=== PATIENT | male | born 1945 ===

== ENCOUNTER 2022-05-05 20:49 | Emergency (ER) | payer MEDICARE, SELFPAY ==
[2022-05-05 20:59] VITALS: BP 149/86; PULSE 80; RESP 18; TEMP 36.7; O2SAT 100; BMI 28.5
--- NOTE | 2022-05-05 21:03 | ECG_ITS ---
Test Reason : CHEST PAIN Blood Pressure : / mmHG Vent. 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
[2022-05-05 21:19] LABS: MANUAL DIFF FLAG NO
[2022-05-05 21:20] LABS: Basophils Percent Auto 0.6 % (0-2); Eosinophils Absolute Auto 0.2 X10*3/uL (0.0-0.4); Eosinophils Percent Auto 2.7 % (0-4); Hematocrit 37.4 % (42.0-52.0); Hemoglobin 12.8 g/dl (14.0-18.0); Imm Gran Abs Auto 0.02 X10*3/uL (0.00-0.03); Imm Gran Pct Auto 0.3 % (0.0-0.4); Lymphocytes Absolute Auto 1.4 X10*3/uL (1.2-4.9); Lymphocytes Percent Auto 21.9 % (20-40); Mean Corpuscular HGB Conc 34.2 g/dl (31.0-36.0); Mean Corpuscular Hemoglobin 29.7 pg (27.0-33.0); Mean Corpuscular Volume 86.8 fL (80.0-98.0); Mean Platelet Volume 8.2 fL (9.4-12.4); Monocytes Absolute Auto 0.5 X10*3/uL (0.1-1.2); Neutrophils Absolute Auto 4.2 x10*3/uL (2.0-8.3); Neutrophils Percent Auto 66.5 % (45-73); Platelet Count 194 X10*3/uL (160-400); Red Blood Count 4.31 X10*6/uL (4.60-5.80); Red Cell Distribution Width 12.3 % (11.0-16.0); White Blood Count 6.3 X10*3/uL (4.8-10.8)
[2022-05-05 21:40] LABS: Alanine Aminotransferase 19 U/L (0-40); Albumin Level 4.2 g/dL (3.5-5.0); Alkaline Phosphatase 78 U/L (39-117); Anion Gap 14 (12-20); Aspartate Amino Transferase 19 U/L (5-37); Bilirubin Total 0.6 mg/dL (0.0-1.0); Blood Urea Nitrogen 17 mg/dL (9-16); Calcium 9.4 mg/dL (8.4-10.2); Carbon Dioxide 25 mmol/L (22-29); Chloride 106 mmol/L (96-108); Creatinine Clr Calc Pharmacy 91.3; Estimated Glomerular Filt Rate > 60; Glucose Random 117 mg/dL (60-115); Potassium 4.1 mmol/L (3.3-5.1); Sodium 141 mmol/L (135-145); Total Protein 6.6 g/dL (6.5-8.0)
[2022-05-05 21:44] LABS: Troponin-I High Sensitivity 3.5 ng/L (<3.5-35.0)
--- NOTE | 2022-05-05 23:46 | ED_ITS ---
HPI - Arrhythmia/Palpitations General Chief Complaint: Arrhythmia/Palpitations Stated Complaint: irregular heartbeat Time Seen by Provider: 05/05/22 23:46 Source: patient Mode of arrival: ambulatory Limitations: no limitations History of Present Illness HPI narrative: . History of hypertension and episodes of palpitation off and on for long time never been evaluated by the methane gas collection system operator usually it happens and goes away of its own today patient since morning having episodes of palpitations not going away no dizziness no chest pain no shortness of breath with those episodes no fever no chills Related Data Allergies Allergy/AdvReac Type Severity Reaction Status Date / Time nifedipine [From PROCARDIA] Allergy Unknown UNKNOWN Unverified 04/06/20 14:34 Review of Systems Review of Systems: Yes all other systems are reviewed and are negative [facility] Social History Social History Advance Directives: Yes Advance Directives Information Provided: No Advance Directives on File: No Physical Exam Vital Signs: Vital Signs: Last Vital Signs Temp 98.0 F 05/05/22 20:59 Pulse 78 05/06/22 00:00 Resp 19 05/06/22 00:00 BP 164/89 H 05/06/22 00:00 Pulse Ox 98 05/06/22 00:00 O2 Del Method 05/06/22 00:00 BMI result Body Mass Index 28.5 Appearance: Alert. Oriented X3. No acute distress. Eyes: PERRLA, No Nystagmus ENT: Pharynx normal. Oral Mucosa moist Neck: Normal inspection. Neck supple. CVS: Normal heart rate and rhythm. Premature beats+ Pulses normal. Respiratory: No respiratory distress. Equal air entry bilateral, no wheezing/rales/rhonchi Abdomen: Soft and nontender. Bowel sounds are present, no mass palpable, no CVA tenderness Skin: Skin warm and dry. Normal skin color. Normal skin turgor. Extremities: No lower extremity edema. No calf tenderness Neuro: Oriented X 3. No motor deficit. No sensory deficit. MDM - Arrhythmia/Palpitations MDM Narrative Medical decision making narrative: During stay in the ER patient nuclear monitoring technician showed unifocal PVCs which have decreased after arrival repeat EKG did not show any PVCs patient does not have any methane gas collection system operator advised to follow with methane gas collection system operator here to have Holter monitoring Lab Data Attestation: I reviewed the patient's lab results. Result diagrams: 05/05/22 21:13 05/05/22 21:13 Labs: Lab Results 05/05/22 05/05/22 05/05/22 Range/Units 21:13 21:13 21:13 WBC 6.3 (4.8-10.8) X10*3/uL RBC 4.31 L (4.60-5.80) X10*6/uL Hgb 12.8 L (14.0-18.0) g/dl Hct 37.4 L (42.0-52.0) % MCV 86.8 (80.0-98.0) fL MCH 29.7 (27.0-33.0) pg MCHC 34.2 (31.0-36.0) g/dl RDW 12.3 (11.0-16.0) % Plt Count 194 (160-400) X10*3/uL MPV 8.2 L (9.4-12.4) fL Immature Gran % (Auto) 0.3 (0.0-0.4) % Neut % (Auto) 66.5 (45-73) % Lymph % (Auto) 21.9 (20-40) % Pacific % (Auto) 8.0 (2-11) % Eos % (Auto) 2.7 (0-4) % Baso % (Auto) 0.6 (0-2) % Lymph # (Auto) 1.4 (1.2-4.9) X10*3/uL Pacific # (Auto) 0.5 (0.1-1.2) X10*3/uL Eos # (Auto) 0.2 (0.0-0.4) X10*3/uL Baso # (Auto) 0.0 (0.0-0.2) X10*3/uL Abs Immat Gran (auto) 0.02 (0.00-0.03) X10*3/uL Absolute Neuts (auto) 4.2 (2.0-8.3) x10*3/uL Absolute Nucleated RBC 0.000 (0.0-0.012) X10*3/uL Nucleated RBC % (auto) 0.0 (0.0-0.2) /100WBC Sodium 141 (135-145) mmol/L Potassium 4.1 (3.3-5.1) mmol/L Chloride 106 (96-108) mmol/L Carbon Dioxide 25 (22-29) mmol/L Anion Gap 14 (12-20) BUN 17 H (9-16) mg/dL Creatinine 0.85 (0.5-1.4) mg/dL Estim Creat Clear Calc 91.3 Estimated GFR > 60 Random Glucose 117 H (60-115) mg/dL Calcium 9.4 (8.4-10.2) mg/dL Magnesium 2.0 (1.6-2.6) mg/dL Total Bilirubin 0.6 (0.0-1.0) mg/dL AST 19 (5-37) U/L ALT 19 (0-40) U/L Alkaline Phosphatase 78 (39-117) U/L Troponin I High Sens 3.5 (<3.5-35.0) ng/L Total Protein 6.6 (6.5-8.0) g/dL Albumin 4.2 (3.5-5.0) g/dL ECG Data Attestation: I personally reviewed and interpreted this ECG as follows: Interpretation: Sinus rhythm heart rate 88 beats per minutes PAC's +, unifocal PVCs are present no acute ischemic change Discharge Plan Discharge Clinical Impression: Ventricular premature beats Patient Disposition: Home, Self-Care Instructions: Premature Ventricular Contractions (ED) Additional Instructions: Follow-up with methane gas collection system operator for further evaluation so far in the monitor looks like you have premature beats which causing a palpitation episode Referrals: Bar Merchant MD [Physician] - 3 days Interventions: ED Discharge Assessment Last Done: 05/06/22 01:23 Discharge Date/Time: 05/06/22 01:24
--- NOTE | 2022-05-05 23:48 | ECG_ITS ---
Test Reason : REPEAT Blood Pressure : / mmHG Vent. 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
[2022-05-06] VITALS: BP 164/89; PULSE 78; RESP 19; O2SAT 98
--- OUTSIDE RECORDS SUMMARY | 2022-05-06 00:03 | XMS_ITS ---
:1945 Author Name Denys Snow Care Team Providers Name Role Phone Denys Snow Unavailable Unavailable PROBLEMS Type Condition ICD9-CM Code [id number] Onset Condition SNOMED Code Code Dates Status Problem Other hammer M20.42 Active 8511227 [id number] toe(s) (acquired), left foot Problem Other hammer M20.41 Active 4123278 [id number] toe(s) (acquired), right foot ALLERGIES Substance Reaction Event Type Date Status Procardia rash Drug Allergy Dec, Active Amoxicillin Unknown Drug Allergy Dec, Active Zestril Unknown Drug Allergy Dec, Active ENCOUNTERS Encounter Location Date Diagnosis [address] Dec, Oth er hammer toe(s) [place] (acquired), [place] foot [address] M20.41 ; Subungu al hematoma of fift h toe of right foot, i nitial encounter S90.22 1A ; Other hammer toe (s) (acquired), left foot M20.42 ; Subungu al hematoma of grea t toe of right foot, i nitial encounter S90.21 1A ; Subungual hemato ma of second toe of le ft foot, initial en counter S90.222A and Sub ungual hematoma of seco nd toe of right foot, i nitial encounter S90.[address] Mar, [place] [address] Jan, [place] [address] [facility] [address] Jan, Phi ntar Fasciitis [place] 728.71 ; Myosit is 729.1 [address] ; Pain in Limb 7 29.5 ; Bursitis 727.3 ; Achilles Tendoni tis Bursitis 726.71 and Calcaneal spur 7 26.73 IMMUNIZATIONS Vaccine Route Administration Date Status COVID-19 Moderna Vaccine Unknown Aug 30, 2020 Adminis tered SOCIAL HISTORY Qualifiers Date Former Smoker REASON FOR REFERRAL FUNCTIONAL STATUS PLAN OF CARE Activity Details Pending Test X ray : Foot, left 3V VITAL SIGNS Height 6 ft 0 in in 2021-01-29 Weight 206 lbs 2021-01-29 BMI 27.94 kg/m2 2021-01-29 Heart Rate 70 /min 2013-02-16 Blood pressure systolic 116 mm Hg 2021-01-01 Blood pressure diastolic 68 mm Hg 2021-01-01 MEDICATIONS Medication Instructions Dosage Frequency Start End Duration Statu s Date Date Benicar 20 MG as directed Unknow n Losartan Orally Once a 1 tablet 24h 30 day(s) Active Potassium 50 MG day Fish Oil 1200 Orally Once a 1 capsule 24h 30 day(s) Unknown MG day Fioricet Orally every 4 1 tablet as 4h Acti ve 50-325-40 MG hrs needed Diclofenac as directed Not-Takin Sodium 1 % g Zolpidem Orally Once a 1 tablet at 24h Unkno wn Tartrate 10 MG day bedtime as needed Fioricet Orally every 4 1 tablet as 4h Unkn own 50-325-40 MG hrs needed Atorvastatin Orally Once a 1 tablet 24h 30 day(s) Ac tive Calcium 40 MG day Protonix 40 MG Orally Once a 1 tablet 24h 30 day(s) Active day Atorvastatin Active Calcium Diclofenac as directed Unknown Sodium 1 % Protonix 40 MG Orally Once a 1 tablet 24h 30 day(s) Unknown day Flomax Active Simvastatin 20 Orally Once a 1 tablet in 24h 30 day( s) Not-Takin MG day the evening g Fish Oil 1200 Orally Once a 1 capsule 24h 30 day(s) Not-Takin MG day g Benicar 20 MG as directed Not-Ta kin g Zolpidem Orally Once a 1 tablet at 24h Not-T pilar Tartrate 10 MG day bedtime as g needed Flomax 0.4 MG Orally Once a 1 capsule 24h 30 day(s) Active day Aspirin 81 MG Orally Once a 1 tablet 24h 30 day(s) U nknown day Aspirin 81 MG Orally Once a 1 tablet 24h 30 day(s) N ot-Takin day g Simvastatin 20 Orally Once a 1 tablet in 24h 30 day( s) Unknown MG day the evening Losartan Active Potassium Pantoprazole Orally Once a 1 tablet 24h 30 day(s) Ac tive Sodium 40 MG day PROCEDURES Procedure Date Ordered Result Body Site X-RAY EXAM OF LEFT FOOT 3V February 16, 2013 RESULTS No Results REASON FOR VISIT Insurance Providers [facility] Member Patient Patient Patient Patient Patient Subscriber Subscriber Subscriber Group Insurance Plan Plan Plan Plan ID Relationship Address Phone Name Date of ID Name Date of No Type Insurance Insurance Insurance Coverage to Subscriber Address Phone Name Dates [facility] [phone] [employer] self [place] [id number] All Others [id number] All Others [place] [address] [facility] [place] [address] Medex Blue [phone] Medex Blue self [place] [id number] Shield [id number] Shield [place] [address] [facility] [place] [address] Medicare National [phone] [place] self [place] [id number] [facility] [address] [employer] [address] [facility] [place] [address] MEDICAL (GENERAL) HISTORY Type Description Date Medical History hypertension Medical History hyperlipidemia Medical History gastroesophageal reflux disease (GERD) Medical History migraine headaches Medical History insomnia Medical History gall bladder problems Medical History plantar fasciitis Medical History Arthritis Medical History Measles Medical History Mumps Medical History Chicken pox Surgical History neck surgery 1998 Surgical History cholecystectomy 1988
--- OUTSIDE RECORDS SUMMARY | 2022-05-06 00:03 | XMS_ITS | Continuity of Care Document ---
:1945 Author Organization [facility] Address [address] [place] [address]- Care Team Providers Name Role Phone Denys Snow MD Primary Care Physician Encounter [facility] Date(s): 03/12/22 - 04/11/[address] [address]- Attending Physician: Carly Farias Admitting Physician: AdmtrCarly Referring Physician: AdmtrCarly Allergies, Adverse Reactions, Alerts Substance Reaction Severity Status amoxicillin Active Procardia Active Medications acetaminophen 325 mg oral tablet 650 mg, 2, tablet, By Mouth, Every 6 hours, May take OTC not to exceed 3000 mg/day, Refills 0, Maintenance, 03/27/22 11:43:00 EDT, Partial fill upon patient request if the prescription is for a schedule II opioid drug. Start Date: 03/27/22 Status: Orderedacetaminophen/butalbital/caffeine 325 mg-50 mg-40 mg oral tablet TAKE 1 TABLET BY MOUTH EVERY 6 HOURS NEEDED FOR PAIN NOT COVERED Start Date: 03/05/22 Status: OrderedAspirin Tablet 325 mg, By Mouth, 2 times a day, Refills 0, Maintenance, 03/27/22 11:43:00 EDT, Partial fill upon patient request if the prescription is for a schedule II opioid drug. Start Date: 03/27/22 Status: Orderedatorvastatin 40 mg oral tablet 1 tablet = 40 mg, By Mouth, Daily, # 30 tablet, 5 Refills, Maintenance, 03/05/22 9:20:00 EDT, Tablet, Partial fill upon patient request if the prescription is for a schedule II opioid drug. Start Date: 03/05/22 Status: Orderedcelecoxib 200 mg oral capsule 1 capsule = 200 mg, By Mouth, Daily in AM, 0 Refills, Maintenance, 03/27/22 11:43:00 EDT, Capsule, Partial fill upon patient request if the prescription is for a schedule II opioid drug. Start Date: 03/27/22 Status: OrderedColace Capsule 100 mg, 1, capsule, By Mouth, 2 times a day, HOld for loose stools, Refills 0, Maintenance, 03/27/2211:43:00 EDT, Partial fill upon patient request if the prescription is for a schedule II opioid drug. Start Date: 03/27/22 Status: Orderedlosartan 50 mg oral tablet 1 tablet = 50 mg, By Mouth, Daily, # 30 tablet, 0 Refills, Maintenance, 03/05/22 9:20:00 EDT, Tablet, Partial fill upon patient request if the prescription is for a schedule II opioid drug. Start Date: 03/05/22 Status: OrderedMaalox Plus Liquid 30 mL, By Mouth, Every 4 hours, PRN Other, Heartburn, 0 Refills, Maintenance, 03/27/22 11:43:00 EDT,Suspension, Partial fill upon patient request if the prescription is for a schedule II opioid drug. Start Date: 03/27/22 Status: OrderedMilk of Magnesia Liquid 30 mL, By Mouth, Daily, PRN Constipation, 0 Refills, Maintenance, 03/27/22 11:43:00 EDT, Suspension,Partial fill upon patient request if the prescription is for a schedule II opioid drug. Start Date: 03/27/22 Status: OrderedMiraLax Powder 1 pack/packet = 17 Gm, By Mouth, Daily, PRN Constipation, 0 Refills, Maintenance, 03/27/22 11:44:00 EDT, Powder, Partial fill upon patient request if the prescription is for a schedule II opioid drug. Start Date: 03/27/22 Status: Orderedpantoprazole 40 mg oral delayed release tablet 1 tablet = 40 mg, By Mouth, Daily, # 30 tablet, 0 Refills, Maintenance, 03/05/22 9:20:00 EDT, EC Tablet Start Date: 03/05/22 Status: Orderedsenna 187 mg oral tablet 1 tablet = 8.6 mg, By Mouth, Daily at bedtime, PRN as needed for constipation, 0 Refills, Maintenance, 03/27/22 11:44:00 EDT, Tablet, Partial fill upon patient request if the prescription is for a schedule II opioid drug. Start Date: 03/27/22 Status: Orderedtamsulosin 0.4 mg oral capsule 0.4 mg, 1, capsule, By Mouth, Daily, # 30 capsule, Refills 0, Maintenance, 03/05/22 9:20:00 EDT, Partial fill upon patient request if the prescription is for a schedule II opioid drug. Start Date: 03/05/22 Status: Ordered Problem List Condition Effective Dates Status Health Status Informant Hypertension(Confirmed) Active Benign prostatic Active hyperplasia(Confirmed) Acid reflux disease(Confirmed) Active Hyperlipidemia(Confirmed) Active Migraine(Confirmed) Active Obese class I(Confirmed) Active Social History Social History Type Response Tobacco Other: Former smoker, quit i n the . Sex Care Team PersonnelName: Denys Snow MD Address: [address] [place] [address] [address]
--- OUTSIDE RECORDS SUMMARY | 2022-05-06 00:03 | XMS_ITS | Continuity of Care Document ---
:1945 Author Organization [facility] Address [address] [place] [address]- Care Team Providers Name Role Phone Denys Snow MD Primary Care Physician Encounter [facility] [place] Date(s): 03/27/22 - 03/28/[address] [address] Discharge Disposition: A-Transfer VNA/Home Health Attending Physician: Geovanny Barber MD Admitting Physician: Geovanny Barber MD Referring Physician: Geovanny Barber MD Allergies, Adverse Reactions, Alerts Substance Reaction Severity [...] II opioid drug. Start Date: 03/27/22 Status: OrderedoxyCODONE 5 mg oral tablet See Instructions, PRN, Take 1-2 tablets every 4 hours as needed for moderate to severe pain., # 60 tablet, Refills 0, Tot. Refills 0, Acute 04/03/22 8:00:00 EDT, Pain , Moderate, 03/27/22 11:40:00 EDT,Instructions Replace Required Details, Route to P... Start Date: 03/27/22 Stop Date: 04/03/22 Status: OrderedOxyCODONE IR Tablet 5 mg, Tablet, By Mouth, Every 4 hours, PRN for Pain , Mild, Routine, 03/27/22 11:27:00 EDT Start Date: 03/27/22 Stop Date: 03/28/22 Status: Discontinuedpantoprazole 40 mg oral delayed release tablet 1 [...] II opioid drug. Start Date: 03/05/22 Status: OrderedtraMADol 50 mg oral tablet See Instructions, PRN Pain , Mild, Take 1-2 tablets every 6 hours as needed for mild pain. not to exceed 400 mg/day, # 56 tablet, 0 Refills, Acute 04/03/22 8:00:00 EDT, 03/27/22 11:39:00 EDT, Tablet, [facility], Partial fill upon patie... Start Date: 03/27/22 Stop Date: 04/03/22 Status: Ordered Problem List Condition Effective Dates Status Health Status Informant Hypertension(Confirmed) Active Benign prostatic Active hyperplasia(Confirmed) Acid reflux disease(Confirmed) Active Hyperlipidemia(Confirmed) Active Migraine(Confirmed) Active Obese class I(Confirmed) Active Results Radiology Reports Exam Date Time Procedure Performing Provider Status 03/27/22 2:34 PM Knee 1 or 2 Views Left Thelma Hanna; Bonifacio (Verified) Notes:(Knee 1 or 2 Views Left) Reason For Exam: PostopRESULT: Knee 1 or 2 Views Left Knee 1 or 2 Views Left, 2 views Reason: Postop; Clinical Question(s): Other:; Implant Position; Special Instructions: Do prior to daystay discharge, No flexed knee in the lateral position. Keep leg straight; 2 Views COMPARISON: None. FINDINGS: Soft tissue gas is expected status post total knee arthroplasty. No evidence of hardware complication or periprosthetic fracture. IMPRESSION: Expected postoperative findings status post total knee arthroplasty WSN: [id number] Ordering Physician: Kriss Kuo Dictated By: Zeeshan Bone MD Dictated Date/Time: 03/27/22 2:43 pm Reviewed By: Zeeshan Bone MD Signed By: Zeeshan Bone MD Signed Date/Time: 03/27/22 2:43 pm Transcribed By: DENISE Transcribed Date/Time: 03/27/22 2:42 pm Vital Signs Most recent to oldest 1 2 3 [Reference Range]: Height 180 cm 180 cm 180 cm (03/28/22 10:46 AM) (03/28/22 7:26 AM) (03/28/22 4:31 AM) Weight 99.2 kg 99.2 kg 99.2 kg (03/27/22 8:03 AM) (03/27/22 6:29 AM) (03/27/22 6:12 A M) Oxygen Saturation [94-100 %] 98 % 98 % 100 % (03/28/22 10:46 AM) (03/28/22 7:26 AM) (03/28/22 4:31 AM) Pulse Rate [55-90 bpm] 78 bpm 72 bpm 72 bpm (03/28/22 10:46 AM) (03/28/22 7:26 AM) (03/28/22 4:31 AM) Body Mass Index [18.5-24.99] 30.62 30.62 *>HHI* *>HHI* (03/27/22 8:03 AM) (03/27/22 6:29 AM) Blood Pressure [90-138/55-84 mm 133/77 mm Hg 158/76 mm Hg 118/67 mm Hg Hg] (03/28/22 10:46 AM) *H* (03/28/22 4:31 A M) (03/28/22 7:26 AM) Respiratory Rate [16-30 br/min] 18 br/min 16 br/min 18 br/min (03/28/22 11:18 AM) (03/28/22 10:46 AM) (03/28/22 10:1 8 AM) Temperature [96.8-100.4 DegF] 97.9 DegF 97.8 DegF 98 .3 DegF (03/28/22 10:46 AM) (03/28/22 7:26 AM) (03/28/22 4:31 AM) Mode of Delivery (Oxygen) Room air Room air Room a ir (03/28/22 10:46 AM) (03/28/22 7:26 AM) (03/28/22 4:31 AM) Blood pressure sites Arm, right Arm, right Arm, right (03/28/22 10:46 AM) (03/28/22 7:26 AM) (03/28/22 4:31 AM) Temperature Route Oral Oral Oral (03/28/22 10:46 AM) (03/28/22 7:26 AM) (03/28/22 4:31 AM) Dry Weight 99.2 kg (03/27/22 6:29 AM) Social History Social History Type Response Tobacco Other: Former smoker, quit i n the . Sex XR Knee - left 1 or 2 Views BHSPowerscribe , CIS S: TRANSCRIBE Zeeshan Bone MD: VERIFY Event Display: Result: Authored Date: Knee 1 or 2 Views Left, 2 views Reason: Postop; Clinical Question(s): Other:; Implant Position; Special Instructions: Do prior to daystay discharge, No flexed knee in the lateral position. Keep leg straight; 2 Views COMPARISON: None. FINDINGS: Soft tissue gas is expected status post total knee arthroplasty. No evidence of hardware complication or periprosthetic fracture. IMPRESSION: Expected postoperative findings status post total knee arthroplasty WSN: [id number] Ordering Physician: Kriss Kuo Dictated By: Zeeshan Bone MD Dictated Date/Time: 03/27/22 2:43 pm Reviewed By: Zeeshan Bone MD Signed By: Zeeshan Bone MD Signed Date/Time: 03/27/22 2:43 pm Transcribed By: DENISE Transcribed Date/Time: 03/27/22 2:42 pm Care Team PersonnelName: Denys Snow MD Address: [address] [place] [address] Internal Medicine [facility] [place] [address]
--- OUTSIDE RECORDS SUMMARY | 2022-05-06 00:03 | XMS_ITS | Continuity of Care Document ---
:1945 Author Organization [facility] Address [address] [place] [address]- Care Team Providers Name Role Phone Denys Snow MD Primary Care Physician Encounter [facility] ACCT R [id number] Date(s): 03/05/22 - 04/04/22 [facility] [address] [place] [address] Attending Physician: Carly Farias Admitting Physician: AdmtrCarly Referring Physician: Admtr, Carly Allergies, Adverse Reactions, Alerts Substance Reaction Severity [...] Care Team PersonnelName: Denys Snow MD Address: [address] [place] [address] Internal Medicine [address]
--- OUTSIDE RECORDS SUMMARY | 2022-05-06 00:03 | XMS_ITS ---
:1945 Author Organization [facility] Address [address] [place] [address] Care Team Providers Name Role Phone Jose Mccullough Unavailable Unavailable PROBLEMS Type Condition ICD9-CM Code [id number] Code Onset Condition SNO MED Code Dates Status Problem Esophageal 530.81 Active 367365532 reflux Problem Blood in stool 578.1 Active 38085 9008 ALLERGIES Substance Reaction Event Type Date Status Procardia Unknown Drug Allergy Jul, Active ENCOUNTERS Encounter Location Date Diagnosis [facility] Outpatient [address] Oct, [place] [id number] [facility] [address] [place] [address], [facility] [place] [address], [place]od in stool 578.1 and [facility] [address] [place] Esophageal reflu x 530.[address] [address] [facility] Outpatient [address] Apr, [place] [id number] [facility] ER [address] November, [place] [id number] [facility] Outpatient [address] Dec, [place] [id number] [facility] ER [address] Jul, [place] [id number] IMMUNIZATIONS No Known Immunizations SOCIAL HISTORY Never Assessed REASON FOR REFERRAL FUNCTIONAL STATUS PLAN OF CARE Activity Details Future Appointment Provider Name:Joes Mccullough , 2022-06-04 10:10:00 AM, [address] [place] [address], [address], [place], [address], Future/Pending Procedure COLONOSCOPY [id number] VITAL SIGNS Weight 239 lbs 2011-07-16 Height 71.5 in 2011-07-16 BMI 32.87 kg/m2 2011-07-16 Heart Rate 72 /min 2011-07-16 Blood pressure systolic 126 mm Hg 2011-07-16 Blood pressure diastolic 90 mm Hg 2011-07-16 MEDICATIONS Medication Instructions Dosage Frequency Start End Duration Statu s Date Date Simvastatin Active Protonix Active Aspirin Active Benicar Active MoviPrep 100 GM Orally one time as directed Jun, do se Active 2010 PROCEDURES No Known procedures RESULTS No Results REASON FOR VISIT Patient presents today for a SCREENING COLON, preauthorization for Colonoscopy, colon prep, rectal bleed, pre-colon Insurance Providers [facility] Member Patient Patient Patient Patient Patient Subscriber Subscriber Subscriber Group Insurance Plan Plan Plan Plan ID Relationship Address Phone Name Date of ID Name Date of No Type Insurance Insurance Insurance Coverage to Subscriber Address Phone Name Dates MEDEX ATTN [phone] MEDEX self CAR [id number] CLAIMS [address] [place] [address] [facility] [address] BLUE [phone] BLUE self CAR [id number] [place] [id number] [address] [place] [address] [place] [address] [facility] H [id number] MEDICARE [phone] MEDICARE self CAR [id number] [place] [address] [place] [address]
--- OUTSIDE RECORDS SUMMARY | 2022-05-06 00:04 | XMS_ITS | Encounter Summary ---
:1945 Author Organization [facility] Address [address] [place] [address] Support Name Relationship Address Phone OLIVIA FUENTES Unavailable [address] [place] [address] OLIVIA FUENTES Unavailable [address] [place] [address] Insurance Providers: All historical and current Section Date Range: From patient's date of to the date document was created.This section includes the names of all active insurance providers for the patient. Insurance Type of Plan Start of End of Group Member Insurance Policy P atient's Provider Coverage Name Policy Policy Number ID Provider's Ha's Relationship Coverage Coverage Telephone Name to Policy Number Ha [facility] MEDIC[facility] MEDEX Jul 21 [id number] [phone] [facility] SUPPLEMEN 2 2017 [id number] CAR Wyatt [facility] MEDICARE MEDEX Jul 21, [id number] [phone] DANTE [facility] PATIENT SUPPLEMEN 2 2017 [id number] CAR Wyatt MEDICARE MEDICARE PART Sep 18, PART B [id number] DANTE [facility] PATIENT (WNR) (M) B 2014 AG02 CAR Wyatt MEDICARE MEDICARE PART Jun 20, PART A [id number] DANTE [facility] PATIENT (WNR) (M) A 2011 AG02 CAR Wyatt Selected Encounter This section includes the information on record at [place] for the Encounter. Date/Time Encounter Type Encounter Description Reason Provider Source May 17, 2021 12:00 Outpatient Encounter EVENT (HISTORICAL) AM IHE Encounter Template Text not used by VA Plan of Treatment: Future Appointments (+ 6 months) and Future Tests (+/- 45 days) The Plan of Treatment section includes future care activities for the patient from all [facility]. This section includes future appointments and future orders which are active, pending orscheduled.Future Appointments This section includes appointments that were scheduled to occur 6 months from the date of the Encounter, up to a maximum of 20 appointments. The data comes from all [place] treatment facilities. Appointment Date/Time Appointment Type Appointment Facili ty Name Jun 27, 2021 08:00 AM AMBULATORY - MEDICINE [facility] Immunizations: All administered on the encounter date This section contains immunizations associated to the Encounter. Immunization Series Date Issued Reaction Comments COVID-19 (MODERNA), MRNA, LNP-S, PF, 100 MCG OR 3 Apr 50 MCG DOSE Advance Directives: All historical and current Section Date Range: From patient's date of to the date document was created. This section includes ALL of a patient's completed or amended [place] Advance and Rescinded Directives. The entries below indicate that a directive exists for the patient, but an actual copy is not included with this document. The data comes from all [place] facilities. Date Advance Directives Provider Source Dec 20, 2013 ADVANCE DIRECTIVE MARTIN FITCH [facility]
--- OUTSIDE RECORDS SUMMARY | 2022-05-06 00:04 | XMS_ITS | Encounter Summary ---
:1945 Author Organization [facility] Address [address] [place] [address] Support Name Relationship Address Phone OLIVIA FUENTES Unavailable [address] [place] [address] OLIVIA FUENTES Unavailable [address] [place] [address] Insurance Providers: All historical and current Section Date Range: From patient's date of to the date document was created.This section includes the names of all active insurance providers for the patient. Insurance Type of Plan Start of End of Group Member Insurance Policy P atient's Provider Coverage Name Policy Policy Number ID Provider's Ha's Relationship Coverage Coverage Telephone Name to Policy Number Ha [facility] MEDICARE MEDEX Jul 21 [id number] [phone] [facility] SUPPLEMEN 2 2017 [id number] CAR Wyatt [facility] MEDICARE MEDEX Jul 21, [id number] [phone] DANTE [facility] PATIENT SUPPLEMEN 2 2017 [id number] CAR Wyatt MEDICARE MEDICARE PART Sep 18, PART B [id number] D[facility]TE [facility] PATIENT (WNR) (M) B 2014 AG02 CAR Wyatt MEDICARE MEDICARE PART Jun 20, PART A [id number] DANTE [facility] PATIENT (WNR) (M) A 2011 AG02 Edmundo CAR Selected Encounter This section includes the information on record at [place] for the Encounter. Date/Time Encounter Type Encounter Description Reason Provider Source Jun 27, 2021 09:14 Outpatient Encounter OPTOMETRY AM IHE Encounter Template Text not used by VA Social History: Smoking Status (Most current) and Tobacco Use (All prior to encounter date) This section includes the most current, and the historical, smoking and tobacco-related health factors from the [place] facility where the Encounter took place.Current Smoking Status This section includes the most current smoking, or tobacco-related health factor, from the [place] facility where the Encounter took place. Date/Time Current Smoking Status Comment Facility May 17, 2021 09:30 AM VA-TOBACCO FORMER USER [place] [facility] [place] [facility] Tobacco Use History This section includes a history of the smoking, or tobacco- related health factors, that were collected on or before the date of the Encounter. The data comes from the [place] facility where the Encounter took place. Date/Time Smoking Status/Tobacco Use Comment Facil it May 17, 2021 09:30 AM VA-TOBACCO QUIT 15 YRS OR [place] [facility] [place] [facility] May 17, 2020 10:30 AM VA-TOBACCO FORMER USER [place] [facility] [place] [facility] May 17, 2020 10:30 AM VA-TOBACCO QUIT 15 YRS OR [place] [facility] [place] [facility] Jan 07, 2019 10:34 AM VA-TOBACCO FORMER USER [place] [facility] [place] [facility] Jan 07, 2019 10:34 AM VA-TOBACCO QUIT 15 YRS OR [place] [facility] [facility] Advance Directives: All historical and current Section Date Range: From patient's date of to the date document was created. This section includes ALL of a patient's completed or amended [place] Advance and Rescinded Directives. The entries below indicate that a directive exists for the patient, but an actual copy is not included with this document. The data comes from all [place] facilities. Date Advance Directives Provider Source Dec 20, 2013 ADVANCE DIRECTIVE MARTIN FITCH [place] [facility] [place] [facility] Encounter Notes: All associated encounter notes This section contains the clinical notes associated to the Encounter. Date/Time Encounter Note(s) Provider Source Jun 27, 2021 09:14 AM OPTOMETRY NOTE: JA ALCAZAR [place] [facility] LOCAL TITLE: [facility] STANDARD TITLE: OPTOMETRY NOTE DATE OF NOTE: JUN 27, 2021@09:14 ENTRY DATE: JUN 27, 2021@09:14:43 AUTHOR: JA ALCAZAR EXP COSIGNER: URGENCY: STATUS: COMPLETED CAR FUENTES 0629 RX INFORMATION OD +2.75 -1.25 X95 Add:+2.25 Pzm:0.00 Dir: Prz2: 0.00 Dir2: OS +2.50 -1.00 X75 Add:+2.25 Pzm:0.00 Dir: Prz2: 0.00 Dir2: FITTING INFORMATION FPD: NPD:-3 Benton:R:31.5 L:33.5 SEG HT:R:25 L:25 Tint:None Shade:None VA Billable Items FRAME: FX3 GUNMETAL [id number] Right Lens: PLASTIC VA PROGRESSIVE 1.498 PLASTIC CR39 Left Lens: PLASTIC VA PROGRESSIVE 1.498 PLASTIC CR39 KLEAR ANTI-REFLECTIVE COATING CAR FUENTES 0629 RX INFORMATION OD +2.75 -1.25 X95 Add:+2.25 Pzm:0.00 Dir: Prz2: 0.00 Dir2: OS +2.50 -1.00 X75 Add:+2.25 Pzm:0.00 Dir: Prz2: 0.00 Dir2: FITTING INFORMATION FPD: NPD:-3 Benton:R:31.5 L:33.5 SEG HT:R:30 L:30 Tint:NIETO Shade:3 VA Billable Items FRAME: FX10 GUNMETAL [id number] Right Lens: PLASTIC VA PROGRESSIVE 1.498 PLASTIC CR39 Left Lens: PLASTIC VA PROGRESSIVE 1.498 PLASTIC CR39 UV400 SOLID TINT /es/ JA ALCAZAR BUILDING INSULATION SUPERVISOR Signed: 06/27/2021 09:15 Receipt Acknowledged By: 06/27/2021 09:17 /es/ [facility] 06/27/2021 09:19 /es/ Kacey Webber Optometry Health Actuarial Mathematician
--- OUTSIDE RECORDS SUMMARY | 2022-05-06 00:04 | XMS_ITS ---
:1945 Author Organization [facility] Address [address] [place] [address] Support Name Relationship Address Phone OLIVIA FUENTES Unavailable [address] [place] [phone] OLIVIA FUENTES Unavailable [address] [place] [address] Insurance Providers: All historical and current Section Date Range: From patient's date of to the date document was created.This section includes the names of all active insurance providers for the patient. Insurance Type of Plan Start of End of Group Member Insurance Policy P atient's Provider Coverage Name Policy Policy Number ID Provider's Ha's Relationship Coverage Coverage Telephone Name to Policy Number Ha [facility] MEDICARE MEDEX Jul 21 [id number] [phone] [facility] SUPPLEMEN 2 [id number] CAR Wyatt [facility] MEDICARE MEDEX Jul 21, [id number] [phone] DANTE [facility] PATIENT SUPPLEMEN 2 2017 [id number] CAR Wyatt MEDICARE MEDICARE PART Sep 18, PART B [id number] DANTE [facility] PATIENT (WNR) (M) B 2014 AG02 CAR Wyatt MEDICARE MEDICARE PART Jun 20, PART A [id number] DANTE [facility] PATIENT (WNR) (M) A 2011 AG02 CAR Wyatt Selected Encounter This section includes the information on record at [place] for the Encounter. Date/Time Encounter Type Encounter Reason Provider Source Description May 17, 2021 OFFICE O/P EST PRIMARY ICD-10-CM I10 SMITA FRANKLIN 09:30 AM LOW 20-29 MIN CARE/MEDICINE Essential ESSENCE F (primary) hypertension with Provider Comments: Essential hypertension (SCT [id number]) IHE Encounter Template Text not used by [place] Assessments - Encounter Diagnoses This section includes the primary and secondary diagnoses documented for the Encounter. Date/Time Primary/Secondary Diagnosis Name Provider Source Diagnosis May 17, 2021 PRIMARY Essential SMITA FRANKLIN [facility] 10:04 AM (primary) [facility] May 17, 2021 SECONDARY Presbyopia [facility]04 AM ESSENCE Reddy [facility] Plan of Treatment: Future Appointments (+ 6 months) and Future Tests (+/- 45 days) The Plan of Treatment section includes future care activities for the patient from all [place] treatmentfacilities. This section includes future appointments and future orders which are active, pending orscheduled.Future Appointments This section includes appointments that were scheduled to occur 6 months from the date of the Encounter, up to a maximum of 20 appointments. The data comes from all [place] treatment facilities. Appointment Date/Time Appointment Type Appointment Facili ty Name Jun 27, 2021 08:00 AM AMBULATORY - MEDICINE [facility] Vital Signs: All taken on the encounter date This section contains inpatient and outpatient Vital Signs collected on the date of the Encounter. Date/Time Temperature Pulse Blood Respiratory SP02 Pain Height Weight Javier dy Source Pressure Rate Mass Index May 17 158/82 [place] 2020 09:59 /min mm[Hg] [facility] May 17 F 76 174/84 16 /min 99 % 2 214 lb 30 [place] 2020 09:29 /min mm[Hg] [facility] Social History: Smoking Status (Most current) and Tobacco Use (All prior to encounter date) This section includes the most current, and the historical, smoking and tobacco-related health factors from the [place] facility where the Encounter took place.Current Smoking Status This section includes the most current smoking, or tobacco-related health factor, from the [place] facility where the Encounter took place. Date/Time Current Smoking Status Comment Facility May 17, 2021 09:30 AM [place]-TOBACCO FORMER USER [facility] Tobacco Use History This section includes a history of the smoking, or tobacco- related health factors, that were collected on or before the date of the Encounter. The data comes from the [place] facility where the Encounter took place. Date/Time Smoking Status/Tobacco Use Comment Chela hummel May 17, 2021 09:30 AM VA-TOBACCO QUIT 15 YRS OR [place] [facility] [place] [facility] May 17, 2020 10:30 AM VA-TOBACCO FORMER USER [place] [facility] [facility] May 17, 2020 10:30 AM VA-TOBACCO QUIT 15 YRS OR [place] [facility] [place] [facility] Jan 07, 2019 10:34 AM VA-TOBACCO FORMER USER [place] [facility] [facility] Jan 07, 2019 10:34 AM VA-TOBACCO QUIT 15 YRS OR [place] [facility] Advance Directives: All historical and current Section Date Range: From patient's date of to the date document was created. This section includes ALL of a patient's completed or amended VA Advance and Rescinded Directives. The entries below indicate that a directive exists for the patient, but an actual copy is not included with this document. The data comes from all [place] facilities. Date Advance Directives Provider Source Dec 20, 2013 ADVANCE DIRECTIVE [facility]IN [facility] Encounter Notes: All associated encounter notes This section contains the clinical notes associated to the Encounter. Date/Time Encounter Note(s) Provider Source May 17, 2021 09:59 PHYSICIAN COMMUNITY HEALTH NURSE NOTE: SOHAN FRANKLIN [place] [facility]TR [facility] LOCAL TITLE: [facility] STANDARD TITLE: PHYSICIAN COMMUNITY HEALTH NURSE NOTE DATE OF NOTE: MAY 17, 2021@09:59 ENTRY DATE: MAY 17, 2021@09:59:58 AUTHOR: SOHAN FRANKLIN EXP COSIGNER: URGENCY: STATUS: COMPLETED CC/HPI: 75 year old MALE here in follow-up for; presbyopia, optom here. All other care outside. htn, repeat by is still a bi t elevated.Written instructions given, he will check nad dw pcp. He will use his cuff at home. He smita l walk in for bp check with outside shot records when he comes for eye exam in June. RIH, he is pending a consult to consider repairi ng a right inguinalhernia. We discuss this. He reports having SHINGLES 'aagan' got shot #1 a nd pending #2 outside. Review of systems: Patient reports no changes from [facility], nor in meds or any admissions. Active problems - Computerized Problem List is t he source for the followin. Essential hypertension 2. Systolic murmur 3. Chronic headache disorder 4. GERD - Gastro-Esophageal Reflux Disease ([facility] [id number]) 5. Erectile Dysfunction ([facility] [id number]) 6. Hyperlipidemia ([facility] [id number]) 7. COPD - Chronic Obstructive Pulmonary Disease ([facility] [id number]) VA and Non VA meds were reconciled with the annmarie ent who left with a corrected copy. See medication page for details. Active and Recently Outpatient Medicatio ns (excluding Supplies): Active Non-VA Medications Status 1) Non-VA ACETAMINOPHEN 325/YBYLJP19/CAFN 40MG T AB 1 ACTIVE TABLET BY MOUTH EVERY 6 HOURS NEEDED 2) Non-VA ALBUTEROL 90MCG (CFC-F) 200D ORAL INHL 2 PUFFS ACTIVE BY MOUTH EVERY 6 HOURS NEEDED 3) Non-VA ASCORBIC ACID 500MG TAB 500MG BY MOUTH ONCE ACTIVE DAILY 4) Non-VA ASPIRIN 81MG EC TAB 81MG BY MOUTH ONCE DAILY ACTIVE 5) Non-VA CHOLECALCIF 25MCG (D3-1,000UNIT) TAB 1 000UNIT ACTIVE BY MOUTH ONCE DAILY 6) Non-VA LORAZEPAM 0.5MG TAB 0.5MG BY MOUTH ONC E DAILY ACTIVE NEEDED 7) Non-VA LOSARTAN POTASSIUM 50MG TAB 50MG BY MO [facility] ONCE ACTIVE DAILY 8) Non-VA PANTOPRAZOLE NA 40MG EC TAB 40MG BY MO [facility] ACTIVE EVERY MORNING 30 MINUTES BEFORE BREAKFAST 9) Non-VA SILDENAFIL CITRATE 50MG TAB 50MG BY MO [facility] ONCE ACTIVE DAILY NEEDED 10) Non-VA SIMVASTATIN 40MG TAB 20MG BY MOUTH ON CE DAILY ACTIVE 11) Non-VA TAMSULOSIN HCL 0.4MG CAP 0.4MG BY EDYTA ONCE ACTIVE DAILY 98 F [36.7 C] (05/17/2021 09:29) 75 (05/17/2021 09:59) 16 (05/17/2021 09:29) 158/82 (05/17/2021 09:59) 2 (05/17/2021 09:29) 71 in [180.3 cm] (01/19/2019 14:57) 214 lb [97.3 kg] (05/17/2021 09:29) BMI: 29.9 Neuro: Alert and oriented times three, grossly n onfocal, nasolabial folds intact. He will check on TDaP and bring shot records. /alexx/ Sohan Franklin PA-C STAFF PHYSICIAN COMMUNITY HEALTH NURSE Signed: 05/17/2021 10:04 May 17, 2021 09:32 PREVENTIVE MEDICINE NURSING NOTE: ANGEL GARCIA [place] [facility] AM LOCAL TITLE: CLINICAL REMINDERS/NURSING [place] [facility] STANDARD TITLE: PREVENTIVE MEDICINE NURSING NOTE DATE OF NOTE: MAY 17, 2021@09:32 ENTRY DATE: MAY 17, 2021@09:32:07 AUTHOR: SURYA GARCIA EXP COSIGNER: URGENCY: STATUS: COMPLETED Advance Directive Screen: Patient has an Advance Directive on file at [facility]. The patient received education about advance directives as well as written notification of his/her rights. Patient has an up to date Advance Directive doc ument on file at this [facility]. No updates are needed at this time. The patient received education about advance di rectives as well as written notification of his/her rights. Depression Screening: Perform PHQ-2 A PHQ-2 screen was performed. The score was 0 w hich is a negative screen for depression. Over the past two weeks, how often have you bee n bothered by the following problems? 1. Little interest or pleasure in doing things Not at all 2. Feeling down, depressed, or hopeless Not at all My HealtheVet Education: The patient does not have access and does not u se the internet. Tobacco Use Screening: The patient is a former tobacco user. The patient quit fifteen or more years ago. Alcohol Use Screen (AUDIT-C): Alcohol Screen: SCREEN FOR ALCOHOL (AUDIT-C) An alcohol screening test (AUDIT-C) was negativ e (score=4). 1. How often did you have a drink containing al cohol in the past year? Four or more times a week 2. How many drinks containing alcohol did you h ave on a typical day when you were drinking in the past year? One or two drinks 3. How often did you have six or more drinks on one occasion in the past year? Never Influenza Immunization: The patient has received the seasonal influenza vaccine for the current season at another location. Date: April 04, 2021 Location: Outside Healthcare Provider Suicide Screen: C-SSRS Screening [place] Suicide Severity Rating Scale (C-SSRS) screener 1. Over the past month, have you wished you wer e or wished you could go to sleep and not wake up? No 2. Over the past month, have you had any actual thoughts of killing yourself? No 3. Over the past month, have you been thinking about how you might do this? Response not required due to responses to other questions. 4. Over the past month, have you had these thou ghts and had some intention of acting on them? Response not required due to responses to other questions. 5. Over the past month, have you started to wor k out or worked out the details of how to kill yourself? Response not required due to responses to other questions. 6. If yes, at any time in the past month did yo u intend to carry out this plan? Response not required due to responses to other questions. 7. In your lifetime, have you ever done anythin g, started to do anything, or prepared to do anything to end you r life (for example, collected pills, obtained a gun, gave away valu janeen, went to the roof but didn't jump)? No 8. If YES, was this within the past 3 months? Response not required due to responses to other questions. /alexx/ SURYA GARCIA LPN LICENSED PRACTICAL NURSE Signed: 05/17/2021 09:35
--- OUTSIDE RECORDS SUMMARY | 2022-05-06 00:04 | XMS_ITS | Encounter Summary ---
:1945 Author Organization [facility] Address [address] [place] [address] Support Name Relationship Address Phone OLIVIA FUENTES Unavailable [address] [place] [address] OLIVIA FUENTES Unavailable [address] [place] [address] Insurance Providers: All historical and current Section Date Range: From patient's date of to the date document was created.This section includes the names of all active insurance providers for the patient. Insurance Type of Plan Start of End of Group Member Insurance Policy P atient's Provider Coverage Name Policy Policy Number ID Provider's Ha's Relationship Coverage Coverage Telephone Name to Policy Number Ha [facility] MEDIC[facility] MEDEX Jul 21 [id number] [phone] [facility] PAT[facility] SUPPLEMEN 2 2017 [id number] CAR Wyatt [facility] MEDIC[facility] MEDEX Jul 21, [id number] [phone] D[facility] PATIENT SUPPLEMEN 2 2017 [id number] CAR Wyatt MEDICARE MEDICARE PART Sep 18, PART B [id number] [facility] PATIENT (WNR) (M) B 2014 [id number] CAR Wyatt MEDICARE MEDICARE PART Jun 20, PART A [id number] [id number] [facility] PATIENT (WNR) (M) A 2011 [id number] CAR Wyatt Selected Encounter This section includes the information on record at [place] for the Encounter. Date/Time Encounter Type Encounter Reason Provider Source Description Jun 27, 2021 DETERMINE OPTOMETRY ICD-10-CM FELICITA CALIX B 08:00 AM REFRACTIVE STATE H25.13 Age-related nuclear cataract, bilateral with Provider Comments: Cataract,Nuclea r Age-Related,Campbell ateral IHE Encounter Template Text not used by VA Assessments - Encounter Diagnoses This section includes the primary and secondary diagnoses documented for the Encounter. Date/Time Primary/Secondary Diagnosis Name Provider Source Diagnosis Jun 27, 2021 PRIMARY Age-related DANIEL HERNANDEZ [place] [facility] 09:[address] [facility] cataract, bilateral Jun 27, 2021 SECONDARY Hypermetropia, DANIEL HERNANDEZ [place] [facility] WST RN 09:[address] [facility] Jun 27, 2021 SECONDARY Regular DANIEL HERNANDEZ [place] [facility] 09:04 AM astigmatism, [facility] [place] [facility] bilateral Social History: Smoking Status (Most current) and Tobacco Use (All prior to encounter date) This section includes the most current, and the historical, smoking and tobacco-related health factors from the [place] facility where the Encounter took place.Current Smoking Status This section includes the most current smoking, or tobacco-related health factor, from the [place] facility where the Encounter took place. Date/Time Current Smoking Status Comment Facility May 17, 2021 09:30 AM VA-TOBACCO FORMER USER [place] [facility] [facility] Tobacco Use History This section includes a history of the smoking, or tobacco- related health factors, that were collected on or before the date of the Encounter. The data comes from the [place] facility where the Encounter took place. Date/Time Smoking Status/Tobacco Use Comment [facility] May 17, 2021 09:30 AM VA-TOBACCO QUIT 15 YRS OR [facility] [place] [facility] May 17, 2020 10:30 AM VA-TOBACCO FORMER USER [place] [facility] [facility] May 17, 2020 10:30 AM VA-TOBACCO QUIT 15 YRS OR [facility] [place] [facility] Jan 07, 2019 10:34 AM VA-TOBACCO FORMER USER [place] [facility] [facility] Jan 07, 2019 10:34 AM VA-TOBACCO QUIT 15 YRS OR [place] [facility] [facility] Advance Directives: All historical and current Section Date Range: From patient's date of to the date document was created. This section includes ALL of a patient's completed or amended VA Advance and Rescinded Directives. The entries below indicate that a directive exists for the patient, but an actual copy is not included with this document. The data comes from all [place] facilities. Date Advance Directives Provider Source Dec 20, 2013 ADVANCE DIRECTIVE MARTIN FITCH [facility] [place] [facility] Encounter Notes: All associated encounter notes This section contains the clinical notes associated to the Encounter. Date/Time Encounter Note(s) Provider Source Jun 27, 2021 09:19 OPTOMETRY NOTE: DANIEL HERNANDEZ [facility] TRN AM LOCAL TITLE: OPTOMETRY NOTE [facility] STANDARD TITLE: OPTOMETRY NOTE DATE OF NOTE: JUN 27, 2021@09:19 ENTRY DATE: JUN 27, 2021@09:19:14 AUTHOR: DANIEL HERNANDEZ EXP COSIGNER: URGENCY: STATUS: COMPLETED Korrect Counseling Psychologist fit patient with 1 pair of PAL eyeglasses. Ordered as requested. Korrect Counseling Psychologist fit patient with 1 pair of PAL w/solid tint eyeglasses. Ordered as requested. /alexx/ DANIEL SHERMAN [facility] TECHINICIAN Signed: 06/27/2021 09:19 Jun 27, 2021 07:56 OPTOMETRY NOTE: FELICITA CALIX [facility] N AM LOCAL TITLE: OPTOMETRY NOTE [facility] [place] [facility] STANDARD TITLE: OPTOMETRY NOTE DATE OF NOTE: JUN 27, 2021@07:56 ENTRY DATE: JUN 27, 2021@07:56:40 AUTHOR: FELICITA CALIX EXP COSIGNER: URGENCY: STATUS: COMPLETED 75 WHITE MALE NOT OR Last eye exam: 05/24/2019 Reason for Visit/CC: patient here for a comprehe nsive eye exam. He feels his distance vision is a little worse, also has to move the newspaper sometimes to get it clear. OHx: 1. Early nuclear cataracts OU 2. Dilated fundus exam unremarkable OU 3. refractive error OU/presbyopia 4. ocular migraines (-) Pain: (-) LANDA: (-) Diplopia: (-) Flashes: (-) Floaters: (-) Amaurosis Fugax/Tia's: (-) Eye Injury: (-) Eye Surgery: (-) TBI (-) FOHx: MHx: Code Description I10. Essential hypertension (SCT 27413249) R69. Systolic murmur ([facility] [id number]) R69. Chronic headache disorder ([facility] 326556173) K21.9 GERD - Gastro-Esophageal Reflux Disease (S CT 885575666) N52.9 Erectile Dysfunction ([facility] [id number]) E78.5 Hyperlipidemia ([facility] 32923766) J44.9 COPD - Chronic Obstructive Pulmonary Disea se ([facility] 63651773) Other: SYSTEMIC MEDICATIONS/OCULAR MEDICATIONS: Active Outpatient Medications (including Supplie s): Active Non-VA Medications Status 1) Non-VA ACETAMINOPHEN 325/PNJBYR66/CAFN 40MG T AB 1 ACTIVE TABLET BY [...] Non-VA [place]AN POTASSIUM 50MG TAB 50MG BY [facility] ONCE ACTIVE DAILY 8) Non-VA PANTOPRAZOLE NA 40MG EC TAB 40MG BY [facility] ACTIVE EVERY MORNING 30 MINUTES BEFORE BREAKFAST 9) Non-VA SILDENAFIL CITRATE 50MG TAB 50MG BY [facility] ONCE ACTIVE DAILY NEEDED 10) Non-VA SIMVASTATIN 40MG TAB 20MG BY MOUTH ON CE DAILY ACTIVE 11) Non-VA TAMSULOSIN HCL 0.4MG CAP 0.4MG BY [facility] ONCE ACTIVE DAILY ALLERGIES: PROCARDIA, AMOXICILLIN LAST BP: 158/82 (05/17/2021 09:59) Current Rx with last BCVA: OD +2.75 -1.25 x 100 20/20-1 OS +2.50 -1.00 x 075 20/20-1 Add: +2.25 20/20 OU DVA ( )sc ( x )cc OD 20/20 OS 20/20 Pupils: PERRL (-)APD EOM: Full all meridia OU, (-) pain/diplopia Confrontation Visual Morgan: Full all meridia OU Subjective: OD +2.75 -1.25 x 095 20/20 OS +2.50 -1.00 x 075 20/20 Add: +2.25 20/20 OU SLE: Lids/Lashes: mild MGD OU Conjunctiva: white and quiet OU Corneas: clear OU Iris: flat and clear OU Anterior Chamber: deep and quiet OU Angles: open OU Lens: 1+ NS OU, tr ACC OU TAP @ 8:10am Clay, holding lids OD 16 mm Hg OS 17 mm Hg Dilating Drops: 1 gtt 1% Tropicamide OU, 2.5% ph enylephrine OU (Pt. ed. on side effects) Vitreous: Syneresis OU C/D (Size and Rim Description) OD 0.20 pink & healthy OS 0.15 pink & healthy Macula OD flat and clear OS flat and clear A/V: normal caliber OU Posterior Pole: clear OD, few drusen superior te mp to macula OS Periphery: Flat and intact (-)holes, tears, deta chments 360 OU Assessment/Plan: 1. Early nuclear sclerosis cataracts OU, not vis ually significant. Monitor 2. Dilated fundus exam unrem arkable OU - no acute ocular disease. pt ed, monitor 3. hyperopia/astigmatism/presbyopia OU - order n ew PALs and sunwear RTC 1 year or earlier PRN Medication Reconciliation: Outpatient: Has the patient been taking medications as docu mented in the EMLR? YES: The patient has been taking medications as documented in the EMLR. Essential Medication List for Review used to co mplete this medication reconciliation. INCLUDED IN THIS LIST: Alphabetical list of act sylvie outpatient prescriptions dispensed from this VA (local) an d dispensed from another VA or DoD facility (remote) as well as inpatien t orders (local, pending and active), local clinic medications, locally documented non-VA medications, and local prescriptions that have or been discontinued in the past 90 days. - All changes in medications, including all non -VA/Herbal/OTC medications were entered into CPRS. - If there were any medications the patient janell uld no longer take, they were discontinued. - The patient/caregiver was instructed to updat e this list, discard old lists, and take this list to the next appointme nt, whether with a VA or non-VA provider. /alexx/ FELICITA CALIX OD Hand Upper And Bottom Lacer Signed: 06/27/2021 09:04
--- OUTSIDE RECORDS SUMMARY | 2022-05-06 00:04 | XMS_ITS | Encounter Summary ---
:1945 Author Organization [facility] Address [address] [place] [address] Support Name Relationship Address Phone OLIVIA FUENTES Unavailable [address] [place] [address] OLIVIA FUENTES Unavailable [address] [place] [address] Insurance Providers: All historical and current Section [...] Ha [facility] MEDICARE MEDEX Jul 21 [id number] [phone] [facility]PP[facility] 2 2017 [id number] CAR Wyatt [facility] MEDICARE MEDEX Jul 21, [id number] [phone] DANTE [facility] PATIENT SUPPLEMEN 2 2017 [id number] CAR Wyatt MEDICARE MEDICARE PART Sep 18, PART B [id number] D[facility] PATIENT (WNR) (M) B 2014 AG02 CAR Wyatt MEDICARE MEDICARE PART Jun 20, PART A [id number] [phone] D[facility]TE [facility] PATIENT (WNR) (M) A 2011 AG02 CAR Wyatt Selected Encounter This section includes the information on record at [place] for the Encounter. Date/Time Encounter Type Encounter Description Reason Provider Source Jun 27, 2021 11:26 Outpatient Encounter PRIMARY CARE/MEDICINE AM IHE Encounter Template Text not used by [place] Social History: Smoking Status (Most current) and Tobacco Use (All prior to encounter date) This section includes the most current, and the historical, smoking and tobacco-related health factors from the [place] facility where the Encounter took place.Current Smoking Status This section includes the most current smoking, or tobacco-related health factor, from the [place] facility where the Encounter took place. Date/Time Current Smoking Status Comment Facility May 17, 2021 09:30 AM VA-TOBACCO FORMER USER [place] [facility] [place] [facility] Tobacco Use History This section includes a history of the smoking, or tobacco- related health factors, that were collected on or before the date of the Encounter. The data comes from the [place] facility where the Encounter took place. Date/Time Smoking Status/Tobacco Use Comment [facility] it May 17, 2021 09:30 AM VA-TOBACCO QUIT 15 YRS OR [facility] [place] [facility] May 17, 2020 10:30 AM VA-TOBACCO FORMER USER [facility] [place] [facility] May 17, 2020 10:30 AM VA-TOBACCO QUIT 15 YRS OR [facility] [place] [facility] Jan 07, 2019 10:34 AM VA-TOBACCO FORMER USER [place] [facility] [place]N [place] [facility] Jan 07, 2019 10:34 AM VA-TOBACCO QUIT 15 YRS OR [facility] [place] [facility] Advance Directives: All historical and current Section Date Range: From patient's date of to the date document was created. This section includes ALL of a patient's completed or amended [place] Advance and Rescinded Directives. The entries below indicate that a directive exists for the patient, but an actual copy is not included with this document. The data comes from all [place] facilities. Date Advance Directives Provider Source Dec 20, 2013 ADVANCE DIRECTIVE MARTIN FITCH [place] [facility] [facility] Encounter Notes: All associated encounter notes This section contains the clinical notes associated to the Encounter. Date/Time Encounter Note(s) Provider Source Jun 27, 2021 11:26 ADMINISTRATIVE NOTE: VYETTE [place] CN[facility] AM [facility] TITLE: FAX/MAIL RECEIVED UNRULY CRAWFORD [facility] STANDARD TITLE: ADMINISTRATIVE NOTE DATE OF NOTE: JUN 27, 2021@11:26 ENTRY DATE: JUN 27, 2021@11:26:41 AUTHOR: ISAURA OBREGON EXP COSIGNER: URGENCY: STATUS: COMPLETED Document Received On: Jun Document Type: Immunization Date of Service: Jun Facility and or Provider: Contact Information: patient walke in & dropped off PCP of Record: SOHAN PIKE Next visit with PCP: 05/17/2022 09:30 CWM/NO/PAC T 3 07/01/2022 08:00 CWM/NO/OPTOMETRY/[facility] Primary Care May keep copies of this document fo r up to 14 days and send the original for scanning. /alexx/ UNRULY CRAWFORD Advanced Face Cleaner Signed: 06/27/2021 11:42
--- OUTSIDE RECORDS SUMMARY | 2022-05-06 00:04 | XMS_ITS | Continuity of Care Document ---
:1945 Author Organization [facility] Care Team Providers Name Role Phone [facility] Unavailable Unavailable Problems Combined list of problems from Department of Defense and Veterans Affairs facilities. It does not include entries that were removed or entered in error. Problem Status Onset Problem Type Date of Comments Source Date Resolution Chronic headache Active Condition [facility] [place] [facility] COPD - Chronic Active Condition [facility] Obstructive [place] Pulmonary Disease HC S (SCT 95174643) Erectile Dysfunction Active Condition [facility] ([facility] [id number]) [place] [facility] Essential Active Condition [facility] hypertension [place] [facility] [facility] GERD - Active Condition [facility] Gastro-Esophageal [place] Reflux Disease ([facility] [id number]) Hyperlipidemia (SCT Active Condition [facility] [id number][facility] [place] [facility] Systolic murmur Active Condition [facility] [place] [facility] Diagnosis: ICD-10-CM Active Diagnosis [facility] H25.13 Age-related [place] nuclear cataract, HC S bilateralwith Provider Comments: Cataract,Nuclear Age-Related,Bilatera l Diagnosis: ICD-10-CM Active Diagnosis [facility] I10 Essential [place] (primary) [facility]CS hypertensionwith Provider Comments: Essential hypertension ([facility] 00027399) Medications Combined list of outpatient medications from Department of Defense and Veterans Affairs facilities. Medications provided include 1) outpatient medications from the last 15 months, and 2) patient-reported medications. Medication Details Route Status Patient Prescription Prescription Last Ordering Order Source Instructions Expires Number Dispense Provider Date Date ALBUTEROL INHALE 2 INHALA ACTIVE VANWAGNER 01/19/ [facility] 90MCG/ACTUA PUFFS BY SOHAN LION 2018 CN TRL T (CFC-F) MOUTH ORAL F [facility] INHL,ORAL,8 EVERY 6 [place] .5GM DOSE HOURS SETS COUNTER NEEDED HCS APAP TAKE ONE ORAL ACTIVE VANWAGNER 01/19/ VA 325MG/BUTAL TABLET ,2018 CNTR L BITAL BY MOUTH F [facility] 50MG/CAFN EVERY 6 [place] 40MG TAB HOURS SETS NEEDED HCS ASCORBIC TAKE ONE ORAL ACTIVE VANWAGNER 01/19/ VA ACID 500MG TABLET ,2018 CNTRL TAB BY MOUTH F [facility] ONCE [place] DAILY SETS HCS ASPIRIN TAKE ONE ORAL ACTIVE VANWAGNER 01/19/ VA 81MG TAB,EC TABLET ,2018 CNTR L BY MOUTH F [facility] ONCE [place] DAILY [facility]S HCS CHOLECALCIF TAKE ONE ORAL ACTIVE VANWAGNER 01/19/ VA ROC 25MCG TABLET ,2018 CNTRL (1,000UNIT) BY MOUTH F [facility] TAB ONCE [place] DAILY SETS HCS LORAZEPAM TAKE ONE ORAL ACTIVE VANWAGNER 01/19/ V A 0.5MG TAB TABLET ,2018 CNTRL BY MOUTH F [facility] ONCE [place] DAILY SETS NEEDED HCS LOSARTAN TAKE ONE ORAL ACTIVE VANWAGNER 01/19/ VA 50MG TAB TABLET ,2018 CNTRL BY MOUTH F [facility] ONCE [place] DAILY [facility]S HCS PANTOPRAZOL TAKE ONE ORAL ACTIVE VANWAGNER 01/19/ VA E NA 40MG TABLET ,2018 CNTRL TAB,EC BY MOUTH F [facility]STR[facility] EVERY [place] MORNING SETS 30 HCS MINUTES BEFORE BREAKFAS T SILDENAFIL TAKE ONE ORAL ACTIVE VANWAGNER 01/19/ VA CITRATE TABLET ,2018 CNTRL 50MG TAB BY MOUTH F [facility] ONCE [place] DAILY SETS NEEDED HCS SIMVASTATIN TAKE ORAL ACTIVE VANWAGNER 01/19/ VA 40MG TAB ONE-HALF ,2018 CNTRL TABLET F [facility] BY MOUTH [place] ONCE SETS DAILY HCS TAMSULOSIN TAKE 1 ORAL ACTIVE VANWAGNER 01/19/ VA HCL 0.4MG CAPSULE ,2018 CNTRL CAP BY MOUTH F [facility] ONCE [place] DAILY [facility]S HCS Allergies, Adverse Reactions, Alerts Combined list of allergies from Department of Defense and Veterans Affairs facilities. It does not include entries that were removed or entered in error. Substance Category Reaction Severity Reaction Status Date Comments S ource type Reported AMOXICILLIN Propensity Headache Propensity active [facility] to adverse to adverse 9 WS TRN reactions reactions [place] to drug to drug ETS HCS (finding) (finding) PROCARDIA Propensity Itching Propensity active [facility] to adverse to adverse 9 WS TRN reactions reactions [place] to drug to drug ETS HCS (finding) (finding) Immunizations Combined list of available immunizations from the Department of Defense and Veterans Affairs facilities. Immunization Series Date Administered Site Reaction Lot CVX Drug St atus Comments Source Given By Number Code Photonics Technician COVID-19 3 complet CV S (MODERNA), 2020 ed MIN [place] MRNA, LNP-S, C LINIC PF, 100 MCG OR 50 MCG DOSE TD(ADULT) complet C VS UNSPECIFIED 2020 ed [facility] INFLUENZA, complet [facility] UNSPECIFIED 2020 ed CN TRL FORMULATION WS TRN [place] [facility] ZOSTER 1 complet scanned CV S RECOMBINANT 2020 ed [facility] COVID-19 2 complet MOD; VA (MODERNA), 2020 ed [id number]; CNTRL MRNA, LNP-S, 02 [facility] PF, 100 1 [place] MCG/0.5 ML SET S DOSE HCS COVID-19 1 complet MOD; VA (MODERNA), 2020 ed [id number]; CNTRL MRNA, LNP-S, 02 [facility] PF, 100 1 [place] MCG/0.5 ML SET S DOSE HCS INFLUENZA, complet VA UNSPECIFIED 2019 ed CN TRL FORMULATION WS TRN [place] [facility] INFLUENZA, complet High-d ose VA SEASONAL, 2018 ed CNTR L INJECTABLE WST RN [place] [facility] TD(ADULT) complet [facility] V A UNSPECIFIED 2018 ed CN TRL FORMULATION WS TRN [place] [facility] INFLUENZA, complet outsid e VA SEASONAL, 2018 ed provider C NTRL INJECTABLE WST RN [place] [facility] INFLUENZA, complet [facility] SEASONAL, 2018 ed CNTR L INJECTABLE W[facility] RN [place] [facility] PNEUMOCOCCAL complet [facility] VA CONJUGATE PCV 2016 ed CNTRL 13 [facility] [place] [facility] PNEUMOCOCCAL complet VA POLYSACCHARID 2012 ed CNTRL E PPV23 [facility] [place] [facility] ZOSTER LIVE 08/27/ complet [facility] 2012 ed [facility] [place] [facility] [facility] Vital Signs Combined list of inpatient and outpatient Vital Signs from Department of Defense and Veterans Affairs, ranging from 12 months to all on record, depending upon the facility. Vital Sign Value Date Comments Source SYSTOLIC BLOOD PRESSURE 174 05/17/2021 [facility] C NTRL [facility] 09:29:41 [place] [facility] DIASTOLIC BLOOD PRESSURE 84 05/17/2021 [facility] 09:29:41 [place] [facility] PULSE OXIMETRY 99% 05/17/2021 [facility] 09:29:41 [place] [facility] WEIGHT 214 05/17/2021 [facility] 09:29:41 [place] [facility] BMI 30kg/m2 05/17/2021 [facility] 09:29:41 [place] [facility] PAIN 2 05/17/2021 [facility] 09:29:41 [place] [facility] TEMPERATURE 98 05/17/2021 [facility] 09:29:41 [place] [facility] PULSE 76 05/17/2021 [facility] 09:29:41 [place] [facility] RESPIRATION 16 05/17/2021 [facility] 09:29:41 [place] [facility] Encounters Combined list of: 1) Encounters from Department of Veterans Affairs facilities going back up to the last 18 months. 2) Encounters from the Department of Defense facilities going back up to 280 months. Location Location Encounter Encounter Reason Attending ADM DC Stat us Disposition Source Details Type Number For Provider Date Date Visit Outpatient [id number] [facility] Outpatient [id number] 04/04 [facility] Encounter [id number] [facility]2021 [facility] [place] [facility] [facility] [id number] [facility] Encounter 0[facility] Outpatient [id number] 04/25 [facility] Encounter [id number] [facility] [place] [facility] [id number] [facility] Encounter [id number] /2021 [facility] 613 CLINIC OFFICE O/P [id number] Diagnos SHAHZAD, 05/17 [facility] EST LOW [id number] is: SOHAN F CNT RL 20-29 MIN ICD-10- WSTRN CM I10 [place] Essenti SETS al HCS (primar y) hyperte nsion<b r/>with Provide r Comment s: Essenti al hyperte nsion (SCT [id number] 0) Outpatient [id number] 05/23 [facility] Encounter [id number] /2021 [facility] [place] [facility] DETERMINE [id number] Diagnos JESÚS CALIXA 06/27 [facility] REFRACTIVE [id number] is: H CNTR L STATE ICD-10- WSTR[place] CM [place] H25.13 SETS Age-rel HCS ated nuclear catarac t, bilater al
with Provide r Comment s: Catarac t,Nucle ar Age-Rel ated,Bi lateral Outpatient [id number] 06/27 [facility] Encounter [id number] [facility] [place] [facility] [id number] 06/27 [facility] Encounter [id number] /2021 [facility] [place] [facility] [id number] 06/28 [facility] Encounter [id number] [facility] [place] [facility] Social History Combined list of available smoking, tobacco, and other social history from [facility] facilities. Social History Type Response Date Comment Source Tobacco smoking VA-TOBACCO FORMER 05/17/2021 [facility] status [facility] [place] [facility] History of tobacco VA-TOBACCO QUIT 15 05/17/2021 [facility] use YRS OR MORE [place] [facility] History of tobacco VA-TOBACCO FORMER 05/17/2020 VA C N[facility]L [facility] use [facility]ER [place] [facility] History of tobacco VA-TOBACCO QUIT 15 01/07/2019 [facility] use YRS OR MORE [place] [facility] Plan of Care List of future care activities from Department of Veterans Affairs facilities. Additional future care activities may be listed in the Assessment and Plan section. Date/Time Care Activity Care Activity Detail Facility 05/17/2022 AMBULATORY - MEDICINE AMBULATORY - MEDICINE [facility] Advance Directives List of completed, amended, or rescinded Advance Directives on record at Department of [facility] facilities. An actual copy of the Directive is not included. Date Advance Directive Provider Source 12/20/2013 ADVANCE DIRECTIVE MARTIN FITCH [facility]
--- OUTSIDE RECORDS SUMMARY | 2022-05-06 00:04 | XMS_ITS | Encounter Summary ---
:1945 Author Organization [facility] Address [address] [place] [address] Support Name Relationship Address Phone OLIVIA FUENTES Unavailable [address] [place] [phone] OLIVIA FUENTES Unavailable [address] [place] [address] Insurance Providers: All historical and current Section Date Range: From patient's date of to the date document was created.This section includes the names of all active insurance providers for the patient. Insurance Type of Plan Start of End of Group Member Insurance Policy P atient's Provider Coverage Name Policy Policy Number ID Provider's Ha's Relationship Coverage Coverage Telephone Name to Policy Number Ha [facility] MEDICARE MEDEX Jul 21 [id number] [phone] [id number] CAR Wyatt [facility] MEDICARE MEDEX Jul 21, [id number] [phone] [facility] [place] SUPPLEMEN 2 2017 [id number] CAR Wyatt MEDICARE MEDICARE PART Sep 18, PART B [id number] [facility] PATIENT (WNR) (M) B 2014 [id number] CAR Wyatt MEDICARE MEDICARE PART Jun 20, PART A [id number] [facility] PATIENT (WNR) (M) A 2011 AG02 [id number] Selected Encounter This section includes the information on record at [place] for the Encounter. Date/Time Encounter Type Encounter Description Reason Provider Source Jun 28, 2021 04:06 Outpatient Encounter TELEPHONE PRIMARY CARE IHE Encounter Template Text not used by [facility] Social History: Smoking Status (Most current) and Tobacco Use (All prior to encounter date) This section includes the most current, and the historical, smoking and tobacco-related health factors from the [place] facility where the Encounter took place.Current Smoking Status This section includes the most current smoking, or tobacco-related health factor, from the [place] facility where the Encounter took place. Date/Time Current Smoking Status Comment Facility May 17, 2021 09:30 AM VA-TOBACCO FORMER USER [place] [facility] [place] [facility] Tobacco Use History This section includes a history of the smoking, or tobacco- related health factors, that were collected on or before the date of the Encounter. The data comes from the [place] facility where the Encounter took place. Date/Time Smoking Status/Tobacco Use Comment [facility] it May 17, 2021 09:30 AM VA-TOBACCO QUIT 15 YRS OR [place] [facility] [place] [facility] May 17, 2020 10:30 AM VA-TOBACCO FORMER USER [place] [facility] [place] [facility] May 17, 2020 10:30 AM VA-TOBACCO QUIT 15 YRS [place] [facility] [place] [facility] Jan 07, 2019 10:34 AM VA-TOBACCO FORMER USER [place] [facility] [place] [facility] Jan 07, 2019 10:34 AM VA-TOBACCO QUIT 15 YRS OR [place] [facility] [place] [facility] Advance Directives: All historical and current Section Date Range: From patient's date of to the date document was created. This section includes ALL of a patient's completed or amended [place] Advance and Rescinded Directives. The entries below indicate that a directive exists for the patient, but an actual copy is not included with this document. The data comes from all [facility]. Date Advance Directives Provider Source Dec 20, 2013 ADVANCE DIRECTIVE MARTIN FITCH [place] [facility] [place] [facility] Encounter Notes: All associated encounter notes This section contains the clinical notes associated to the Encounter. Date/Time Encounter Note(s) Provider Source Jun 28, 2021 04:06 PM PREVENTIVE MEDICINE NURSING NOTE: BETH HEREDIA [place] [facility] LOCAL TITLE: CLINICAL REMINDERS/[facility] STAND[facility] TITLE: PREVENTIVE MEDICINE NURSING NOTE DATE OF NOTE: JUN 28, 2021@16:06 ENTRY DATE: JUN 28, 2021@16:06:46 AUTHOR: BETH OMALLEY EXP COSIGNER: URGENCY: STATUS: COMPLETED COVID-19 Immunization: Moderna COVID-19 Vaccine given previously Patient received a prior dose of the Moderna [place] VID-19 Vaccine. Date: May 17, 2021 Series: Series 3 Location: [facility] Tdap Immunization: Prior Tdap vaccination The patient has previously received the Tetanus , Diphtheria vaccine (Td). Date: April 12, 2021 Location: [facility] Zoster Vaccine (Shingrix): Prior Herpes Zoster vaccination The patient has previously received the recombi nant zoster vaccine dose #1 (Shingrix, RZV). Date: March 26, 2021 Location: [facility] Written documentation: henna /alexx/ Beth Omalley RN RN Signed: 06/28/2021 16:11
--- OUTSIDE RECORDS SUMMARY | 2022-05-06 00:04 | XMS_ITS | Encounter Summary ---
:1945 Author Organization [facility] Address [address] [place] [address] Support Name Relationship Address Phone OLIVIA FUENTES Unavailable [address] [place] [phone] OLIVIA FUENTES Unavailable [address] [place] [address] Insurance Providers: All historical and current Section Date Range: From patient's date of to the date document was created.This section includes the names of all active insurance providers for the patient. Insurance Type of Plan Start of End of Group Member Insurance Policy P atient's Provider Coverage Name Policy Policy Number ID Provider's Ha's Relationship Coverage Coverage Telephone Name to Policy Number Ha [facility] MEDICARE MEDEX Jul 21 [id number] [phone] [facility] SUPPLEMEN 2 2017 [id number] CAR Wyatt [facility] MEDICARE MEDEX Jul 21, [id number] [phone] D[facility]IENT SUPPLEMEN 2 2017 [id number] CAR Wyatt MEDICARE MEDICARE PART Sep 18, PART B [id number] D[facility]TE [facility] PATIENT (WNR) (M) B 2014 AG02 CAR Wyatt MEDICARE MEDICARE PART Jun 20, PART A [id number] D[facility] PATIENT (WNR) (M) A 2011 AG02 CAR Wyatt Selected Encounter This section includes the information on record at [place] for the Encounter. Date/Time Encounter Type Encounter Description Reason Provider Source May 23, 2021 12:00 Outpatient Encounter EVENT (HISTORICAL) AM IHE Encounter Template Text not used by [place] Plan of Treatment: Future Appointments (+ 6 months) and Future Tests (+/- 45 days) The Plan of Treatment section includes future care activities for the patient from all [place] [facility]. This section includes future appointments and future orders which are active, pending orscheduled.Future Appointments This section includes appointments that were scheduled to occur 6 months from the date of the Encounter, up to a maximum of 20 appointments. The data comes from all [place] treatment facilities. Appointment Date/Time Appointment Type Appointment Facili ty Name Jun 27, 2021 08:00 AM AMBULATORY - [place]ICINE [place] [facility] Social History: Smoking Status (Most current) and Tobacco Use (All prior to encounter date) This section includes the most current, and the historical, smoking and tobacco-related health factors from the [place] facility where the Encounter took place.Current Smoking Status This section includes the most current smoking, or tobacco-related health factor, from the [place] facility where the Encounter took place. Date/Time Current Smoking Status Comment Facility May 17, 2021 09:30 AM VA-TOBACCO FORMER USER [facility] [place] [facility] Tobacco Use History This section includes a history of the smoking, or tobacco- related health factors, that were collected on or before the date of the Encounter. The data comes from the [place] facility where the Encounter took place. Date/Time Smoking Status/Tobacco Use Comment [facility] May 17, 2021 09:30 AM VA-TOBACCO QUIT 15 YRS [place] [facility] [facility] May 17, 2020 10:30 AM VA-TOBACCO FORMER USER [place] [facility] [facility] May 17, 2020 10:30 AM VA-TOBACCO QUIT 15 YRS OR [place] [facility] [place] [facility] Jan 07, 2019 10:34 AM VA-TOBACCO FORMER USER [place] [facility] [facility] Jan 07, 2019 10:34 AM VA-TOBACCO QUIT 15 YRS [place] [facility] [place] [facility] Advance Directives: All historical and current Section Date Range: From patient's date of to the date document was created. This section includes ALL of a patient's completed or amended [place] Advance and Rescinded Directives. The entries below indicate that a directive exists for the patient, but an actual copy is not included with this document. The data comes from all [place] facilities. Date Advance Directives Provider Source Dec 20, 2013 ADVANCE DIRECTIVE MARTIN FITCH [place] [facility] Encounter Notes: All associated encounter notes This section contains the clinical notes associated to the Encounter. Date/Time Encounter Note(s) Provider Source May 23, 2021 12:00 AM NONVA NOTE: [place] [facility] LOCAL TITLE: NON-VA OUTPATIENT NOTES [facility] STANDARD TITLE: NONVA NOTE DATE OF NOTE: MAY 23, 2021 ENTRY DATE: AUG 02@07:02:08 AUTHOR: ADAL JIMENEZ COSIGNER: URGENCY: STATUS: COMPLETED Vist[facility] - Scanned Document SCANNED DOCUMENT SIGNATURE NOT REQUIRED Electronically Filed: 08/02/2021 by: BHAVANI JIMENEZ Assemblies And Installations Inspector
== END 2022-05-06 01:24 | disposition home or self-care (01) ==
PROVIDERS: Emergency Provider Internal Medicine; PCP Internal Medicine
DX: I49.3 Ventricular premature depolarization (principal); I49.9 Cardiac arrhythmia, unspecified; R07.89 Other chest pain; Z79.899 Other long term (current) drug therapy
CPT/HCPCS: 36415; 80053; 83735; 84484; 85025; 93005; 99284

== ENCOUNTER 2022-05-10 14:46 | Emergency (ER) | payer MEDICARE, SELFPAY ==
--- NOTE | ~2022-05-10 | XR_ITS ---
EXAMINATION: XR CHEST CLINICAL INFORMATION: Shortness of breath COMPARISON: Chest 08/21/2018 TECHNIQUE: 2 views of the chest were obtained. FINDINGS: The lungs are well-expanded and clear of acute process. Heart size and pulmonary vascularity is normal. Moderate spondylosis seen throughout dorsal spine.. XR/XR chest 2V IMPRESSION: Unremarkable chest exam.
--- NOTE | 2022-05-10 15:07 | ECG_ITS ---
Test Reason : SHORT OF BREATH Blood Pressure : / mmHG Vent. 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
[2022-05-10 15:28] VITALS: BP 132/81; PULSE 84; RESP 14; O2SAT 100; BMI 27.7
--- NOTE | 2022-05-10 15:32 | ECG_ITS ---
Test Reason : REPEAT Blood Pressure : / mmHG Vent. 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
--- NOTE | 2022-05-10 15:34 | ED_ITS ---
HPI - SOB/Dyspnea General Chief Complaint: Arrhythmia/Palpitations Stated Complaint: SOB / abnormal EKG Time Seen by Provider: 05/10/22 15:19 Source: patient Mode of arrival: EMS Limitations: no limitations History of Present Illness HPI Narrative: Patient is a 76-year-old male presents emergency department via EMS coming from [place]. Patient presents therefore evaluation shortness of breath. He states that this morning around 1100 he was moving garden boxes that way approximately 20-30 lb. Just after moving them he began to feel very short of breath, significantly dyspneic on exertion and just ?exhausted?. Even after sitting down and resting shortness of breath and not able to. He continued to feel this way. Never he presented to [place] for evaluation. Was advised there that there was concern about EKG abnormalities in lead II, therefore was sent to the emergency department via EMS. Received aspirin 324 mg prior to arrival. Denies headache, vision changes, dizziness, lightheadedness, neck pain, neck stiffness, chest pain, palpitations, nausea, vomiting, abdominal pain, numbness or tingling of the extremities, generalized weakness, abnormal gait. Related Data Allergies Allergy/AdvReac Type Severity Reaction Status Date / Time nifedipine [From PROCARDIA] Allergy Unknown UNKNOWN Unverified 04/06/20 14:34 Review of Systems Review of Systems: Constitutional : No Fever, No Chills ENT/Mouth : No sore throat, No Rhinorrhea, No Swallowing Difficulty Eyes: No Eye Pain, No Swelling, No Redness Cardiovascular : No Chest Pain, positive SOB, No Orthopnea, no Edema Respiratory : No Cough, No Sputum, No Wheezing, positive dyspnea Gastrointestinal : No Nausea, No Vomiting, No Diarrhea, No abdominal Pain, No Hematochezia, No Melena Genitourinary : No Dysuria, No Urinary Frequency, No Hematuria Musculoskeletal : No joint pain, No Myalgias Skin : No Skin Lesions, No rash Neuro : No Weakness, No Numbness, No Dizziness, No Headache Psych : No Anxiety/Panic, No Depression Heme/Lymph: No Bruising, No Lymphadenopathy Endocrine : No Polyuria, No Polydipsia Yes all other systems are reviewed and are negative [facility] Past Medical History Attestation statement: The following information was validated with the patient. Source: old records reviewed Social History Social History Advance Directives: No Advance Directives Information Provided: Yes Physical Exam Vital Signs: Vital Signs: Last Vital Signs Pulse 84 05/10/22 15:28 Resp 14 05/10/22 15:28 BP 132/81 05/10/22 15:28 Pulse Ox 100 05/10/22 15:28 O2 Del Method 05/10/22 15:28 BMI result Body Mass Index 27.7 Appearance: Alert.?Oriented to person, place and time. No acute distress.?No rmal affect. Eyes: Pupils equal, round and reactive to light.? ENT: Pharynx normal.?? Neck: Normal inspection.? Neck supple.?? CVS: Heart sounds normal. Normal heart rate and rhythm.? Pulses normal.?? Respiratory: No respiratory distress.? Lung sounds clear to auscultation bilaterally?? Abdomen: Soft and non-tender. Normoactive bowel sounds. ? Skin: Skin warm and dry.? Normal skin color.? ?? Extremities: No lower extremity edema.? No calf ttp? Neuro: Moves all extremities spontaneously. Sensation intact bilaterally. CN II- XII intact. No focal neuro deficits. Ambulates with normal steady gait. Course Course Course Narrative: Patient is a 76-year-old male with past medical history hypertension, hyperl ipidemia, BPH, presents to the emergency department for evaluation of shortness of breath and dyspnea on exertion. He is overall well-appearing at the time of examination. No apparent distress. No hypoxia, tachypnea, or tachycardia. No chest pain and no infectious symptoms. Of note patient was seen in the emergency department 5 days ago for evaluation of palpitations which is been ongoing for many years which he did not receive evaluation for but palpitations were more prominent on that day. He does endorse that palpitations have continued to be intermittent since discharge and has an appointment to follow-up with cardiology 05/24. At that time he had an EKG which reveals sinus rhythm with PACs in unifocal PVCs but no acute ischemic findings. Will obtain CBC to evaluate for leukocytosis/ anemia, CMP to evaluate for abnormal electrolytes /abnormal renal function/ abnormal hepatic function, BNP, EKG and troponin to evaluate for ischemia/ACS. Chest x-ray to evaluate for consolidation/ infiltrate/ mass/ pulmonary congestion. PERC negative, unlikely PE. Reevaluation(s) Reevaluation #1: CBC reveals a normocytic anemia which is consistent with baseline. CMP is unremarkable. COVID-19 testing is negative. Troponin 4.3, EKG reveals normal sinus rhythm with no acute ischemic findings, appears consistent with prior EKG obtained 5 days ago, low suspicion for ACS, however given onset of symptoms will obtain delta troponin for comparison. Chest x-ray reveals no acute cardiopulmonary abnormalities. Time: 17:24 Reevaluation #2: Delta troponin is negative. Patient in no respiratory distress. Shortness of breath is significantly improved. Speaking clear full sentences. Conscious alert and oriented x4. Stable for discharge home. Advised outpatient follow-up with primary care provider and Cardiology. Reviewed worrisome signs and symptoms to return back to the emergency department for. All questions were answered, patient was discharged home in stable condition. Time: 19:12 MDM - SOB/Dyspnea Medical Records Attestation: I reviewed the patient's medical records. Lab Data Attestation: I reviewed the patient's lab results. Result diagrams: 05/10/22 15:48 05/10/22 15:48 Labs: Lab Results 05/10/22 05/10/22 05/10/22 Range/Units 15:48 15:48 15:48 WBC 6.6 (4.8-10.8) X10*3/uL RBC 4.40 L (4.60-5.80) X10*6/uL Hgb 13.2 L (14.0-18.0) g/dl Hct 38.1 L (42.0-52.0) % MCV 86.6 (80.0-98.0) fL MCH 30.0 (27.0-33.0) pg MCHC 34.6 (31.0-36.0) g/dl RDW 12.3 (11.0-16.0) % Plt Count 213 (160-400) X10*3/uL MPV 8.2 L (9.4-12.4) fL Immature Gran % (Auto) 0.6 H (0.0-0.4) % Neut % (Auto) 68.8 (45-73) % Lymph % (Auto) 21.8 (20-40) % [place] % (Auto) 7.1 (2-11) % Eos % (Auto) 1.2 (0-4) % Baso % (Auto) 0.5 (0-2) % Lymph # (Auto) 1.4 (1.2-4.9) X10*3/uL [place] # (Auto) 0.5 (0.1-1.2) X10*3/uL Eos # (Auto) 0.1 (0.0-0.4) X10*3/uL Baso # (Auto) 0.0 (0.0-0.2) X10*3/uL Abs Immat Gran (auto) 0.04 H (0.00-0.03) X10*3/uL Absolute Neuts (auto) 4.6 (2.0-8.3) x10*3/uL Absolute Nucleated RBC 0.000 (0.0-0.012) X10*3/uL Nucleated RBC % (auto) 0.0 (0.0-0.2) /100WBC Sodium 141 (135-145) mmol/L Potassium 4.3 (3.3-5.1) mmol/L Chloride 105 (96-108) mmol/L Carbon Dioxide 26 (22-29) mmol/L Anion Gap 14 (12-20) BUN 16 (9-16) mg/dL Creatinine 0.96 (0.5-1.4) mg/dL Estim Creat Clear Calc 76.2 Estimated GFR > 60 Random Glucose 108 (60-115) mg/dL Calcium 9.6 (8.4-10.2) mg/dL Magnesium 2.1 (1.6-2.6) mg/dL Total Bilirubin 0.5 (0.0-1.0) mg/dL AST 18 (5-37) U/L ALT 20 (0-40) U/L Alkaline Phosphatase 71 (39-117) U/L Troponin I High Sens (<3.5-35.0) ng/L B-Natriuretic Peptide 27 (<100) pg/mL Total Protein 6.5 (6.5-8.0) g/dL Albumin 4.3 (3.5-5.0) g/dL COVID-19 (JOHANNA) (Negative) COVID-19 Clin Com 05/10/22 05/10/22 05/10/22 Range/Units 15:48 15:48 18:41 WBC (4.8-10.8) X10*3/uL RBC (4.60-5.80) X10*6/uL Hgb (14.0-18.0) g/dl Hct (42.0-52.0) % MCV (80.0-98.0) fL MCH (27.0-33.0) pg MCHC (31.0-36.0) g/dl RDW (11.0-16.0) % Plt Count (160-400) X10*3/uL MPV (9.4-12.4) fL Immature Gran % (Auto) (0.0-0.4) % Neut % (Auto) (45-73) % Lymph % (Auto) (20-40) % [place] % (Auto) (2-11) % Eos % (Auto) (0-4) % Baso % (Auto) (0-2) % Lymph # (Auto) (1.2-4.9) X10*3/uL [place] # (Auto) (0.1-1.2) X10*3/uL Eos # (Auto) (0.0-0.4) X10*3/uL Baso # (Auto) (0.0-0.2) X10*3/uL Abs Immat Gran (auto) (0.00-0.03) X10*3/uL Absolute Neuts (auto) (2.0-8.3) x10*3/uL Absolute Nucleated RBC (0.0-0.012) X10*3/uL Nucleated RBC % (auto) (0.0-0.2) /100WBC Sodium (135-145) mmol/L Potassium (3.3-5.1) mmol/L Chloride (96-108) mmol/L Carbon Dioxide (22-29) mmol/L Anion Gap (12-20) BUN (9-16) mg/dL Creatinine (0.5-1.4) mg/dL Estim Creat Clear Calc Estimated GFR Random Glucose (60-115) mg/dL Calcium (8.4-10.2) mg/dL Magnesium (1.6-2.6) mg/dL Total Bilirubin (0.0-1.0) mg/dL AST (5-37) U/L ALT (0-40) U/L Alkaline Phosphatase (39-117) U/L Troponin I High Sens 4.3 3.9 (<3.5-35.0) ng/L B-Natriuretic Peptide (<100) pg/mL Total Protein (6.5-8.0) g/dL Albumin (3.5-5.0) g/dL COVID-19 (JOHANNA) Negative (Negative) COVID-19 Clin Com See Note Imaging Data Chest x-ray: Radiologist's impression: XR/XR chest 2V IMPRESSION: Unremarkable chest exam. ECG Data Attestation: I personally reviewed and interpreted this ECG as follows: ECG interpretation date: 05/10/22 Prior ECG tracings: available for review Interpretation: Rate: 79 Rhythm:? Normal sinus rhythm [place]:? Normal Normal P waves.? Normal [place].?? Normal QRS complex.?? ST T wave :??No ST elevation, no ST depression, no T-wave inversion qTC: 426 prior studies:? May 05, 2022 The study has been interpreted contemporaneously by me. Discharge Plan Discharge Clinical Impression: Shortness of breath Patient Disposition: Home, Self-Care Instructions: Shortness of Breath (ED) Additional Instructions: As we discussed, your blood work was overall normal today. There is no evidence of heart attack and your blood work or on your EKG. Your chest x-ray was also normal. At this time you are stable for discharge home. As we discussed, you should be sure to rest over the next couple of days, take it easy, avoid any heavy lifting. Follow-up with your primary care provider within 2-3 days, as well as Cardiology as scheduled. Return to emergency department with any new or worsening symptoms or concerns. Referrals: Denys Snow MD [Primary Care Provider] - Interventions: ED Discharge Assessment Last Done: 05/10/22 19:55 Discharge Date/Time: 05/10/22 19:57
[2022-05-10 15:55] LABS: MANUAL DIFF FLAG NO
[2022-05-10 15:57] LABS: Basophils Percent Auto 0.5 % (0-2); Eosinophils Absolute Auto 0.1 X10*3/uL (0.0-0.4); Eosinophils Percent Auto 1.2 % (0-4); Hematocrit 38.1 % (42.0-52.0); Hemoglobin 13.2 g/dl (14.0-18.0); Imm Gran Abs Auto 0.04 X10*3/uL (0.00-0.03); Imm Gran Pct Auto 0.6 % (0.0-0.4); Lymphocytes Absolute Auto 1.4 X10*3/uL (1.2-4.9); Lymphocytes Percent Auto 21.8 % (20-40); Mean Corpuscular HGB Conc 34.6 g/dl (31.0-36.0); Mean Corpuscular Volume 86.6 fL (80.0-98.0); Mean Platelet Volume 8.2 fL (9.4-12.4); Monocytes Absolute Auto 0.5 X10*3/uL (0.1-1.2); Monocytes Percent Auto 7.1 % (2-11); Neutrophils Absolute Auto 4.6 x10*3/uL (2.0-8.3); Neutrophils Percent Auto 68.8 % (45-73); Platelet Count 213 X10*3/uL (160-400); Red Cell Distribution Width 12.3 % (11.0-16.0); White Blood Count 6.6 X10*3/uL (4.8-10.8)
[2022-05-10 16:11] LABS: COVID-19 Test Negative (Negative)
[2022-05-10 16:17] LABS: Alanine Aminotransferase 20 U/L (0-40); Albumin Level 4.3 g/dL (3.5-5.0); Alkaline Phosphatase 71 U/L (39-117); Anion Gap 14 (12-20); Aspartate Amino Transferase 18 U/L (5-37); Bilirubin Total 0.5 mg/dL (0.0-1.0); Blood Urea Nitrogen 16 mg/dL (9-16); Calcium 9.6 mg/dL (8.4-10.2); Carbon Dioxide 26 mmol/L (22-29); Chloride 105 mmol/L (96-108); Creatinine Clr Calc Pharmacy 76.2; Estimated Glomerular Filt Rate > 60; Glucose Random 108 mg/dL (60-115); Magnesium 2.1 mg/dL (1.6-2.6); Potassium 4.3 mmol/L (3.3-5.1); Sodium 141 mmol/L (135-145); Total Protein 6.5 g/dL (6.5-8.0)
[2022-05-10 16:23] LABS: B Type Natriuretic Peptide 27 pg/mL (<100); Troponin-I High Sensitivity 4.3 ng/L (<3.5-35.0)
--- NOTE | 2022-05-10 18:15 | PC.NURSE ---
PLAN IS TO REPEAT TROPONIN LEVEL AT 7P HE HAS NOT HAD ANY PAIN. NO SIGNIFICANT SOB NSR ON THE MONITOR
[2022-05-10 19:06] LABS: Troponin-I High Sensitivity 3.9 ng/L (<3.5-35.0)
--- NOTE | 2022-05-10 19:28 | PC.NURSE ---
Assumed care of pt. at 1900. Pending results of troponin to determine d/c. Pt. resting quietly in room.
== END 2022-05-10 19:57 | disposition home or self-care (01) ==
PROVIDERS: Nurse Practitioner Family; Emergency Provider Emergency Medicine; PCP Internal Medicine
DX: R06.02 Shortness of breath (principal); Z20.822 Contact with and (suspected) exposure to COVID-19; I10 Essential (primary) hypertension; E78.5 Hyperlipidemia, unspecified
CPT/HCPCS: 36415; 71046; 80053; 83735; 83880; 84484; 85025; 87635; 93005; 99283; 99284

== ENCOUNTER → 2022-05-24 10:48 | Outpatient (REF) | payer MEDICARE, SELFPAY ==
--- NOTE | 2022-05-24 10:50 | HM_ITS ---
Conclusion: 1. Patient was monitored for total period of 3 days and 2 hours 2. Baseline was normal sinus rhythm with average heart of 86 beats per minute 3. No significant pauses or bradycardia noted 4. Total of 1900 PVCs accounting for 0.5% of total beats accounting for occasional PVCs 5. Total of 909 PACs accounting for 0.25% of total beats account for occasional PACs 6. Seven short episodes of supra tachycardia longest lasting 7 beats and fastest 160 beats per minute 8. One patient reported event correlated with sinus tachycardia MTDD
== END ==
LOC: HO.CARD 10:48
PROVIDERS: PCP Internal Medicine; Visit Provider Internal Medicine Cardiovascular Disease
DX: R00.2 Palpitations (principal)
CPT/HCPCS: 93242

== ENCOUNTER 2022-08-01 06:18 | Day surgery (SDC) | payer MEDICARE, SELFPAY ==
--- NOTE | 2022-07-31 11:54 | HO.ANESPROP2 ---
Documented by User: Philly Mosqueda NP 07/31/22 11:56 HPI - Anesthesia Eval Consult details Narrative: 77yo M for Colonoscopy PMFSH Active Problems Active Problems: All Active Problems (Updated 07/31/22 @ 11:01 by Robyn Cummins RN) Palpitations (Acute) Past Medical History Medical History FH: cholecystectomy GERD (gastroesophageal reflux disease) HTN (hypertension) Hyperlipidemia Right knee injury Surgical History Surgical History History of esophagogastroduodenoscopy (EGD) History of spinal surgery History of surgical removal of pilonidal cyst History of total left knee replacement (TKR) Social History Social History Patient Tobacco Use Status: Former Tobacco user Are you DNR?: No Advance Directives: No Advance Directives Information Provided: Yes Meds Allergies Allergy/AdvReac Type Severity Reaction Status Date / Time amoxicillin Allergy Severe Anaphylaxis Verified 08/01/22 07:16 nifedipine [From PROCARDIA] Allergy Unknown UNKNOWN Unverified 04/06/20 14:34 Home Medications Medication Instructions Recorded Confirmed Last Taken Type atorvastatin 40 mg tablet 1 tab PO DAILY 07/31/22 07/31/22 Unknown History celecoxib 200 mg capsule 1 cap PO DAILY 07/31/22 07/31/22 Unknown History losartan 50 mg tablet 1 tab PO DAILY 07/31/22 07/31/22 08/01/22 History pantoprazole 40 mg tablet,delayed 1 tab PO DAILY 07/31/22 07/31/22 Unknown History release tamsulosin 0.4 mg capsule 2 cap PO DAILY 07/31/22 07/31/22 Unknown History Exam Exam Date and Time: July 31, 2022 1154 Pertinent Lab Results Pertinent Lab Results: Laboratory Tests 05/10/22 05/10/22 15:48 15:48 WBC 6.6 Hgb 13.2 L Hct 38.1 L Plt Count 213 Sodium 141 Potassium 4.3 Chloride 105 Carbon Dioxide 26 BUN 16 Creatinine 0.96 Narrative Narrative: EKG 04/2022 Vent. Rate : 079 BPM ? ? Atrial Rate : 079 BPM ?? P-R Int : 202 ms? QRS Dur : 086 ms ? ? QT Int : 372 ms ? ? ? P-R-T Axes : -02 -16 030 degrees ?? QTc Int : 426 ms ? 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 Patient was monitored for total period of 3 days and 2 hours 2. Baseline was normal sinus rhythm with average heart of 86 beats per minute 3. No significant pauses or bradycardia noted 4. Total of 1900 PVCs accounting for 0.5% of total beats accounting for occasional PVCs 5. Total of 909 PACs accounting for 0.25% of total beats account for occasional PACs 6. Seven short episodes of supra tachycardia longest lasting 7 beats and fastest 160 beats per minute 8. One patient reported event correlated with sinus tachycardia Assessment and Plan Assessment Anesthesia Assessment: Chart Reviewed Documented by User: Yoselin Rhodes MD 08/01/22 07:31 [facility] Past Medical History Medical History FH: cholecystectomy GERD (gastroesophageal reflux disease) HTN (hypertension) Hyperlipidemia Right knee injury Functional capacity: independent ambulation Family History Family history of problems with anesthesia: No Surgical History Surgical History History of esophagogastroduodenoscopy (EGD) History of spinal surgery History of surgical removal of pilonidal cyst History of total left knee replacement (TKR) History of Problems with Anesthesia: No Social History Social History Patient Tobacco Use Status: Former Tobacco user Are you DNR?: No Advance Directives: No Advance Directives Information Provided: Yes Meds Allergies Allergy/AdvReac Type Severity Reaction Status Date / Time amoxicillin Allergy Severe Anaphylaxis Verified 08/01/22 07:16 nifedipine [From PROCARDIA] Allergy Unknown UNKNOWN Unverified 04/06/20 14:34 Home Medications Medication Instructions Recorded Confirmed Last Taken Type atorvastatin 40 mg tablet 1 tab PO DAILY 07/31/22 07/31/22 Unknown History celecoxib 200 mg capsule 1 cap PO DAILY 07/31/22 07/31/22 Unknown History losartan 50 mg tablet 1 tab PO DAILY 07/31/22 07/31/22 08/01/22 History pantoprazole 40 mg tablet,delayed 1 tab PO DAILY 07/31/22 07/31/22 Unknown History release tamsulosin 0.4 mg capsule 2 cap PO DAILY 07/31/22 07/31/22 Unknown History Exam Airway Mallampati Class: II TM Dist: >3cm Neck ROM: Full Heart: RRR Lungs: CTA Assessment and Plan Final Anesthetic Review Family History of Problems with Anesthesia: No History of Problems with Anesthesia: No NPO: Yes ASA Class: III Final Preanesthetic Review: No Changes in Pt Med Stat, Meds/Allgs Chart Reviewed, Consent Obtained/Reviewed and Anes Risks/Benef Reviewed Patient Risk: Low Procedure Risk: Low Anesthetic Plan Anesthetic Plan: MAC: Disposition: Standard PACU
[2022-08-01 06:26] VITALS: BMI 29.1
[2022-08-01 06:39] VITALS: BP 150/93; PULSE 79; RESP 18; TEMP 36.1; O2SAT 100
[2022-08-01] MEDS: Lactated Ringers 1,000 ML 100 ML IVCONT (06:52)
[2022-08-01] MEDS: Gentamicin Sulfate/NaCl 80 MG/100 ML PIGGYBACK 100 MG IV (06:59)
[2022-08-01] MEDS: vancomycin HCL 1,500 MG in 0.9 % Sodium Chloride 500 ML 333.33 MG IV (07:03)
--- NOTE | 2022-08-01 08:11 | HO.ANESPROP2 ---
[facility] Active Problems Active Problems: All Active Problems (Updated 07/31/22 @ 11:01 by Robyn Cummins RN) Palpitations (Acute) Past Medical History Medical History FH: cholecystectomy GERD (gastroesophageal reflux disease) HTN (hypertension) Hyperlipidemia Right knee injury Functional capacity: independent ambulation Family History Family history of problems with anesthesia: No Surgical History Surgical History History of esophagogastroduodenoscopy (EGD) History of spinal surgery History of surgical removal of pilonidal cyst History of total left knee replacement (TKR) History of Problems with Anesthesia: No Social History Social History Patient Tobacco Use Status: Former Tobacco user Are you DNR?: No Advance Directives: No Advance Directives Information Provided: Yes Meds Allergies Allergy/AdvReac Type Severity Reaction Status Date / Time amoxicillin Allergy Severe Anaphylaxis Verified 08/01/22 07:16 nifedipine [From PROCARDIA] Allergy Unknown UNKNOWN Unverified 04/06/20 14:34 Active Medications: Current Medications Lactated Ringer's (Lr) 1,000 mls @ 100 mls/hr IVCONT .Q10H TRI Last Admin: 08/01/22 06:52 Dose: 100 mls/hr Pharmacy Consult (Consult Rx Vancomycin Dosing) 1 each MISCELLANE DAILY PRN PRN Reason: Consult order Sodium Biphosphate/Sodium Phosphate (Sodium Phosphate,Victoria-Dibasic 133 Ml Enema) [address] ONCE PRN PRN Reason: Poor Colonoscopy Prep Results Home Medications Medication Instructions Recorded Confirmed Last Taken Type atorvastatin 40 mg tablet 1 tab PO DAILY 07/31/22 07/31/22 Unknown History celecoxib 200 mg capsule 1 cap PO DAILY 07/31/22 07/31/22 Unknown History losartan 50 mg tablet 1 tab PO DAILY 07/31/22 07/31/22 08/01/22 History pantoprazole 40 mg tablet,delayed 1 tab PO DAILY 07/31/22 07/31/22 Unknown History release tamsulosin 0.4 mg capsule 2 cap PO DAILY 07/31/22 07/31/22 Unknown History Exam Exam Date and Time: August 01, 2022810 Height,Weight and Vital Signs: Height 6 ft Weight 97.522 kg Last Vital Signs Temp 97.0 F 08/01/22 06:39 Pulse 79 08/01/22 06:39 Resp 18 08/01/22 06:39 BP 150/93 H 08/01/22 06:39 Pulse Ox 100 08/01/22 06:39 O2 Del Method 08/01/22 06:39 Assessment and Plan Final Anesthetic Review Family History of Problems with Anesthesia: No History of Problems with Anesthesia: No
[2022-08-01 08:31] VITALS: BP 95/60; PULSE 76; RESP 16; TEMP 36.5; O2SAT 96
[2022-08-01 08:46] VITALS: BP 109/71; PULSE 68; RESP 18; O2SAT 98
--- NOTE | 2022-08-01 09:06 | OP_ITS ---
SURGEON: Jose Mccullough MD INDICATIONS: The patient presents for evaluation of colorectal cancer screening. Full consent has been obtained from him for this, including risks of bleeding and perforation. PREOPERATIVE DIAGNOSIS: Colorectal cancer screening. POSTOPERATIVE DIAGNOSIS: Colorectal cancer screening, small colon polyp, diverticulosis, and small internal hemorrhoids. PROCEDURE PERFORMED: Colonoscopy to the cecum with biopsy and removal of polyp. ESTIMATED BLOOD LOSS: COMPLICATIONS: ANESTHESIA: Monitored anesthesia care. ASSISTANTS: SPECIMENS: DESCRIPTION OF PROCEDURE: The patient was placed in the left lateral decubitus position. The digital rectal exam revealed no abnormalities. The Olympus video pediatric colonoscope was entered into the rectum and advanced easily to the cecum. Once in the cecum, I did identify a normal-appearing cecal pouch with appendiceal orifice and a normal-appearing ileocecal valve. The entire cecum and ileocecal valve appeared normal. There was transillumination of light deep in the right lower quadrant. The scope was slowly withdrawn assessing all mucosal surfaces carefully. Preparation was excellent. At 20 cm was a flat approximately 4 or 5 mm polyp, which was biopsied and completely removed with a cold biopsy forceps. I did not visualize any other polyps, colitis, or angiodysplasia. There was a mild amount of sigmoid diverticulosis. In the rectum, scope was retroflexed visualizing small internal hemorrhoids, but no other pathology. The rectal mucosa appeared normal. The scope was straightened and withdrawn from the patient. He tolerated the procedure well and was returned to the recovery area in stable condition. IMPRESSION: 1. Small colon polyp. 2. Diverticulosis. 3. Internal hemorrhoids. PLAN: The results of the biopsy will be checked. Given these minimal findings and his age, I do not think, he will need any further screening colonoscopies. He will see me on a p.r.n. basis. He did receive IV antibiotics prior to the procedure in regard to his relatively recent knee replacement. MD ART Olivares/DONTAEL / [id number]
[2022-08-01 09:07] VITALS: BP 139/74; PULSE 59; RESP 18; TEMP 36.1; O2SAT 99
--- NOTE | 2022-08-01 09:49 | HO.POSTANES ---
Post Anesthesia Evaluation Post Anesthesia Evaluation Vital Signs: Vital Signs Temp Pulse Resp BP Pulse Ox O2 Del Method O2 Flow Rate 08/01/22 09:07 97.0 F 59 18 139/74 99 Room Air 08/01/22 08:46 68 18 109/71 98 Room Air 08/01/22 08:31 97.7 F 76 16 95/60 96 Nasal Cannula 2 08/01/22 06:39 97.0 F 79 18 150/93 H 100 Room Air Anesthesia: General LMA Mental Status: Awake Pain Control: Satisfactory Nausea/Vomiting: None Hydration: Adequate Anesthesia-Related Issues: No Anes. Related Issues
--- NOTE | 2022-08-01 15:02 | PM.OP ---
Brief Operative Note Date of Service: 08/01/22 Pre-op diagnosis: Screening Post-op diagnosis: other (Polyp) Procedure: Colonoscopy to the cecum with bx/removal of polyp Surgeon: Jose Mccullough Anesthesia: MAC Was an [employer] Operator used for this Procedure?: No Estimated blood loss (mL): 2.0 Pathology: other (A. Polyp at 20cm) Condition: stable Disposition: PACU
== END 2022-08-01 09:24 | disposition home or self-care (01) ==
PROVIDERS: PCP Internal Medicine; Visit Provider Internal Medicine
PROC: 0DJD8ZZ Inspection of Lower Intestinal Tract, Via Natural or Artificial Opening Endoscopic (ICD-10-PCS; CPT 45378; principal; 2022-08-01 07:30)
DX: Z12.11 Encounter for screening for malignant neoplasm of colon (principal); D12.5 Benign neoplasm of sigmoid colon; K57.30 Diverticulosis of large intestine without perforation or abscess without bleeding; K64.8 Other hemorrhoids; K21.9 Gastro-esophageal reflux disease without esophagitis; E78.5 Hyperlipidemia, unspecified; I10 Essential (primary) hypertension; Z79.899 Other long term (current) drug therapy; Z88.0 Allergy status to penicillin; Z88.8 Allergy status to other drugs, medicaments and biological substances; Z96.652 Presence of left artificial knee joint; Z90.49 Acquired absence of other specified parts of digestive tract
CPT/HCPCS: 45380; 88305; J1580; J3371

== ENCOUNTER → 2022-09-03 13:46 | Outpatient (BNVA) | payer MEDICARE, SELFPAY | PROVIDERS: PCP Internal Medicine; Referring Provider Internal Medicine; Visit Provider Nurse Practitioner Family | DX: I35.0 Nonrheumatic aortic (valve) stenosis (principal); I49.3 Ventricular premature depolarization; R00.2 Palpitations; R06.02 Shortness of breath | CPT/HCPCS: 93005; 99202 ==

== ENCOUNTER 2022-11-01 09:08 | Emergency (ER) | payer OTHER, MEDICARE, SELFPAY ==
--- NOTE | ~2022-11-01 | CT_ITS ---
EXAMINATION: CT angio head CLINICAL INFORMATION: Left eye vision loss. COMPARISON: CT head 08/21/2018. Brain MRI 01/19/2015. TECHNIQUE: [employer]st images were obtained. A CT angiogram of the head was performed in the arterial phase after the intravenous administration of 75 mL Omnipaque 350. Pre and delayed postcontrast images of the head were also obtained. MIP reconstructions were generated in multiple orientations at the acquisition workstation. Multiple three-dimensional surface rendered images and maximum intensity projection images were generated on a dedicated 3-D lab workstation. Arterial stenoses are measured in accordance with NASCET criteria or similar method if applicable. This CT examination was performed using dose optimization techniques as appropriate, including one or more of the following: Automated exposure control, iterative reconstruction, and adjustment of technique factors (mA and/or kVp) according to patient size (this includes techniques or standardized protocols for targeted exams where dose is matched to indication/reason for exam). Fleischner Society criteria for the followup of incidental pulmonary nodules was implemented if appropriate. Total exam dose-length product 2742 mGy-cm FINDINGS: Head: There is no acute intracranial hemorrhage or abnormal extra-axial collection. Postcontrast images reveal no abnormal intracranial mass or enhancement. There is no intracranial mass effect or midline shift. Lateral and third ventricles are normal. No hydrocephalus. Shaw-white matter differentiation is preserved and there is no evidence of acute territorial infarct. The calvarium and skull base are intact. Mastoid air cells and middle ear cavities are well aerated. Moderate paranasal sinus disease primarily affecting the ethmoid air cells. Globes and orbits are grossly symmetric. CT angiogram head: Intracranial internal carotid arteries are normal. The intradural vertebral artery segments and basilar artery are normal. Anterior, middle, and posterior cerebral complexes are normal. No intracranial large vessel occlusion. No identifiable aneurysm or high flow vascular lesion. Timing of the contrast injection provides adequate opacification of the dural venous sinuses which are patent. CT/CT angio head IMPRESSION: Unremarkable CT angiogram of the head. No intracranial large vessel occlusion. No evidence of acute territorial infarct or hemorrhage. No abnormal intracranial mass or enhancement.
[2022-11-01 09:18] VITALS: BP 144/93; PULSE 88; RESP 18; TEMP 36.5; O2SAT 97; BMI 29.9
--- NOTE | 2022-11-01 09:37 | ED.EYEPROB ---
HPI - Eye Problem General Chief complaint: Eye Problems Stated complaint: L Eye Vision Problems Time Seen by Provider: 11/01/22 09:25 Source: patient Mode of arrival: ambulatory Limitations: no limitations History of Present Illness HPI Narrative: left blurred vision OS,no cook ,no fever,states had similar problem in the past with migraine cook but has no cook chief complaint: other (left eye blurred vision) Onset (ago): day(s) (1) Onset description: gradual Duration: constant Location: left eye Related Data Home Medications Medication Instructions Recorded Confirmed aspirin 325 mg tablet 325 mg PO BID 09/03/22 09/03/22 atorvastatin 40 mg tablet 40 mg PO DAILY 09/03/22 09/03/22 [id number] 1 tab PO ONCE PRN 09/03/22 09/03/22 50 mg-325 mg-40 mg tablet celecoxib 200 mg capsule 200 mg PO DAILY 09/03/22 09/03/22 losartan 50 mg tablet 50 mg PO DAILY 09/03/22 09/03/22 pantoprazole 40 mg tablet,delayed 40 mg PO DAILY 09/03/22 09/03/22 release tamsulosin 0.4 mg capsule 0.4 mg PO DAILY 09/03/22 09/03/22 tramadol 50 mg tablet 50 mg PO BID PRN 09/03/22 09/03/22 Allergies Allergy/AdvReac Type Severity Reaction Status Date / Time amoxicillin Allergy Severe Anaphylaxis Verified 09/03/22 14:09 nifedipine [From PROCARDIA] Allergy Unknown UNKNOWN Verified 09/03/22 14:09 Review of Systems Constitutional: Constitutional: Reports no additional constitutional complaints Eyes: Eyes: Denies diplopia, Denies eye discharge and Denies loss of vision Neurologic: Reports system reviewed and no additional complaints, except as documented and Denies loss of vision PMFSH Past Medical History Medical History FH: cholecystectomy GERD (gastroesophageal reflux disease) HTN (hypertension) Hyperlipidemia Right knee injury Surgical History History of esophagogastroduodenoscopy (EGD) History of spinal surgery History of surgical removal of pilonidal cyst History of total left knee replacement (TKR) Family History Family History Mother No problems noted. Father Heart disease Brother Afib Brother Afib Brother Afib Brother Afib Sister Leukemia Social History Social History Alcohol intake: current Alcohol intake frequency: a few times a week Alcohol type: beer Patient Tobacco Use Status: Former Tobacco user Quit Date: 1979 Years Smoked: 10 +/- Advance Directives: No Advance Directives Information Provided: No Physical Exam Vital Signs: Vital Signs: Last Vital Signs Temp 98.0 F 11/01/22 12:00 Pulse 76 11/01/22 12:00 Resp 14 11/01/22 12:00 BP 140/81 H 11/01/22 12:00 Pulse Ox 100 11/01/22 12:00 O2 Del Method Room Air 11/01/22 12:00 BMI result Body Mass Index 29.9 Const: General: cooperative and healthy appearing Nutritional Appearance: average body habitus Orientation/consciousness: patient oriented x3 HEENT: Head: Yes normal to inspection Ears: hearing grossly normal bilaterally General nose exam: Normal external nose present Face and sinus: Yes normal facial exam Eyes: Other: Full EOM/no redness,pupils equal and reactive,ocular pressure 12,US no evidence of retinal detachment Visual Morgan: normal visual morgan by confrontation Alignment and Position: alignment normal Eyelids: Yes eyelids normal Conjunctivae: conjunctivae normal Sclerae: sclerae normal Corneas: corneas normal EOM: EOMs intact bilaterally Direct Ophthalmoscopy: normal light reflex Neck: Neck: Yes normal visual inspection and Yes full ROM Chest: Chest palpation & inspection: normal inspection of the chest Resp: Effort & Inspection: normal respiratory effort Cardio: Jugular venous distension: no JVD Rhythm: regular rhythm GI: Inspection: Yes normal to inspection Palpation (GI): Soft to palpation, not firm and nontender Auscultation: normal bowel sounds Neuro: General: patient oriented x3, no focal motor deficits and CN's II-XI intact bilaterally Course Reevaluation(s) Reevaluation #1: spoke with Dr López will see pt now in the office Time: 13:29 Reevaluation #2: I was called by Ophtalmologist Dr López at this time that upon dilated eye exam he saw a retinal infart,he will send the pt back to get CTA carotid vessel and will do EKG as well to make sure he is in sinus rhythm,and will touch base with neurologist if can be follow as outpatient on ASA. Dr López will send pt back,I made aware of the case the [facility] Time: 14:56 Medications Administered Discontinued Medications Generic Name Dose Route Start Last Admin Trade Name Freq PRN Reason Stop Dose Admin Iohexol 75 ml 11/01/22 11:09 11/01/22 11:09 Iohexol 350 Mg/Ml 100 Ml Infus..Btl IV 11/01/22 11:10 75 ml ONCE ONE Administration Medical Decision Making Medical Decision Making MDM Narrative: presente with blurred vision left eye will chesk cta brain Differential Diagnosis Differential Diagnoses: The differential diagnosis associated with the presentation includes migraine/retinal detachment /retinal infart Admission/Observation Consideration of admission/observation: Escalation of care including admission/observation considered Consult Healthcare Provider Management of the patient was discussed with: Fabrication Supervisor (Ophtalmologist) Lab Data [facility] Lab Attestation statement: I reviewed the patient's lab results. 11/01/22 09:46 11/01/22 09:46 Labs: Lab Results 11/01/22 11/01/22 Range/Units 09:46 09:46 WBC 4.8 (4.8-10.8) X10*3/uL RBC 4.77 (4.60-5.80) X10*6/uL Hgb 14.2 (14.0-18.0) g/dl Hct 41.4 L (42.0-52.0) % MCV 86.8 (80.0-98.0) fL MCH 29.8 (27.0-33.0) pg MCHC 34.3 (31.0-36.0) g/dl RDW 12.3 (11.0-16.0) % Plt Count 182 (160-400) X10*3/uL MPV 8.3 L (9.4-12.4) fL Immature Gran % (Auto) 0.2 (0.0-0.4) % Neut % (Auto) 58.4 (45-73) % Lymph % (Auto) 26.3 (20-40) % Bowie % (Auto) 7.8 (2-11) % Eos % (Auto) 6.5 H (0-4) % Baso % (Auto) 0.8 (0-2) % Lymph # (Auto) 1.3 (1.2-4.9) X10*3/uL Bowie # (Auto) 0.4 (0.1-1.2) X10*3/uL Eos # (Auto) 0.3 (0.0-0.4) X10*3/uL Baso # (Auto) 0.0 (0.0-0.2) X10*3/uL Abs Immat Gran (auto) 0.01 (0.00-0.03) X10*3/uL Absolute Neuts (auto) 2.8 (2.0-8.3) x10*3/uL Absolute Nucleated RBC 0.000 (0.0-0.012) X10*3/uL Nucleated RBC % (auto) 0.0 (0.0-0.2) /100WBC Sodium 141 (135-145) mmol/L Potassium 4.2 (3.3-5.1) mmol/L Chloride 108 (96-108) mmol/L Carbon Dioxide 26 (22-29) mmol/L Anion Gap 11 L (12-20) BUN 18 H (9-16) mg/dL Creatinine 0.79 (0.5-1.4) mg/dL Estim Creat Clear Calc 96.2 Estimated GFR > 60 Random Glucose 117 H (60-115) mg/dL Calcium 9.2 (8.4-10.2) mg/dL Total Bilirubin 0.7 (0.0-1.0) mg/dL AST 18 (5-37) U/L ALT 22 (0-40) U/L Alkaline Phosphatase 65 (39-117) U/L C-Reactive Protein < 0.10 (< or = 0.50) mg/dL Total Protein 6.3 L (6.5-8.0) g/dL Albumin 4.2 (3.5-5.0) g/dL Radiology Impression Discussion of test interpretation with radiology: I have reviewed the radiologist's reading. Radiologist Impression: rocephalus. Shaw-white matter differentiation is preserved and there is no evidence of acute territorial infarct. The calvarium and skull base are intact. Mastoid air cells and middle ear cavities are well aerated. Moderate paranasal sinus disease primarily affecting the ethmoid air cells. Globes and orbits are grossly symmetric. CT angiogram head: Intracranial internal carotid arteries are normal. The intradural vertebral artery segments and basilar artery are normal. Anterior, middle, and posterior cerebral complexes are normal. No intracranial large vessel occlusion. No identifiable aneurysm or high flow vascular lesion. Timing of the contrast injection provides adequate opacification of the dural venous sinuses which are patent. CT/CT angio head IMPRESSION: Unremarkable CT angiogram of the head. No intracranial large vessel occlusion. No evidence of acute territorial infarct or hemorrhage. No abnormal intracranial mass or enhancement. ? Discharge Plan Discharge Clinical Impression: Vision blurred Patient Disposition: Home, Self-Care Instructions: Blurred Vision (ED) Additional Instructions: go to the eye doctor now Dr López Prescriptions: No Action atorvastatin 40 mg tablet 40 mg PO DAILY celecoxib 200 mg capsule 200 mg PO DAILY losartan 50 mg tablet 50 mg PO DAILY pantoprazole 40 mg tablet,delayed release (DR/EC) 40 mg PO DAILY tamsulosin 0.4 mg capsule 0.4 mg PO DAILY tramadol 50 mg tablet 50 mg PO BID PRN aspirin 325 mg tablet 325 mg PO BID [id number]-azviudvgqqfhw-kcsl 50-325-40 mg tablet 1 tab PO ONCE PRN Referrals: Jace López [Physician] - 11/01/22 1:28 pm Interventions: ED Discharge Assessment Last Done: 11/01/22 13:35 Discharge Date/Time: 11/01/22 13:36
[2022-11-01 09:52] LABS: MANUAL DIFF FLAG NO
[2022-11-01 09:53] LABS: Basophils Percent Auto 0.8 % (0-2); Eosinophils Absolute Auto 0.3 X10*3/uL (0.0-0.4); Eosinophils Percent Auto 6.5 % (0-4); Hematocrit 41.4 % (42.0-52.0); Hemoglobin 14.2 g/dl (14.0-18.0); Imm Gran Abs Auto 0.01 X10*3/uL (0.00-0.03); Imm Gran Pct Auto 0.2 % (0.0-0.4); Lymphocytes Absolute Auto 1.3 X10*3/uL (1.2-4.9); Lymphocytes Percent Auto 26.3 % (20-40); Mean Corpuscular HGB Conc 34.3 g/dl (31.0-36.0); Mean Corpuscular Hemoglobin 29.8 pg (27.0-33.0); Mean Corpuscular Volume 86.8 fL (80.0-98.0); Mean Platelet Volume 8.3 fL (9.4-12.4); Monocytes Absolute Auto 0.4 X10*3/uL (0.1-1.2); Monocytes Percent Auto 7.8 % (2-11); Neutrophils Absolute Auto 2.8 x10*3/uL (2.0-8.3); Neutrophils Percent Auto 58.4 % (45-73); Platelet Count 182 X10*3/uL (160-400); Red Blood Count 4.77 X10*6/uL (4.60-5.80); Red Cell Distribution Width 12.3 % (11.0-16.0); White Blood Count 4.8 X10*3/uL (4.8-10.8)
[2022-11-01 10:22] LABS: Alanine Aminotransferase 22 U/L (0-40); Albumin Level 4.2 g/dL (3.5-5.0); Alkaline Phosphatase 65 U/L (39-117); Anion Gap 11 (12-20); Aspartate Amino Transferase 18 U/L (5-37); Bilirubin Total 0.7 mg/dL (0.0-1.0); Blood Urea Nitrogen 18 mg/dL (9-16); Calcium 9.2 mg/dL (8.4-10.2); Carbon Dioxide 26 mmol/L (22-29); Chloride 108 mmol/L (96-108); Creatinine Clr Calc Pharmacy 96.2; Estimated Glomerular Filt Rate > 60; Glucose Random 117 mg/dL (60-115); Potassium 4.2 mmol/L (3.3-5.1); Sodium 141 mmol/L (135-145); Total Protein 6.3 g/dL (6.5-8.0)
[2022-11-01] MEDS: iohexoL 350 MG/ML 100 ML INFUS..BTL 75 ML IV (11:09)
[2022-11-01 12:00] VITALS: BP 140/81; PULSE 76; RESP 14; TEMP 36.7; O2SAT 100
[2022-11-01 14:16] LABS: C Reactive Protein < 0.10 mg/dL (< or = 0.50)
[2022-11-01 15:01] LABS: Erythrocyte Sedimentation Rate 3 MM/HR (0-15)
== END 2022-11-01 13:36 | disposition home or self-care (01) ==
PROVIDERS: Emergency Provider Emergency Medicine; PCP Internal Medicine
DX: H53.8 Other visual disturbances (principal); I10 Essential (primary) hypertension; E78.5 Hyperlipidemia, unspecified; Z79.82 Long term (current) use of aspirin; Z79.02 Long term (current) use of antithrombotics/antiplatelets; Z79.899 Other long term (current) drug therapy; Z87.891 Personal history of nicotine dependence
CPT/HCPCS: 36415; 70496; 70498; 80053; 85025; 85652; 86140; 93005; 99283; 99284; Q9967

== ENCOUNTER 2022-11-01 15:16 | Emergency (ER) | payer OTHER, SELFPAY ==
--- NOTE | ~2022-11-01 | CT_ITS ---
CT ANGIOGRAM NECK CLINICAL INFORMATION: Retinal occlusion. COMPARISON: CTA head performed earlier the same day. TECHNIQUE: A CTA of the neck is obtained following the administration of 70 mL of Omnipaque 350 intravenous contrast without complication. Vascular post-processing, including 2-dimensional and 3-dimensional reformatted images were created and reviewed on an independent workstation under concurrent physician supervision. Stenoses are graded per criteria similar to NASCET. This CT examination was performed using dose optimization techniques as appropriate, variously including the following: *Automated exposure control *Adjustment of mA and/or kV according to patient size (this includes techniques or standardized protocols for targeted exams where dose is matched to indication/reason for exam; i.e. extremities or head) *Use of iterative reconstruction technique FINDINGS: There is a 3 great vessel branch configuration off of the aortic arch. Atherosclerotic disease results in a moderate stenosis of the right vertebral artery origin and a moderate stenosis of the left vertebral artery origin. Right vertebral artery is dominant. The cervical vertebral arteries are otherwise widely patent throughout their course. Extensive lipid rich and calcific atherosclerotic plaque at the right carotid bifurcation resulting in a less than 50% stenosis of the proximal right internal carotid artery. There is a penetrating atherosclerotic ulcer projecting laterally from the right carotid bulb. Lipid rich and calcific atherosclerotic plaque result in a 70% stenosis of the proximal left internal carotid artery. There is multilevel cervical spondylosis. Mucosal thickening throughout the paranasal sinuses. Imaged upper lungs are clear. No significant soft tissue findings are appreciated within the neck. CT/CT angio neck IMPRESSION: - Lipid rich and calcific atherosclerotic plaque result in a 70% stenosis of the proximal left internal carotid artery. - Extensive lipid rich and calcific atherosclerotic plaque at the right carotid bifurcation resulting in a less than 50% stenosis of the proximal right internal carotid artery. There is a penetrating atherosclerotic ulcer projecting laterally from the right carotid bulb. - Atherosclerotic disease results in moderate stenoses of the vertebral artery origins bilaterally. - The intracranial arterial vasculature is diagnostically assessed on the head CTA performed earlier today. Please see that report for further details.
--- NOTE | 2022-11-01 15:17 | ECG_ITS ---
Test Reason : ATRIAL FIB RULE OUT Blood Pressure : / mmHG Vent. 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
--- NOTE | 2022-11-01 15:18 | ED.GENADULT ---
HPI - General Adult General Chief complaint: Eye Problems <CATERINA Aponte - Last Filed: 11/01/22 15:20> Stated complaint: Sent back to ED from PCP office <CATERINA Aponte - Last Filed: 11/01/22 15:20> Time Seen by Provider: 11/01/22 15:56 <CATERINA Aponte - Last Filed: 11/01/22 15:20> Source: patient <Suzanne Demarco MD - Last Filed: 11/01/22 21:35> Mode of arrival: ambulatory <Suzanne Demarco MD - Last Filed: 11/01/22 21:35> Limitations: no limitations <Suzanne Demarco MD - Last Filed: 11/01/22 21:35> History of Present Illness HPI narrative: Patient comes to the emergency room from Dr López's office/ Ophthalmology. Earlier today, pt was seen here for left eye changes, blurry vision. Head CT was normal. Patient was sent over to the ophthalmology office for a dilated eye exam, patient was diagnosed with a small left retinal thrombus. Patient was sent back to our emergency room for a CTA. Patient states that he is regaining his vision again. No other neurologic deficits <Suzanne Demarco MD - Last Filed: 11/01/22 21:35> Related Data Home medications: Home Medications Medication Instructions Recorded Confirmed aspirin 325 mg tablet 325 mg PO BID 09/03/22 09/03/22 atorvastatin 40 mg tablet 40 mg PO DAILY 09/03/22 09/03/22 pxmglmvtpv-ayxhxfqvglwcy-uuondfik 1 tab PO ONCE PRN 09/03/22 09/03/22 50 mg-325 mg-40 mg tablet celecoxib 200 mg capsule 200 mg PO DAILY 09/03/22 09/03/22 losartan 50 mg tablet 50 mg PO DAILY 09/03/22 09/03/22 pantoprazole 40 mg tablet,delayed 40 mg PO DAILY 09/03/22 09/03/22 release tamsulosin 0.4 mg capsule 0.4 mg PO DAILY 09/03/22 09/03/22 tramadol 50 mg tablet 50 mg PO BID PRN 09/03/22 09/03/22 Previous Rx's Medication Instructions Recorded aspirin 325 mg tablet 325 mg PO DAILY #30 tabs 11/01/22 clopidogrel 75 mg tablet (Plavix) 75 mg PO DAILY #30 tabs 11/01/22 lorazepam 1 mg tablet (Ativan) 1 mg PO BEDTIME PRN anxiety #4 tabs 11/01/22 <CATERINA Aponte - Last Filed: 11/01/22 15:20> Allergies/adverse reactions: Allergies Allergy/AdvReac Type Severity Reaction Status Date / Time amoxicillin Allergy Severe Anaphylaxis Verified 09/03/22 14:09 nifedipine [From PROCARDIA] Allergy Unknown UNKNOWN Verified 09/03/22 14:09 <CATERINA Aponte - Last Filed: 11/01/22 15:20> Review of Systems Review of Systems: Constitutional : No Weight loss, No Fever, No Chills, No Night Sweats, No Fatigue, No Malaise ENT/Mouth : No Hearing loss, No Ear Pain, No Nasal Congestion, No Sinus Pain, No Hoarseness, No sore throat, No Rhinorrhea, No Swallowing Difficulty Eyes: Patient regaining back to normal vision in the left eye, No Eye Pain, No Swelling, No Redness, No Foreign Body, No Discharge, No Vision Changes Cardiovascular : No Chest Pain, No SOB, No Dyspnea on Exertion, No Orthopnea, No Edema, No Palpitations Respiratory : No Cough, No Sputum, No Wheezing, No Smoke Exposure, No Dyspnea Gastrointestinal : No Nausea, No Vomiting, No Diarrhea, No Constipation, No abdominal Pain, No Hematochezia, No Melena Genitourinary : no irregular bleeding, No Dysuria, No Urinary Frequency, No Hematuria, No Urinary Incontinence, No Urgency, No Flank Pain, No Urinary Flow Changes, No Hesitancy Musculoskeletal : No joint pain, No Myalgias, No Joint Swelling Skin : No Skin Lesions, No rash Neuro : No Weakness, No Numbness, No Paresthesias, No Loss of Consciousness, No Dizziness, No Headache Psych : No Anxiety/Panic, No Depression, No SI/HI/AH/VH, No Social Issues, Heme/Lymph: No Bruising, No Bleeding,No Lymphadenopathy Endocrine : No Polyuria, No Polydipsia, No Temperature Intolerance <Suzanne Demarco MD - Last Filed: 11/01/22 21:35> COUNT INCLUDES THE [facility] Past Medical History Medical History: Medical History FH: cholecystectomy GERD (gastroesophageal reflux disease) HTN (hypertension) Hyperlipidemia Right knee injury <CATERINA Aponte - Last Filed: 11/01/22 15:20> Surgical History: Surgical History History of esophagogastroduodenoscopy (EGD) History of spinal surgery History of surgical removal of pilonidal cyst History of total left knee replacement (TKR) <CATERINA Aponte - Last Filed: 11/01/22 15:20> Family History Family History: Family History Mother No problems noted. Father Heart disease Brother Afib Brother Afib Brother Afib Brother Afib Sister Leukemia <CATERINA Aponte - Last Filed: 11/01/22 15:20> Social History Social History: Social History Alcohol intake: current Alcohol intake frequency: a few times a week Alcohol type: beer Patient Tobacco Use Status: Former Tobacco user Quit Date: 1979 Smoked: 10 +/- Advance Directives: No Advance Directives Information Provided: No <CATERINA Aponte - Last Filed: 11/01/22 15:20> Physical Exam ED Vital Signs: Vital Signs - 24 hr 11/01/22 16:07 Temperature 97.9 F Pulse Rate 87 Respiratory Rate 20 Blood Pressure 125/80 Pulse Oximetry 98 Oxygen Delivery Method Room Air BMI result Body Mass Index 29.9 <CATERINA Aponte - Last Filed: 11/01/22 15:20> Vital Signs - 24 hr 11/01/22 16:07 Temperature 97.9 F Pulse Rate 87 Respiratory Rate 20 Blood Pressure 125/80 Pulse Oximetry 98 Oxygen Delivery Method Room Air BMI result Body Mass Index 29.9 <Suzanne Demarco MD - Last Filed: 11/01/22 21:35> Const Other: Appearance: Alert. Oriented X3. No acute distress. Eyes: Pupils equal, round and reactive to light. ENT: Pharynx normal. Neck: Normal inspection. Neck supple. No lymph nodes noted. No crepitus CVS: Normal heart rate and rhythm. Pulses normal. Normal S1 and S2 Respiratory: No respiratory distress. Breath sounds normal. No Wheezing. No rales Abdomen: Soft and nontender. No rigidity. No distention. Skin: Skin warm and dry. Normal skin color. Normal skin turgor. Extremities: No lower extremity edema. No Lacerations. No Rash Neuro: Oriented X 3. No motor deficit. No sensory deficit. Moving all extremities. No slurred speech. CN 2 through 12 grossly intact Psych: calm, cooperative, normal affect <Suzanne Demarco MD - Last Filed: 11/01/22 21:35> Course Course Course Narrative: RME performed by Livier Hedrick PA-C. Patient is a 77 year old assigned male at presenting to the emergency department with left eye issues. Patient was seen here earlier today, sent to the philosophy specialist who sent the patient back to get a CTA of the neck and EKG. Imaging and EKG ordered. Patient placed back in the waiting room pending room availability and results. <CATERINA Aponte - Last Filed: 11/01/22 15:20> RME performed by Livier Hedrick PA-C. Patient is a 77 year old assigned male at presenting to the emergency department with left eye issues. Patient was seen here earlier today, sent to the philosophy specialist who sent the patient back to get a CTA of the neck and EKG. Imaging and EKG ordered. Patient placed back in the waiting room pending room availability and results. To discharge, patient states that he was feeling a bit anxious after I discussed his results. Patient requested a dose of Ativan which was given to him in the emergency room <Suzanne Demarco MD - Last Filed: 11/01/22 21:35> Medications Administered Discontinued Medications Generic Name Dose Route Start Last Admin Trade Name Nando PRN Reason Stop Dose Admin Aspirin 325 mg 11/01/22 21:02 11/01/22 21:13 Aspirin Enteric Coated 325 Mg Tablet. PO 11/01/22 21:03 325 mg ONCE ONE Administration Clopidogrel Bisulfate 75 mg 11/01/22 21:02 11/01/22 21:13 Clopidogrel Bisulfate 75 Mg Tablet PO 11/01/22 21:03 75 mg ONCE ONE Administration Iohexol 100 ml 11/01/22 17:44 11/01/22 17:45 Iohexol 350 Mg/Ml 100 Ml Infus..Btl IV 11/01/22 17:45 70 ml ONCE ONE Administration <CATERINA Aponte - Last Filed: 11/01/22 15:20> Medications Administered Discontinued Medications Generic Name Dose Route Start Last Admin Trade Name Nando PRN Reason Stop Dose Admin Aspirin 325 mg 11/01/22 21:02 11/01/22 21:13 Aspirin Enteric Coated 325 Mg Tablet.Dr PO 11/01/22 21:03 325 mg ONCE ONE Administration Clopidogrel Bisulfate 75 mg 11/01/22 21:02 11/01/22 21:13 Clopidogrel Bisulfate 75 Mg Tablet PO 11/01/22 21:03 75 mg ONCE ONE Administration Iohexol 100 ml 11/01/22 17:44 11/01/22 17:45 Iohexol 350 Mg/Ml 100 Ml Infus..Btl IV 11/01/22 17:45 70 ml ONCE ONE Administration <Suzanne Demarco MD - Last Filed: 11/01/22 21:35> Medical Decision Making Medical Decision Making [facility] Narrative: -I discussed the CT findings with Dr. Stewart from vascular surgery. Considered admission versus outpatient treatment. Patient will be started on aspirin and Plavix, per Dr. Stewart, the patient needs to be seen on November 05 in his office. If patient has any recurrent symptoms, any new symptoms which were discussed with the patient, patient is to return to the emergency room for admission. Patient was given the 1st dose of aspirin and Plavix in the emergency room. Patient will continue this treatment until he sees Dr. Stewart. <Suzanne Demarco MD - Last Filed: 11/01/22 21:35> Consult Healthcare Provider Management of the patient was discussed with: Pet House Sitter <Suzanne Demarco MD - Last Filed: 11/01/22 21:35> Lab Data [facility] Lab Attestation statement: I reviewed the patient's lab results. <Suzanne Demarco MD - Last Filed: 11/01/22 21:35> Result Diagrams: 11/01/22 16:57 <CATERINA Aponte - Last Filed: 11/01/22 15:20> Labs: Lab Results 11/01/22 Range/Units 16:57 Sodium 141 (135-145) mmol/L Potassium 4.3 (3.3-5.1) mmol/L Chloride 106 (96-108) mmol/L Carbon Dioxide 27 (22-29) mmol/L Anion Gap 12 (12-20) BUN 14 (9-16) mg/dL Creatinine 0.83 (0.5-1.4) mg/dL Estim Creat Clear Calc 91.5 Estimated GFR > 60 Random Glucose 161 H (60-115) mg/dL Calcium 9.3 (8.4-10.2) mg/dL Total Bilirubin 0.8 (0.0-1.0) mg/dL AST 20 (5-37) U/L ALT 23 (0-40) U/L Alkaline Phosphatase 70 (39-117) U/L Total Protein 6.6 (6.5-8.0) g/dL Albumin 4.3 (3.5-5.0) g/dL <CATERINA Aponte - Last Filed: 11/01/22 15:20> Lab Results 11/01/22 Range/Units 16:57 Sodium 141 (135-145) mmol/L Potassium 4.3 (3.3-5.1) mmol/L Chloride 106 (96-108) mmol/L Carbon Dioxide 27 (22-29) mmol/L Anion Gap 12 (12-20) BUN 14 (9-16) mg/dL Creatinine 0.83 (0.5-1.4) mg/dL Estim Creat Clear Calc 91.5 Estimated GFR > 60 Random Glucose 161 H (60-115) mg/dL Calcium 9.3 (8.4-10.2) mg/dL Total Bilirubin 0.8 (0.0-1.0) mg/dL AST 20 (5-37) U/L ALT 23 (0-40) U/L Alkaline Phosphatase 70 (39-117) U/L Total Protein 6.6 (6.5-8.0) g/dL Albumin 4.3 (3.5-5.0) g/dL <Suzanne Demarco MD - Last Filed: 11/01/22 21:35> Radiology Impression Discussion of test interpretation with radiology: I have reviewed the radiologist's reading. <Suzanne Demarco MD - Last Filed: 11/01/22 21:35> Radiologist Impression: COMPARISON: CTA head performed earlier the same day.? ? TECHNIQUE: A CTA of the neck is obtained following the administration of 70 mL of Omnipaque 350 intravenous contrast without complication. Vascular post-processing, including 2-dimensional and 3-dimensional reformatted images were created and reviewed on an independent workstation under concurrent physician supervision. Stenoses are graded per criteria similar to NASCET. This CT examination was performed using dose optimization techniques as appropriate, variously including the following: *Automated exposure control *Adjustment of mA and/or kV according to patient size (this includes techniques or standardized protocols for targeted exams where dose is matched to indication/reason for exam; i.e. extremities or head) *Use of iterative reconstruction technique FINDINGS: There is a 3 great vessel branch configuration off of the aortic arch. Atherosclerotic disease results in a moderate stenosis of the right vertebral artery origin and a moderate stenosis of the left vertebral artery origin. Right vertebral artery is dominant. The cervical vertebral arteries are otherwise widely patent throughout their course. Extensive lipid rich and calcific atherosclerotic plaque at the right carotid bifurcation resulting in a less than 50% stenosis of the proximal right internal carotid artery. There is a penetrating atherosclerotic ulcer projecting laterally from the right carotid bulb. Lipid rich and calcific atherosclerotic plaque result in a 70% stenosis of the proximal left internal carotid artery. There is multilevel cervical spondylosis. Mucosal thickening throughout the paranasal sinuses. Imaged upper lungs are clear. No significant soft tissue findings are appreciated within the neck.? CT/CT angio neck IMPRESSION: - Lipid rich and calcific atherosclerotic plaque result in a 70% stenosis of the proximal left internal carotid artery. ? - Extensive lipid rich and calcific atherosclerotic plaque at the right carotid bifurcation resulting in a less than 50% stenosis of the proximal right internal carotid artery. There is a penetrating atherosclerotic ulcer projecting laterally from the right carotid bulb. ? ? - Atherosclerotic disease results in moderate stenoses of the vertebral artery origins bilaterally. ? - The intracranial arterial vasculature is diagnostically assessed on the head CTA performed earlier today. Please see that report for further details. ? <Suzanne Demarco MD - Last Filed: 11/01/22 21:35> Discharge Plan Discharge Clinical Impression: Blurred vision, left eye, Atherosclerosis of both carotid arteries <CATERINA Aponte - Last Filed: 11/01/22 15:20> Patient Disposition: Home, Self-Care <CATERINA Aponte - Last Filed: 11/01/22 15:20> Instructions: Blurred Vision (ED) <CATERINA Aponte - Last Filed: 11/01/22 15:20> Additional Instructions: Please follow-up with your primary care physician tomorrow. If you have any worsening or new symptoms, please return to the emergency room or call 911 <CATERINA Aponte - Last Filed: 11/01/22 15:20> Prescriptions: New aspirin 325 mg tablet 325 mg PO DAILY Qty: 30 1RF clopidogrel [Plavix] 75 mg tablet 75 mg PO DAILY Qty: 30 1RF lorazepam [Ativan] 1 mg tablet 1 mg PO BEDTIME PRN (Reason: anxiety) Qty: 4 0RF No Action atorvastatin 40 mg tablet 40 mg PO DAILY celecoxib 200 mg capsule 200 mg PO DAILY losartan 50 mg tablet 50 mg PO DAILY pantoprazole 40 mg tablet,delayed release (DR/EC) 40 mg PO DAILY tamsulosin 0.4 mg capsule 0.4 mg PO DAILY tramadol 50 mg tablet 50 mg PO BID PRN aspirin 325 mg tablet 325 mg PO BID [id number]-kvjmxizzbndrg-nwxn 50-325-40 mg tablet 1 tab PO ONCE PRN <CATERINA Aponte - Last Filed: 11/01/22 15:20> Interventions: ED Discharge Assessment Last Done: 11/01/22 21:27 <CATERINA Aponte - Last Filed: 11/01/22 15:20>
--- NOTE | 2022-11-01 15:57 | ED_ITS ---
HPI - Eye Problem General Chief complaint: Eye Problems Stated complaint: Sent back to ED from PCP office Time Seen by Provider: 11/01/22 15:56 Source: patient Mode of arrival: ambulatory Limitations: no limitations History of Present Illness HPI Narrative: Patient was seen by me early for left blurred vision he was evaluated we had done CT angiogram of the head and was sent to see due to Maribel for a dilated eye exam. Dr. López of call me because the patient has left retinal infarct he was sent back to of CT angio of the carotid vessel and electrocardiogram. Dr. López spoke with the PCP as well. Patient return he is in stable condition is vision is getting a little better in the left eye he has a little blurred vision in the temporal field the of the OS MD chief complaint: other (blurred vision) Onset (ago): day(s) (1) Onset description: gradual Duration: improved Location: left eye Severity: mild Related Data Home Medications Medication Instructions Recorded Confirmed aspirin 325 mg tablet 325 mg PO BID 09/03/22 09/03/22 atorvastatin 40 mg tablet 40 mg PO DAILY 09/03/22 09/03/22 wsgowtobre-wripjwsupgnar-tszktndq 1 tab PO ONCE PRN 09/03/22 09/03/22 50 mg-325 mg-40 mg tablet celecoxib 200 mg capsule 200 mg PO DAILY 09/03/22 09/03/22 losartan 50 mg tablet 50 mg PO DAILY 09/03/22 09/03/22 pantoprazole 40 mg tablet,delayed 40 mg PO DAILY 09/03/22 09/03/22 release tamsulosin 0.4 mg capsule 0.4 mg PO DAILY 09/03/22 09/03/22 tramadol 50 mg tablet 50 mg PO BID PRN 09/03/22 09/03/22 Allergies Allergy/AdvReac Type Severity Reaction Status Date / Time amoxicillin Allergy Severe Anaphylaxis Verified 09/03/22 14:09 nifedipine [From PROCARDIA] Allergy Unknown UNKNOWN Verified 09/03/22 14:09 Review of Systems Constitutional: Constitutional: Reports no additional constitutional complaints Eyes: Eyes: Reports loss of peripheral vision Cardiovascular: Cardiovascular: Reports no additional cardiovascular comp laints Respiratory: Respiratory: Reports no additional respiratory complaints PMFSH Past Medical History Medical History FH: cholecystectomy GERD (gastroesophageal reflux disease) HTN (hypertension) Hyperlipidemia Right knee injury Surgical History History of esophagogastroduodenoscopy (EGD) History of spinal surgery History of surgical removal of pilonidal cyst History of total left knee replacement (TKR) Family History Family History Mother No problems noted. Father Heart disease Brother Afib Brother Afib Brother Afib Brother Afib Sister Leukemia Social History Social History Alcohol intake: current Alcohol intake frequency: a few times a week Alcohol type: beer Patient Tobacco Use Status: Former Tobacco user Quit Date: 1979 Smoked: 10 +/- Advance Directives: No Advance Directives Information Provided: No Physical Exam Vital Signs: Vital Signs: Last Vital Signs Temp 97.9 F 11/01/22 16:07 Pulse 87 11/01/22 16:07 Resp 20 11/01/22 16:07 BP 125/80 11/01/22 16:07 Pulse Ox 98 11/01/22 16:07 O2 Del Method Room Air 11/01/22 16:07 BMI result Body Mass Index 29.9 Const: General: cooperative and healthy appearing Nutritional Appearance: well nourished Orientation/consciousness: patient oriented x3 Limitations: no limitations HEENT: Head: Yes normal to inspection Ears: hearing grossly normal bilaterally General nose exam: Normal external nose present Face and sinus: Yes normal facial exam Mouth: Normal oral and palatal mucosa present Throat: Yes posterior oropharynx normal Eyes: General: appearance normal, both eyes and all related structures Visual Morgan: abnormal by confrontation (He has slightly blurred vision in the left temporal field of the OS) Eyelids: Yes eyelids normal Conjunctivae: conjunctivae normal Sclerae: sclerae normal Corneas: corneas normal EOM: EOMs intact bilaterally Neck: Neck: Yes normal visual inspection and Yes full ROM Chest: Chest palpation & inspection: normal inspection of the chest Resp: Effort & Inspection: normal respiratory effort Cardio: Jugular venous distension: no JVD Palpation: normal PMI Rhythm: regular rhythm GI: Inspection: Yes normal to inspection Palpation (GI): Soft to palpation, not firm and nontender Percussion: Yes normal to percussion Auscultation: normal bowel sounds : General: Yes no CVA tenderness Back/Spine/Pelvis: Back: no CVA tenderness Skin: General skin exam: no rashes or lesions noted, elasticity normal and turgor normal Neuro: General: patient oriented x3 Cranial nerves: Yes CN's II-XII intact bilaterally Gait exam (Neuro): Normal gait present Motor exam (neuro): 5/5 motor strength present throughout Course Reevaluation(s) Reevaluation #1: Patient will be signed out to go to Dav CT angiography of the neck is pending, I spoke clearly with the neurologist as well Dr. Welch if the CT angiogram of the neck is normal I think is reasonable to discharge the patient on aspirin Time: 16:03 Reevaluation #2: Signed out to Dr Demarco ct angio neck pending Time: 17:01 Medical Decision Making Medical Decision Making MDM Narrative: Patient was sent back by the Ophthalmology to get a CT angiography of the carotid vessel and and electrocardiogram also we will start the patient on aspirin Independent Interpretation I performed an independent interpretation of an: EKG (Normal sinus rhythm rate [address]-T change) Discharge Plan Discharge Clinical Impression: Blurred vision, left eye Patient Disposition: Still a Patient Prescriptions: No Action atorvastatin 40 mg tablet 40 mg PO DAILY celecoxib 200 mg capsule 200 mg PO DAILY losartan 50 mg tablet 50 mg PO DAILY pantoprazole 40 mg tablet,delayed release (DR/EC) 40 mg PO DAILY tamsulosin 0.4 mg capsule 0.4 mg PO DAILY tramadol 50 mg tablet 50 mg PO BID PRN aspirin 325 mg tablet 325 mg PO BID kqyrrwkefi-ccbtbwltzelbm-xwwn 50-325-40 mg tablet 1 tab PO ONCE PRN
[2022-11-01 16:07] VITALS: BP 125/80; PULSE 87; RESP 20; TEMP 36.6; O2SAT 98; BMI 29.9
[2022-11-01 17:19] LABS: Alanine Aminotransferase 23 U/L (0-40); Albumin Level 4.3 g/dL (3.5-5.0); Alkaline Phosphatase 70 U/L (39-117); Anion Gap 12 (12-20); Aspartate Amino Transferase 20 U/L (5-37); Bilirubin Total 0.8 mg/dL (0.0-1.0); Blood Urea Nitrogen 14 mg/dL (9-16); Calcium 9.3 mg/dL (8.4-10.2); Carbon Dioxide 27 mmol/L (22-29); Chloride 106 mmol/L (96-108); Creatinine Clr Calc Pharmacy 91.5; Estimated Glomerular Filt Rate > 60; Glucose Random 161 mg/dL (60-115); Potassium 4.3 mmol/L (3.3-5.1); Sodium 141 mmol/L (135-145); Total Protein 6.6 g/dL (6.5-8.0)
[2022-11-01] MEDS: iohexoL 350 MG/ML 100 ML INFUS..BTL IV (17:45)
[2022-11-01] MEDS: Aspirin Enteric Coated 325 MG TABLET.DR PO (21:13)
[2022-11-01] MEDS: Clopidogrel Bisulfate 75 MG TABLET PO (21:13)
[2022-11-01] MEDS: LORazepam 1 MG TABLET 2 MG PO (21:36)
== END 2022-11-01 21:38 | disposition home or self-care (01) ==
PROVIDERS: Physician Assistant Medical; Emergency Provider Emergency Medicine; PCP Internal Medicine
DX: H53.8 Other visual disturbances (principal); Z79.82 Long term (current) use of aspirin; Z79.02 Long term (current) use of antithrombotics/antiplatelets; Z79.899 Other long term (current) drug therapy; Z87.891 Personal history of nicotine dependence
CPT/HCPCS: 36415; 70498; 80053; 93005; 99283; 99284; Q9967

== ENCOUNTER → 2022-11-05 11:06 | Outpatient (BNVA) | payer MEDICARE, OTHER, SELFPAY | PROVIDERS: PCP Internal Medicine; Visit Provider Surgery Vascular Surgery | DX: I65.22 Occlusion and stenosis of left carotid artery (principal); I10 Essential (primary) hypertension; H34.9 Unspecified retinal vascular occlusion; H53.47 Heteronymous bilateral field defects; Z87.891 Personal history of nicotine dependence | CPT/HCPCS: 99202 ==

== ENCOUNTER → 2022-11-06 10:51 | Outpatient (BNVA) | payer MEDICARE, OTHER, SELFPAY | PROVIDERS: Visit Provider Internal Medicine Cardiovascular Disease | DX: Z01.810 Encounter for preprocedural cardiovascular examination (principal); I35.0 Nonrheumatic aortic (valve) stenosis; I49.3 Ventricular premature depolarization; H34.9 Unspecified retinal vascular occlusion; I65.22 Occlusion and stenosis of left carotid artery; I10 Essential (primary) hypertension; Z87.891 Personal history of nicotine dependence; Z79.82 Long term (current) use of aspirin | CPT/HCPCS: 99212 ==

== ENCOUNTER 2022-11-11 12:45 | Inpatient (IN) | payer OTHER, MEDICARE, SELFPAY ==
[2022-11-07 14:13] VITALS: BMI 29.1
[2022-11-07 14:24] VITALS: BP 107/70; PULSE 102; RESP 20; O2SAT 96
--- NOTE | 2022-11-07 14:26 | HO.ANESPROP2 ---
Documented by User: Philly Mosqueda NP 11/08/22 13:59 HPI - Anesthesia Eval Consult details Narrative: 77yo M for Left Carotid Endarterectomy Cardiac cleared PMF Active Problems Active Problems: All Active Problems (Updated 11/07/22 @ 14:13 by Teodora Canales RN) Palpitations (Acute) Aortic stenosis (Acute) Symptomatic stenosis of left carotid artery (Acute) Past Medical History Medical History BPH (benign prostatic hyperplasia) GERD (gastroesophageal reflux disease) HTN (hypertension) Hyperlipidemia PVC's (premature ventricular contractions) Right knee injury Family History Family History Mother No problems noted. Father Heart disease Brother Afib Brother Afib Brother Afib Brother Afib Sister Leukemia Family history of problems with anesthesia: No Surgical History Surgical History History of cervical discectomy History of esophagogastroduodenoscopy (EGD) History of right inguinal hernia repair History of spinal surgery History of surgical removal of pilonidal cyst History of total left knee replacement (TKR) History of total right knee replacement (TKR) Hx of cholecystectomy Hx of colonoscopy History of Problems with Anesthesia: No Social History Social History Are you a primary cardiac care unit nurse to a significant other at home: No Do you presently have visiting nurse or other home services: No Alcohol intake: current Alcohol intake frequency: 0-2 drinks per day Alcohol type: beer Patient Tobacco Use Status: Former Tobacco user Quit Date: 40 yrs ago Years Smoked: 10 +/- Second Hand Smoke Exposure: No Use of substances other than those prescribed or required for medical reasons: No Have you been hit, kicked, punched, or otherwise hurt by someone within the past year? If so, by whom?: No Are you DNR?: No Advance Directives: No Advance Directives Information Provided: Yes ( Ilda) Advance Directives on File: No Recently lost weight without trying: No Eating poorly because of decreased appetite: No Nutrition Risks: No Nutritional Risk Poor oral hygiene: No (Crowns) Narrative Narrative: No recent illness No CP/SOB with > METS Meds Allergies Allergy/AdvReac Type Severity Reaction Status Date / Time amoxicillin Allergy Severe Anaphylaxis Verified 11/11/22 10:10 nifedipine [From PROCARDIA] Allergy Unknown Hives Verified 11/07/22 14:11 Home Medications Medication Instructions Recorded Confirmed Last Taken Type oojneajhvk-bokbnuwziwebj-jteqptto 1 tab PO ONCE PRN Headache 09/03/22 11/06/22 Unknown History 50 mg-325 mg-40 mg tablet losartan 50 mg tablet 50 mg PO DAILY 09/03/22 11/06/22 11/10/22 History pantoprazole 40 mg tablet,delayed 40 mg PO DAILY 09/03/22 11/06/22 11/10/22 History release tamsulosin 0.4 mg capsule 0.4 mg PO DAILY 09/03/22 11/06/22 11/10/22 History tramadol 50 mg tablet 50 mg PO BID PRN Pain 09/03/22 11/06/22 11/10/22 History ascorbic acid (vitamin C) 1,000 mg 1,000 mg PO Q12H 11/06/22 11/06/22 11/10/22 History tablet,extended release atorvastatin 40 mg tablet 80 mg PO DAILY 11/06/22 11/06/22 11/10/22 History cholecalciferol (vitamin D3) 25 25 mcg PO DAILY 11/06/22 11/06/22 11/10/22 History mcg (1,000 unit) capsule Exam Exam Date and Time: November 07, 2022 1426 Height,Weight and Vital Signs: Height 6 ft Weight 97.522 kg Last Vital Signs Pulse 102 H 11/07/22 14:24 Resp 20 11/07/22 14:24 BP 107/70 11/07/22 14:24 Pulse Ox 96 11/07/22 14:24 O2 Del Method Room Air 11/07/22 14:24 Pertinent Lab Results Pertinent Lab Results: Lab Results 11/07/22 11/07/22 11/07/22 Range/Units 14:55 14:55 14:55 WBC 7.0 (4.8-10.8) X10*3/uL RBC 4.84 (4.60-5.80) X10*6/uL Hgb 14.5 (14.0-18.0) g/dl Hct 42.0 (42.0-52.0) % MCV 86.8 (80.0-98.0) fL MCH 30.0 (27.0-33.0) pg MCHC 34.5 (31.0-36.0) g/dl RDW 12.6 (11.0-16.0) % Plt Count 215 (160-400) X10*3/uL MPV 8.8 L (9.4-12.4) fL Absolute Nucleated RBC 0.000 (0.0-0.012) X10*3/uL Nucleated RBC % (auto) 0.0 (0.0-0.2) /100WBC PT 11.8 (10.0-13.1) SEC INR 1.0 (0.9-1.1) APTT 30.3 (26.0-36.4) SEC Sodium 137 (135-145) mmol/L Potassium 4.1 (3.3-5.1) mmol/L Chloride 103 (96-108) mmol/L Carbon Dioxide 23 (22-29) mmol/L Anion Gap 15 (12-20) BUN 21 H (9-16) mg/dL Creatinine 0.89 (0.5-1.4) mg/dL Estim Creat Clear Calc 86.7 Estimated GFR > 60 Random Glucose 150 H (60-115) mg/dL Calcium 9.4 (8.4-10.2) mg/dL Blood Type Antibody Screen 11/07/22 Range/Units 14:55 WBC (4.8-10.8) X10*3/uL RBC (4.60-5.80) X10*6/uL Hgb (14.0-18.0) g/dl Hct (42.0-52.0) % MCV (80.0-98.0) fL MCH (27.0-33.0) pg MCHC (31.0-36.0) g/dl RDW (11.0-16.0) % Plt Count (160-400) X10*3/uL MPV (9.4-12.4) fL Absolute Nucleated RBC (0.0-0.012) X10*3/uL Nucleated RBC % (auto) (0.0-0.2) /100WBC PT (10.0-13.1) SEC INR (0.9-1.1) APTT (26.0-36.4) SEC Sodium (135-145) mmol/L Potassium (3.3-5.1) mmol/L Chloride (96-108) mmol/L Carbon Dioxide (22-29) mmol/L Anion Gap (12-20) BUN (9-16) mg/dL Creatinine (0.5-1.4) mg/dL Estim Creat Clear Calc Estimated GFR Random Glucose (60-115) mg/dL Calcium (8.4-10.2) mg/dL Blood Type O Positive Antibody Screen NEGATIVE Narrative Narrative: EKG 10/2022 Vent. Rate : 096 BPM ? ? Atrial Rate : 096 BPM ?? P-R Int : 178 ms? QRS Dur : 082 ms ? ? QT Int : 352 ms ? ? ? P-R-T Axes : 079 -03 045 degrees ?? QTc Int : 444 ms ? 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 LV wall thickness is normal. LVEF 60-65%. No regional WMA. No doppler evidence of increased filling pressures LA is mildly dilated. AV poorly visualized. AV appears moderately calicfied. Mild . No AR. Mild MAC. MV opening is normal. Trivial MR Aortic root nml in size. Mild dilation of ascending aorta (4.1), but upper normal for BSA. RV is nml in size and function. Assessment and Plan Assessment Anesthesia Assessment: Anesthesia Plan Discussed and PAT Visit Final Anesthetic Review Family History of Problems with Anesthesia: No History of Problems with Anesthesia: No Documented by User: Lia Cook MD 11/11/22 14:19 PMFSH Active Problems Active Problems: All Active Problems (Updated 11/07/22 @ 12:40 by Lia Cook MD) Palpitations (Acute) Aortic stenosis (Acute) Symptomatic stenosis of left carotid artery (Acute) H/o Left retinal infarct Past Medical History Medical History BPH (benign prostatic hyperplasia) GERD (gastroesophageal reflux disease) HTN (hypertension) Hyperlipidemia PVC's (premature ventricular contractions) Right knee injury Family History Family History Mother No problems noted. Father Heart disease Brother Afib Brother Afib Brother Afib Brother Afib Sister Leukemia Surgical History Surgical History History of cervical discectomy History of esophagogastroduodenoscopy (EGD) History of right inguinal hernia repair History of spinal surgery History of surgical removal of pilonidal cyst History of total left knee replacement (TKR) History of total right knee replacement (TKR) Hx of cholecystectomy Hx of colonoscopy Social History Social History Are you a primary cardiac care unit nurse to a significant other at home: No Do you presently have visiting nurse or other home services: No Alcohol intake: current Alcohol intake frequency: 0-2 drinks per day Alcohol type: beer Patient Tobacco Use Status: Former Tobacco user Quit Date: 40 yrs ago Years Smoked: 10 +/- Second Hand Smoke Exposure: No Use of substances other than those prescribed or required for medical reasons: No Have you been hit, kicked, punched, or otherwise hurt by someone within the past year? If so, by whom?: No Are you DNR?: No Advance Directives: No Advance Directives Information Provided: Yes ( Ilda) Advance Directives on File: No Recently lost weight without trying: No Eating poorly because of decreased appetite: No Nutrition Risks: No Nutritional Risk Poor oral hygiene: No (Crowns) Meds Allergies Allergy/AdvReac Type Severity Reaction Status Date / Time amoxicillin Allergy Severe Anaphylaxis Verified 11/11/22 10:10 nifedipine [From PROCARDIA] Allergy Unknown Hives Verified 11/07/22 14:11 Home Medications Medication Instructions Recorded Confirmed Last Taken Type truauzufoa-tlgsiboejihqq-wnhvmoib 1 tab PO ONCE PRN Headache 09/03/22 11/06/22 Unknown History 50 mg-325 mg-40 mg tablet losartan 50 mg tablet 50 mg PO DAILY 09/03/22 11/06/22 11/10/22 History pantoprazole 40 mg tablet,delayed 40 mg PO DAILY 09/03/22 11/06/22 11/10/22 History release tamsulosin 0.4 mg capsule 0.4 mg PO DAILY 09/03/22 11/06/22 11/10/22 History tramadol 50 mg tablet 50 mg PO BID PRN Pain 09/03/22 11/06/22 11/10/22 History ascorbic acid (vitamin C) 1,000 mg 1,000 mg PO Q12H 11/06/22 11/06/22 11/10/22 History tablet,extended release atorvastatin 40 mg tablet 80 mg PO DAILY 11/06/22 11/06/22 11/10/22 History cholecalciferol (vitamin D3) 25 25 mcg PO DAILY 11/06/22 11/06/22 11/10/22 History mcg (1,000 unit) capsule Exam Height,Weight and Vital Signs: Height 6 ft Weight 97.522 kg Last Vital Signs Pulse 102 H 11/07/22 14:24 Resp 20 11/07/22 14:24 BP 107/70 11/07/22 14:24 Pulse Ox 96 11/07/22 14:24 O2 Del Method Room Air 11/07/22 14:24 Vital Signs Temp Pulse Resp BP Pulse Ox O2 Del Method 11/11/22 09:22 98.3 F 83 18 146/83 H 97 Room Air Pertinent Lab Results Pertinent Lab Results: Lab Results 11/07/22 11/07/22 11/07/22 Range/Units 14:55 14:55 14:55 WBC 7.0 (4.8-10.8) X10*3/uL RBC 4.84 (4.60-5.80) X10*6/uL Hgb 14.5 (14.0-18.0) g/dl Hct 42.0 (42.0-52.0) % MCV 86.8 (80.0-98.0) fL MCH 30.0 (27.0-33.0) pg MCHC 34.5 (31.0-36.0) g/dl RDW 12.6 (11.0-16.0) % Plt Count 215 (160-400) X10*3/uL MPV 8.8 L (9.4-12.4) fL Absolute Nucleated RBC 0.000 (0.0-0.012) X10*3/uL Nucleated RBC % (auto) 0.0 (0.0-0.2) /100WBC PT 11.8 (10.0-13.1) SEC INR 1.0 (0.9-1.1) APTT 30.3 (26.0-36.4) SEC Sodium 137 (135-145) mmol/L Potassium 4.1 (3.3-5.1) mmol/L Chloride 103 (96-108) mmol/L Carbon Dioxide 23 (22-29) mmol/L Anion Gap 15 (12-20) BUN 21 H (9-16) mg/dL Creatinine 0.89 (0.5-1.4) mg/dL Estim Creat Clear Calc 86.7 Estimated GFR > 60 Random Glucose 150 H (60-115) mg/dL Calcium 9.4 (8.4-10.2) mg/dL Blood Type Antibody Screen 11/07/22 Range/Units 14:55 WBC (4.8-10.8) X10*3/uL RBC (4.60-5.80) X10*6/uL Hgb (14.0-18.0) g/dl Hct (42.0-52.0) % MCV (80.0-98.0) fL MCH (27.0-33.0) pg MCHC (31.0-36.0) g/dl RDW (11.0-16.0) % Plt Count (160-400) X10*3/uL MPV (9.4-12.4) fL Absolute Nucleated RBC (0.0-0.012) X10*3/uL Nucleated RBC % (auto) (0.0-0.2) /100WBC PT (10.0-13.1) SEC INR (0.9-1.1) APTT (26.0-36.4) SEC Sodium (135-145) mmol/L Potassium (3.3-5.1) mmol/L Chloride (96-108) mmol/L Carbon Dioxide (22-29) mmol/L Anion Gap (12-20) BUN (9-16) mg/dL Creatinine (0.5-1.4) mg/dL Estim Creat Clear Calc Estimated GFR Random Glucose (60-115) mg/dL Calcium (8.4-10.2) mg/dL Blood Type O Positive Antibody Screen NEGATIVE Lab Results 11/07/22 11/07/22 11/07/22 Range/Units 14:55 14:55 14:55 WBC 7.0 (4.8-10.8) X10*3/uL RBC 4.84 (4.60-5.80) X10*6/uL Hgb 14.5 (14.0-18.0) g/dl Hct 42.0 (42.0-52.0) % MCV 86.8 (80.0-98.0) fL MCH 30.0 (27.0-33.0) pg MCHC 34.5 (31.0-36.0) g/dl RDW 12.6 (11.0-16.0) % Plt Count 215 (160-400) X10*3/uL MPV 8.8 L (9.4-12.4) fL Absolute Nucleated RBC 0.000 (0.0-0.012) X10*3/uL Nucleated RBC % (auto) 0.0 (0.0-0.2) /100WBC PT 11.8 (10.0-13.1) SEC INR 1.0 (0.9-1.1) APTT 30.3 (26.0-36.4) SEC Sodium 137 (135-145) mmol/L Potassium 4.1 (3.3-5.1) mmol/L Chloride 103 (96-108) mmol/L Carbon Dioxide 23 (22-29) mmol/L Anion Gap 15 (12-20) BUN 21 H (9-16) mg/dL Creatinine 0.89 (0.5-1.4) mg/dL Estim Creat Clear Calc 86.7 Estimated GFR > 60 Random Glucose 150 H (60-115) mg/dL Calcium 9.4 (8.4-10.2) mg/dL COVID-19 (JOHANNA) (Negative) COVID-19 Clin [facility] Blood Type Antibody Screen 11/07/22 11/11/22 11/11/22 Range/Units 14:55 09:20 09:31 WBC 6.2 (4.8-10.8) X10*3/uL RBC 4.64 (4.60-5.80) X10*6/uL Hgb 14.0 (14.0-18.0) g/dl Hct 40.1 L (42.0-52.0) % MCV 86.4 (80.0-98.0) fL MCH 30.2 (27.0-33.0) pg MCHC 34.9 (31.0-36.0) g/dl RDW 12.5 (11.0-16.0) % Plt Count 184 (160-400) X10*3/uL MPV 8.6 L (9.4-12.4) fL Absolute Nucleated RBC 0.000 (0.0-0.012) X10*3/uL Nucleated RBC % (auto) 0.0 (0.0-0.2) /100WBC PT (10.0-13.1) SEC INR (0.9-1.1) APTT (26.0-36.4) SEC Sodium (135-145) mmol/L Potassium (3.3-5.1) mmol/L Chloride (96-108) mmol/L Carbon Dioxide (22-29) mmol/L Anion Gap (12-20) BUN (9-16) mg/dL Creatinine (0.5-1.4) mg/dL Estim Creat Clear Calc Estimated GFR Random Glucose (60-115) mg/dL Calcium (8.4-10.2) mg/dL COVID-19 (JOHANNA) Negative (Negative) COVID-19 Clin Com See Note Blood Type O Positive Antibody Screen NEGATIVE 11/11/22 Range/Units 09:31 WBC (4.8-10.8) X10*3/uL RBC (4.60-5.80) X10*6/uL Hgb (14.0-18.0) g/dl Hct (42.0-52.0) % MCV (80.0-98.0) fL MCH (27.0-33.0) pg MCHC (31.0-36.0) g/dl RDW (11.0-16.0) % Plt Count (160-400) X10*3/uL MPV (9.4-12.4) fL Absolute Nucleated RBC (0.0-0.012) X10*3/uL Nucleated RBC % (auto) (0.0-0.2) /100WBC PT (10.0-13.1) SEC INR (0.9-1.1) APTT (26.0-36.4) SEC Sodium 140 (135-145) mmol/L Potassium 3.9 (3.3-5.1) mmol/L Chloride 106 (96-108) mmol/L Carbon Dioxide 26 (22-29) mmol/L Anion Gap 12 (12-20) BUN 19 H (9-16) mg/dL Creatinine 0.81 (0.5-1.4) mg/dL Estim Creat Clear Calc 95.3 Estimated GFR > 60 Random Glucose 107 (60-115) mg/dL Calcium 9.0 (8.4-10.2) mg/dL COVID-19 (JOHANNA) (Negative) COVID-19 Clin Com Blood Type Antibody Screen Airway Mallampati Class: III TM Dist: >3cm Neck ROM: Limited (Some limitation of extension) Loose/Missing/Broken Teeth: No (Crowns intact. Denies broken, loose, missing teeth) Heart: RRR + systolic murmur Lungs: CTAB Assessment and Plan Assessment Anesthesia Assessment: Chart Reviewed Final Anesthetic Review NPO: Yes ASA Class: III Final Preanesthetic Review: No Changes in Pt Med Stat, Meds/Allgs Chart Reviewed, Consent Obtained/Reviewed and Anes Risks/Benef Reviewed Patient Risk: Intermediate Procedure Risk: Intermediate Assessment/Block/Sedation in SS: Assess/Block/Sedation-SS Anesthetic Plan Anesthetic Plan: GA and Other (Arterial line) Disposition: Standard PACU and Inp. Admit - ICU
[2022-11-07 15:32] LABS: Hemoglobin 14.5 g/dl (14.0-18.0); Mean Corpuscular HGB Conc 34.5 g/dl (31.0-36.0); Mean Corpuscular Volume 86.8 fL (80.0-98.0); Mean Platelet Volume 8.8 fL (9.4-12.4); Platelet Count 215 X10*3/uL (160-400); Red Blood Count 4.84 X10*6/uL (4.60-5.80); Red Cell Distribution Width 12.6 % (11.0-16.0)
[2022-11-07 15:42] LABS: Prothrombin Time 11.8 SEC (10.0-13.1)
[2022-11-07 15:46] LABS: Partial Thromboplastin Time 30.3 SEC (26.0-36.4)
[2022-11-07 15:59] LABS: Anion Gap 15 (12-20); Blood Urea Nitrogen 21 mg/dL (9-16); Calcium 9.4 mg/dL (8.4-10.2); Carbon Dioxide 23 mmol/L (22-29); Chloride 103 mmol/L (96-108); Creatinine Clr Calc Pharmacy 86.7; Estimated Glomerular Filt Rate > 60; Glucose Random 150 mg/dL (60-115); Potassium 4.1 mmol/L (3.3-5.1); Sodium 137 mmol/L (135-145)
[2022-11-11] VITALS (17 sets, daily range): BP systolic 105–146; BP diastolic 49–83; PULSE 66–99; RESP 12–22; TEMP 36.2–36.8; O2SAT 91–99
[2022-11-11] MEDS: Lactated Ringers 1,000 ML 100 ML IVCONT (09:48)
[2022-11-11 09:55] LABS: Hematocrit 40.1 % (42.0-52.0); Mean Corpuscular HGB Conc 34.9 g/dl (31.0-36.0); Mean Corpuscular Hemoglobin 30.2 pg (27.0-33.0); Mean Corpuscular Volume 86.4 fL (80.0-98.0); Mean Platelet Volume 8.6 fL (9.4-12.4); Platelet Count 184 X10*3/uL (160-400); Red Blood Count 4.64 X10*6/uL (4.60-5.80); Red Cell Distribution Width 12.5 % (11.0-16.0); White Blood Count 6.2 X10*3/uL (4.8-10.8)
[2022-11-11 09:57] LABS: COVID-19 Test Negative (Negative); IDNOW Serial# BCCEAD1C
[2022-11-11 10:03] LABS: Anion Gap 12 (12-20); Blood Urea Nitrogen 19 mg/dL (9-16); Carbon Dioxide 26 mmol/L (22-29); Chloride 106 mmol/L (96-108); Creatinine Clr Calc Pharmacy 95.3; Estimated Glomerular Filt Rate > 60; Glucose Random 107 mg/dL (60-115); Potassium 3.9 mmol/L (3.3-5.1); Sodium 140 mmol/L (135-145)
[2022-11-11] MEDS: vancomycin HCL 1,500 MG in 0.9 % Sodium Chloride 500 ML 333.33 MG IV (12:08)
--- NOTE | 2022-11-11 12:19 | MHC.SHP ---
Pre-Procedural Eval Section A Date of Service: 11/11/22 The patient is an INPATIENT: No Changes since office visit: Yes Patient answered all questions The History & Physical has been completed within 30 days and I have reviewed it.: Yes Section B Chief Complaint: Occlusion and stenosis of left carotid artery Allergies: Allergies Allergy/AdvReac Type Severity Reaction Status Date / Time amoxicillin Allergy Severe Anaphylaxis Verified 11/11/22 10:10 nifedipine [From PROCARDIA] Allergy Unknown Hives Verified 11/07/22 14:11 Plan I have reviewed the history and physical and performed a pertinent physical examination on my patient. No changes have occurred unless specified. Time Spent With Patient Time: Total time managing care of this patient today ____ minutes.
--- OUTSIDE RECORDS SUMMARY | 2022-11-11 12:50 | XMS_ITS | Continuity of Care Document ---
Author Name Unknown Organization [facility] ter Address [address] [place] [id number] Care Team Providers Care Logistics Intern Name Role Phone Denys Snow MD Primary Care Physician Encounter [facility] Date(s): 07/25/22 - 08/24/[address] [address] Attending Physician: Admtr, Carly Admitting Physician: AdmtrCarly Referring Physician: Admtr, Ar8 Allergies, Adverse Reactions, Alerts Substance Reaction Severity Status amoxicillin Active Procardia Active Medications acetaminophen 325 mg oral tablet 650 mg, 2, tablet, By Mouth, Every 6 hours, May take OTC not to exceed 3000 mg/day, Refills 0, Maintenance, 03/27/22 11:43:00 EDT, Partial fill upon patient request if the prescription is for a schedule II opioid drug. Start Date: 03/27/22 Status: Ordered acetaminophen/butalbital/caffeine 325 mg-50 mg-40 mg oral tablet 1 tablet, TAKE 1 TABLET BY MOUTH EVERY 6 HOURS NEEDED FOR PAIN NOT COVERED Start Date: 03/05/22 Status: Ordered Aspirin Tablet 325 mg, By Mouth, 2 times a day, Refills 0, Maintenance, 03/27/22 11:43:00 EDT, Partial fill upon patient request if the prescription is for a schedule II opioid drug. Start Date: 03/27/22 Status: Ordered atorvastatin 40 mg oral tablet 1 tablet = 40 mg, By Mouth, Daily, # 30 tablet, 5 Refills, Maintenance, 03/05/22 9:20:00 EDT, Tablet, Partial fill upon patient request if the prescription is for a schedule II opioid drug. Start Date: 03/05/22 Status: Ordered celecoxib 200 mg oral capsule 1 capsule = 200 mg, By Mouth, Daily in AM, 0 Refills, Maintenance, 03/27/22 11:43:00 EDT, Capsule, Partial fill upon patient request if the prescription is for a schedule II opioid drug. Start Date: 03/27/22 Status: Ordered Colace Capsule 100 mg, 1, capsule, By Mouth, 2 times a day, HOld for loose stools, Refills 0, Maintenance, 03/27/22 11:43:00 EDT, Partial fill upon patient request if the prescription is for a schedule II opioid drug. Start Date: 03/27/22 Status: Ordered losartan 50 mg oral tablet 1 tablet = 50 mg, By Mouth, Daily, # 30 tablet, 0 Refills, Maintenance, 03/05/22 9:20:00 EDT, Tablet, Partial fill upon patient request if the prescription is for a schedule II opioid drug. Start Date: 03/05/22 Status: Ordered Maalox Plus Liquid 30 mL, By Mouth, Every 4 hours, PRN Other, Heartburn, 0 Refills, Maintenance, 03/27/22 11:43:00 EDT, Suspension, Partial fill upon patient request if the prescription is for a schedule II opioid drug. Start Date: 03/27/22 Status: Ordered Milk of Magnesia Liquid 30 mL, By Mouth, Daily, PRN Constipation, 0 Refills, Maintenance, 03/27/22 11:43:00 EDT, Suspension, Partial fill upon patient request if the prescription is for a schedule II opioid drug. Start Date: 03/27/22 Status: Ordered MiraLax Powder 1 pack/packet = 17 Gm, By Mouth, Daily, PRN Constipation, 0 Refills, Maintenance, 03/27/22 11:44:00EDT, Powder, Partial fill upon patient request if the prescription is for a schedule II opioid drug. Start Date: 03/27/22 Status: Ordered pantoprazole 40 mg oral delayed release tablet 1 tablet = 40 mg, By Mouth, Daily, # 30 tablet, 0 Refills, Maintenance, 03/05/22 9:20:00 EDT, EC Tablet Start Date: 03/05/22 Status: Ordered senna 187 mg oral tablet 1 tablet = 8.6 mg, By Mouth, Daily at bedtime, PRN as needed for constipation, 0 Refills, Maintenance, 03/27/22 11:44:00 EDT, Tablet, Partial fill upon patient request if the prescription is for a schedule II opioid drug. Start Date: 03/27/22 Status: Ordered tamsulosin 0.4 mg oral capsule 0.4 mg, 1, capsule, By Mouth, Daily, # 30 capsule, Refills 0, Maintenance, 03/05/22 9:20:00 EDT, Partial fill upon patient request if the prescription is for a schedule II opioid drug. Start Date: 03/05/22 Status: Ordered Problem List Condition Confirmation Course Effective Dates Status H ealth Status Informant Hypertension Confirmed Active Benign prostatic hyperplasia Confirmed Active Acid reflux disease Confirmed Active Hyperlipidemia Confirmed Active Migraine Confirmed Active Mild aortic stenosis Confirmed Active Social History Social History Type Response Tobacco Other: Former smoker , quit in the . Sex Patient Care team information Care Team Personnel Name: Denys Snow MD Position: [facility] Outreach Member Role: PCP Address: Address: [address] [place] [address] [place] [address]- Name: Radha Tuttle RN Position: S RN Member Role: Primary Care Nurse Name: Aissatou Quesada RN Position: S RN Member Role: Primary Care Nurse Care Team Related Persons Name: OLIVIA GARCIA Address: [address] [id number]
--- OUTSIDE RECORDS SUMMARY | 2022-11-11 12:50 | XMS_ITS | Continuity of Care Document ---
Author Name Unknown Organization [facility] ter Address [address] [place] [id number]- Care Team Providers Care Solar Sales Name Role Phone Denys Snow MD Primary Care Physician [place] [facility] [place] - 09/07/[address] [address]- Attending Physician: Not on Staff, Attending MD Admitting Physician: Not on Staff, Admitting MD Referring Physician: Not on Staff, Referring MD Allergies, Adverse Reactions, Alerts Substance Reaction [...] Team Personnel Name: Denys Snow MD Position: [facility] Outreach Member Role: PCP Address: Address: [address] [place] [address] [place] [address]- Name: Radha Tuttle RN Position: S RN Member Role: Primary Care Nurse Name: Aissatou Quesada RN Position: S RN Member Role: Primary Care Nurse Care Team Related Persons Name: OLIVIA GARCIA Address: [address] [address]
--- OUTSIDE RECORDS SUMMARY | 2022-11-11 12:50 | XMS_ITS | Continuity of Care Document ---
Author Name Unknown Organization [facility] ter Address [address] [place] [id number] Care Team Providers Care Chief Librarian Circulation Department Name Role Phone Denys Snow MD Primary Care Physician [phone] Encounter [facility] [place] Date(s): 08/08/22 - 08/09/[address] [id number] Discharge Disposition: A-Transfer VNA/Home Health Attending [...] opioid drug. Start Date: 03/27/22 Status: Ordered Acetaminophen Tablet 650 mg, Tablet, By Mouth, 08/09/22 10:00:00 EST Start Date: 08/09/22 Stop Date: 08/09/22 Status: Completed acetaminophen/butalbital/caffeine 325 mg-50 mg-40 mg oral tablet [...] opioid drug. Start Date: 03/05/22 Status: Ordered losartan 50 mg oral tablet 50 mg, Tablet, By Mouth, hold for SBP less than 130, 08/09/22 8:00:00 EST Start Date: 08/09/22 Stop Date: 08/09/22 Status: Completed Maalox Plus Liquid 30 mL, By Mouth, [...] opioid drug. Start Date: 03/27/22 Status: Ordered oxyCODONE 5 mg oral tablet See Instructions, PRN, Take 1-2 tablets every 4 hours as needed for moderate to severe pain., # 84 tablet, Refills 0, Tot. Refills 0, Acute 08/16/22 8:00:00 EST, Pain , Moderate, 08/09/22 8:12:00 EST, Instructions Replace Required Details, Route to Ph... Start Date: 08/09/22 Stop Date: 08/16/22 Status: Ordered OxyCODONE IR Tablet 5 mg, Tablet, By Mouth, Every 4 hours, PRN for Pain , Moderate, Routine, 08/08/22 15:11:00 EST Start Date: 08/08/22 Stop Date: 08/09/22 Status: Discontinued pantoprazole 40 mg oral delayed release tablet [...] opioid drug. Start Date: 03/05/22 Status: Ordered traMADol 50 mg oral tablet See Instructions, PRN Pain , Mild, Take 1-2 tablets every 6 hours as needed for mild pain., # 56 tablet, 0 Refills, Acute 08/16/22 8:00:00 EST, 08/09/22 8:11:00 EST, Tablet, [facility],Partial fill upon patient request if the prescripti... Start Date: 08/09/22 Stop Date: 08/16/22 Status: Ordered Problem List Condition Confirmation Course Effective Dates Status H ealth Status Informant Hypertension Confirmed Active Benign prostatic hyperplasia Confirmed Active Acid reflux disease Confirmed Active Hyperlipidemia Confirmed Active Migraine Confirmed Active Mild aortic stenosis Confirmed Active Results Radiology Reports * Exam Date Time Procedure Performing Provider Status 08/08/22 11:05 PM Knee 1 or 2 Views Right Corinne Norris elvincole; Auth (Verified) Notes: (Knee 1 or 2 Views Right) Reason For Exam: Postop;Postop RESULT: Knee 1 or 2 Views Right Right knee 2 views dated August 08, 2022. No prior studies are available. HISTORY: Knee replacement. FINDINGS: This examination shows a total knee arthroplasty in anatomic alignment. IMPRESSION: Total knee arthroplasty in anatomic alignment. Examination 91065. Thank you for allowing me to participate in the care of this patient. WSN: [id number] Ordering Physician: Trinidad Jonas Dictated By: Michael Maya MD Dictated Date/Time: 08/09/22 7:49 am Reviewed By: Michael Maya MD Signed By: Michael Maya MD Signed Date/Time: 08/09/22 7:49 am Transcribed By: DENSIE Transcribed Date/Time: 08/09/22 7:49 am Vital Signs Most recent to oldest [Reference Range]: 1 2 3 Height 182 cm (08/09/22 6:31 AM) 182 cm (08/08/22 5:22 PM) 182 cm (08/08/22 1:12 PM) Weight 97.2 kg (08/08/22 1:12 PM) 97.2 kg (08/08/22 8:42 AM) Oxygen Saturation [94-100 %] 99 % (08/09/22 6:31 AM) 99 % (08/09/22 3:00 AM) 99 % (08/08/22 11:00 PM) Pulse Rate [55-90 bpm] 70 bpm (08/09/22 6:31 AM) 79 bpm (08/09/22 3:00 AM) 99 bpm *H* (08/08/22 11:00 PM) Body Mass Index [18.5-24.99 kg/m2] 29.34 kg/m2 *H* (08/08/22 1:12 PM) 29.34 kg/m2 *H* (08/08/22 8:42 AM) Blood Pressure [90-138/55-84 mm Hg] 143/79mm Hg *H* (08/09/22 8:40 AM) 143/79mm Hg *H* (08/09/22 6:31 AM) 129/83mm Hg (08/09/22 3:00 AM) Respiratory Rate [16-30 br/min] 18 br/min (08/09/22 10:14 AM) 18 br/min (08/09/22 8:40 AM) 18 br/min (08/09/22 6:53 AM) Temperature [96.8-100.4 DegF] 97.7 DegF (08/09/22 6:31 AM) 97.5 DegF (08/09/22 3:00 AM) 97.2 DegF (08/08/22 11:00 PM) Mode of Delivery (Oxygen) Room air (08/09/22 6:31 AM) Room air (08/09/22 3:00 AM) Room air (08/08/22 11:00 PM) Blood pressure sites Arm, left (08/09/22 6:31 AM) Arm, left (08/09/22 3:00 AM) Arm, left (08/08/22 11:00 PM) Temperature Route Oral (08/09/22 6:31 AM) Oral (08/09/22 3:00 AM) Oral (08/08/22 11:00 PM) Dry Weight 97.2 kg (08/08/22 8:42 AM) Weight Obtained Via Standing scale (08/08/22 8:42 AM) Dry Weight Obtained Via Standing scale (08/08/22 8:42 AM) Social History Social History Type Response Tobacco Other: Former smoker , quit in the . Sex Hospital Progress note * Chapincito Tobar MD: PERFORM, SIGN, VERIFY Event Display: Progress Note Hospital Authored Date: [id number] Patient: CAR FUENTES Age: 77 years Sex: Male : 1945 Associated Diagnoses: None Author: Chapincito Tobar MD Block Information Procedure Date: 08/08/22 Laterality: Right Type: ACB, spinal Injection Site: Bruising: None Redness: None Swelling: None Tenderness: None Block site: clean and dry Block Duration: Block length of time: N/A Motor Blockade: Resolved Sensory Blockade: Resolved Patient Satisfaction: Were you satisfied with your block/procedure? yes Would you have a block/procedure in the future? yes Patient Follow-up: None, Block Resolved * Cheryl Espitia RN: SIGN, MODIFY, PERFORM, SIGN, VERIFY Event Display: Progress Note Hospital Authored Date: [id number] Patient: CAR FUENTES Age: 77 years Sex: Male : 1945 Associated Diagnoses: None Author: Cheryl Espitia RN Findings Problem Related to Alteration in Comfort : Alteration in Comfort/new 08/09/2022 8:00 EST Alteration in Comfort Related to Surgery, Other: Right TKR 08/08 Dr. Barber Goals & Outcomes: Comfort Pt will report acceptable level of comfort & pain control, Pt will state importance of adhering to pain strategy regime, Pt will demonstrate necessary skills to manage pain, Non-verbal indicators will indicate comfort/pain control Interventions Implemented: Comfort Assess pain using appropriate pain scale/tools, Assess aggravating factors & prevent them accordingly, Assess alleviating factors & promote them accordingly Goals/Interventions, Comfort Yes Comfort, Problem Start 08/08/2022 21:39 Reviewed plan with, Comfort Patient Patient Progression, Comfort Pt progressing according to plan Comfort, Problem Ongoing Yes . Alteration in Musculoskeletal : Alteration in Musculoskeletal Func/new 08/09/2022 8:00 EST Alteration in Musculoskeletal Related to Mobility, Orthopedic Procedure, Total joint replacement, Other: Right TKR 08/08 Dr. Barber Goals & Outcomes, Musculoskeletal Affected extremity will maintain color/motion/sensation, Pt able to perform ADL's to best of ability, Pt demonstrates precautions/exercise/ transfers per protocol, Pt will ambulate safely with assistive device, Pt will be free from complications of immobility, Pt will demonstrate ability to participate in ADL's, Pt will report acceptable level of comfort/painrelief Interventions, Musculoskeletal Monitor patients ambulation status, monitor Color/Motion/Sensation, Assist with repositioning, Encourage deep breathing & coughing exercises, Notify MD immediately if tissue perfusion deteriorates, Obtain assistive devices as needed, Teach & Encourage use of Incentive spirometer, Teach Pt/caregiver on ADL's & adaptive equipment, Teach Pt/caregiver on exercises, Teach pt/caregiver on use of pain scale, Teach Pt/caregiver complications of immobility, Teach Pt/caregiver techniques to increase mobility, Teach Pt/caregiver on safety precautions BH Goals/Interventions, Musculoskeletal Yes Musculoskeletal, Problem Start 08/08/2022 21:40 Reviewed Plan with, Musculoskeletal Patient Patient Progression, Musculoskeletal Pt progressing according to plan . Nursing Data Vital Signs : VITAL SIGNS SECTION 08/09/2022 6:31 EST Early Warning Score 2.00 08/09/2022 6:31 EST Temperature 97.7 DegF Temperature Route Oral Pulse Rate 70 bpm Respiratory Rate 18 br/min Systolic Blood Pressure 143 mm Hg H Diastolic Blood Pressure 79 mm Hg Blood pressure sites Arm, left Mean Arterial Pressure 100 mm Hg Pulse Pressure 64 mm Hg Oxygen Saturation 99 % Mode of Delivery (Oxygen) Room air . Narrative/Incidental Pt is POD 1 for R TKR with Dr. Barber. Pt is A&Ox3, pleasant and cooperative with care. LS clear bilaterally, IS encouraged as well as coughing and deep breathing, pt denies chest pain or SOB. BSx4, abd soft/nontender, LBM 08/08/22, pt endorses flatus, tolerating diet, denies nausea or vomiting. Pt voiding in urinal, cyu. . Evaluation P: Alteration in comfort I: See above updated careplan E: Pt complains of pain 5/10, medicated with oxycodone 5mg and scheduled tylenol with good effect. Pt educated on pain control regimen, pt verbalized understanding. . P: Alteration in musculoskeletal I: See updated care plan E: Pt has silverlon dressing to R knee, C/D/I, pt has +pedal pulses, +cms, +dorsi/plantar flexion, pt denies numbness/tingling or calf pain in BLE. Pt ambulating with walker and standby assist, steady, KI in place, PT/OT evals pending. Pt started on asa for dvt prophylaxis. Plan for discharge to home today, pending clearance. Cboots on, call ardon within reach, hourly rounding, will continue to monitor for safety and musculoskeletal status. . Discharge Information Case Management Discharge Plan : Case Management Discharge Plan Data 08/08/2022 18:14 EST Discharge Level of Care at Discharge Homehealth/VNA Discharge VNA/Hospice/Home Care [facility] Name of Agency #1 [facility] Service Categories #1 Physical Therapy Service Comments #1 The VNA will call you the day after you are discharged to set up a visit time. If you do not hear from them, please call them at [facility] * Cheryl Espitia RN: PERFORM Event Display: Progress Note Hospital Authored Date: Discharge instructions given, questions asked and answered, IV removed catheter tip intact. * Radha Tuttle RN: PERFORM, SIGN, VERIFY Event Display: Progress Note Hospital Authored Date: Patient: CAR FUENTES Age: 77 years Sex: Male : 1945 Associated Diagnoses: None Author: Radha Tuttle RN Findings Problem Related to Alteration in Comfort : Alteration in Comfort/new 08/08/2022 21:00 EST Alteration in Comfort Related to Surgery, Other: Right TKR 08/08 Dr. Barber Goals & Outcomes: Comfort Pt will report acceptable level of comfort & pain control, Pt will state importance of adhering to pain strategy regime, Pt will demonstrate necessary skills to manage pain, Non-verbal indicators will indicate comfort/pain control Interventions Implemented: Comfort Assess pain using appropriate pain scale/tools, Assess aggravating factors & prevent them accordingly, Assess alleviating factors & promote them accordingly. Alteration in Musculoskeletal : Alteration in Musculoskeletal Func/new 08/08/2022 21:00 EST Alteration in Musculoskeletal Related to Mobility, Orthopedic Procedure, Total joint replacement, Other: Right TKR 08/08 Dr. Barber Goals & Outcomes, Musculoskeletal Affected extremity will maintain color/motion/sensation, Pt able to perform ADL's to best of ability, Pt demonstrates precautions/exercise/ transfers per protocol, Pt will ambulate safely with assistive device, Pt will be free from complications of immobility, Pt will demonstrate ability to participate in ADL's, Pt will report acceptable level of comfort/painrelief Interventions, Musculoskeletal Monitor patients ambulation status, monitor Color/Motion/Sensation, Assist with repositioning, Encourage deep breathing & coughing exercises, Notify MD immediately if tissue perfusion deteriorates, Obtain assistive devices as needed, Teach & Encourage use of Incentive spirometer, Teach Pt/caregiver on ADL's & adaptive equipment, Teach Pt/caregiver on exercises, Teach pt/caregiver on use of pain scale, Teach Pt/caregiver complications of immobility, Teach Pt/caregiver techniques to increase mobility, Teach Pt/caregiver on safety precautions, Incision care as ordered, Justice Pt/caregiver to Total Knee Replacement protocol . Nursing Data Vital Signs : VITAL SIGNS SECTION 08/08/2022 23:00 EST Temperature 97.2 DegF Temperature Route Oral Pulse Rate 99 bpm H Respiratory Rate 18 br/min Systolic Blood Pressure 153 mm Hg H Diastolic Blood Pressure 92 mm Hg H Blood pressure sites Arm, left Oxygen Saturation 99 % Mode of Delivery (Oxygen) Room air 08/08/2022 21:11 EST Respiratory Rate 18 br/min 08/08/2022 21:10 EST Respiratory Rate 18 br/min 08/08/2022 20:11 EST Respiratory Rate 18 br/min 08/08/2022 19:00 EST Temperature 97.6 DegF Temperature Route Oral Pulse Rate 94 bpm H Respiratory Rate 18 br/min Systolic Blood Pressure 135 mm Hg Diastolic Blood Pressure 82 mm Hg Blood pressure sites Arm, left Oxygen Saturation 99 % Mode of Delivery (Oxygen) Room air . Evaluation P: Alteration in Comfort Alteration in Muscoskeletal I: See Interventions in careplan above E: Mr. Car Fuentes, 77 year old male, POD #[address] Barber, A&O x 4, 1 assist with walker for ambulation. Pt. ambulated 2x throughout shift to bathroom with good use of walker.Pt. endorsed 5/10 pain in knee; adminsitered 5mg oxycodone at 20:00 with no effect, administered 10mg oxycodone at 01:00 with good effect, pt. resting with eyes closed. Pt. accepting fluids (1000mL+)and voiding appropriately. LBM: 08/08, abdoment soft, round and non-tender. Silverlon dressing with JOVON wrap on right lower leg, CDI, knee immobilizer in place with ice packs on either side of knee. +PP, +CMS, +D/P flexion and compression boots on bilateral feet. Pt. compliant with all HS medicationand cooperative with care. Requested something to help with sleep, Cee Verma and lena beeeived an order for 3mg melatonin which was administered at 22:00. See CIS for further assessments, labs, vitals and I&O's. All safety measures in place: bed in lowest position, wheels locked, non- slip socks on bilateal feet and call ardon within reach. Frequent purposeful rounding done. Will continue to monitor plan of care.. Note * Cheryl Espitia RN: PERFORM Event Display: Discharge/Transfer Note Hospital Authored Date: [id number] Nursing Discharge Note Entered On: 08/09/2022 11:01 EST Performed On: 08/09/2022 11:01 EST by Cheryl Espitia RN Nursing Discharge Note 2 Discharge Time : 08/09/2022 11:00 EST Discharge Level of Care at Discharge : Homehealth/VNA Discharge VNA/Hospice/Home Care(v001) : [facility] Patient Left Unit Via : Ambulatory Patient Accompanied Off Unit with : Responsible adult DC Instructions Provided & Signed by Pt : Yes Patient Understands D/C Instructions : Yes Patient Instructions Discharge Signed : Yes Did Pt have Specialty Bed or Wound Vac : No Cheryl Espitia RN - 08/09/2022 11:01 EST * Kriss Kuo NP: PERFORM, SIGN, VERIFY Event Display: Discharge/Transfer Note Hospital Authored Date: [id number] Patient: CAR FUENTES Age: 77 years Sex: Male : 1945 Associated Diagnoses: None Author: Kriss Kuo NP Discharge Summary Admission Date: August 08, 2022 Discharge Date: August 09, 2022 Admitting Diagnosis: Right knee osteoarthritis Discharge Diagnosis: Right knee osteoarthritis Final Diagnosis : Right knee osteoarthritis Procedure: Right total knee arthroplasty Surgeon: Dr. Geovanny Barber Past Medical History: 1. Osteoarthritis of the right knee. 2. Hypertension. 3. Hyperlipidemia. 4. BPH. 5. GERD. PAST SURGICAL HISTORY: 1. Left total knee replacement by Dr. Barber in March 2022. 2. Left knee scope in 2019. 3. Hernia repair in 2020. Orthopedics: The patient is status post right total knee arthroplasty. It is anticipated that she will be discharged home today pending PT, OT clearance. The patient is doing well from a surgical standpoint. H his incision is healing well. Neurovascular status is intact. Calves are supple and nontender. Making good progress with Physical Therapy and Occupational therapy. Supervision with ambulation walking 30 feet , ambulating with a walker weightbearing as tolerated. ROM pending pain is well controlled on his current regimen, Acetaminophen 650 mg every 6 hours, Celebrex 200 mg daily, tramadol as needed for mild pain and oxycodone as needed for severe pain. Patient is tolerating this well. He will be sent home with a prescription for this medication. Prescription: Tramadol 50 mg tablet. Take 1-2 tablets every 6 hours as needed for pain x 7 days. # 56 tablet. Oxycodone IR 5mg tablet. Take 1-2 tablets every 4 hours as needed for pain x days. #84 tablet. Hospital course: Relatively uneventful medically. Pain is controlled now. Patient is voiding spontaneously. + bowel sounds. No other issues. No calf tenderness. Current Medication List: Acetaminophen: 650 mg = 2 tablet, By Mouth, Every 6 hours, May take OTC not to exceed 3000 mg/day Acetaminophen/Butalbital/Caffeine: 1 tablet, TAKE 1 TABLET BY MOUTH EVERY 6 HOURS NEEDED FOR PAIN NOT COVERED Al Hydroxide/Mg Hydroxide/Simethicone: 30 mL, By Mouth, Every 4 hours, PRN (Other), Heartburn Aspirin: 325 mg, By Mouth, 2 times a day Atorvastatin: 40 mg = 1 tablet, By Mouth, Daily Celecoxib: 200 mg = 1 capsule, By Mouth, Daily in AM Docusate: 100 mg = 1 capsule, By Mouth, 2 times a day, HOld for loose stools Losartan: 50 mg = 1 tablet, By Mouth, Daily Milk of Magnesia: 30 mL, By Mouth, Daily, PRN (Constipation) Oxycodone: See Instructions, PRN (Pain , Moderate), Take 1-2 tablets every 4 hours as needed for moderate to severe pain. Pantoprazole: 40 mg = 1 tablet, By Mouth, Daily Polyethylene Glycol 3350: 17 Gm = 1 pack/packet, By Mouth, Daily, PRN (Constipation) Senna: 8.6 mg = 1 tablet, By Mouth, Daily at bedtime, PRN (as needed for constipation) Tamsulosin: 0.4 mg = 1 capsule, By Mouth, Daily Tramadol: See Instructions, PRN (Pain , Mild), Take 1-2 tablets every 6 hours as needed for mild pain. Allergies: Allergies (Active and Proposed Allergies Only) Procardia (Severity: Unknown severity, Onset: Unknown) amoxicillin (Severity: Unknown severity, Onset: Unknown) Current Labs: Last 24 Hours Basic Metabolic Panel: Hematology: Sodium: 137 mmol/L (08/09/22) Hgb: 12.7 Gm/dL (08/09/22) Potassium (POC): 4.5 mmol/L (08/09/22) Hemoglobin A1C (Monitoring): ------ Phosphorus: ------ WBC: 10.6 k/mm3 (08/09/22) Magnesium: ------ Platelets: 200 k/mm3 (08/09/22) BUN (POC) POC Cartridge: 19 mg/dL (08/09/22) INR Level: ------ Creatinine-Blood: 0.8 mg/dL (08/09/22) Creatinine Clearance: ------ Additional - Last 24 Hours Abs. NRBC: 0.0 k/mm3 (08/09/22) Anion Gap: 11 (08/09/22) Bicarbonate Level: 24 mmol/L (08/09/22) BUN: BUN (08/09/22) Chloride: 102 mmol/L (08/09/22) Creatinine, Blood: Creatinine, Blood (08/09/22) Estimated GFR Creatinine: 91 ML/MIN/1.73 M2 (08/09/22) Hct: 36.2 % (08/09/22) MCH: 30.3 pg (08/09/22) MCHC: 35.1 g/dL (08/09/22) MCV: 86.4 femtoliters (08/09/22) MPV: 8.8 femtoliters (08/09/22) Nucleated RBC (Automated): 0.0 #/100 WBC'S (08/09/22) RBC: 4.19 m/mm3 (08/09/22) RDW-SD: 38.8 femtoliters (08/09/22) DVT prophylaxis ASA EC 325 mg p o bid x 30 days Disposition: Anticipates being discharged today to home. Follow up at [facility] on 08/22/2022 at 1:15pm , patient is aware of this. The patient has an Aquacel dressing in place. He may shower with it and the dressing can be discontinued on POD 14. Discharge Information Admission Date: 08/08/2022 Principal Discharge Diagnosis Discharge Plan Discharge Disposition Discharge: home with VNA. Home Health Face to Face I certify that this patient is under my care and that I or an allowed non- physician practitioner working with me, had a [id number] encounter with the patient on this date: 08/09/2022. The encounter with the patient was in whole, or in part, for the following medical condition, whichis the primary reason for home health care: Osteoarthritis. Physical Therapy: Functional mobility training, Home exercise program to strengthen, increase ROM, Falls prevention training. Homebound due to: Inability to leave home without assistance/supervision, Inability to ambulate without assistance, Pain, decreased strength, and endurance. Physician Signature: Sunil KRISHNAN, Geovanny Diaz * Omkar ALDANA, Cheryl: PERFORM Event Display: Patient Education/Instruction Authored Date: [id number] Inpatient Adult Discharge Instructions [address] [address] Name: CAR FUENTES : 1945 Visit: 08/08/2022 11:39:00 Current Date: 08/09/2022 10:01 Account: [id number] Inpatient Adult Discharge Instructions We would like to thank you for allowing us to assist you with your healthcare needs. The following includes patient education materials and information regarding your injury/illness. Our entire staffstrives to provide an excellent experience for our patients and their families. PLEASE ENSURE YOU FOLLOW-UP PER THE INSTRUCTIONS BELOW! ?? YOUR OPINION IS IMPORTANT TO US! Please complete the survey you may receive by mail or email. Your feedback will be used to make improvements to the healthcare experiences of our patients and their families. Surveys are administered by [employer] ?? If further treatment with your primary care physician or another doctor is recommended, it is important for you to keep the appointment. Call your primary care physician or return to the Emergency Department immediately if your condition worsens, fails to improve, or new symptoms develop. If you need to find a doctor, you can call [facility] for a referral at [phone] or toll free at [phone] or log in to [email or web address].. ?? You can view and manage your care through the patient portal or by using a health care anna of your choosing. [email or web address] is a website that allows you to securely view your medical information including your hospital discharge summary, office visit summaries, medications and follow-up visits. You can also request appointments, renew medications, and request access to your medical information using a health care anna of your choosing, or just ask a question. You can enroll at [email or web address] or register during your next office visit. You have been discharged from [facility], Patient Care Unit: SW7. If you have any questions regarding these instructions after you leave, please call us and we will be happy to assist you. [facility] Your Care Team Attending Physician Sunil KRISHNAN, Geovanny Walton Discharging Providers Ayaan VALENTIN, Kriss Reason for Admission OA RIGHT KNEE TOTAL ARTHROPLASTY WALKER Your Diagnosis Osteoarthritis Tests Performed Below is a partial list of the tests performed during your hospitalization. You may have had other tests and procedures not included in this list. Please discuss all test results with your provider. BUN CBC Creatinine Electrolytes XR Knee 1 or 2 Views Right Primary Care Provider Denys Snow MD Advance Directive Health Care Proxy on File Yes - Health Care Proxy No qualifying data available. Discharge Vitals Temperature: 97.7 DegF Height: 182 cm Pulse Rate: 70 bpm Weight: 97.2 kg Respiratory Rate: 18 br/min Body Mass Index:??29.34 kg/m2??High Systolic Blood Pressure:??143 mm Hg??High Body surface area: 2.22 Diastolic Blood Pressure: 79 mm Hg ?? Oxygen Saturation: 99 % ?? Studies Pending All tests and labs ordered during this hospital stay have been completed unless listed below. Please discuss all pending results with your provider listed above in these instructions. ?? BUN CBC Creatinine Electrolytes What to do next Instructions From Your Doctor Discharge Orders You Need to Schedule the Following Appointments Follow Up with??[facility] When?? Why: Follow Up Appointments ?? 08/22/22 at 115pm ?? 09/20/22 at 2pm Where: [address] [place] [address] [address] [place] [address]- Discharge Medications CAR FUENTES :1945 Visit Date:08/08/2022 Medications: Please continue your medications until treatment is completed or stopped by your provider. Medications not listed below should be discontinued. Discuss any questions related to medications with your provider. What How Much When Instructions Next Dose New Oxycodone (oxyCODONE 5 mg oral tablet) See instructions Take 1-2 tablets every 4 hours as needed for moderate to severe pain. ?? Pickup at [facility] 3 215pm New Tramadol (traMADol 50 mg oral tablet) See instructions Take 1-2 tablets every 6 hours as needed for mild pain. ?? Pickup at [facility] 3 As needed, do not take while taking oxycodone Changed Acetaminophen/ Butalbital/ Caffeine (acetaminophen/ butalbital/ caffeine 325 mg-50 mg-40 mgoral tablet) 1 tab(s) TAKE 1 TABLET BY MOUTH EVERY 6 HOURS NEEDED FOR PAIN NOT COVERED ?? As needed Unchanged Acetaminophen (acetaminophen 325 mg oral tablet) 2 tab(s) Oral Every 6 hours May take OTC not to exceed 3000 mg/ day ?? 12pm Unchanged Al Hydroxide/ Mg Hydroxide/ Simethicone (Maalox Plus Liquid) 30 Milliliter Oral Every 4 hours as needed for Other Heartburn ?? Unchanged Aspirin (Aspirin Tablet) 325 Milligram Oral Twice a day 8pm Unchanged Atorvastatin (atorvastatin 40 mg oral tablet) 1 tab(s) Oral Daily 8pm Unchanged Celecoxib (celecoxib 200 mg oral capsule) 1 capsule Oral Daily in the morning 8am Unchanged Docusate (Colace Capsule) 100 Milligram Oral Twice a day HOld for loose stools ?? 8pm Unchanged Losartan (losartan 50 mg oral tablet) 1 tab(s) Oral Daily 8am Unchanged Milk of Magnesia (Milk of Magnesia Liquid) 30 Milliliter Oral Daily as needed for Constipation Unchanged Pantoprazole (pantoprazole 40 mg oral delayed release tablet) 1 tab(s) Oral Daily 8am Unchanged Polyethylene Glycol 3350 (MiraLax Powder) 17 gram Oral Daily as needed for Constipation 8am Unchanged Senna (senna 187 mg oral tablet) 1 tab(s) Oral Daily at Bedtime as needed for as needed for constipation 8pm Unchanged Tamsulosin (tamsulosin 0.4 mg oral capsule) 1 capsule Oral Daily 8am Pharmacy Information [facility] 3: [address], [place] [id number] [phone] Test Results Below is a partial list of the most recent Laboratory test results done prior to this discharge. You may have had other tests and procedures not included in this list. Please discuss all test resultswith your provider. BUN (08/09/2022) ???BUN - 19 mg/dL CBC (08/09/2022) ???WBC - 10.6 k/mm3???RBC - 4.19 m/mm3???Hgb - 12.7 Gm/dL???Hct - 36.2 %???MCV - 86.4 femtoliters???MCH - 30.3 pg???MCHC - 35.1 g/dL???Platelet Count - 200 k/mm3???RDW-SD - 38.8 femtoliters???MPV - 8.8 femtoliters???Nucleated RBC (Automated) - 0.0 #/100 WBC'S???Abs. NRBC - 0.0 k/mm3 Creatinine (08/09/2022) ???Creatinine-Blood - 0.8 mg/dL???Estimated GFR Creatinine - 91 ML/MIN/1.73 M2 Electrolytes (08/09/2022) ???Sodium - 137 mmol/L???Potassium - 4.5 mmol/L???Chloride - 102 mmol/L???Bicarbonate Level - 24 mmol/L???Anion Gap - 11 Allergies (NKA means No Known Allergies) Procardia amoxicillin Problems Active Problems??(6) Acid reflux disease?? Benign prostatic hyperplasia?? Hyperlipidemia?? Hypertension?? Migraine?? Mild aortic stenosis?? Education Materials Below is the list of Educational Leaflet Providered with your Discharge Instructions. Total Knee Replacement Discharge Instructions?? Valuables and Belongings I fully understand and agree that [facility] accepts no responsibility for all my personal property including clothing, toilet articles, radios, jewelry, dentures, hearing aids, rings, money, or any other property that is in my possession or is brought to me after admission. I understand certain valuables may be placed in a hospital safe for a short period of time. I understand that the hospital is not liable for loss or damage due to accident, fire, or other natural occurrence while said property is in the safe. I accept full responsibility for any personal property that I keep with me, and will not hold the hospital responsible in case of loss or disappearance. I acknowledge that i have been encouraged to send valuables and belongings home. ?? Review of Valuable and Belonging List: With patient Possessions released to: GLASSES SENT TO PACU 08/08/22 Date for Pt to Sign Valuables/Belongings: 08/09/22 08:40:00 ?? Other Discharge Information ? Case Management Discharge Plan?? Discharge Plan?? Discharge Agency Information?? Discharge Level of Care at Discharge: Homehealth/VNA Name of Agency #1: [facility] Discharge Rx Program: Discharge Prescription Program Service Categories #1: Physical Therapy Discharge VNA/Hospice/Home Care: [facility] Comments #1: The VNA will call you the day after you are discharged to set up a visit time.If you do not hear from them, please call them at [facility] ?? Pulmonary Rehab Status?? Pulmonary Rehab Discharge Status?? Respiratory Rate: 18 br/min ? Common Emergency Awareness Tips IS IT A STROKE? Act FAST and Check for these signs: FACE Does the face look uneven? ARM Does one arm drift down? SPEECH Does their speech sound strange? TIME Call at any sign of stroke ?? Heart Attack Signs Chest discomfort: Most heart attacks involve discomfort in the center of the chest and lasts more than a few minutes, or goes away and comes back. It can feel like uncomfortable pressure, squeezing, fullness or pain. Discomfort in upper body: Symptoms can include pain or discomfort in one or both arms, back, neck, jaw or stomach. Shortness of breath: With or without discomfort. Other signs: Breaking out in a cold sweat, nausea, or lightheaded. Remember, MINUTES DO MATTER. If you experience any of these heart attack warning signs, call to get immediate medical attention! ?? Smoking can increase your chances of developing chronic health problems and can cause harmful effects to other family members in your house. If you smoke, you are strongly encouraged to quit. Please call [facility] [employer] Link at [phone] or 4-814-392ZoopShop ([phone]) or log in to [facility] for referrals to smoking cessation programs. ?? The National Suicide Prevention Hotline is available 10/02 if you or someone you know needs to find a reason to keep living. By calling 3-309-845-pkrq (6207) you'll be connected to a skilled, trained counselor at a crisis center in your area. INPATIENT DISCHARGE INSTRUCTIONS SIGNATURE PAGE CAR FUENTES Location:[facility] Registration Date and Time:08/08/2022 11:39 EST Primary Care Physician: Denys Snow MD, I CAR FUENTES, have received the above patient education materials/instructions and have verbalized understanding. If ambulance or transport services are being used I further acknowledge being given a choice of service. ?? If you need to contact me, please call me at this number: . Patient/Filler Feeder Name: Patient/Filler Feeder Signature: Relationship to Patient: Witness Name/Signature: Date: * Cheryl Espitia RN: PERFORM Event Display: Patient Education Leaflets Authored Date: [id number] Total Knee Replacement Discharge Instructions ?? 667 Total Knee Replacement Discharge Instructions ??? Please read and review your Total Knee Replacement Book for detailed information ??? Your appetite may be decreased but try to maintain a good balanced diet ?? Ice and elevation ?Ice is important to help keep swelling down. ?Keep elevated as much as possible. ?Ice the knee 4 times a day for 20 minutes each time. Be sure not to put the ice/ice pack directly on your skin. Use a dish towel or something similar between the ice and your skin. ??? Moving ? Get up and walk frequently. ??? Do 20 ankle pumps every hour. ??? Complete your exercises 4times a day, bending and straightening your knee ??? Begin exercises the evening you go home ??? Moving is especially important. This helps to prevent blood clots. Take short frequent walks. ? Wear your knee brace when walking until your surgeon or physical therapist tells you to stop. ??? You may sleep with or without the brace and sleep anyway you are comfortable. ??? Place a pillow underthe ankle/lower leg when lying down to help with extension of your knee. ??? Do not put a pillow under your knee ??? Continue to move your foot up and down, this exercise helps to prevent blood clotsand to help reduce swelling in your knee ??? No driving until approved by your surgeon ?? Incision ?Your incision is closed with absorbable stitches and surgical glue. ?The dressing iswaterproof. You may shower the next day. ??? You may develop some discoloration around your incision (yellowish or bruising) ??? Your dressing will stay on for 1-2 weeks ?You cannot go in a bath, pool, ocean, pond, casey or jacuzzi for 6 weeks. This is to reduce your risk of infection ? You may have some numbness around the incision. This is normal and will improve with time. Some patients have numbness that does not completely go away. ?? When to call the Surgeon?CALL [phone] ?If you have shortness of breath or chest pain, call 911 or go to the nearest emergency department. ??? If you have drainage and/or redness around your wound. ?If you have a fever greater than 101.5 (38.5 degrees Celsius). ?If you have persistent calf pain or swelling (This couldbe a blood clot). ??? If your pain is worsening. ? If you have any difficulty with urination or burning with urination ? XR Knee - right 1 or 2 Views * SPowerscribe , CIS S: TRANSCRIMichael Benton MD: VERIFY Event Display: Result: Authored Date: [id number] Right knee 2 views dated August 08, 2022. No prior studies are available. HISTORY: Knee replacement. FINDINGS: This examination shows a total knee arthroplasty in anatomic alignment. IMPRESSION: Total knee arthroplasty in anatomic alignment. Examination 63061. Thank you for allowing me to participate in the care of this patient. WSN: [id number] Ordering Physician: Trinidad Jonas Dictated By: Michael Maya MD Dictated Date/Time: 08/09/22 7:49 am Reviewed By: Michael Maya MD Signed By: Michael Maya MD Signed Date/Time: 08/09/22 7:49 am Transcribed By: DENISE Transcribed Date/Time: 08/09/22 7:49 am Patient Care team information Care Team Personnel Name: Denys Snow MD Position: [facility] Outreach Member Role: PCP Address: Address: [address] [facility] [place] [address]- Name: Radha Tuttle RN Position: S RN Member Role: Primary Care Nurse Name: Aissatou Quesada RN Position: S RN Member Role: Primary Care Nurse Care Team Related Persons Name: OLIVIA GARCIA Address: [address] [address]
--- OUTSIDE RECORDS SUMMARY | 2022-11-11 12:50 | XMS_ITS | Continuity of Care Document ---
Author Name Unknown Organization [facility] ter Address [address] [place] [address]- Care Team Providers Care Warehouse Receiving Clerk Name Role Phone Denys Snow MD Primary Care Physician [phone] Encounter [facility] Date(s): 06/25/22 - 08/24/[address] [address] Attending Physician: Geovanny Barber MD Admitting Physician: [...] Team Personnel Name: Denys Snow MD Position: [facility] Outreach Member Role: PCP Address: Address: [address] [place] [address] [place] [address]- Name: Radha Tuttle RN Position: S RN Member Role: Primary Care Nurse Name: Aissatou Quesada RN Position: S RN Member Role: Primary Care Nurse Care Team Related Persons Name: OLIVIA GARCIA Address: [address] [address]
--- OUTSIDE RECORDS SUMMARY | 2022-11-11 12:50 | XMS_ITS | Continuity of Care Document ---
Author Name Unknown Organization [facility] Address [address] [place] [address]- Care Team Providers Care Aboriginal Ceremonial Celebrant Name Role Phone Denys Snow MD Primary Care Physician [place] [facility] 08/23/22 [facility] [address] [place], [place] [address] Attending Physician: Carly Farias Admitting Physician: AdmtrCarly Referring Physician: Admtr, Ar8 [...] Team Personnel Name: Denys Snow MD Position: [facility] Outreach Member Role: PCP Address: Address: [address] [place] [address] [place] [address]- Name: Radha Tuttle RN Position: S RN Member Role: Primary Care Nurse Name: Aissatou Quesada RN Position: S RN Member Role: Primary Care Nurse Care Team Related Persons Name: OLIVIA GARCIA Address: [address] [address]
--- OUTSIDE RECORDS SUMMARY | 2022-11-11 12:51 | XMS_ITS ---
Author Name Jose Mccullough Address [address] [place] [address] Organization [facility] Address [address] [place] [address] Care Team Providers Care Music Writer Name Role Phone Jose Mccullough Unavailable [phone] PROBLEMS Type Condition ICD9-CM Code YHO73-RT Code Onset Dates Condition Status SNOMED Code Problem Encounter for screening for malignant neoplasm of colon Z12.11 Active 297096534 Problem Diverticulosis of large intestine without perforation or abscess without bleeding K57.30 Active 168045767 Problem Preprocedural examination Z01.818 Active [id number] ALLERGIES Substance Reaction Event Type Date Status Procardia Unknown Drug Allergy May, Active Amoxicillin Meningitis Drug Allergy May, Active ENCOUNTERS Encounter Location Date Diagnosis [facility] Outpatient [address] [place] [id number] 12 Jul, 2022 Encounter for screening colonoscopy Z12.11 ; Colon polyp K63.5 ; Diverticulosis of large intestine without perforation or abscess without bleeding K57.30 and Internal hemorrhoids K64.8 [facility] [address] [place] [phone] 13 Jun, 2022 [facility] [address] [place] [address] [place] [phone] 15 May, 2022 Encounter for screening for malignant neoplasm of colon Z12.11 and Preprocedural examination Z01.[address] [facility] Outpatient [address] [place], [place] [id number] Oct, [facility] [address] [place] [address] Sep, [facility] [address] [place] [address] Jun, [facility] [address] [place] [address] Jun, Blood in stool 578.1 and Esophageal reflux 530.[address] [facility] Outpatient [address] [place], [place] [id number] Apr, [facility] ER [address] [place], [place] [id number] November, [facility] [address] [place], [place] [id number] Dec, [facility] ER [address] [place], [place] [id number] Jul, IMMUNIZATIONS Vaccine Route Administration Date Status Influenza Unknown May 21, 2022 Administered SOCIAL HISTORY Never Assessed REASON FOR REFERRAL FUNCTIONAL STATUS PLAN OF CARE Activity Details VITAL SIGNS Weight 216 lbs 2022-06-04 Weight 239 lbs 2011-07-16 Height 71.5 in 2022-06-04 Height 71.5 in 2011-07-16 BMI 29.70 kg/m2 2022-06-04 BMI 32.87 kg/m2 2011-07-16 Heart Rate 72 /min 2011-07-16 Temperature 97.9 degrees Fahrenheit Blood pressure systolic 000 mm Hg Blood pressure diastolic 000 mm Hg 2022-05 MEDICATIONS Medication Instructions Dosage Frequency Start Date End Date Duration Status traMADol HCl Not -Takin g Pantoprazole Sodium 40 MG TAKE 1 TABLET BY MOUTH EVERY DAY 90 Active Multivitamin Act sylvie Vitamin C Active Losartan Potassium 50 MG 90 Acti ve Tamsulosin HCl 0.4 MG Orally Once a day 1 capsule 24h Active Vitamin D Active Atorvastatin Calcium 40 MG TAKE 1 TABLET BY MOUTH EVERY DAY 90 Active PROCEDURES Procedure Date Ordered Result Body Site [facility] [place] [facility] Jun 04, 2022 COLONOSCOPY AND BIOPSY Aug 01, 2022 RESULTS No Results REASON FOR VISIT screening, screening, cancel colonoscopy , Patient presents today for a SCREENING COLON, preauthorization for Colonoscopy, colon prep, rectal bleed, pre-colon Insurance Providers Health Insurance Type Health Plan Insurance Address Health Plan Insurance Phone Health Plan Insurance Name Health Plan Coverage Dates Member ID Patient Relationship to Subscriber Patient Address Patient Phone Patient Name Patient Date of Subscriber ID Subscriber Name Subscriber Date of Group No [employer] [place] [address] [facility] [id number] [employer] [place] self CAR Aggarwal [id number] [place]ARE [place] [address] [facility] [address] [place] self CAR Aggarwal [id number] MEDEX ATTN CLAIMS [address] [facility] [id number] MEDEX self CAR Aggarwal [id number]
--- NOTE | 2022-11-11 15:29 | P.OP_ITS ---
Operative Note Operative Note Date of Service: 11/11/22 Narrative: Operative note by [facility] Preoperative diagnosis:1. Left Carotid stenosis 2. Prior retinal artery occlusion Postoperative diagnosis: Same Procedure: Left Carotid endarterectomy with patch angioplasty Surgeon:Prince Stewart M.D. Insurance Sales Producer: Dr. Grove Anesthesia: General Specimens: 1 Drains: 1 Estimated blood loss: 100 mL Indications: 77-year-old gentleman who was found about a week ago to have an embolization to the retinal artery was discovered on CT scan to have high-grade left carotid stenosis. He now presents for operative intervention The patient has signed the informed consent after reviewing risks, complications, benefits, and alternatives previously discussed with the patient. The patient was given the opportunity to ask any additional questions or voice any concerns. All questions were answered to the patient's satisfaction. Procedure in detail: Patient was taken to the operating room and placed in a supine position and prepped and draped in sterile manner with ChloraPrep. Longitudinal incision was made along the anterior border of the left sternocleidomastoid carried down through the subcutaneous fat and fascia. Hemostasis was obtained with electrocautery. The platysma muscle was then divided. The carotid sheath was identified in open. The vagus nerve, Ancef cervicalis, and hypoglossal nerves were identified and avoided. The common internal and external carotids were then freed from the surrounding tissue. At this point, 8000 units of heparin was administered and allowed to circulate for 5 minutes time to take effect. The internal, common, external carotids were clamped in that order. Once this was accomplished, we proceeded with the procedure. The carotid bulb was opened with an 11 blade and extended with Quintero scissors through the very tight lesion into normal internal carotid artery. This was then extended down into the common carotid artery. We then placed a May shunt. Then the plaque was sharply excised proximally and an eversion endarterectomy was performed successfully at the external. The plaque tapered nicely on to the internal and no tacking sutures were necessary. Heparinized saline was injected and no evidence of flapping or other debris was noted. The remaining carotid was examined, which showed no debris or flaps present. At this point a XenoSure patch was brought on to the field. This was anastomosed to the artery using a 6 0 Prolene in a running fashion. Once approximately 4/5 of the patch was sewn in the shunt was then removed. Prior to the last stitch the internal carotid was back bled through this. Heparinized saline was instilled into the carotid. The last stitch was tied. Hemostasis was excellent. The internal carotid was gently occluded while while of the external and internal were open in that order. Finally the internal was then opened and flow was restored to the entire system. Hemostasis was achieved with interrupted 7-0 Prolene sutures. The wound was irrigated thoroughly. We then placed a 7 flat Micah-Quijano drain. Deep layer was reapproximated using a 2-0 poly Sorb and finally the superficial layer with a 3-0 Polysorb. The skin was closed in a subcuticular manner. The patient awoke and neurologic status was checked and appeared to be intact. Sponge, needle and instrument counts were correct. The patient tolerated the procedure well. Returned to recovery with stable vitals. This note is constructed using voice recognition software. While every effort has been made to ensure accuracy, publishing manager errors may have been included. Thank you for allowing me to participate in the care of your patient. Yours sincerely, Prince Stewart MD, FACS, R.P.V.I.
--- NOTE | 2022-11-11 16:43 | PC.NURSE ---
Large clot in bulb drain to left side neck. Tubing patent at this time and sanguineous drainage also present. Moderate pieces of clot being emptied along with liquid drainage. Dr Stewart aware of the quantity being emptied, agrees to reassess the patient.
--- NOTE | 2022-11-11 17:04 | PM.EVENT ---
Event Note Date of Service: 11/11/22 Event Note: Called to re-evaluate bleeding from left neck. Over the past 2 hours a total of 160 mL was put out from GEOVANNA drain. Initially the output was much thinner it appears to have coagulated. At the current time the GEOVANNA drain was clogged. I did replace the GEOVANNA drain and the dressing. We milked the drain no significant output. In addition the patient has developed a headache. I do suspect the headache is a reperfusion headache. I do believe the bleed was more of an aspirin and Plavix bleed. It does appear to be stabilizing as the heparin is wearing off. I have made the patient NPO and we will keep a close eye on this patient overnight. Thank you for Time Spent With Patient Time: Total time managing care of this patient today ____ minutes.
[2022-11-11] MEDS: ondansetron HCL 4 MG/2 ML VIAL IVPUSH (17:16)
[2022-11-11] MEDS: Morphine Sulfate 2 MG/ML CARTRIDGE IVPUSH (17:20)
[2022-11-11] MEDS: 0.9 % Sodium Chloride Flush 3 ML SYRINGE IVFLUSH ×2 (17:23→23:23)
[2022-11-11] MEDS: 0.9 % Sodium Chloride 1,000 ML 80 ML IVCONT (17:23)
[2022-11-11] MEDS: Midazolam HCl/PF 2 MG/2 ML VIAL 0.5 MG IVPUSH (18:13)
[2022-11-11] MEDS: fentaNYL citrate/PF 100 MCG/2 ML VIAL 50 MCG IVPUSH ×2 (18:13→19:17)
--- NOTE | 2022-11-11 18:14 | PC.NURSE ---
Handoff received from [facility] PACU. Patient arrived to unit via bed at 1715. Increased edema to left neck, sanguineous draining from posterior dressing to pillow noted, no output from GEOVANNA drain. Patient complaining of worsening 8/10 pain to left neck and headache radiating to back of head. Patient also complaining of nausea and tightness sensation to throat when swallowing. Zofran & Morphine administered without relief. SUPERVISOR REFINING at bedside to verify change in edema. Dr Stewart and Dr Gomes notified via phone of change in patients condition along with pictures of edema sent via [employer] text. VO Dr Gomes Versed 0.5mg IVP & Fentanyl 50mcg IVP ordered and administered for 8/10 pain and increased restless/anxiety. Continue to monitor edema per Dr Stewart. Pain down to 5/10 and patient appears less restless. O2 down to 81-86% after med administration - 3L NC applied via order and O2 sat maintaining high 90's. Patient remains A&O x3, neuros intact. Cold compress provided and lights dimmed for comfort. Current vitals: 85 HR, 14 RR, 118/57 MAP 77, 99% on 3L NC.
[2022-11-11 18:49] LABS: Basophils Percent Auto 0.3 % (0-2); Eosinophils Percent Auto 0.2 % (0-4); Hematocrit 37.6 % (42.0-52.0); Hemoglobin 12.8 g/dl (14.0-18.0); Imm Gran Abs Auto 0.07 X10*3/uL (0.00-0.03); Imm Gran Pct Auto 0.7 % (0.0-0.4); Lymphocytes Absolute Auto 0.6 X10*3/uL (1.2-4.9); MANUAL DIFF FLAG SCAN; Mean Corpuscular Volume 88.1 fL (80.0-98.0); Mean Platelet Volume 8.5 fL (9.4-12.4); Monocytes Absolute Auto 0.1 X10*3/uL (0.1-1.2); Monocytes Percent Auto 1.4 % (2-11); Neutrophils Absolute Auto 9.4 x10*3/uL (2.0-8.3); Neutrophils Percent Auto 91.4 % (45-73); Platelet Count 158 X10*3/uL (160-400); Red Blood Count 4.27 X10*6/uL (4.60-5.80); Red Cell Distribution Width 12.5 % (11.0-16.0); SCAN SMEAR FLAG 1; White Blood Count 10.2 X10*3/uL (4.8-10.8)
[2022-11-11 19:08] LABS: SLIDE REVIEW VERIFIED
--- NOTE | 2022-11-11 19:34 | PM.CCHP ---
History of Present Illness Date of Service: 11/11/22 Attending physician on admission: Carmine Gomes Chief Complaint: Left carotid stenosis Patient is a 77-year-old male with a past medical history of? hypertension,? hyperlipidemia, GERD, aortic valve stenosis, with recent history of left eye blurry vision diagnosed with left retinal infarct? and left carotid stenosis. Today, the patient underwent left carotid endarterectomy with Dr Stewart, he is being monitored in the intensive care unit in the postop period.? Post op patient did develop significant swelling of the left side of neck extending up to left side of face, and complained of headache. SAE drain was also noted to be occluded in PACU, Dr Stewart replace SAE drain. Review of Systems Review of Systems: Constitutional: No weight loss, fever, chills, weakness or fatigue. Eyes: Left eye blurriness. No visual loss, no yellow sclera ENT: painful swallowing. No hearing loss, sneezing, congestion, runny nose Respiratory: no dyspnea, cough No hemoptysis. Cardiovascular: no chest pain. No palpitations facial edema Gastrointestinal: No anorexia, nausea, vomiting or diarrhea. No abdominal pain or blood in stool. Genitourinary: No burning micturition. No urinary frequency or incontinence. Neurologic: No headache, dizziness, syncope, unilateral weakness, ataxia, numbness or tingling in the extremities. No change in bowel or bladder control. Musculoskeletal: No muscle pain, back pain, joint pain or stiffness. Hematologic/Lymphatics: No bleeding or bruising. No painful lymph nodes. Skin: No rash or itching. Endocrine: No reports of sweating. No cold or heat intolerance. No polyuria or polydipsia. Psychiatric: No depression or anxiety PMFSH Past Medical History Medical History BPH (benign prostatic hyperplasia) GERD (gastroesophageal reflux disease) HTN (hypertension) Hyperlipidemia PVC's (premature ventricular contractions) Right knee injury Family History Family History Mother No problems noted. Father Heart disease Brother Afib Brother Afib Brother Afib Brother Afib Sister Leukemia Surgical History Surgical History History of cervical discectomy History of esophagogastroduodenoscopy (EGD) History of right inguinal hernia repair History of spinal surgery History of surgical removal of pilonidal cyst History of total left knee replacement (TKR) History of total right knee replacement (TKR) Hx of cholecystectomy Hx of colonoscopy Social History Social History Household Members: Spouse Housing: House Are you a primary resident care manager rn to a significant other at home: No Do you presently have visiting nurse or other home services: No Alcohol intake: current Alcohol intake frequency: 0-2 drinks per day Alcohol type: beer Patient Tobacco Use Status: Former Tobacco user Quit Date: 40 yrs ago Years Smoked: 10 +/- Second Hand Smoke Exposure: No Use of substances other than those prescribed or required for medical reasons: No Have you been hit, kicked, punched, or otherwise hurt by someone within the past year? If so, by whom?: No Do you feel safe in your current relationship?: Yes Is there a partner from a previous relationship who is making you feel unsafe now?: No Are you made to feel afraid or neglected: No Spiritual Healthcare Practices: none per patient Yazdanism Healthcare Practices: Sabianism Cultural Healthcare Practices: none per patient Are you DNR?: No Advance Directives: No Advance Directives Information Provided: Yes ( Ilda) Advance Directives on File: No Do you have thoughts of harming others: None Do you have a plan to hurt others: No Plan Recently lost weight without trying: No Eating poorly because of decreased appetite: No Nutrition Risks: No Nutritional Risk Poor oral hygiene: No Meds Allergies Allergy/AdvReac Type Severity Reaction Status Date / Time amoxicillin Allergy Severe Anaphylaxis Verified 11/11/22 10:10 nifedipine [From PROCARDIA] Allergy Unknown Hives Verified 11/07/22 14:11 Active Medications: Current Medications Acetaminophen (Acetaminophen 325 Mg Tablet) 650 mg PO Q6H PRN PRN Reason: Pain, Mild (Pain Scale 1-3) Aspirin (Aspirin 325 Mg Tablet) 325 mg PO DAILY TRI Atorvastatin Calcium (Atorvastatin Calcium 80 Mg Tablet) 80 mg PO DAILY TRI Sodium Chloride (Ns) 1,000 mls @ 80 mls/hr IVCONT .[id number] TRI Last Admin: 11/11/22 17:23 Dose: 80 mls/hr Lorazepam (Lorazepam 1 Mg Tablet) 1 mg PO BEDTIME PRN PRN Reason: anxiety Losartan Potassium (Losartan Potassium 50 Mg Tablet) 50 mg PO DAILY [facility]; Protocol Morphine Sulfate (Morphine Sulfate 2 Mg/Ml Cartridge) 2 mg IVPUSH Q4H PRN; Protocol PRN Reason: Pain, Severe (Pain Scale 7-10) Last Admin: 11/11/22 17:20 Dose: 2 mg Oxycodone HCl (Oxycodone Hcl Immed Release 5 Mg Tablet) 5 mg PO Q4H PRN PRN Reason: Pain, Moderate (Pain Scale 4-6 Pharmacy Consult (Consult Rx Vancomycin Dosing) 1 each MISCELLANE DAILY PRN PRN Reason: Consult order Sodium Chloride (0.9 % Sodium Chloride Flush 3 Ml Syringe) 3 ml IVFLUSH QSHIFT [facility] Last Admin: 11/11/22 17:23 Dose: 3 ml Tamsulosin HCl (Tamsulosin Hcl 0.4 Mg Capsule) 0.4 mg PO DAILY [facility] Home Medications Medication Instructions Recorded Confirmed Last Taken Type rydppzxnpt-lwuplklndwiup-shqrlpof 1 tab PO ONCE PRN Headache 09/03/22 11/06/22 Unknown History 50 mg-325 mg-40 mg tablet losartan 50 mg tablet 50 mg PO DAILY 09/03/22 11/06/22 11/10/22 History pantoprazole 40 mg tablet,delayed 40 mg PO DAILY 09/03/22 11/06/22 11/10/22 History release tamsulosin 0.4 mg capsule 0.4 mg PO DAILY 09/03/22 11/06/22 11/10/22 History tramadol 50 mg tablet 50 mg PO BID PRN Pain 09/03/22 11/06/22 11/10/22 History ascorbic acid (vitamin C) 1,000 mg 1,000 mg PO Q12H 11/06/22 11/06/22 11/10/22 History tablet,extended release atorvastatin 40 mg tablet 80 mg PO DAILY 11/06/22 11/06/22 11/10/22 History cholecalciferol (vitamin D3) 25 25 mcg PO DAILY 11/06/22 11/06/22 11/10/22 History mcg (1,000 unit) capsule celecoxib 200 mg capsule 200 mg PO DAILY 11/11/22 11/11/22 Unknown History Physical Exam Vital Signs: Vital Signs: Last Vital Signs Temp 97.8 F 11/11/22 15:24 Pulse 80 11/11/22 19:00 Resp 12 11/11/22 19:00 BP 128/61 11/11/22 19:00 Pulse Ox 99 11/11/22 19:00 O2 Del Method Room Air 11/11/22 19:00 O2 Flow Rate 2 11/11/22 16:54 BMI result Body Mass Index 29.1 ?General:? Alert oriented x3 no acute resp distress.? Speaking full sentences. Following all commands. ?HEENT:? Head is normocephalic, atraumatic, pupils equal round reactive to light accommodation bilaterally.? Extraocular movements appear intact.? Buccal mucosa is dry, Neck swelling, exting to left side of face. SAE drain with minimal output ?Cardiac:? Clear S1-S2, no murmurs rubs or gallops. ?Pulmonary:? Clear to auscultation, no wheezes, rales or rhonchi. ?Abdomen:? ?Abdomen soft, non-tender, non-distended. Normal bowel sounds. No pulsatile mass. No hepatosplenomegaly. ?Musculoskeletal:? Moving all 4 extremities upon request a major joints, there is no crepitus or tenderness.? The strength is 5/5 bilaterally and throughout all 4 extremities.? Gait not assessed at this point. ?Neurologic: No focal deficits noted.Motor strength as above.?? ?Skin:? Intact, no lesions, erythema, clubbing or cyanosis.? No ulcers. Vascular:? 2+ pulses upper and lower extremities distally.? Results Labs 11/11/22 18:38 11/11/22 09:31 Labs: Laboratory Results - last 24 hr 11/11/22 11/11/22 11/11/22 09:20 09:31 09:31 MCV 86.4 MCH 30.2 MCHC 34.9 RDW 12.5 Plt Count 184 MPV 8.6 L Immature Gran % (Auto) Neut % (Auto) Lymph % (Auto) [place] % (Auto) Eos % (Auto) Baso % (Auto) Lymph # (Auto) [place] # (Auto) Eos # (Auto) Baso # (Auto) Abs Immat Gran (auto) Absolute Neuts (auto) Absolute Nucleated RBC 0.000 Nucleated RBC % (auto) 0.0 Smear Tech's Comments Anion Gap 12 Estim Creat Clear Calc 95.3 Estimated GFR > 60 Random Glucose 107 Calcium 9.0 COVID-19 (JOHANNA) Negative COVID-19 Clin Com See Note 11/11/22 18:38 MCV 88.1 MCH 30.0 MCHC 34.0 RDW 12.5 Plt Count 158 L MPV 8.5 L Immature Gran % (Auto) 0.7 H Neut % (Auto) 91.4 H Lymph % (Auto) 6.0 L [place] % (Auto) 1.4 L Eos % (Auto) 0.2 Baso % (Auto) 0.3 Lymph # (Auto) 0.6 L [place] # (Auto) 0.1 Eos # (Auto) 0.0 Baso # (Auto) 0.0 Abs Immat Gran (auto) 0.07 H Absolute Neuts (auto) 9.4 H Absolute Nucleated RBC 0.000 Nucleated RBC % (auto) 0.0 Smear Tech's Comments VERIFIED Anion Gap Estim Creat Clear Calc Estimated GFR Random Glucose Calcium COVID-19 (JOHANNA) COVID-19 Clin Com Assessment and Plan (1) Aortic stenosis: Status: Acute (2) Symptomatic stenosis of left carotid artery: Status: Acute Plan Neuro:? No acute issues. Cardiac:? Postop days 0 after an elective? left carotid endarterectomy. Patient sae drain was clooged in PACU and replaced. Since arrival to ICU SAE drain with no output.? patient also complains of difficulty swallowing, vitals are stable, no? respiratory distress noted, Dr Stewart updated, anesthesia in to see patient, both in agreement patient does not require intubation at this time. Vascular surgery service care appreciated.?? Pulmonary:? No acute issues.? Renal:? No acute issues.? Endo:? No acute issues.? GI:? No acute issues. ID:? No acute issues Heme/Onc:?? Acute bleeding from surgical site-? hemoglobin stable. Cont to trend H&H Psych:? No acute issues. Miscellaneous:? No acute issues. Prophylaxis:? Per vascular source Diet:? Per vascular surgery Critical care time: x 60 min of critical care time Patient case discussed with attending Dr Gomes Time Spent With Patient Time: Total time managing care of this patient today _60___ minutes. Critical Care Time Critical Care Time (minutes): 60
[2022-11-11] MEDS: LORazepam 2 MG/ML VIAL 1 MG IVPUSH (20:16)
[2022-11-11] MEDS: HYDROmorphone HCl 1 MG/ML SYRINGE 2 MG IVPUSH (20:51)
[2022-11-11] MEDS: HYDROmorphone HCl 1 MG/ML SYRINGE IVPUSH (23:21)
[2022-11-12] VITALS (13 sets, daily range): BP systolic 102–131; BP diastolic 42–65; PULSE 69–96; RESP 11–24; TEMP 36–37.2; O2SAT 93–100; BMI 32.5
[2022-11-12] MEDS: LORazepam 2 MG/ML VIAL 1 MG IVPUSH (02:52)
[2022-11-12] MEDS: 0.9 % Sodium Chloride 1,000 ML 80 ML IVCONT (04:40)
[2022-11-12 05:07] LABS: VBG Base Excess -2.8 mmol/L; VBG HCO3 22 mmol/L (22-26); VBG pCO2 41 mmHg; VBG pH 7.34 (7.32-7.43); VBG pO2 32 mmHg
[2022-11-12 05:08] LABS: Venous Blood Gas Refer to POC result
[2022-11-12 05:34] LABS: PLT CLUMP 1; SCAN SMEAR FLAG 1
[2022-11-12 05:36] LABS: Hematocrit 34.3 % (42.0-52.0); Hemoglobin 11.6 g/dl (14.0-18.0); Imm Gran Abs Auto 0.04 X10*3/uL (0.00-0.03); Imm Gran Pct Auto 0.5 % (0.0-0.4); Lymphocytes Absolute Auto 0.4 X10*3/uL (1.2-4.9); Lymphocytes Percent Auto 4.8 % (20-40); MANUAL DIFF FLAG SCAN; Mean Corpuscular HGB Conc 33.8 g/dl (31.0-36.0); Mean Corpuscular Hemoglobin 29.7 pg (27.0-33.0); Mean Corpuscular Volume 87.9 fL (80.0-98.0); Mean Platelet Volume 9.2 fL (9.4-12.4); Monocytes Absolute Auto 0.3 X10*3/uL (0.1-1.2); Monocytes Percent Auto 3.7 % (2-11); Neutrophils Absolute Auto 7.8 x10*3/uL (2.0-8.3); Red Cell Distribution Width 12.6 % (11.0-16.0)
[2022-11-12 05:46] LABS: White Blood Count 8.6 X10*3/uL (4.8-10.8)
[2022-11-12 05:47] LABS: Platelet Count 190 X10*3/uL (160-400)
[2022-11-12 05:50] LABS: Anion Gap 15 (12-20); Blood Urea Nitrogen 20 mg/dL (9-16); Calcium 8.5 mg/dL (8.4-10.2); Carbon Dioxide 24 mmol/L (22-29); Chloride 106 mmol/L (96-108); Creatinine Clr Calc Pharmacy 105.7; Estimated Glomerular Filt Rate > 60; Glucose Random 166 mg/dL (60-115); Magnesium 1.9 mg/dL (1.6-2.6); Phosphorus 4.4 mg/dL (2.7-4.5); Potassium 4.7 mmol/L (3.3-5.1); Sodium 140 mmol/L (135-145)
[2022-11-12 06:12] LABS: SLIDE REVIEW VERIFIED
[2022-11-12] MEDS: 0.9 % Sodium Chloride Flush 3 ML SYRINGE IVFLUSH ×2 (07:34→20:16)
--- NOTE | 2022-11-12 07:38 | PHA.MEDREC ---
Pharmacy Consult ? Medication Reconciliation Pharmacy has completed the medication reconciliation. Reviewed med rec done by nursing
[2022-11-12] MEDS: Atorvastatin Calcium 80 MG TABLET PO (09:34)
[2022-11-12] MEDS: Losartan Potassium 50 MG TABLET PO (09:34)
[2022-11-12] MEDS: Tamsulosin HCL 0.4 MG CAPSULE PO (09:34)
[2022-11-12] MEDS: Aspirin 325 MG TABLET PO (09:34)
--- NOTE | 2022-11-12 10:04 | P.PNVS_ITS ---
Subjective Subjective Date of Service: 11/12/22 Patient reports: no new complaints Interval history: Pleasant 77-year-old gentleman postop day 1 status post left carotid endarterectomy. Significant bleeding from the incision site yesterday. He did put out about 160 in the [facility] after to occluded he did develop a little bit of a left neck hematoma overall there was no shortness of breath no breathing difficulties. He reports this morning he has somewhat of a sore throat but other than that feels fine. Headache appears to have resolved Physical Exam Vital Signs: Vital Signs: Last Vital Signs Temp 98.0 F 11/12/22 07:00 Pulse 72 11/12/22 08:00 Resp 11 L 11/12/22 08:00 BP 131/50 L 11/12/22 08:00 Pulse Ox 98 11/12/22 08:00 O2 Del Method Room Air 11/12/22 08:00 O2 Flow Rate 2 11/12/22 06:00 BMI result Body Mass Index 32.5 Const: General: cooperative, healthy appearing and no acute distress Orientation/consciousness: oriented to person, oriented to place and oriented to time HEENT: Head: Yes normal to inspection Neck: Other: Left neck - hematoma Carotids: no bruits Chest: Chest palpation & inspection: normal inspection of the chest Resp: Effort & Inspection: normal respiratory effort and able to speak in complete sentences Auscultation: clear to auscultation bilaterally Cardio: Rate: regular rate Heart sounds: S1 normal heart sound present and S2 normal heart sound present GI: Inspection: Yes normal to inspection Skin: General skin exam: no rashes or lesions noted Wounds: no wounds Neuro: General: oriented to person, oriented to place, oriented to time and CN's II-XI intact bilaterally Extrem: General: Yes normal to inspection, Yes full ROM and Yes no clubbing, cyanosis or edema Psych: Appearance: grossly normal and well kempt Speech and movement: Normal speech and movement present Affect: normal affect Progress Note: A&P Assessment and plan (1) Symptomatic stenosis of left carotid artery: Status: Acute Assessment and Plan: Postop day 1 status post left carotid endarterectomy H&H is stable. He does have a significant hematoma. He is slow to tolerated diet. He will require additional hospital stay. Stable from transfer out of the ICU. Remove A-line and Mendez. Regular diet. Thank you for the rotary drill operator helper assistance in his care. Time Spent With Patient Time: Total time managing care of this patient today ____ minutes. Procedures Date of Service Date of Service: 11/12/22 Quality Stroke Does the patient have a stroke diagnosis?: No VTE Prior VTE?: No VTE Risk Level:: Surgical - high VTE Device Contraindication: N/A - Device Ordered VTE Drug Contraindication: Treatment Not Tolerated
--- NOTE | 2022-11-12 10:39 | MHC.CM.PN ---
[facility]M DELIVERED LIVES WITH IN A [facility]. INDEPENDENT AT BASELINE BUT OPEN TO [facility] IF IT IS RECOMMENDED AND FIRST CHOICE IS [facility]. REFERRAL SENT. +HCP (COPY AT HOME, REQUESTED) +COVID [facility] PC DR. DE LA [place] DP: HOME, NO SERVICES ANTICIPATED BUT IF RECOMMENDED, PT FIRST CHOICE IS [facility] FOR SERVICES. [facility] WILL TRANSPORT ON DC. CM WILL CONTINUE TO FOLLOW FOR PLAN.
[2022-11-12] MEDS: oxyCODONE HCl Immed Release 5 MG TABLET PO ×2 (11:11→22:09)
--- NOTE | 2022-11-12 12:29 | PM.CCPN ---
Subjective Subjective Date of Service: 11/12/22 Interval History: 77-year-old gentleman with underlying history of hypertension, hyperlipidemia, aortic valve stenosis, left retinal infarct, and left carotid stenosis today postop day 1 after an elective left carotid endarterectomy with postoperative access site hematoma being monitored in the intensive care unit. No events overnight. Critical Care Time (minutes): 0 Physical Exam Vital Signs: Vital Signs: Last Vital Signs Temp 98.0 F 11/12/22 07:00 Pulse 72 11/12/22 08:00 Resp 11 L 11/12/22 08:00 BP 131/50 L 11/12/22 08:00 Pulse Ox 98 11/12/22 08:00 O2 Del Method Room Air 11/12/22 08:00 O2 Flow Rate 2 11/12/22 06:00 BMI result Body Mass Index 32.5 Const: General: no acute distress, alert and awake Eyes: Sclerae: sclerae normal EOM: EOMs intact bilaterally Neck: Neck: Yes no lymphadenopathy, Yes trachea midline, Yes supple and Yes other ( Left carotid access site with large hematoma stable overnight) Resp: Effort & Inspection: normal respiratory effort and no respiratory distress Auscultation: clear to auscultation bilaterally Cardio: Rate: regular rate Rhythm: regular rhythm Heart sounds: no gallops, no murmurs and no rubs GI: Palpation (GI): Soft to palpation and Other GI palpation findings present ( Nontender) Auscultation: normal bowel sounds Extrem: General: Yes no pedal edema, No clubbing and No cyanosis Objective Data Labs 11/12/22 05:02 11/12/22 05:02 Labs: Laboratory Results - last 24 hr 11/11/22 11/12/22 11/12/22 18:38 04:58 05:02 WBC 10.2 8.6 RBC 4.27 L 3.90 L Hgb 12.8 L 11.6 L Hct 37.6 L 34.3 L MCV 88.1 87.9 MCH 30.0 29.7 MCHC 34.0 33.8 RDW 12.5 12.6 Plt Count 158 L 190 MPV 8.5 L 9.2 L Immature Gran % (Auto) 0.7 H 0.5 H Neut % (Auto) 91.4 H 91.0 H Lymph % (Auto) 6.0 L 4.8 L [place] % (Auto) 1.4 L 3.7 Eos % (Auto) 0.2 0.0 Baso % (Auto) 0.3 0.0 Lymph # (Auto) 0.6 L 0.4 L [place] # (Auto) 0.1 0.3 Eos # (Auto) 0.0 0.0 Baso # (Auto) 0.0 0.0 Abs Immat Gran (auto) 0.07 H 0.04 H Absolute Neuts (auto) 9.4 H 7.8 Absolute Nucleated RBC 0.000 0.000 Nucleated RBC % (auto) 0.0 0.0 Smear Tech's Comments VERIFIED VERIFIED VBG pH 7.34 VBG pCO2 41 VBG pO2 32 VBG HCO3 22 VBG O2 Saturation 48.0 VBG Base Excess -2.8 Sodium Potassium Chloride Carbon Dioxide Anion Gap BUN Creatinine Estim Creat Clear Calc Estimated GFR Random Glucose Calcium Phosphorus Magnesium 11/12/22 11/12/22 05:02 05:02 WBC RBC Hgb Hct MCV MCH MCHC RDW Plt Count MPV Immature Gran % (Auto) Neut % (Auto) Lymph % (Auto) [place] % (Auto) Eos % (Auto) Baso % (Auto) Lymph # (Auto) [place] # (Auto) Eos # (Auto) Baso # (Auto) Abs Immat Gran (auto) Absolute Neuts (auto) Absolute Nucleated RBC Nucleated RBC % (auto) Smear Tech's Comments VBG pH VBG pCO2 VBG pO2 VBG HCO3 VBG O2 Saturation VBG Base Excess Sodium Cancelled 140 Potassium Cancelled 4.7 D Chloride Cancelled 106 Carbon Dioxide Cancelled 24 Anion Gap Cancelled 15 BUN Cancelled 20 H Creatinine Cancelled 0.77 Estim Creat Clear Calc Cancelled 105.7 Estimated GFR Cancelled > 60 Random Glucose Cancelled 166 H Calcium Cancelled 8.5 Phosphorus 4.4 Magnesium 1.9 Progress Note: A&P Assessment and plan (1) Symptomatic stenosis of left carotid artery: Status: Acute (2) Aortic stenosis: Status: Acute (3) HTN (hypertension): Status: Acute Plan Assessment: 77-year-old gentleman postop day 1 after elective left carotid endarterectomy with hematoma at the access site Plan: Neuro: No acute issues. Underlying history of left retinal infarct. Previously on aspirin and Plavix. Cardiac: status post elective left carotid endarterectomy. Vascular surgery service care appreciated. Surgical access site hematoma stable overnight. Hemodynamically stable. Restart antihypertensive regimen as tolerated. Pulmonary: No acute issues. Renal: No acute issues. Endo: No acute issues. GI: No acute issues. ID: No acute issues Heme/Onc: No acute issues. Psych: No acute issues. Miscellaneous: No acute issues. Prophylaxis: pneumatic compression Diet: regular Quality Stroke Does the patient have a stroke diagnosis?: No VTE Prior VTE?: No VTE Risk Level:: Surgical - high VTE Device Contraindication: N/A - Device Ordered VTE Drug Contraindication: Treatment Not Tolerated
--- NOTE | 2022-11-12 12:39 | HO.POSTANES ---
Post Anesthesia Evaluation Post Anesthesia Evaluation Vital Signs: Vital Signs Temp Pulse Resp BP Pulse Ox O2 Del Method O2 Flow Rate 11/12/22 08:00 72 11 L 131/50 L 98 Room Air 11/12/22 07:00 98.0 F 77 14 119/53 L 98 Room Air 11/12/22 05:00 92 15 123/53 L 99 Nasal Cannula 2 11/12/22 04:00 97.6 F 73 12 106/42 L 100 Nasal Cannula 2 11/12/22 02:59 75 24 H 102/59 L 98 Nasal Cannula 2 11/12/22 01:00 69 13 112/48 L 99 Nasal Cannula 2 11/12/22 06:00 89 18 114/54 L 100 Nasal Cannula 2 11/12/22 02:00 96.9 F 92 14 118/49 L 93 Nasal Cannula 2 Anesthesia: General Endotracheal-GETA Mental Status: Awake Pain Control: Satisfactory Nausea/Vomiting: None Hydration: Adequate Anesthesia-Related Issues: No Anes. Related Issues
--- NOTE | 2022-11-12 13:56 | PM.EVENT ---
Event Note Date of Service: 11/12/22 Event Note: ICU tx, Vascular surgery patient Time Spent With Patient Time: Total time managing care of this patient today ____ minutes.
[2022-11-12] MEDS: Throat Lozenge, Medicated LOZENGE 1 LOZENGE MUCOUS MEM (23:24)
[2022-11-12] MEDS: LORazepam 1 MG TABLET PO (23:24)
[2022-11-13] VITALS (8 sets, daily range): BP systolic 101–123; BP diastolic 55–62; PULSE 70–81; RESP 14–19; TEMP 36.5–37.2; O2SAT 95–100
[2022-11-13 08:03] LABS: MANUAL DIFF FLAG NO
[2022-11-13 08:16] LABS: Basophils Percent Auto 0.1 % (0-2); Eosinophils Percent Auto 0.3 % (0-4); Hematocrit 28.4 % (42.0-52.0); Hemoglobin 9.8 g/dl (14.0-18.0); Imm Gran Abs Auto 0.02 X10*3/uL (0.00-0.03); Imm Gran Pct Auto 0.3 % (0.0-0.4); Lymphocytes Absolute Auto 1.4 X10*3/uL (1.2-4.9); Mean Corpuscular HGB Conc 34.5 g/dl (31.0-36.0); Mean Corpuscular Hemoglobin 30.6 pg (27.0-33.0); Mean Corpuscular Volume 88.8 fL (80.0-98.0); Monocytes Absolute Auto 0.6 X10*3/uL (0.1-1.2); Monocytes Percent Auto 8.5 % (2-11); Neutrophils Absolute Auto 5.1 x10*3/uL (2.0-8.3); Neutrophils Percent Auto 70.8 % (45-73); Platelet Count 163 X10*3/uL (160-400); Red Cell Distribution Width 12.9 % (11.0-16.0); White Blood Count 7.1 X10*3/uL (4.8-10.8)
[2022-11-13 08:37] LABS: Albumin Level 3.5 g/dL (3.5-5.0); Anion Gap 11 (12-20); Blood Urea Nitrogen 16 mg/dL (9-16); Calcium 8.5 mg/dL (8.4-10.2); Carbon Dioxide 28 mmol/L (22-29); Chloride 107 mmol/L (96-108); Creatinine Clr Calc Pharmacy 114.6; Estimated Glomerular Filt Rate > 60; Glucose Random 104 mg/dL (60-115); Phosphorus 2.6 mg/dL (2.7-4.5); Potassium 3.9 mmol/L (3.3-5.1); Sodium 142 mmol/L (135-145)
[2022-11-13] MEDS: Atorvastatin Calcium 80 MG TABLET PO (09:22)
[2022-11-13] MEDS: Tamsulosin HCL 0.4 MG CAPSULE PO (09:22)
[2022-11-13] MEDS: 0.9 % Sodium Chloride Flush 3 ML SYRINGE IVFLUSH ×2 (09:22→20:48)
[2022-11-13] MEDS: Losartan Potassium 50 MG TABLET PO (09:22)
--- NOTE | 2022-11-13 12:01 | P.PNVS_ITS ---
Subjective Subjective Date of Service: 11/13/22 Patient reports: no new complaints and feels better Interval history: Very pleasant 77-year-old gentleman postop carotid for routine hospital follow- up. He was observed in the ICU and then subsequently transferred up to the floor. He did develop a significant left neck hematoma. At the current time he is doing relatively well. He has had no respiratory compromise. He is tolerating a diet. He does complain of a little bit of a sore throat. Physical Exam Vital Signs: Vital Signs: Last Vital Signs Temp 98.0 F 11/13/22 07:53 Pulse 70 11/13/22 07:53 Resp 19 11/13/22 07:53 BP 107/58 L 11/13/22 07:53 Pulse Ox 98 11/13/22 07:53 O2 Del Method Room Air 11/13/22 07:53 O2 Flow Rate 2 11/12/22 06:00 BMI result Body Mass Index 32.5 Const: General: cooperative, healthy appearing and no acute distress Orien tation/consciousness: oriented to person, oriented to place and oriented to time HEENT: Head: Yes normal to inspection Neck: Other: Significant left hematoma it appears to have stabilized. Carotids: no bruits Chest: Chest palpation & inspection: normal inspection of the chest Resp: Effort & Inspection: normal respiratory effort and able to speak in complete sentences Auscultation: clear to auscultation bilaterally Cardio: Rate: regular rate Heart sounds: S1 normal heart sound present and S2 normal heart sound present GI: Inspection: Yes normal to inspection Skin: General skin exam: no rashes or lesions noted Wounds: no wounds Neuro: General: oriented to person, oriented to place, oriented to time and CN's II-XI intact bilaterally Extrem: General: Yes normal to inspection, Yes full ROM and Yes no clubbing, cyanosis or edema Psych: Appearance: grossly normal and well kempt Speech and movement: Normal speech and movement present Affect: normal affect Progress Note: A&P Assessment and plan (1) Symptomatic stenosis of left carotid artery: Status: Acute Assessment and Plan: In short patient is doing reasonably well status post left carotid endarterectomy is postop course was complicated by significant left neck hematoma. At the current time it is stable. He does still have a sore throat and a mild headache. We will observe him for an additional 24 hours to ensure that his headache does stabilize and we will recheck a CBC. In addition we will closely monitor his blood pressure to ensure that it stabilizes. Thank you for allowing us to assist in his care. If there are any questions or concerns please do not hesitate to contact us Time Spent With Patient Time: Total time managing care of this patient today ____ minutes. Procedures Date of Service Date of Service: 11/13/22 Quality Stroke Does the patient have a stroke diagnosis?: No VTE Prior VTE?: No VTE Risk Level:: Surgical - high VTE Device Contraindication: N/A - Device Ordered VTE Drug Contraindication: Treatment Not Tolerated
[2022-11-13] MEDS: Throat Lozenge, Medicated LOZENGE 1 LOZENGE MUCOUS MEM ×3 (12:07→20:47)
--- NOTE | 2022-11-13 13:01 | MHC.CM.PN ---
EMR REVIEWED, PT S/P CAROTID ENDARTERECTOMY, PER VASCULAR PT TO BE MONITORED ANOTHER 24HRS, [facility] UPDATED W/ANTIC D/C TOMORROW, CM WILL CONT TO FOLLOW D/C NEEDS.
--- NOTE | 2022-11-13 15:54 | P.PNIM_ITS ---
Subjective Subjective Date of Service: 11/13/22 Interval History: seen and examined this morning follow up for medical consult s/p left CARLOS feels like he has to clear his throat frequently, but denies pain, difficulty swallowing or shortness of breath. no difficultly with breakfast no chest pain, or sob Review of Systems Review of Systems: Yes all other systems are reviewed and are negative Constitutional Constitutional: Denies chills and Denies fever(s) ENT Ears, Nose, Mouth, and Throat: Denies dizziness Cardiovascular Cardiovascular: Denies chest pain, Denies palpitations and Denies dyspnea Respiratory Respiratory: Denies cough and Denies dyspnea Neurologic Neurologic: Denies dizziness Endocrine Endocrine: Denies palpitations Physical Exam Vital Signs: Vital Signs: Last Vital Signs Temp 98.2 F 11/13/22 15:44 Pulse 81 11/13/22 15:44 Resp 14 11/13/22 15:44 BP 117/59 L 11/13/22 15:44 Pulse Ox 100 11/13/22 15:44 O2 Del Method Room Air 11/13/22 15:44 O2 Flow Rate 2 11/12/22 06:00 BMI result Body Mass Index 32.5 Const: General: cooperative, comfortable, no acute distress, alert and awake Nutritional Appearance: overweight Orientation/consciousness: patient oriented x3 Neck: Other: left neck dressing in place, not removed Resp: Effort & Inspection: normal respiratory effort and able to speak in complete sentences Auscultation: clear to auscultation bilaterally Cardio: Rate: regular rate Heart sounds: S1 normal heart sound present and S2 normal heart sound present GI: Inspection: No distended Palpation (GI): Soft to palpation and nontender Neuro: General: patient oriented x3 and CN's II-XI intact bilaterally Extrem: Other: able to move all 4 extremities spontaneously Objective Data Active Medications Acetaminophen (Acetaminophen 325 Mg Tablet) 650 mg PO Q6H PRN PRN Reason: Pain, Mild (Pain Scale 1-3) Aspirin (Aspirin 325 Mg Tablet) 325 mg PO DAILY [facility] Last Admin: 11/13/22 12:07 Dose: Not Given Documented By: MABEL Non-Admin Reason: Patient Refused Atorvastatin Calcium (Atorvastatin Calcium 80 Mg Tablet) 80 mg PO DAILY [facility] Last Admin: 11/13/22 09:22 Dose: 80 mg Documented By: MABEL Benzocaine (Throat Lozenge, Medicated Lozenge) 1 lozenge MUCOUS MEM Q2H PRN PRN Reason: Sore Throat Last Admin: 11/13/22 15:24 Dose: 1 lozenge Documented By: MABEL Hydromorphone HCl (Hydromorphone Hcl 1 Mg/Ml Syringe) 1 mg IVPUSH Q2H PRN; Protocol PRN Reason: Pain, Severe (Pain Scale 7-10) Last Admin: 11/11/22 23:21 Dose: 1 mg Documented By: PEGGY Lorazepam (Lorazepam 1 Mg Tablet) 1 mg PO BEDTIME PRN PRN Reason: anxiety Last Admin: 11/12/22 23:24 Dose: 1 mg Documented By: LEONARDO Losartan Potassium (Losartan Potassium 50 Mg Tablet) 50 mg PO DAILY [facility]; Protocol Last Admin: 11/13/22 09:22 Dose: 50 mg Documented By: MABEL Oxycodone HCl (Oxycodone Hcl Immed Release 5 Mg Tablet) 5 mg PO Q4H PRN PRN Reason: Pain, Moderate (Pain Scale 4-6 Last Admin: 11/12/22 22:09 Dose: 5 mg Documented By: LEONARDO Sodium Chloride (0.9 % Sodium Chloride Flush 3 Ml Syringe) 3 ml IVFLUSH QSHIFT [facility] Last Admin: 11/13/22 09:22 Dose: 3 ml Documented By: MABEL Tamsulosin HCl (Tamsulosin Hcl 0.4 Mg Capsule) 0.4 mg PO DAILY [facility] Last Admin: 11/13/22 09:22 Dose: 0.4 mg Documented By: MABEL Labs 11/13/22 07:03 11/13/22 07:03 Labs: Laboratory Results - last 24 hr 11/13/22 11/13/22 11/13/22 07:03 07:03 07:37 MCV 88.8 Cancelled MCH 30.6 Cancelled MCHC 34.5 Cancelled RDW 12.9 Cancelled Plt Count 163 Cancelled MPV 9.0 L Cancelled Immature Gran % (Auto) 0.3 Cancelled Neut % (Auto) 70.8 Cancelled Lymph % (Auto) 20.0 Cancelled [place] % (Auto) 8.5 Cancelled Eos % (Auto) 0.3 Cancelled Baso % (Auto) 0.1 Cancelled Lymph # (Auto) 1.4 Cancelled [place] # (Auto) 0.6 Cancelled Eos # (Auto) 0.0 Cancelled Baso # (Auto) 0.0 Cancelled Abs Immat Gran (auto) 0.02 Cancelled Absolute Neuts (auto) 5.1 Cancelled Absolute Nucleated RBC 0.000 Cancelled Nucleated RBC % (auto) 0.0 Cancelled Anion Gap 11 L Estim Creat Clear Calc 114.6 Estimated GFR > 60 Random Glucose 104 Calcium 8.5 Phosphorus 2.6 L Magnesium 2.0 Albumin 3.5 Assessment and Plan (1) Symptomatic stenosis of left carotid artery: Status: Acute Plan This is a 77-year-old male with a past medical history of? hypertension,? hyperlipidemia, GERD, aortic valve stenosis, with recent history of left eye blurry vision diagnosed with left retinal infarct and left carotid stenosis s/p elective left carotid endarterectomy with Dr Stewart 11/11 and admitted to ICU for post operative monitoring, course complicated by postoperative hematoma, downgraded from the ICU on November 12 symptomatic left carotid stenosis POD 2 s/p CEA potsoperative hematoma, no sob, hypoxia or difficulty swallowing; tolerating diet follow CBC management per vascular surgery continue ASA, statin HTN continue losartan BPH continue flomax dvt ppx - mechanical devices code status - full code attending - dr. allen Time Spent With Patient Time: Total time managing care of this patient today ____ minutes. Quality Stroke Does the patient have a stroke diagnosis?: No VTE Prior VTE?: No VTE Risk Level:: Surgical - high VTE Device Contraindication: N/A - Device Ordered VTE Drug Contraindication: Treatment Not Tolerated
[2022-11-13] MEDS: oxyCODONE HCl Immed Release 5 MG TABLET PO (20:47)
[2022-11-13] MEDS: LORazepam 1 MG TABLET PO (22:56)
[2022-11-13] MEDS: Acetaminophen 325 MG TABLET 650 MG PO (23:20)
[2022-11-14] VITALS (7 sets, daily range): BP systolic 116–127; BP diastolic 56–86; PULSE 73–87; RESP 17–22; TEMP 36.3–37; O2SAT 95–99
[2022-11-14 07:01] LABS: Hematocrit 28.2 % (42.0-52.0); Hemoglobin 9.6 g/dl (14.0-18.0)
[2022-11-14] MEDS: Losartan Potassium 50 MG TABLET PO (08:51)
[2022-11-14] MEDS: Tamsulosin HCL 0.4 MG CAPSULE PO (08:51)
[2022-11-14] MEDS: Atorvastatin Calcium 80 MG TABLET PO (08:51)
[2022-11-14] MEDS: 0.9 % Sodium Chloride Flush 3 ML SYRINGE IVFLUSH ×3 (08:51→20:53)
--- NOTE | 2022-11-14 10:18 | PM.DS ---
DS: Providers Provider Date of Service: 11/14/22 Date of admission: 11/11/22 12:45 Primary care physician: Denys Snow MD Consults: 11/12/22 09:40 Consult to Hospitalist Routine Comment: Consulting Provider: Hospitalist Reason For Exam: medical comanagement with vascular surgery DS: Diagnosis Discharge Diagnosis (1) Symptomatic stenosis of left carotid artery: Status: Acute DS: Summary Hospital Course Hospital Course: Patient underwent left carotid endarterectomy on FridayNovember 11. Postoperatively he did have significant bleeding of nearly 160 in the [place] and developed a postop hematoma. He was asymptomatic from this had no respiratory distress to was observed in the ICU overnight. He did stabilize. He was subsequently transferred to the floor and postop day 3 he was discharged. Condition upon discharge was stable. Vitals an H&H were stable. Time Spent with Patient Time attestation: Total time managing care of this patient today ____ minutes. Discharge coordination time: Greater than 30 minutes Quality: Safe Use of Opioids Does Pt have an Active Cancer Diagnosis on the Problem List?: No Quality: Stroke Does the patient have a stroke diagnosis?: No Physical Exam Vital Signs: Vital Signs: Last Vital Signs Temp 97.8 F 11/14/22 07:02 Pulse 73 11/14/22 07:02 Resp 20 11/14/22 07:02 BP 117/59 L 11/14/22 07:02 Pulse Ox 98 11/14/22 07:02 O2 Del Method Room Air 11/14/22 07:02 O2 Flow Rate 2 11/12/22 06:00 BMI result Body Mass Index 32.5 Const: General: cooperative, healthy appearing and no acute distress Orientation/consciousness: oriented to person, oriented to place and oriented to time HEENT: Head: Yes normal to inspection Neck: Carotids: no bruits Chest: Chest palpation & inspection: normal inspection of the chest Resp: Effort & Inspection: normal respiratory effort and able to speak in complete sentences Auscultation: clear to auscultation bilaterally Cardio: Rate: regular rate Heart sounds: S1 normal heart sound present and S2 normal heart sound present GI: Inspection: Yes normal to inspection Skin: Other: Left neck significant hematoma General skin exam: no rashes or lesions noted Wounds: no wounds Neuro: General: oriented to person, oriented to place, oriented to time and CN's II-XI intact bilaterally Extrem: General: Yes normal to inspection, Yes full ROM and Yes no clubbing, cyanosis or edema Psych: Appearance: grossly normal and well kempt Speech and movement: Normal speech and movement present Affect: normal affect DS: Data Data Completed and Pending Completed studies during hospitalization [Text1]: Pending at discharge 11/11/22 14:05 Surgical [PTH] Routine Labs on day of discharge: Laboratory Results - last 24 hr 11/14/22 06:34 Hgb 9.6 L Hct 28.2 L Discharge Plan Discharge Anticipated Discharge Date/Time: 11/14/22 10:12 Patient Disposition: Home, Self-Care Discharge Diagnosis: Status post left carotid endarterectomy Referrals: Denys Snow MD [Primary Care Provider] - 1 Week Discharge Medications: New oxycodone 5 mg tablet 5 mg PO Q6H PRN (Reason: pain) Qty: 10 0RF Rx Instructions: Partial Fill upon patient request. Continued losartan 50 mg tablet 50 mg PO DAILY pantoprazole 40 mg tablet,delayed release (DR/EC) 40 mg PO DAILY tamsulosin 0.4 mg capsule 0.4 mg PO DAILY atorvastatin 40 mg tablet 80 mg PO DAILY celecoxib 200 mg capsule 200 mg PO DAILY lorazepam [Ativan] 1 mg tablet 1 mg PO BEDTIME PRN (Reason: anxiety) Qty: 4 0RF tramadol 50 mg tablet 50 mg PO BID PRN (Reason: Pain) [id number] 50-325-40 mg tablet 1 tab PO ONCE PRN (Reason: Headache) ascorbic acid (vitamin C) 1,000 mg tablet extended release 1,000 mg PO Q12H cholecalciferol (vitamin D3) 25 mcg (1,000 unit) capsule 25 mcg PO DAILY Discontinued aspirin 325 mg tablet 325 mg PO DAILY Qty: 30 1RF clopidogrel [Plavix] 75 mg tablet 75 mg PO DAILY Qty: 30 1RF Discharge Orders: Discharge Order (Routine); Ordered 11/14/22 Ordered By: Prince Stewart Diet: Advance to usual diet Activity on Discharge: As tolerated Stand Alone Forms: Patient Portal Discharge page Activity Restrictions/Additional Instructions: you may shower as early as tomorrow. Take it easy today and you may ambulate around the house. You may climb a flight of stairs as tolerated Do not lift anything heavier than a gallon of milk for [address] Stewart in follow-up in approximately 2 weeks time. You should already have an appointment if not please call my office at [phone] Please use oxycodone for pain. Stop Plavix permanently. Stop aspirin for 1 week and may resume baby aspirin on FridayNovember 25 If you notice excessive bleeding from the left neck please immediately call my office or return to the emergency room. Care Plan Goals: Postop surveillance follow-up Health Concerns: Symptomatic carotid stenosis Plan of Treatment: Postop surveillance Assessment: Status post left carotid endarterectomy
--- NOTE | 2022-11-14 10:30 | MHC.CM.PN ---
Addendum entered by Adela Klein 11/14/22 15:30: IMM DELIVERED Addendum entered by Adela Klein 11/14/22 14:23: DR. BEY HAS CX DC FOR TODAY DUE TO INCISIONAL BLEEDING. WILL RE-ASSESS IN AM Original Note: DP: PT HAS BEEN MEDICALLY CLEARED FOR DC HOME, NO SERVICES. [facility] WILL TRANSPORT HOME
--- NOTE | 2022-11-14 11:38 | P.PNIM_ITS ---
Subjective Subjective Date of Service: 11/14/22 Interval History: seen and examined this morning follow-up medical consultation No shortness of breath, difficulty swallowing neck pain Review of Systems Review of Systems: Yes all other systems are reviewed and are negative Constitutional Constitutional: Denies chills and Denies fever(s) ENT Ears, Nose, Mouth, and Throat: Denies dizziness Cardiovascular Cardiovascular: Denies chest pain, Denies palpitations and Denies dyspnea Respiratory Respiratory: Denies cough and Denies dyspnea Gastrointestinal Gastrointestinal: Denies abdominal pain Neurologic Neurologic: Denies dizziness Endocrine Endocrine: Denies palpitations Physical Exam Vital Signs: Vital Signs: Last Vital Signs Temp 98.4 F 11/14/22 10:58 Pulse 78 11/14/22 10:58 Resp 20 11/14/22 10:58 BP 122/69 11/14/22 10:58 Pulse Ox 97 11/14/22 10:58 O2 Del Method Room Air 11/14/22 10:58 O2 Flow Rate 2 11/12/22 06:00 BMI result Body Mass Index 32.5 Const: General: cooperative, comfortable, no acute distress, alert and awake Nutritional Appearance: overweight Orientation/consciousness: patient oriented x3 Neck: Other: left neck dressing in place, not removed Resp: Effort & Inspection: normal respiratory effort and able to speak in complete sentences Auscultation: clear to auscultation bilaterally Cardio: Rate: regular rate Heart sounds: S1 normal heart sound present and S2 normal heart sound present GI: Inspection: No distended Palpation (GI): Soft to palpation and nontender Neuro: General: patient oriented x3 and CN's II-XI intact bilaterally Extrem: Other: able to move all 4 extremities spontaneously Objective Data Active Medications Acetaminophen (Acetaminophen 325 Mg Tablet) 650 mg PO Q6H PRN PRN Reason: Pain, Mild (Pain Scale 1-3) Last Admin: 11/13/22 23:20 Dose: 650 mg Documented By: HAZEL Aspirin (Aspirin 325 Mg Tablet) 325 mg PO DAILY [facility] Last Admin: 11/14/22 08:52 Dose: Not Given Documented By: RITA Non-Admin Reason: Patient Refused Atorvastatin Calcium (Atorvastatin Calcium 80 Mg Tablet) 80 mg PO DAILY [facility] Last Admin: 11/14/22 08:51 Dose: 80 mg Documented By: RITA Benzocaine (Throat Lozenge, Medicated Lozenge) 1 lozenge MUCOUS MEM Q2H PRN PRN Reason: Sore Throat Last Admin: 11/13/22 20:47 Dose: 1 lozenge Documented By: HAZEL Hydromorphone HCl (Hydromorphone Hcl 1 Mg/Ml Syringe) 1 mg IVPUSH Q2H PRN; Protocol PRN Reason: Pain, Severe (Pain Scale 7-10) Last Admin: 11/11/22 23:21 Dose: 1 mg Documented By: PEGGY Lorazepam (Lorazepam 1 Mg Tablet) 1 mg PO BEDTIME PRN PRN Reason: anxiety Last Admin: 11/13/22 22:56 Dose: 1 mg Documented By: HAZEL Losartan Potassium (Losartan Potassium 50 Mg Tablet) 50 mg PO DAILY [facility]; Protocol Last Admin: 11/14/22 08:51 Dose: 50 mg Documented By: RITA Oxycodone HCl (Oxycodone Hcl Immed Release 5 Mg Tablet) 5 mg PO Q4H PRN PRN Reason: Pain, Moderate (Pain Scale 4-6 Last Admin: 11/13/22 20:47 Dose: 5 mg Documented By: HAZEL Sodium Chloride (0.9 % Sodium Chloride Flush 3 Ml Syringe) 3 ml IVFLUSH QSHIFT [facility] Last Admin: 11/14/22 08:51 Dose: 3 ml Documented By: RITA Tamsulosin HCl (Tamsulosin Hcl 0.4 Mg Capsule) 0.4 mg PO DAILY [facility] Last Admin: 11/14/22 08:51 Dose: 0.4 mg Documented By: RITA Labs 11/14/22 06:34 11/13/22 07:03 Assessment and Plan (1) Symptomatic stenosis of left carotid artery: Status: Acute Plan This is a 77-year-old male with a past medical history of? hypertension,? hyperlipidemia, GERD, aortic valve stenosis, with recent history of left eye blurry vision diagnosed with left retinal infarct and left carotid stenosis s/p elective left carotid endarterectomy with Dr Stewart 11/11 and admitted to ICU for post operative monitoring, course complicated by postoperative hematoma, downgraded from the ICU on November 12 symptomatic left carotid stenosis POD 3 s/p CEA potsoperative hematoma, no sob, hypoxia or difficulty swallowing; tolerating diet follow CBC management per vascular surgery continue ASA, statin HTN continue losartan BPH continue flomax dvt ppx - mechanical devices code status - full code attending - dr. allen Time Spent With Patient Time: Total time managing care of this patient today ____ minutes. Quality Stroke Does the patient have a stroke diagnosis?: No VTE Prior VTE?: No VTE Risk Level:: Surgical - high VTE Device Contraindication: N/A - Device Ordered VTE Drug Contraindication: Treatment Not Tolerated
--- NOTE | 2022-11-14 13:43 | PM.EVENT ---
Event Note Date of Service: 11/14/22 Event Note: After dressing change patient had additional bleeding through the neck incision. It was redressed in a pressure dressing was applied. Will cancel discharge and reassess for tomorrow. Time Spent With Patient Time: Total time managing care of this patient today ____ minutes.
--- NOTE | 2022-11-14 15:59 | PC.NURSE ---
Pt. has surgical dressing applied to L neck, dressing saturated. MD notified and reinforced with abd. pad. Dressing continued to saturate 2 more times followed with a headache, MD notified again and told to place a 1 liter saline bag over dressing to add pressure. Will continue to monitor dressing and bloodpressure.
[2022-11-14] MEDS: Acetaminophen 325 MG TABLET 650 MG PO (17:07)
--- NOTE | 2022-11-14 21:46 | PM.EVENT ---
Event Note Date of Service: 11/14/22 Event Note: Pt. seen and examined at 8:30 p.m. VSS. He was set to be discharged this AM. After dressing change and coughing event began to rebleed. Had 3 dressing changes throughout the day. If continues to bleed will need exploration tomorrow. Discussed with patient. He is in agreement. NPO/IVF, Type and screen, AM labs. Time Spent With Patient Time: Total time managing care of this patient today ____ minutes.
[2022-11-14] MEDS: LORazepam 1 MG TABLET PO (23:11)
[2022-11-14] MEDS: 0.9 % Sodium Chloride 1,000 ML 80 ML IVCONT (23:14)
[2022-11-14] MEDS: oxyCODONE HCl Immed Release 5 MG TABLET PO (23:53)
[2022-11-15] VITALS (12 sets, daily range): BP systolic 110–151; BP diastolic 59–91; PULSE 70–98; RESP 12–20; TEMP 36.3–37.1; O2SAT 94–100
[2022-11-15 04:43] LABS: MANUAL DIFF FLAG NO
[2022-11-15 04:58] LABS: Basophils Percent Auto 0.4 % (0-2); Eosinophils Absolute Auto 0.2 X10*3/uL (0.0-0.4); Eosinophils Percent Auto 2.5 % (0-4); Hematocrit 29.7 % (42.0-52.0); Hemoglobin 10.2 g/dl (14.0-18.0); Imm Gran Abs Auto 0.02 X10*3/uL (0.00-0.03); Imm Gran Pct Auto 0.3 % (0.0-0.4); Lymphocytes Absolute Auto 1.7 X10*3/uL (1.2-4.9); Lymphocytes Percent Auto 24.6 % (20-40); Mean Corpuscular HGB Conc 34.3 g/dl (31.0-36.0); Mean Corpuscular Hemoglobin 30.1 pg (27.0-33.0); Mean Corpuscular Volume 87.6 fL (80.0-98.0); Mean Platelet Volume 8.8 fL (9.4-12.4); Monocytes Absolute Auto 0.6 X10*3/uL (0.1-1.2); Monocytes Percent Auto 8.5 % (2-11); Neutrophils Absolute Auto 4.3 x10*3/uL (2.0-8.3); Neutrophils Percent Auto 63.7 % (45-73); Platelet Count 180 X10*3/uL (160-400); Red Blood Count 3.39 X10*6/uL (4.60-5.80); Red Cell Distribution Width 12.5 % (11.0-16.0); White Blood Count 6.7 X10*3/uL (4.8-10.8)
[2022-11-15] MEDS: oxyCODONE HCl Immed Release 5 MG TABLET PO ×2 (06:02→19:51)
--- NOTE | 2022-11-15 07:20 | HO.VASCPN ---
Subjective Subjective Date of Service: 11/15/22 Patient reports: no new complaints Interval history: Pleasant 77-year-old gentleman seen and examined this morning. He had undergone left carotid endarterectomy on Friday. Postoperatively had a significant bleed and hematoma. It had stabilized and was stable for discharge on Friday but stated in additional day on . After a dressing change in he did have a little bit of a coughing spell he started to drain out the incision site. He was observed for additional 24 hours and saturated through 3 dressings. He now presents for follow-up. Physical Exam Vital Signs: Vital Signs: Last Vital Signs Temp 98.2 F 11/15/22 07:08 Pulse 86 11/15/22 07:08 Resp 20 11/15/22 07:08 BP 110/60 11/15/22 07:08 Pulse Ox 94 11/15/22 07:08 O2 Del Method Room Air 11/15/22 07:08 O2 Flow Rate 2 11/12/22 06:00 BMI result Body Mass Index 32.5 Const: General: cooperative, healthy appearing and no acute distress Orientation/consciousness: oriented to person, oriented to place and oriented to time HEENT: Head: Yes normal to inspection Neck: Carotids: no bruits Chest: Chest palpation & inspection: normal inspection of the chest Resp: Effort & Inspection: normal respiratory effort and able to speak in complete sentences Auscultation: clear to auscultation bilaterally Cardio: Rate: regular rate Heart sounds: S1 normal heart sound present and S2 normal heart sound present GI: Inspection: Yes normal to inspection Skin: Other: Left neck hematoma General skin exam: no rashes or lesions noted Wounds: no wounds Neuro: General: oriented to person, oriented to place, oriented to time and CN's II-XI intact bilaterally Extrem: General: Yes normal to inspection, Yes full ROM and Yes no clubbing, cyanosis or edema Psych: Appearance: grossly normal and well kempt Speech and movement: Normal speech and movement present Affect: normal affect Progress Note: A&P Assessment and plan (1) Symptomatic stenosis of left carotid artery: Status: Acute Assessment and Plan: In short the patient has developed a significant left leg hematoma and bleeding from that neck. It has been going on for the last 24 hours. He will require left neck exploration to identify the source of the bleed. Risks benefits up complications of the procedure were discussed in detail with the patient. He is in agreement. Thank you. Time Spent With Patient Time: Total time managing care of this patient today ____ minutes. Procedures Date of Service Date of Service: 11/15/22 Quality Stroke Does the patient have a stroke diagnosis?: No VTE Prior VTE?: No VTE Risk Level:: Surgical - high VTE Device Contraindication: N/A - Device Ordered VTE Drug Contraindication: Treatment Not Tolerated
--- NOTE | 2022-11-15 07:36 | HO.ANESPROP2 ---
[facility] Active Problems Active Problems: All Active Problems (Updated 11/12/22 @ 12:31 by Carmine Gomes MD) HTN (hypertension) (Acute) Palpitations (Acute) Aortic stenosis (Acute) Symptomatic stenosis of left carotid artery (Acute) Past Medical History Medical History BPH (benign prostatic hyperplasia) GERD (gastroesophageal reflux disease) HTN (hypertension) Hyperlipidemia PVC's (premature ventricular contractions) Right knee injury Family History Family History Mother No problems noted. Father Heart disease Brother Afib Brother Afib Brother Afib Brother Afib Sister Leukemia Family history of problems with anesthesia: No Surgical History Surgical History History of cervical discectomy History of esophagogastroduodenoscopy (EGD) History of right inguinal hernia repair History of spinal surgery History of surgical removal of pilonidal cyst History of total left knee replacement (TKR) History of total right knee replacement (TKR) Hx of cholecystectomy Hx of colonoscopy History of Problems with Anesthesia: No Social History Social History Household Members: Spouse Housing: House Are you a primary resident care manager rn to a significant other at home: No Do you presently have visiting nurse or other home services: No Alcohol intake: current Alcohol intake frequency: 0-2 drinks per day Alcohol type: beer Patient Tobacco Use Status: Former Tobacco user Quit Date: 40 yrs ago Years Smoked: 10 +/- Second Hand Smoke Exposure: No Use of substances other than those prescribed or required for medical reasons: No Currently Displaying Signs/Symptoms of Drug Intoxication Withdrawal: No Have you been hit, kicked, punched, or otherwise hurt by someone within the past year? If so, by whom?: No Do you feel safe in your current relationship?: Yes Is there a partner from a previous relationship who is making you feel unsafe now?: No Are you made to feel afraid or neglected: No Spiritual Healthcare Practices: none per patient [facility] Practices: Evangelical Cultural Healthcare Practices: none per patient Are you DNR?: No Advance Directives: No Advance Directives Information Provided: Yes ( Ilda) Advance Directives on File: No Do you have thoughts of harming others: None Do you have a plan to hurt others: No Plan Recently lost weight without trying: No Eating poorly because of decreased appetite: No Nutrition Risks: No Nutritional Risk Poor oral hygiene: No service: Yes Current occupational status: retired Meds Allergies Allergy/AdvReac Type Severity Reaction Status Date / Time amoxicillin Allergy Severe Anaphylaxis Verified 11/11/22 10:10 nifedipine [From PROCARDIA] Allergy Unknown Hives Verified 11/07/22 14:11 Active Medications: Current Medications Acetaminophen (Acetaminophen 325 Mg Tablet) 650 mg PO Q6H PRN PRN Reason: Pain, Mild (Pain Scale 1-3) Last Admin: 11/14/22 17:07 Dose: 650 mg Atorvastatin Calcium (Atorvastatin Calcium 80 Mg Tablet) 80 mg PO DAILY [facility] Last Admin: 11/14/22 08:51 Dose: 80 mg Benzocaine (Throat Lozenge, Medicated Lozenge) 1 lozenge MUCOUS MEM Q2H PRN PRN Reason: Sore Throat Last Admin: 11/13/22 20:47 Dose: 1 lozenge Hydromorphone HCl (Hydromorphone Hcl 1 Mg/Ml Syringe) 1 mg IVPUSH Q2H PRN; Protocol PRN Reason: Pain, Severe (Pain Scale 7-10) Last Admin: 11/11/22 23:21 Dose: 1 mg Sodium Chloride (Ns) 1,000 mls @ 80 mls/hr IVCONT .[id number] [facility] Last Admin: 11/14/22 23:14 Dose: 80 mls/hr Vancomycin HCl 1,500 mg/ (Sodium Chloride) 500 mls @ 333.333 mls/hr IV PREOP ONE Stop: 11/15/22 08:47 Lorazepam (Lorazepam 1 Mg Tablet) 1 mg PO BEDTIME PRN PRN Reason: anxiety Last Admin: 11/14/22 23:11 Dose: 1 mg Losartan Potassium (Losartan Potassium 50 Mg Tablet) 50 mg PO DAILY [facility]; Protocol Last Admin: 11/14/22 08:51 Dose: 50 mg Oxycodone HCl (Oxycodone Hcl Immed Release 5 Mg Tablet) 5 mg PO Q4H PRN PRN Reason: Pain, Moderate (Pain Scale 4-6 Last Admin: 11/15/22 06:02 Dose: 5 mg Sodium Chloride (0.9 % Sodium Chloride Flush 3 Ml Syringe) 3 ml IVFLUSH QSHIFT [facility] Last Admin: 11/14/22 20:53 Dose: 3 ml Tamsulosin HCl (Tamsulosin Hcl 0.4 Mg Capsule) 0.4 mg PO DAILY [facility] Last Admin: 11/14/22 08:51 Dose: 0.4 mg Home Medications Medication Instructions Recorded Confirmed Last Taken Type [id number]-[id number] 1 tab PO ONCE PRN Headache 09/03/22 11/06/22 Unknown History 50 mg-325 mg-40 mg tablet losartan 50 mg tablet 50 mg PO DAILY 09/03/22 11/06/22 11/10/22 History pantoprazole 40 mg tablet,delayed 40 mg PO DAILY 09/03/22 11/06/22 11/10/22 History release tamsulosin 0.4 mg capsule 0.4 mg PO DAILY 09/03/22 11/06/22 11/10/22 History tramadol 50 mg tablet 50 mg PO BID PRN Pain 09/03/22 11/06/22 11/10/22 History ascorbic acid (vitamin C) 1,000 mg 1,000 mg PO Q12H 11/06/22 11/06/22 11/10/22 History tablet,extended release atorvastatin 40 mg tablet 80 mg PO DAILY 11/06/22 11/06/22 11/10/22 History cholecalciferol (vitamin D3) 25 25 mcg PO DAILY 11/06/22 11/06/22 11/10/22 History mcg (1,000 unit) capsule celecoxib 200 mg capsule 200 mg PO DAILY 11/11/22 11/11/22 Unknown History Exam Exam Date and Time: November 15, 2022 0736 Height,Weight and Vital Signs: Height 6 ft Weight 109 kg Last Vital Signs Temp 98.2 F 11/15/22 07:08 Pulse 86 11/15/22 07:08 Resp 20 11/15/22 07:08 BP 110/60 11/15/22 07:08 Pulse Ox 94 11/15/22 07:08 O2 Del Method Room Air 11/15/22 07:08 O2 Flow Rate 2 11/12/22 06:00 Pertinent Lab Results Pertinent Lab Results: Laboratory Tests 11/07/22 11/07/22 11/07/22 14:55 14:55 14:55 WBC 7.0 RBC 4.84 Hgb 14.5 Hct 42.0 MCV 86.8 MCH 30.0 MCHC 34.5 RDW 12.6 Plt Count 215 MPV 8.8 L Immature Gran % (Auto) Neut % (Auto) Lymph % (Auto) [place] % (Auto) Eos % (Auto) Baso % (Auto) Lymph # (Auto) [place] # (Auto) Eos # (Auto) Baso # (Auto) Abs Immat Gran (auto) Absolute Neuts (auto) Absolute Nucleated RBC 0.000 Nucleated RBC % (auto) 0.0 Smear Tech's Comments PT 11.8 INR 1.0 APTT 30.3 VBG pH VBG pCO2 VBG pO2 VBG HCO3 VBG O2 Saturation VBG Base Excess Sodium 137 Potassium 4.1 Chloride 103 Carbon Dioxide 23 Anion Gap 15 BUN 21 H Creatinine 0.89 Estim Creat Clear Calc 86.7 Estimated GFR > 60 Random Glucose 150 H Calcium 9.4 Phosphorus Magnesium Albumin COVID-19 (JOHANNA) COVID-[employer] Com Blood Type Antibody Screen 11/07/22 11/11/22 11/11/22 14:55 09:20 09:31 WBC 6.2 RBC 4.64 Hgb 14.0 Hct 40.1 L MCV 86.4 MCH 30.2 MCHC 34.9 RDW 12.5 Plt Count 184 MPV 8.6 L Immature Gran % (Auto) Neut % (Auto) Lymph % (Auto) [place] % (Auto) Eos % (Auto) Baso % (Auto) Lymph # (Auto) [place] # (Auto) Eos # (Auto) Baso # (Auto) Abs Immat Gran (auto) Absolute Neuts (auto) Absolute Nucleated RBC 0.000 Nucleated RBC % (auto) 0.0 Smear Tech's Comments PT INR APTT VBG pH VBG pCO2 VBG pO2 VBG HCO3 VBG O2 Saturation VBG Base Excess Sodium Potassium Chloride Carbon Dioxide Anion Gap BUN Creatinine Estim Creat Clear Calc Estimated GFR Random Glucose Calcium Phosphorus Magnesium Albumin COVID-19 (JOHANNA) Negative COVID-19 [employer] See Note Blood Type O Positive Antibody Screen NEGATIVE 11/11/22 11/11/22 11/12/22 09:31 18:38 04:58 WBC 10.2 RBC 4.27 L Hgb 12.8 L Hct 37.6 L MCV 88.1 MCH 30.0 MCHC 34.0 RDW 12.5 Plt Count 158 L MPV 8.5 L Immature Gran % (Auto) 0.7 H Neut % (Auto) 91.4 H Lymph % (Auto) 6.0 L [place] % (Auto) 1.4 L Eos % (Auto) 0.2 Baso % (Auto) 0.3 Lymph # (Auto) 0.6 L [place] # (Auto) 0.1 Eos # (Auto) 0.0 Baso # (Auto) 0.0 Abs Immat Gran (auto) 0.07 H Absolute Neuts (auto) 9.4 H Absolute Nucleated RBC 0.000 Nucleated RBC % (auto) 0.0 Smear Tech's Comments VERIFIED PT INR APTT VBG pH 7.34 VBG pCO2 41 VBG pO2 32 VBG HCO3 22 VBG O2 Saturation 48.0 VBG Base Excess -2.8 Sodium 140 Potassium 3.9 Chloride 106 Carbon Dioxide 26 Anion Gap 12 BUN 19 H Creatinine 0.81 Estim Creat Clear Calc 95.3 Estimated GFR > 60 Random Glucose 107 Calcium 9.0 Phosphorus Magnesium Albumin COVID-19 (JOHANNA) COVID-19 Clin Com Blood Type Antibody Screen 11/12/22 11/12/22 11/12/22 05:02 05:02 05:02 WBC 8.6 RBC 3.90 L Hgb 11.6 L Hct 34.3 L MCV 87.9 MCH 29.7 MCHC 33.8 RDW 12.6 Plt Count 190 MPV 9.2 L Immature Gran % (Auto) 0.5 H Neut % (Auto) 91.0 H Lymph % (Auto) 4.8 L [place] % (Auto) 3.7 Eos % (Auto) 0.0 Baso % (Auto) 0.0 Lymph # (Auto) 0.4 L [place] # (Auto) 0.3 Eos # (Auto) 0.0 Baso # (Auto) 0.0 Abs Immat Gran (auto) 0.04 H Absolute Neuts (auto) 7.8 Absolute Nucleated RBC 0.000 Nucleated RBC % (auto) 0.0 Smear Tech's Comments VERIFIED PT INR APTT VBG pH VBG pCO2 VBG pO2 VBG HCO3 VBG O2 Saturation VBG Base Excess Sodium Cancelled 140 Potassium Cancelled 4.7 D Chloride Cancelled 106 Carbon Dioxide Cancelled 24 Anion Gap Cancelled 15 BUN Cancelled 20 H Creatinine Cancelled 0.77 Estim Creat Clear Calc Cancelled 105.7 Estimated GFR Cancelled > 60 Random Glucose Cancelled 166 H Calcium Cancelled 8.5 Phosphorus 4.4 Magnesium 1.9 Albumin COVID-19 (JOHANNA) COVID-19 [facility] Blood Type Antibody Screen 11/13/22 11/13/22 11/13/22 07:03 07:03 07:37 WBC 7.1 Cancelled RBC 3.20 L Cancelled Hgb 9.8 L Cancelled Hct 28.4 L Cancelled MCV 88.8 Cancelled MCH 30.6 Cancelled MCHC 34.5 Cancelled RDW 12.9 Cancelled Plt Count 163 Cancelled MPV 9.0 L Cancelled Immature Gran % (Auto) 0.3 Cancelled Neut % (Auto) 70.8 Cancelled Lymph % (Auto) 20.0 Cancelled O[place]Brien % (Auto) 8.5 Cancelled Eos % (Auto) 0.3 Cancelled Baso % (Auto) 0.1 Cancelled Lymph # (Auto) 1.4 Cancelled [place] # (Auto) 0.6 Cancelled Eos # (Auto) 0.0 Cancelled Baso # (Auto) 0.0 Cancelled Abs Immat Gran (auto) 0.02 Cancelled Absolute Neuts (auto) 5.1 Cancelled Absolute Nucleated RBC 0.000 Cancelled Nucleated RBC % (auto) 0.0 Cancelled Smear Tech's Comments PT INR APTT VBG pH VBG pCO2 VBG pO2 VBG HCO3 VBG O2 Saturation VBG Base Excess Sodium 142 Potassium 3.9 Chloride 107 Carbon Dioxide 28 Anion Gap 11 L BUN 16 Creatinine 0.71 Estim Creat Clear Calc 114.6 Estimated GFR > 60 Random Glucose 104 Calcium 8.5 Phosphorus 2.6 L Magnesium 2.0 Albumin 3.5 COVID-19 (JOHANNA) COVID-19 [facility] Blood Type Antibody Screen 11/14/22 11/14/22 11/15/22 06:34 20:47 04:19 WBC 6.7 RBC 3.39 L Hgb 9.6 L 10.2 L Hct 28.2 L 29.7 L MCV 87.6 MCH 30.1 MCHC 34.3 RDW 12.5 Plt Count 180 MPV 8.8 L Immature Gran % (Auto) 0.3 Neut % (Auto) 63.7 Lymph % (Auto) 24.6 [place]Brien % (Auto) 8.5 Eos % (Auto) 2.5 Baso % (Auto) 0.4 Lymph # (Auto) 1.7 [place] # (Auto) 0.6 Eos # (Auto) 0.2 Baso # (Auto) 0.0 Abs Immat Gran (auto) 0.02 Absolute Neuts (auto) 4.3 Absolute Nucleated RBC 0.000 Nucleated RBC % (auto) 0.0 Smear Tech's Comments PT INR APTT VBG pH VBG pCO2 VBG pO2 VBG HCO3 VBG O2 Saturation VBG Base Excess Sodium Potassium Chloride Carbon Dioxide Anion Gap BUN Creatinine Estim Creat Clear Calc Estimated GFR Random Glucose Calcium Phosphorus Magnesium Albumin COVID-19 (JOHANNA) COVID-19 Clin Com Blood Type O Positive Antibody Screen NEGATIVE Assessment and Plan Final Anesthetic Review Family History of Problems with Anesthesia: No History of Problems with Anesthesia: No
--- NOTE | 2022-11-15 07:56 | P.CONAN_ITS ---
[facility] Active Problems Active Problems: All Active Problems (Updated 11/12/22 @ 12:31 by Carmine Gomes MD) HTN (hypertension) (Acute) Palpitations (Acute) Aortic stenosis (Acute) Symptomatic stenosis of left carotid artery (Acute) Past Medical History Medical History BPH (benign prostatic hyperplasia) GERD (gastroesophageal reflux disease) HTN (hypertension) Hyperlipidemia PVC's (premature ventricular contractions) Right knee injury Family History Family History Mother No problems noted. Father Heart disease Brother Afib Brother Afib Brother Afib Brother Afib Sister Leukemia Family history of problems with anesthesia: No Surgical History Surgical History History of cervical discectomy History of esophagogastroduodenoscopy (EGD) History of right inguinal hernia repair History of spinal surgery History of surgical removal of pilonidal cyst History of total left knee replacement (TKR) History of total right knee replacement (TKR) Hx of cholecystectomy Hx of colonoscopy History of Problems with Anesthesia: No Social History Social History Household Members: Spouse Housing: House Are you a primary healthcare corporate account director to a significant other at home: No Do you presently have visiting nurse or other home services: No Alcohol intake: current Alcohol intake frequency: 0-2 drinks per day Alcohol type: beer Patient Tobacco Use Status: Former Tobacco user Quit Date: 40 yrs ago Years Smoked: 10 +/- Second Hand Smoke Exposure: No Use of substances other than those prescribed or required for medical reasons: No Currently Displaying Signs/Symptoms of Drug Intoxication Withdrawal: No Have you been hit, kicked, punched, or otherwise hurt by someone within the past year? If so, by whom?: No Do you feel safe in your current relationship?: Yes Is there a partner from a previous relationship who is making you feel unsafe now?: No Are you made to feel afraid or neglected: No Spiritual Healthcare Practices: none per patient [employer] Healthcare Practices: Confucianist Cultural Healthcare Practices: none per patient Are you DNR?: No Advance Directives: No Advance Directives Information Provided: Yes ( Ilda) Advance Directives on File: No Do you have thoughts of harming others: None Do you have a plan to hurt others: No Plan Recently lost weight without trying: No Eating poorly because of decreased appetite: No Nutrition Risks: No Nutritional Risk Poor oral hygiene: No service: Yes Current occupational status: retired Meds Allergies Allergy/AdvReac Type Severity Reaction Status Date / Time amoxicillin Allergy Severe Anaphylaxis Verified 11/11/22 10:10 nifedipine [From PROCARDIA] Allergy Unknown Hives Verified 11/07/22 14:11 Active Medications: Current Medications Acetaminophen (Acetaminophen 325 Mg Tablet) 650 mg PO Q6H PRN PRN Reason: Pain, Mild (Pain Scale 1-3) Last Admin: 11/14/22 17:07 Dose: 650 mg Atorvastatin Calcium (Atorvastatin Calcium 80 Mg Tablet) 80 mg PO DAILY [facility] Last Admin: 11/14/22 08:51 Dose: 80 mg Benzocaine (Throat Lozenge, Medicated Lozenge) 1 lozenge MUCOUS MEM Q2H PRN PRN Reason: Sore Throat Last Admin: 11/13/22 20:47 Dose: 1 lozenge Hydromorphone HCl (Hydromorphone Hcl 1 Mg/Ml Syringe) 1 mg IVPUSH Q2H PRN; Protocol PRN Reason: Pain, Severe (Pain Scale 7-10) Last Admin: 11/11/22 23:21 Dose: 1 mg Sodium Chloride (Ns) 1,000 mls @ 80 mls/hr IVCONT .[id number] [facility] Last Admin: 11/14/22 23:14 Dose: 80 mls/hr Vancomycin HCl 1,500 mg/ (Sodium Chloride) 500 mls @ 333.333 mls/hr IV PREOP ONE Stop: 11/15/22 08:47 Lorazepam (Lorazepam 1 Mg Tablet) 1 mg PO BEDTIME PRN PRN Reason: anxiety Last Admin: 11/14/22 23:11 Dose: 1 mg Losartan Potassium (Losartan Potassium 50 Mg Tablet) 50 mg PO DAILY [facility]; Protocol Last Admin: 11/14/22 08:51 Dose: 50 mg Oxycodone HCl (Oxycodone Hcl Immed Release 5 Mg Tablet) 5 mg PO Q4H PRN PRN Reason: Pain, Moderate (Pain Scale 4-6 Last Admin: 11/15/22 06:02 Dose: 5 mg Sodium Chloride (0.9 % Sodium Chloride Flush 3 Ml Syringe) 3 ml IVFLUSH QSHIFT [facility] Last Admin: 11/14/22 20:53 Dose: 3 ml Tamsulosin HCl (Tamsulosin Hcl 0.4 Mg Capsule) 0.4 mg PO DAILY [facility] Last Admin: 11/14/22 08:51 Dose: 0.4 mg Home Medications Medication Instructions Recorded Confirmed Last Taken Type ubrssjzpnv-hsemelcwybbxb-cjvicbua 1 tab PO ONCE PRN Headache 09/03/22 11/06/22 Unknown History 50 mg-325 mg-40 mg tablet losartan 50 mg tablet 50 mg PO DAILY 09/03/22 11/06/22 11/10/22 History pantoprazole 40 mg tablet,delayed 40 mg PO DAILY 09/03/22 11/06/22 11/10/22 History release tamsulosin 0.4 mg capsule 0.4 mg PO DAILY 09/03/22 11/06/22 11/10/22 History tramadol 50 mg tablet 50 mg PO BID PRN Pain 09/03/22 11/06/22 11/10/22 History ascorbic acid (vitamin C) 1,000 mg 1,000 mg PO Q12H 11/06/22 11/06/22 11/10/22 History tablet,extended release atorvastatin 40 mg tablet 80 mg PO DAILY 11/06/22 11/06/22 11/10/22 History cholecalciferol (vitamin D3) 25 25 mcg PO DAILY 11/06/22 11/06/22 11/10/22 History mcg (1,000 unit) capsule celecoxib 200 mg capsule 200 mg PO DAILY 11/11/22 11/11/22 Unknown History Exam Exam Date and Time: November 15, 2022 0706 Height,Weight and Vital Signs: Height 6 ft Weight 109 kg Last Vital Signs Temp 98.2 F 11/15/22 07:08 Pulse 86 11/15/22 07:08 Resp 20 11/15/22 07:08 BP 110/60 11/15/22 07:08 Pulse Ox 94 11/15/22 07:08 O2 Del Method Room Air 11/15/22 07:08 O2 Flow Rate 2 11/12/22 06:00 Pertinent Lab Results Pertinent Lab Results: Laboratory Tests 11/07/22 11/07/22 11/07/22 14:55 14:55 14:55 WBC 7.0 RBC 4.84 Hgb 14.5 Hct 42.0 MCV 86.8 MCH 30.0 MCHC 34.5 RDW 12.6 Plt Count 215 MPV 8.8 L Immature Gran % (Auto) Neut % (Auto) Lymph % (Auto) [place] % (Auto) Eos % (Auto) Baso % (Auto) Lymph # (Auto) [place] # (Auto) Eos # (Auto) Baso # (Auto) Abs Immat Gran (auto) Absolute Neuts (auto) Absolute Nucleated RBC 0.000 Nucleated RBC % (auto) 0.0 Smear Tech's Comments PT 11.8 INR 1.0 APTT 30.3 VBG pH VBG pCO2 VBG pO2 VBG HCO3 VBG O2 Saturation VBG Base Excess Sodium 137 Potassium 4.1 Chloride 103 Carbon Dioxide 23 Anion Gap 15 BUN 21 H Creatinine 0.89 Estim Creat Clear Calc 86.7 Estimated GFR > 60 Random Glucose 150 H Calcium 9.4 Phosphorus Magnesium Albumin COVID-19 (JOHANNA) COVID-[employer] Com Blood Type Antibody Screen 11/07/22 11/11/22 11/11/22 14:55 09:20 09:31 WBC 6.2 RBC 4.64 Hgb 14.0 Hct 40.1 L MCV 86.4 MCH 30.2 MCHC 34.9 RDW 12.5 Plt Count 184 MPV 8.6 L Immature Gran % (Auto) Neut % (Auto) Lymph % (Auto) [place] % (Auto) Eos % (Auto) Baso % (Auto) Lymph # (Auto) [place] # (Auto) Eos # (Auto) Baso # (Auto) Abs Immat Gran (auto) Absolute Neuts (auto) Absolute Nucleated RBC 0.000 Nucleated RBC % (auto) 0.0 Smear Tech's Comments PT INR APTT VBG pH VBG pCO2 VBG pO2 VBG HCO3 VBG O2 Saturation VBG Base Excess Sodium Potassium Chloride Carbon Dioxide Anion Gap BUN Creatinine Estim Creat Clear Calc Estimated GFR Random Glucose Calcium Phosphorus Magnesium Albumin COVID-19 (JOHANNA) Negative COVID-19 [facility] See Note Blood Type O Positive Antibody Screen NEGATIVE 11/11/22 11/11/22 11/12/22 09:31 18:38 04:58 WBC 10.2 RBC 4.27 L Hgb 12.8 L Hct 37.6 L MCV 88.1 MCH 30.0 MCHC 34.0 RDW 12.5 Plt Count 158 L MPV 8.5 L Immature Gran % (Auto) 0.7 H Neut % (Auto) 91.4 H Lymph % (Auto) 6.0 L [place] % (Auto) 1.4 L Eos % (Auto) 0.2 Baso % (Auto) 0.3 Lymph # (Auto) 0.6 L [place] # (Auto) 0.1 Eos # (Auto) 0.0 Baso # (Auto) 0.0 Abs Immat Gran (auto) 0.07 H Absolute Neuts (auto) 9.4 H Absolute Nucleated RBC 0.000 Nucleated RBC % (auto) 0.0 Smear Tech's Comments VERIFIED PT INR APTT VBG pH 7.34 VBG pCO2 41 VBG pO2 32 VBG HCO3 22 VBG O2 Saturation 48.0 VBG Base Excess -2.8 Sodium 140 Potassium 3.9 Chloride 106 Carbon Dioxide 26 Anion Gap 12 BUN 19 H Creatinine 0.81 Estim Creat Clear Calc 95.3 Estimated GFR > 60 Random Glucose 107 Calcium 9.0 Phosphorus Magnesium Albumin COVID-19 (JOHANNA) COVID-19 Clin Com Blood Type Antibody Screen 11/12/22 11/12/22 11/12/22 05:02 05:02 05:02 WBC 8.6 RBC 3.90 L Hgb 11.6 L Hct 34.3 L MCV 87.9 MCH 29.7 MCHC 33.8 RDW 12.6 Plt Count 190 MPV 9.2 L Immature Gran % (Auto) 0.5 H Neut % (Auto) 91.0 H Lymph % (Auto) 4.8 L [place] % (Auto) 3.7 Eos % (Auto) 0.0 Baso % (Auto) 0.0 Lymph # (Auto) 0.4 L [place] # (Auto) 0.3 Eos # (Auto) 0.0 Baso # (Auto) 0.0 Abs Immat Gran (auto) 0.04 H Absolute Neuts (auto) 7.8 Absolute Nucleated RBC 0.000 Nucleated RBC % (auto) 0.0 Smear Tech's Comments VERIFIED PT INR APTT VBG pH VBG pCO2 VBG pO2 VBG HCO3 VBG O2 Saturation VBG Base Excess Sodium Cancelled 140 Potassium Cancelled 4.7 D Chloride Cancelled 106 Carbon Dioxide Cancelled 24 Anion Gap Cancelled 15 BUN Cancelled 20 H Creatinine Cancelled 0.77 Estim Creat Clear Calc Cancelled 105.7 Estimated GFR Cancelled > 60 Random Glucose Cancelled 166 H Calcium Cancelled 8.5 Phosphorus 4.4 Magnesium 1.9 Albumin COVID-19 (JOHANNA) COVID-19 [facility] Blood Type Antibody Screen 11/13/22 11/13/22 11/13/22 07:03 07:03 07:37 WBC 7.1 Cancelled RBC 3.20 L Cancelled Hgb 9.8 L Cancelled Hct 28.4 L Cancelled MCV 88.8 Cancelled MCH 30.6 Cancelled MCHC 34.5 Cancelled RDW 12.9 Cancelled Plt Count 163 Cancelled MPV 9.0 L Cancelled Immature Gran % (Auto) 0.3 Cancelled Neut % (Auto) 70.8 Cancelled Lymph % (Auto) 20.0 Cancelled [place] % (Auto) 8.5 Cancelled Eos % (Auto) 0.3 Cancelled Baso % (Auto) 0.1 Cancelled Lymph # (Auto) 1.4 Cancelled [place] # (Auto) 0.6 Cancelled Eos # (Auto) 0.0 Cancelled Baso # (Auto) 0.0 Cancelled Abs Immat Gran (auto) 0.02 Cancelled Absolute Neuts (auto) 5.1 Cancelled Absolute Nucleated RBC 0.000 Cancelled Nucleated RBC % (auto) 0.0 Cancelled Smear Tech's Comments PT INR APTT VBG pH VBG pCO2 VBG pO2 VBG HCO3 VBG O2 Saturation VBG Base Excess Sodium 142 Potassium 3.9 Chloride 107 Carbon Dioxide 28 Anion Gap 11 L BUN 16 Creatinine 0.71 Estim Creat Clear Calc 114.6 Estimated GFR > 60 Random Glucose 104 Calcium 8.5 Phosphorus 2.6 L Magnesium 2.0 Albumin 3.5 COVID-19 (JOHANNA) COVID-19 [facility] Blood Type Antibody Screen 11/14/22 11/14/22 11/15/22 06:34 20:47 04:19 WBC 6.7 RBC 3.39 L Hgb 9.6 L 10.2 L Hct 28.2 L 29.7 L MCV 87.6 MCH 30.1 MCHC 34.3 RDW 12.5 Plt Count 180 MPV 8.8 L Immature Gran % (Auto) 0.3 Neut % (Auto) 63.7 Lymph % (Auto) 24.6 [place] % (Auto) 8.5 Eos % (Auto) 2.5 Baso % (Auto) 0.4 Lymph # (Auto) 1.7 [place] # (Auto) 0.6 Eos # (Auto) 0.2 Baso # (Auto) 0.0 Abs Immat Gran (auto) 0.02 Absolute Neuts (auto) 4.3 Absolute Nucleated RBC 0.000 Nucleated RBC % (auto) 0.0 Smear Tech's Comments PT INR APTT VBG pH VBG pCO2 VBG pO2 VBG HCO3 VBG O2 Saturation VBG Base Excess Sodium Potassium Chloride Carbon Dioxide Anion Gap BUN Creatinine Estim Creat Clear Calc Estimated GFR Random Glucose Calcium Phosphorus Magnesium Albumin COVID-19 (JOHANNA) COVID-19 Clin Com Blood Type O Positive Antibody Screen NEGATIVE Airway Mallampati Class: III TM Dist: >3cm Neck ROM: Full Heart: RRR Lungs: CTA Assessment and Plan Final Anesthetic Review Family History of Problems with Anesthesia: No History of Problems with Anesthesia: No NPO: Yes ASA Class: III Final Preanesthetic Review: Meds/Allgs Chart Reviewed, Consent Obtained/Reviewed and Anes Risks/Benef Reviewed Patient Risk: Intermediate Procedure Risk: Intermediate Anesthetic Plan Anesthetic Plan: GA Disposition: Standard PACU
[2022-11-15] MEDS: vancomycin HCL 1,500 MG in 0.9 % Sodium Chloride 500 ML 333.33 MG IV (08:10)
--- NOTE | 2022-11-15 09:32 | P.OP_ITS ---
Operative Note Operative Note Date of Service: 11/15/22 Narrative: Operative note by [facility] Preoperative diagnosis: Left neck hematoma Postoperative diagnosis: Same Procedure:1. Left neck exploration 2. Evacuation of hematoma Surgeon:Prince Stewatr M.D. Corporate Staff Accountant: Merrill Anesthesia: General Specimens: 1 Drains: None Estimated blood loss: 100 mL Indications: 77-year-old gentleman who had actually undergone left carotid endarterectomy on Friday this week. He had a persistent postop bleed but had resolved and was set to be discharged on Friday state in additional day till he was actually discharged had dressing change in a coughing fit and started to lose throughout the dressing. He has 3 large dressing changes yesterday. The decision was made to explore the neck. The patient has signed the informed consent after reviewing risks, complications, benefits, and alternatives previously discussed with the patient. The patient was given the opportunity to ask any additional questions or voice any concerns. All questions were answered to the patient's satisfaction. Procedure in detail: Patient was brought to the operating room prior to which a time-out was called for patient identification site verification left neck was prepped and draped in the standard surgical fashion. Perioperative antibiotics of vancomycin was given to the patient. We open up the previous neck incision using 11 blade and Metzenbaum scissors. All the previous sutures were removed. We entered into the neck cavity. There is copious amounts of hematoma encountered. This was all evacuated. We then use we Land[place] to reexpose the area. We cleared out all the hematoma. We then went down on to the carotid and explored the patch. There was no evidence of bleeding. All the tissue surrounding was re-evaluated as well. No evidence of bleeding there as well. We used electrocautery to coagulate any bleeders. Once this was all accomplished direct pressure with snow was held for 10 minutes. No additional bleeding was noted. We then instilled Tisseal sealant throughout the entire bed including at the anastomotic patch along with the subcu tissue. Once again direct pressure was held for approximately 10 minutes in duration and no raheel tional bleeding was noted. We then closed in multiple interrupted layers. Deep layer was closed with 2 0 poly Sorb superficial layer with 3-0 poly Sorb and finally skin with a 4-0 Monocryl in a running subcuticular manner. Steri-Strips and a sterile dressing were applied. At the end the case sponge needle instrument counts were correct. Patient tolerated the procedure well returned to recovery with stable vitals. This note is constructed using voice recognition software. While every effort has been made to ensure accuracy, capacity planning manager errors may have been included. Thank you for allowing me to participate in the care of your patient. Yours sincerely, Prince Stewart MD, FACS, R.P.V.I.
--- NOTE | 2022-11-15 09:37 | MHC.SHP ---
Pre-Procedural Eval Section A Date of Service: 11/15/22 The patient is an INPATIENT: Yes Changes since office visit: Yes Patient answered all questions The History & Physical has been completed within 30 days and I have reviewed it.: Yes Section B Chief Complaint: PostOp Allergies: Allergies Allergy/AdvReac Type Severity Reaction Status Date / Time amoxicillin Allergy Severe Anaphylaxis Verified 11/11/22 10:10 nifedipine [From PROCARDIA] Allergy Unknown Hives Verified 11/07/22 14:11 Plan I have reviewed the history and physical and performed a pertinent physical examination on my patient. No changes have occurred unless specified. Time Spent With Patient Time: Total time managing care of this patient today ____ minutes.
--- NOTE | 2022-11-15 10:42 | MHC.CM.PN ---
EMR REVIEWED, PT RETURNED TO OR FOR ADDITIONAL VASCULAR PROCEDURE, ANTIC PT WILL BE MONITORED OVERNIGHT AND D/C OVER W/E, CM WILL CONT TO FOLLOW D/C NEEDS.
[2022-11-15] MEDS: Losartan Potassium 50 MG TABLET PO (11:05)
[2022-11-15] MEDS: 0.9 % Sodium Chloride Flush 3 ML SYRINGE IVFLUSH (11:05)
[2022-11-15] MEDS: Acetaminophen 1,000 MG/100 ML PIGGYBACK 400 MG IV (11:05)
[2022-11-15] MEDS: Tamsulosin HCL 0.4 MG CAPSULE PO (11:05)
[2022-11-15] MEDS: Atorvastatin Calcium 80 MG TABLET PO (11:05)
[2022-11-15] MEDS: 0.9 % Sodium Chloride 1,000 ML 80 ML IVCONT ×2 (11:23→22:46)
--- NOTE | 2022-11-15 11:27 | MHC.CM.PN ---
Patient has been medically cleared for dc to home today, self care. Last IMM addressed yesterday.
--- NOTE | 2022-11-15 15:23 | HO.PM.IMPN ---
Subjective Subjective Date of Service: 11/15/22 Interval History: seen and examined this afternoon follow up for medical consultation saturated through left neck dressing multiple times yesterday afternoon, was taken for left neck exploration and evacuation of hematoma this morning tired but no sob, difficulty swallowing Review of Systems Review of Systems: Yes all other systems are reviewed and are negative Constitutional Constitutional: Denies chills and Denies fever(s) Cardiovascular Cardiovascular: Denies chest pain, Denies palpitations and Denies dyspnea Respiratory Respiratory: Denies cough and Denies dyspnea Gastrointestinal Gastrointestinal: Denies abdominal pain Endocrine Endocrine: Denies palpitations Physical Exam Vital Signs: Vital Signs: Last Vital Signs Temp 98.6 F 11/15/22 15:08 Pulse 78 11/15/22 15:08 Resp 18 11/15/22 15:08 BP 127/69 11/15/22 15:08 Pulse Ox 97 11/15/22 15:08 O2 Del Method Nasal Cannula 11/15/22 15:08 O2 Flow Rate 2 11/15/22 15:08 BMI result Body Mass Index 32.5 Const: General: cooperative, comfortable, no acute distress, alert and awake Nutritional Appearance: overweight Orientation/consciousness: patient oriented x3 Neck: Other: left neck dressing in place, not removed Resp: Effort & Inspection: normal respiratory effort and able to speak in complete sentences Auscultation: clear to auscultation bilaterally Cardio: Rate: regular rate Heart sounds: S1 normal heart sound present and S2 normal heart sound present GI: Inspection: No distended Palpation (GI): Soft to palpation and nontender Neuro: General: patient oriented x3 and CN's II-XI intact bilaterally Extrem: Other: able to move all 4 extremities spontaneously Objective Data Active Medications Acetaminophen (Acetaminophen 325 Mg Tablet) 650 mg PO Q6H PRN PRN Reason: Pain, Mild (Pain Scale 1-3) Last Admin: 11/14/22 17:07 Dose: 650 mg Documented By: RITA Atorvastatin Calcium (Atorvastatin Calcium 80 Mg Tablet) 80 mg PO DAILY TRI Last Admin: 11/15/22 11:05 Dose: 80 mg Documented By: RITA Benzocaine (Throat Lozenge, Medicated Lozenge) 1 lozenge MUCOUS MEM Q2H PRN PRN Reason: Sore Throat Last Admin: 11/13/22 20:47 Dose: 1 lozenge Documented By: HAZEL Sodium Chloride (Ns) 1,000 mls @ 80 mls/hr IVCONT .[id number] [facility] Last Admin: 11/15/22 11:23 Dose: 80 mls/hr Documented By: RITA Lorazepam (Lorazepam 1 Mg Tablet) 1 mg PO BEDTIME PRN PRN Reason: anxiety Last Admin: 11/14/22 23:11 Dose: 1 mg Documented By: HAZEL Losartan Potassium (Losartan Potassium 50 Mg Tablet) 50 mg PO DAILY [facility]; Protocol Last Admin: 11/15/22 11:05 Dose: 50 mg Documented By: RITA Oxycodone HCl (Oxycodone Hcl Immed Release 5 Mg Tablet) 5 mg PO Q4H PRN PRN Reason: Pain, Moderate (Pain Scale 4-6 Last Admin: 11/15/22 06:02 Dose: 5 mg Documented By: HAZEL Sodium Chloride (0.9 % Sodium Chloride Flush 3 Ml Syringe) 3 ml IVFLUSH QSHIFT [facility] Last Admin: 11/15/22 11:05 Dose: 3 ml Documented By: RITA Tamsulosin HCl (Tamsulosin Hcl 0.4 Mg Capsule) 0.4 mg PO DAILY [facility] Last Admin: 11/15/22 11:05 Dose: 0.4 mg Documented By: RITA Labs 11/15/22 04:19 11/13/22 07:03 Labs: Laboratory Results - last 24 hr 11/14/22 11/15/22 20:47 04:19 MCV 87.6 MCH 30.1 MCHC 34.3 RDW 12.5 Plt Count 180 MPV 8.8 L Immature Gran % (Auto) 0.3 Neut % (Auto) 63.7 Lymph % (Auto) 24.6 [place] % (Auto) 8.5 Eos % (Auto) 2.5 Baso % (Auto) 0.4 Lymph # (Auto) 1.7 [place] # (Auto) 0.6 Eos # (Auto) 0.2 Baso # (Auto) 0.0 Abs Immat Gran (auto) 0.02 Absolute Neuts (auto) 4.3 Absolute Nucleated RBC 0.000 Nucleated RBC % (auto) 0.0 Blood Type O Positive Antibody Screen NEGATIVE Assessment and Plan (1) Symptomatic stenosis of left carotid artery: Status: Acute Plan This is a 77-year-old male with a past medical history of? hypertension,? hyperlipidemia, GERD, aortic valve stenosis, with recent history of left eye blurry vision diagnosed with left retinal infarct and left carotid stenosis s/p elective left carotid endarterectomy with Dr Stewart 11/11 and admitted to ICU for post operative monitoring, course complicated by postoperative hematoma, downgraded from the ICU on November 12 symptomatic left carotid stenosis POD 3 s/p CEA potsoperative hematoma- s/p left neck exploration and hematoma evacuation 11/15 no sob, hypoxia or difficulty swallowing; tolerating diet H/H stable, BP stable management per vascular surgery continue ASA, statin HTN continue losartan BPH continue flomax dvt ppx - mechanical devices code status - full code attending - dr. allen Time Spent With Patient Time: Total time managing care of this patient today ____ minutes. Quality Stroke Does the patient have a stroke diagnosis?: No VTE Prior VTE?: No VTE Risk Level:: Surgical - high VTE Device Contraindication: N/A - Device Ordered VTE Drug Contraindication: Treatment Not Tolerated
[2022-11-15] MEDS: LORazepam 1 MG TABLET PO (22:44)
[2022-11-16] MEDS: oxyCODONE HCl Immed Release 5 MG TABLET PO (01:27)
[2022-11-16 07:03] VITALS: BP 130/68; PULSE 77; RESP 20; TEMP 36.3; O2SAT 97
[2022-11-16] MEDS: Tamsulosin HCL 0.4 MG CAPSULE PO (08:34)
[2022-11-16] MEDS: Losartan Potassium 50 MG TABLET PO (08:34)
[2022-11-16] MEDS: Atorvastatin Calcium 80 MG TABLET PO (08:34)
--- NOTE | 2022-11-16 08:57 | MHC.CM.PN ---
order for home, self care. CM acknowledge.
--- NOTE | 2022-11-16 14:47 | HO.POSTANES ---
Post Anesthesia Evaluation Post Anesthesia Evaluation Vital Signs: Vital Signs Temp Pulse Resp BP Pulse Ox O2 Del Method 11/16/22 07:03 97.4 F 77 20 130/68 97 Room Air Anesthesia: General Endotracheal-GETA Mental Status: Awake Pain Control: Satisfactory Nausea/Vomiting: None Hydration: Adequate Anesthesia-Related Issues: No Anes. Related Issues
== END 2022-11-16 10:00 | disposition home or self-care (01) | DRG 38 ==
LOC: HO.SSSA 12:48 → HO.ICU 15:49 → HO.IMC 11-12 11:23
PROVIDERS: Internal Medicine Pulmonary Disease; Nurse Practitioner; Physician Assistant Medical; Admitting Provider Surgery Vascular Surgery; PCP Internal Medicine; Visit Provider Surgery Vascular Surgery
PROC: 03CJ0ZZ Extirpation of Matter from Left Common Carotid Artery, Open Approach (ICD-10-PCS; CPT 35301; principal; 2022-11-11 10:40)
PROC: 0JC50ZZ Extirpation of Matter from Left Neck Subcutaneous Tissue and Fascia, Open Approach (ICD-10-PCS; principal; 2022-11-15 08:00)
DX: I65.22 Occlusion and stenosis of left carotid artery (principal); D68.32 Hemorrhagic disorder due to extrinsic circulating anticoagulants; I97.618 Postprocedural hemorrhage of a circulatory system organ or structure following other circulatory system procedure; L76.32 Postprocedural hematoma of skin and subcutaneous tissue following other procedure; H34.9 Unspecified retinal vascular occlusion; Y83.2 Surgical operation with anastomosis, bypass or graft as the cause of abnormal reaction of the patient, or of later complication, without mention of misadventure at the time of the procedure; I35.0 Nonrheumatic aortic (valve) stenosis; N40.0 Benign prostatic hyperplasia without lower urinary tract symptoms; T45.525A Adverse effect of antithrombotic drugs, initial encounter; I10 Essential (primary) hypertension; E78.5 Hyperlipidemia, unspecified; Z88.0 Allergy status to penicillin; Z88.8 Allergy status to other drugs, medicaments and biological substances; Z79.899 Other long term (current) drug therapy
CPT/HCPCS: 36415; 80048; 82040; 82803; 83735; 84100; 85014; 85018; 85025; 85027; 85610; 85730; 86850; 86900; 86901; 87635; 88304; 88311; C1758; C1768; J0131; J1100; J1170; J1643; J2060; J2250; J2270; J2370; J2405; J2795; J3010; J3371

== ENCOUNTER → 2022-11-26 10:41 | Outpatient (BNVA) | payer MEDICARE, OTHER, SELFPAY | PROVIDERS: PCP Internal Medicine; Visit Provider Surgery Vascular Surgery | DX: I65.23 Occlusion and stenosis of bilateral carotid arteries (principal); I49.3 Ventricular premature depolarization; I10 Essential (primary) hypertension; Z98.890 Other specified postprocedural states | CPT/HCPCS: 99212 ==

== ENCOUNTER → 2022-12-31 13:42 | Outpatient (BNVA) | payer MEDICARE, SELFPAY | PROVIDERS: PCP Internal Medicine; Referring Provider Internal Medicine; Visit Provider Nurse Practitioner Family | DX: R00.2 Palpitations (principal); I35.0 Nonrheumatic aortic (valve) stenosis; I65.23 Occlusion and stenosis of bilateral carotid arteries; I10 Essential (primary) hypertension; I49.3 Ventricular premature depolarization; E78.5 Hyperlipidemia, unspecified | CPT/HCPCS: 99212 ==

== ENCOUNTER 2023-05-12 09:51 | Emergency (ER) | payer MEDICARE, SELFPAY ==
--- NOTE | ~2023-05-12 | CT_ITS ---
EXAMINATION: CT HEAD WITHOUT CONTRAST CLINICAL INFORMATION: Left-sided facial numbness. COMPARISON: 11/01/2022 TECHNIQUE: Contiguous axial imaging was performed from the skull base to vertex without intravenous administration of contrast. This CT examination was performed using dose optimization techniques as appropriate, variously including the following: *Automated exposure control *Adjustment of mA and/or kV according to patient size (this includes techniques or standardized protocols for targeted exams where dose is matched to indication/reason for exam; i.e. extremities or head) *Use of iterative reconstruction technique DLP: 811 mGy-cm FINDINGS: There is no acute intracranial hemorrhage or abnormal extra-axial collection. There is no intracranial mass effect or midline shift. Ventricles are normal in size. No hydrocephalus. Shaw-white matter differentiation is preserved and there is no evidence of acute territorial infarct. The calvarium and skull base are intact. Mastoid air cells are clear. Mild maxillary sinus mucosal thickening. Moderate opacification the ethmoid air cells. CT/CT head/brain wo IV con IMPRESSION: No acute intracranial pathology. Chronic sinus disease.
[2023-05-12 09:53] VITALS: BP 197/103; PULSE 80; RESP 18; TEMP 36.1; O2SAT 100; BMI 31.4
--- NOTE | 2023-05-12 09:58 | ECG_ITS ---
Test Reason : cp Blood Pressure : / mmHG Vent. 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
[2023-05-12 10:15] VITALS: BP 189/92; PULSE 76; RESP 18; O2SAT 100
--- NOTE | 2023-05-12 10:18 | PC.NURSE ---
Pt reporting they just got back from [place] yesterday, he started to have left sdied facial numbness starting last night, was still present this morning, reporting baseline CP at this time. All neuros are intact, smile equal. Denies LANDA/n/v/d, deneis weakness or blurry vision. IV placed, labs obtained
--- NOTE | 2023-05-12 10:24 | ED.GENADULT ---
HPI - General Adult General Chief complaint: General Medical Stated complaint: l sided facial numbness Time Seen by Provider: 05/12/23 10:24 Source: patient and RN notes reviewed Mode of arrival: ambulatory Limitations: no limitations History of Present Illness HPI narrative: This is a 77-year-old male, with a hx of heard, hypertension, and hyperlipidemia, presenting to the emergency department with complaints of left-sided facial numbness and tingling since 11:00 p.m. last night. Patient reports that it felt as though he got a shot of Novocain in the left side of his mouth He states that upon awakening this morning, his symptoms have worsened, as the numbness and tingling is now throughout the left side of his face. He denies any headaches, changes in his vision, difficulty swallowing, difficulty breathing, or trouble speaking. Denies history of similar symptoms in the past. No recent head trauma, falls. He recently traveled to and from [place] last week. Endorsing some lower extremity swelling, which has improved with keeping his legs elevated. He denies any fevers, chills. He also endorses intermittent left-sided chest pain which started upon his arrival in the emergency room. Also reporting some left arm pain however is unsure if this is due to the drive. No other complaints or concerns at this time. MD complaint: Left sided facial numbness Onset (ago): day(s) Location: face Radiation: non-radiation Pain Consistency: constant Relieving factors: none Exacerbating factors: none Associated symptoms: denies other symptoms Treatments prior to arrival: none Related Data Home Medications Medication Instructions Recorded Confirmed ffrgaxbqbl-yozgicozmnafq-rffxbrap 1 tab PO ONCE PRN Headache 09/03/22 12/31/22 50 mg-325 mg-40 mg tablet losartan 50 mg tablet 50 mg PO DAILY 09/03/22 12/31/22 pantoprazole 40 mg tablet,delayed 40 mg PO DAILY 09/03/22 12/31/22 release tamsulosin 0.4 mg capsule 0.4 mg PO DAILY 09/03/22 12/31/22 ascorbic acid (vitamin C) 1,000 mg 1,000 mg PO Q12H 11/06/22 12/31/22 tablet,extended release atorvastatin 40 mg tablet 80 mg PO DAILY 11/06/22 12/31/22 cholecalciferol (vitamin D3) 25 25 mcg PO DAILY 11/06/22 12/31/22 mcg (1,000 unit) capsule Allergies Allergy/AdvReac Type Severity Reaction Status Date / Time amoxicillin Allergy Severe Anaphylaxis Verified 12/31/22 13:48 nifedipine [From PROCARDIA] Allergy Unknown Hives Verified 12/31/22 13:48 Review of Systems Review of Systems: Yes all other systems are reviewed and are negative Constitutional: Constitutional: Reports as per [facility] Past Medical History Attestation statement: The following information was validated with the patient. Medical History BPH (benign prostatic hyperplasia) PVC's (premature ventricular contractions) Right knee injury HTN (hypertension) Hyperlipidemia GERD (gastroesophageal reflux disease) Surgical History History of cervical discectomy History of right inguinal hernia repair Hx of cholecystectomy Hx of colonoscopy History of total right knee replacement (TKR) History of total left knee replacement (TKR) History of surgical removal of pilonidal cyst History of spinal surgery History of esophagogastroduodenoscopy (EGD) Family History Family History Mother No problems noted. Father Heart disease Brother Afib Brother Afib Brother Afib Brother Afib Sister Leukemia Social History Social History Household Members: Spouse Housing: House Are you a primary medical care evaluation specialist to a significant other at home: No Do you presently have visiting nurse or other home services: No Alcohol intake: current Alcohol intake frequency: 0-2 drinks per day Alcohol type: beer Patient Tobacco Use Status: Former Tobacco user Quit Date: 40 yrs ago Years Smoked: 10 +/- Smoked in Last 30 Days: No Second Hand Smoke Exposure: No Use of substances other than those prescribed or required for medical reasons: No Advance Directives: Yes Advance Directives Information Provided: No Advance Directives on File: No service: Yes Current occupational status: retired Physical Exam ED Vital Signs: Vital Signs - 24 hr 05/12/23 09:53 05/12/23 10:15 05/12/23 12:44 Temperature 97 F Pulse Rate 80 76 60 Respiratory Rate 18 18 14 Blood Pressure 197/103 H 189/92 H 143/93 H Pulse Oximetry 100 100 99 Oxygen Delivery Method Room Air Room Air Room Air 05/12/23 14:00 Temperature Pulse Rate 65 Respiratory Rate 14 Blood Pressure 158/86 H Pulse Oximetry 98 Oxygen Delivery Method BMI result Body Mass Index 31.4 Const General: cooperative, comfortable and no acute distress Orientation/consciousness: patient oriented x3 Limitations: no limitations HENMT Other: No dental decay or fracture noted. No dental pain. No dental abscess Head: Yes normal to inspection, Yes normocephalic and Yes atraumatic Ears: hearing grossly normal bilaterally, external ears normal and TM's normal bilaterally General nose exam: Normal external nose present Face and sinus: Yes normal facial exam Mouth: Normal oral and palatal mucosa present, oropharynx normal and moist mucous membranes Throat: Yes posterior oropharynx normal Eyes General: appearance normal, both eyes and all related structures Eyelids: Yes eyelids normal Conjunctivae: conjunctivae normal Sclerae: sclerae normal Pupils: Equal, round and reactive pupils present EOM: EOMs intact bilaterally and No Nystagmus present Neck Neck: Yes normal visual inspection, Yes full ROM and Yes no lymphadenopathy Lymphatic: no lymphadenopathy noted Chest Chest palpation & inspection: normal inspection of the chest Resp Effort & Inspection: normal respiratory effort and able to speak in complete sentences Auscultation: clear to auscultation bilaterally, no crackles, no rales, no rhonchi and no wheezes Cardio Rate: regular rate Rhythm: regular rhythm Heart sounds: S1 normal heart sound present and S2 normal heart sound present GI Inspection: Yes normal to inspection Skin General skin exam: no rashes or lesions noted Trauma: no lacerations or abrasions Wounds: no wounds Neuro General: patient oriented x3 and moves all extremities Cranial nerves: Yes CN's II-XII intact bilaterally, Yes Equal, round and reactive pupils present, Yes Normal facial strength present, Yes Midline tongue present, Yes Ability to bilaterally rotate head present, Yes Ability to bilaterally elevate shoulders present and No Nystagmus present Cognition (Neuro): normal cognition Motor exam (neuro): 5/5 motor strength present throughout and Pronator motor function not present Coordination: dtffgf-bh-lhpw test normal Romberg Test: Negative Extrem General: Yes normal to inspection Right upper extremity: normal to inspection Left upper extremity: normal to inspection Right lower extremity: normal to inspection Left lower extremity: normal to inspection NIH Stroke Scale Internal: Initial- Upon Arrival Time: 10:50 Level of Consciousness: Alert Level of Consciousness Questions: Answers both questions correctly Level of Consciousness Commands: Performs both tasks correctly Best Gaze: Normal Visual: No visual loss Facial Palsy: Normal Motor Arm (Right): No drift Motor Arm (Left): No drift Motor Leg (Right): No drift Motor Leg (Left): No drift Limb Ataxia: Absent Sensory: Normal Best Language: No aphasia Dysarthia: Normal Extinction and Inattention: No abnormality Score: 0 Course Reevaluation(s) Reevaluation #1: CT head negative, troponin x2 negative. Blood pressure improved to 143/93 after receiving his daily dose of sore in as he forgot to take this upon arrival. Patient was seen and evaluated by attending physician, Dr. Hankins. Patient is fully neurologically intact, no lesions in the ear canal. Unclear what is causing patient to have numbness and tingling the left side of his face however patient reports that his symptoms have since improved since arrival. Will draw for tick-borne illnesses. Given return precautions. Patient understands and agrees with plan. Patient stable for discharge. Time: 14:37 Medications Administered Discontinued Medications Generic Name Dose Route Start Last Admin Trade Name Freq PRN Reason Stop Dose Admin Losartan Potassium 50 mg 05/12/23 10:44 05/12/23 10:51 Losartan Potassium 50 Mg Tablet PO 05/12/23 10:45 50 mg ONCE ONE Administration Protocol Medical Decision Making Medical Decision Making MDM Narrative: This is a 77-year-old male, with a hx of heard, hypertension, and hyperlipidemia, presenting to the emergency department with complaints of left-sided facial numbness and tingling since 11:00p.m. last night. On arrival, blood pressure elevated at 197/103. He has a history of hypertension and did not take his blood pressure medication. He takes losartan potassium 50 mg p.o. patient is fully neurologically intact. Given patient endorsing chest pain, will obtain cardiac workup. Patient has a NIH stroke scale of 0. Differential diagnoses include trigeminal neuralgia, tick-borne illness, early-onset herpes zoster, TMJ, intracranial mass, dental fracture, dental decay, ICH, ACS, STEMI, NSTEMI Differential Diagnosis Differential Diagnoses: The differential diagnosis associated with the presentation includes See above Admission/Observation Consideration of admission/observation: Escalation of care including admission/observation considered Escalation of care including admission observation was considered however given workup today, patient stable for discharge with close follow-up Lab Data MDM Lab Attestation statement: I reviewed the patient's lab results. 05/12/23 10:24 05/12/23 10:24 Labs: Lab Results 05/12/23 05/12/23 Range/Units 10: 13:45 WBC 4.9 (4.8-10.8) X10*3/uL RBC 4.60 D (4.60-5.80) X10*6/uL Hgb 14.0 D (14.0-18.0) g/dl Hct 40.6 L D (42.0-52.0) % MCV 88.3 (80.0-98.0) fL MCH 30.4 (27.0-33.0) pg MCHC 34.5 (31.0-36.0) g/dl RDW 12.6 (11.0-16.0) % Plt Count 184 (160-400) X10*3/uL MPV 8.7 L (9.4-12.4) fL Immature Gran % (Auto) 0.4 (0.0-0.4) % Neut % (Auto) 64.8 (45-73) % Lymph % (Auto) 22.9 (20-40) % [place] % (Auto) 7.6 (2-11) % Eos % (Auto) 3.9 (0-4) % Baso % (Auto) 0.4 (0-2) % Lymph # (Auto) 1.1 L (1.2-4.9) X10*3/uL [place] # (Auto) 0.4 (0.1-1.2) X10*3/uL Eos # (Auto) 0.2 (0.0-0.4) X10*3/uL Baso # (Auto) 0.0 (0.0-0.2) X10*3/uL Abs Immat Gran (auto) 0.02 (0.00-0.03) X10*3/uL Absolute Neuts (auto) 3.1 (2.0-8.3) x10*3/uL Absolute Nucleated RBC 0.000 (0.0-0.012) X10*3/uL Nucleated RBC % (auto) 0.0 (0.0-0.2) /100WBC PT 11.2 (11.1-13.3) SEC INR 0.9 (0.9-1.1) APTT 29.3 (26.0-36.4) SEC Sodium 141 (135-145) mmol/L Potassium 3.8 (3.3-5.1) mmol/L Chloride 108 (96-108) mmol/L Carbon Dioxide 25 (22-29) mmol/L Anion Gap 12 (12-20) BUN 16 (9-16) mg/dL Creatinine 0.79 (0.5-1.4) mg/dL Estim Creat Clear Calc 98.2 Estimated GFR > 60 Random Glucose 127 H (60-115) mg/dL Calcium 9.4 D (8.4-10.2) mg/dL Troponin I High Sens < 2.7 < 2.7 (<3.5-35.0) ng/L B-Natriuretic Peptide 25 (<100) pg/mL Independent Interpretation I performed an independent interpretation of an: EKG Interpretation: EKG normal sinus rhythm, with a first-degree AV block, ventricular rate 72 beats per minute, Q-waves seen in B1, which is also seen on previous EKGs, last performed on November 01, 2022. Radiology Impression Discussion of test interpretation with radiology: I have reviewed the radiologist's reading. Radiologist Impression: EXAMINATION: CT HEAD WITHOUT CONTRAST CLINICAL INFORMATION: Left-sided facial numbness. COMPARISON: 11/01/2022 TECHNIQUE: Contiguous axial imaging was performed from the skull base to vertex without intravenous administration of contrast. This CT examination was performed using dose optimization techniques as appropriate, variously including the following: *Automated exposure control *Adjustment of mA and/or kV according to patient size (this includes techniques or standardized protocols for targeted exams where dose is matched to indication/reason for exam; i.e. extremities or head) *Use of iterative reconstruction technique DLP: 811 mGy-cm FINDINGS: There is no acute intracranial hemorrhage or abnormal extra-axial collection. There is no intracranial mass effect or midline shift. Ventricles are normal in size. No hydrocephalus. Shaw-white matter differentiation is preserved and there is no evidence of acute territorial infarct. The calvarium and skull base are intact. Mastoid air cells are clear. Mild maxillary sinus mucosal thickening. Moderate opacification the ethmoid air cells. CT/CT head/brain wo IV con IMPRESSION: No acute intracranial pathology. Chronic sinus disease. Dictated By: Feroz Us MD Prescription Management I considered prescription management with: Antiviral Considered treatment with antiviral to treat for possible early herpes zoster however no rash seen on examination, and symptoms have improved since arrival in the emergency room. Chronic Conditions Patient?s care impacted by: Other (Hypertension, hyperlipidemia, carotic endarterectomy) Scores Heart Score History: -0- slightly suspicious Age: -2- > or = 65 Risk factory: -2- 3 or more risk factors or treated atherosclerosis Discharge Plan Discharge Clinical Impression: Left facial numbness Patient Disposition: Still a Patient Instructions: Paresthesia (ED) Additional Instructions: Your CT scan of your head was reassuring today. Your labs were reassuring. We are performing labs to rule out any tick-borne illness disease that it could cause you to have these symptoms, we will call you if any of these are abnormal. Your EKG did not show any new changes. We had given you will your dose of losartan 50 mg in the department today. Please continue taking all at home medications as directed. Please return if any new or worsening symptoms occur, including but not limited to, worsening symptoms, headache, dizziness, weakness, chest pain or shortness of breath. Please follow-up with your primary care physician regarding this visit. Prescriptions: No Action losartan 50 mg tablet 50 mg PO DAILY pantoprazole 40 mg tablet,delayed release (DR/EC) 40 mg PO DAILY tamsulosin 0.4 mg capsule 0.4 mg PO DAILY atorvastatin 40 mg tablet 80 mg PO DAILY ojkvpzljbj-rjemagatqvqct-ijwp 50-325-40 mg tablet 1 tab PO ONCE PRN (Reason: Headache) ascorbic acid (vitamin C) 1,000 mg tablet extended release 1,000 mg PO Q12H cholecalciferol (vitamin D3) 25 mcg (1,000 unit) capsule 25 mcg PO DAILY
[2023-05-12 10:36] LABS: MANUAL DIFF FLAG NO
[2023-05-12 10:38] LABS: Basophils Percent Auto 0.4 % (0-2); Eosinophils Absolute Auto 0.2 X10*3/uL (0.0-0.4); Eosinophils Percent Auto 3.9 % (0-4); Hematocrit 40.6 % (42.0-52.0); Imm Gran Abs Auto 0.02 X10*3/uL (0.00-0.03); Imm Gran Pct Auto 0.4 % (0.0-0.4); Lymphocytes Absolute Auto 1.1 X10*3/uL (1.2-4.9); Lymphocytes Percent Auto 22.9 % (20-40); Mean Corpuscular HGB Conc 34.5 g/dl (31.0-36.0); Mean Corpuscular Hemoglobin 30.4 pg (27.0-33.0); Mean Corpuscular Volume 88.3 fL (80.0-98.0); Mean Platelet Volume 8.7 fL (9.4-12.4); Monocytes Absolute Auto 0.4 X10*3/uL (0.1-1.2); Monocytes Percent Auto 7.6 % (2-11); Neutrophils Absolute Auto 3.1 x10*3/uL (2.0-8.3); Neutrophils Percent Auto 64.8 % (45-73); Platelet Count 184 X10*3/uL (160-400); Red Cell Distribution Width 12.6 % (11.0-16.0); White Blood Count 4.9 X10*3/uL (4.8-10.8)
[2023-05-12] MEDS: Losartan Potassium 50 MG TABLET PO (10:51)
[2023-05-12 10:54] LABS: INTERNATIONAL NORM RATIO 0.9 (0.9-1.1); Prothrombin Time 11.2 SEC (11.1-13.3)
[2023-05-12 10:56] LABS: Partial Thromboplastin Time 29.3 SEC (26.0-36.4)
[2023-05-12 11:04] LABS: Anion Gap 12 (12-20); Blood Urea Nitrogen 16 mg/dL (9-16); Calcium 9.4 mg/dL (8.4-10.2); Carbon Dioxide 25 mmol/L (22-29); Chloride 108 mmol/L (96-108); Creatinine Clr Calc Pharmacy 98.2; Estimated Glomerular Filt Rate > 60; Glucose Random 127 mg/dL (60-115); Potassium 3.8 mmol/L (3.3-5.1); Sodium 141 mmol/L (135-145)
[2023-05-12 11:16] LABS: Troponin-I High Sensitivity < 2.7 ng/L (<3.5-35.0)
[2023-05-12 11:33] LABS: B Type Natriuretic Peptide 25 pg/mL (<100)
[2023-05-12 12:44] VITALS: BP 143/93; PULSE 60; RESP 14; O2SAT 99
[2023-05-12 14:00] VITALS: BP 158/86; PULSE 65; RESP 14; O2SAT 98
[2023-05-12 14:19] LABS: Troponin-I High Sensitivity < 2.7 ng/L (<3.5-35.0)
[2023-05-13 21:14] LABS: Lyme Abs Screen <0.90 index
[2023-05-16 03:24] LABS: Babesia IgG <1:64 titer (<1:64); Babesia IgM <1:20 titer (<1:20)
[2023-05-20 11:39] LABS: A. Phagocytophilum Ab IgG <1:64 (<1:64); A. Phagocytophilum Ab IgM <1:20 (<1:20); E. Chaffeensis Ab IgG <1:64 (<1:64); E. Chaffeensis Ab IgM <1:20 (<1:20)
== END 2023-05-12 15:09 | disposition still patient (30) ==
PROVIDERS: Physician Assistant Medical; Emergency Provider Emergency Medicine; PCP Internal Medicine
DX: R20.0 Anesthesia of skin (principal); R51.9 Headache, unspecified; I44.0 Atrioventricular block, first degree; R06.02 Shortness of breath; I10 Essential (primary) hypertension; E78.5 Hyperlipidemia, unspecified; Z79.899 Other long term (current) drug therapy
CPT/HCPCS: 36415; 70450; 80048; 83880; 84484; 85025; 85610; 85730; 86617; 86618; 86666; 86753; 93005; 99284

== ENCOUNTER 2023-07-30 10:16 | Outpatient (REF) | payer MEDICARE, SELFPAY ==
--- NOTE | ~2023-07-30 | US_ITS ---
EXAMINATION: US EXTRACRANIAL CAROTID DUPLEX, BILATERAL CLINICAL INFORMATION: Bilateral carotid artery occlusion and stenosis COMPARISON: None available. TECHNIQUE: Real-time ultrasound and Doppler techniques (integrating B-mode 2-D vascular images, Doppler spectral analysis and color-flow Doppler imaging) were utilized to interrogate the extracranial carotid arteries, the vertebral arteries and proximal subclavian arteries bilaterally. The degree of stenosis is determined by criteria similar to NASCET. FINDINGS: Right Side: 1. There is moderate atherosclerotic plaque seen in the bifurcation/proximal ICA region. 2. The common carotid artery PSV proximally is 93 cm/s and distally 72 cm/s. 3. The proximal internal carotid artery velocities are 84 cm/s systolic and 22 cm/s diastolic. 4. The proximal external carotid artery PSV is 18.1 cm/s. 5. The vertebral artery shows antegrade flow. 6. The subclavian artery waveforms are normal. Left Side: 1. There is mild atherosclerotic plaque seen in the bifurcation/proximal ICA region. 2. The common carotid artery PSV proximally is 114 cm/s and distally 92.7 cm/s. 3. The proximal internal carotid artery velocities are 69 cm/s systolic and 18 cm/s diastolic. 4. The proximal external carotid artery PSV is 129 cm/s. 5. The vertebral artery shows antegrade flow. 6. The subclavian artery waveforms are normal. US/US carotid duplex BI IMPRESSION: 1. RIGHT: Minimal, non-hemodynamically significant stenosis of the proximal right internal carotid artery corresponding to a 0-49% stenosis by velocity criteria. 2. LEFT: Minimal, non-hemodynamically significant stenosis of the proximal left internal carotid artery corresponding to a 0-49% stenosis by velocity criteria. 3. This has progressed in severity of disease when compared to the previous study dated 04/18/2015.
== END 2023-07-30 10:17 | disposition home or self-care (01) ==
LOC: HO.HMGCX 10:16
PROVIDERS: PCP Internal Medicine; Visit Provider Surgery Vascular Surgery
DX: I65.23 Occlusion and stenosis of bilateral carotid arteries (principal)
CPT/HCPCS: 93880

== ENCOUNTER 2023-09-11 09:01 | Outpatient (AMB) | payer MEDICARE, SELFPAY ==
[2023-09-11 09:04] VITALS: BP 110/70; BMI 31.4
--- NOTE | 2023-09-11 09:04 | MHC.OFFVIS ---
Intake Vital Signs 09/11/23 09:04 09/11/23 09:14 Height 5 ft 11 in Weight 225 lb BMI 31.4 BP 110/70 114/78 Blood Pressure Location Lt brachial Rt brachial Position Sitting Sitting Intake Visit Reasons: overdue follow up carotid US Intake Note: follow up carotid US 07/30/2023 s/p Left CEA 11/11/22 & Left neck neck hematoma 11/15/22. No complaints Accompanied by: Self / Same As Patient Allergies amoxicillin Allergy (Severe, Verified 09/11/23 09:09) Anaphylaxis nifedipine [From PROCARDIA] Allergy (Unknown, Verified 09/11/23 09:09) Hives HPI overdue follow up carotid US HPI Details Very pleasant 78-year-old gentleman presents for follow-up surveillance after left carotid endarterectomy. He had undergone endarterectomy and subsequent re-exploration for persistent bleeding. Reports that he appears to be doing relatively well. He has had no other interval issues. Now presents for follow-up with noninvasive carotid testing. [facility] Medical History BPH (benign prostatic hyperplasia) PVC's (premature ventricular contractions) Right knee injury HTN (hypertension) Hyperlipidemia GERD (gastroesophageal reflux disease) Surgical History History of cervical discectomy History of right inguinal hernia repair Hx of cholecystectomy Hx of colonoscopy History of total right knee replacement (TKR) History of total left knee replacement (TKR) History of surgical removal of pilonidal cyst History of spinal surgery History of esophagogastroduodenoscopy (EGD) Family History Mother No problems noted. Father Heart disease Brother Afib Brother Afib Brother Afib Brother Afib Sister Leukemia Social History Household Members: Spouse Housing: House Are you a primary client care consultant to a significant other at home: No Do you presently have visiting nurse or other home services: No Alcohol intake: current Alcohol intake frequency: 0-2 drinks per day Alcohol type: beer Comment: last yr x 3 - knees gave out Patient Tobacco Use Status: Former Tobacco user Quit Date: 40 yrs ago Years Smoked: 10 +/- Second Hand Smoke Exposure: No service: Yes Current occupational status: retired Review of Systems Const All systems reviewed & are unremarkable except as noted in HPI and below Reports no additional complaints ENT Reports Normal hearing present Card Denies chest pain, Denies chest pain at rest, Denies chest pain with activity and Denies pedal edema Resp Denies cough GI Denies abdominal pain Musc Denies abnormal gait, Denies muscle cramps and Denies radiating pain into limb Skin/Breast Denies skin ulcer and Denies wounds Neuro Reports Normal hearing present and Denies abnormal gait Psych Reports no additional complaints Physical Exam Vital Signs: Last Vital Signs BP 114/78 09/11/23 09:14 BMI result Body Mass Index 31.4 Const General: cooperative, healthy appearing and comfortable Orientation/consciousness: oriented to person, oriented to place and oriented to time HEENT Head: Yes normal to inspection Neck Neck: Yes normal visual inspection Carotids: no bruits Chest Chest palpation & inspection: normal inspection of the chest Resp Effort & Inspection: normal respiratory effort and able to speak in complete sentences Auscultation: clear to auscultation bilaterally, no crackles, no rales, no rhonchi and no wheezes Cardio Rate: regular rate Rhythm: regular rhythm Heart sounds: S1 normal heart sound present and S2 normal heart sound present Bruits: no carotid bruits Peripheral pulses: Peripheral pulses 2+ throughout GI Inspection: Yes normal to inspection Skin Wounds: no wounds Hair: normal Neuro General: oriented to person, oriented to place and oriented to time Cranial nerves: Yes CN's II-XII intact bilaterally and Yes Normal hearing present Cognition (Neuro): normal cognition Motor exam (neuro): 5/5 motor strength present throughout Extrem Other: venous exam: No significant superficial varicosities or spider telangiectasias, minimal edema General: No clubbing, No cyanosis and No edema Psych Appearance: grossly normal Mental Status: mental status grossly normal Speech and movement: Normal speech and movement present Results Reviewed Results Reviewed: Testing dated 07/30/2023 demonstrates right-sided 0-49 and left-sided 0-49. Written report and images were reviewed. Assessment & Plan Assessment & Plan (1) Bilateral carotid artery stenosis: Comment: 11/11/2022 - left carotid endarterectomy Code(s): I65.23 - Occlusion and stenosis of bilateral carotid arteries Plan: In short patient has asymptomatic carotid disease. He appears to be doing well after left carotid endarterectomy We have reviewed signs and symptoms of a stroke. We also discussed risk factor modification inclusive a healthy diet low in cholesterol. The patient will follow up with us with surveillance ultrasound of the carotids 6 months. Should there be any changes or signs or symptoms of a stroke we will be happy to see them back sooner. Thank you for allowing us to participate in this patient's care. If there are any questions or concerns please do not hesitate to contact us. Orders: Orders US carotid duplex BI 6 Months I65.23 - Occlusion and stenosis of bilateral carotid arteries Coding Level of Care Code Est Pt Level 4 (20111) Diagnoses Bilateral carotid artery stenosis I65.23
[2023-09-11 09:14] VITALS: BP 114/78
== END 2023-09-11 09:42 | disposition home or self-care (01) ==
LOC: HO.HVS 09:01
PROVIDERS: PCP Internal Medicine; Visit Provider Surgery Vascular Surgery
DX: I65.23 Occlusion and stenosis of bilateral carotid arteries (principal)
CPT/HCPCS: 99213

== ENCOUNTER → 2023-09-11 09:01 | Outpatient (BNVA) | payer MEDICARE, SELFPAY | PROVIDERS: PCP Internal Medicine; Visit Provider Surgery Vascular Surgery | DX: I65.23 Occlusion and stenosis of bilateral carotid arteries (principal) | CPT/HCPCS: 99212 ==

== ENCOUNTER → 2023-10-15 09:41 | Outpatient (REF) | payer MEDICARE, SELFPAY ==
--- NOTE | 2023-10-15 09:44 | CA_ITS ---
Transthoracic Echocardiogram Patient (Last, First, Middle): Tony Gilmore J Gender: Male Date of : 1945 Age: 78 Procedure Date: 10/15/2023 Procedure Type: Transthoracic Echocardiogram Location: OP Height: 182.88 cm Weight: 104.33 kg BSA: 2.26 m2 Heart Rate: bpm BP: 130 / 72 mmHg Preparator: TO Referring MD: Vee Persaud [employer] Counselor: Bar Merchant MD Symptoms: I35.0 - Nonrheumatic aortic (valve) stenosis Study Quality: Adequate w contrast ECG Rhythm: Sinus Conclusions: - 1. Normal LV ejection fraction of 60 65% with impaired relaxation filling pattern with mild asymmetric septal hypertrophy 2. Mildly dilated left atrium 3. Moderate aortic stenosis 4. Normal RV systolic pressure 5. Mildly dilated ascending aorta 6. No gross pericardial effusion Findings Procedure Information Contrast agent, definity, is being given per protocol without apparent complications. Left Ventricle Normal left ventricular size, thickness, and systolic function. The visually estimated ejection fraction is between 60-65%. Spectral Doppler is indicative of an impaired relaxation filling pattern. E/E prime ratio is between 8 and 15 consistent with indeterminate filling pressures. There is mild septal asymmetric hypertrophy. Atria The left atrium is mildly dilated. Interatrial shunt cannot be excluded. The right atrium is normal in size. Aortic Valve There is moderate calcification of the aortic valve. There is moderate thickening of the aortic valve. There is moderate aortic valve stenosis. The peak aortic gradient is 39 mmHg.The mean gradient is 24 mmHg. The aortic valve area is 1.19 cm2. There is no aortic valve regurgitation. Mitral Valve The mitral valve was not well visualized. There is mild mitral annular calcification. There is no mitral valve regurgitation. There is no mitral valve stenosis. Pulmonic Valve The pulmonic valve was not well visualized. Tricuspid Valve Likely normal tricuspid valve structure and function. There is trace tricuspid valve regurgitation. The right ventricular systolic pressure is normal. The right ventricular systolic pressure is 22 mmHg. Normal right atrial pressure. There is no evidence of pulmonary hypertension. Great Vessels The pulmonary artery was not well visualized. There is mild dilatation of the ascending aorta measuring 4.30 cm. Venous The inferior vena cava is normal in size and collapses greater than 50% with inspiration. Pericardium/Pleural There is no evidence of pericardial effusion. Prior Study Comparison Changes noted compared to prior study dated: 12/23/2018. Aortic stenosis has progressed to moderate range. Ascending aorta is mildly dilated Measurements 2D Linear Measurements IVSd: 1.48 0.6-0.9/0.6-1.0 cm LVIDd: 3.91 3.9-5.3/4.2-5.9 cm LVIDd Index: 1.73 2.4-3.2/2.2-3.1 cm/m2 LVIDs: 2.72 2.0-3.6 cm LVPWd: 1.07 0.7-1.1 cm LA Diam: 4.00 2.7-3.8/3.0-4.0 cm LAIDs Index: 1.77 1.5-2.3 cm/m2 LV Mass: 218.20 67-162/88-224 g LV Mass Index: 96.55 43-95/49-115 g/m2 LVOT Diam: 2.20 3.0+(-)1.3 cm 2D Systolic Function EF 4C: 65.40 >55% EF 2C: 61.00 >55% EF BiP: 62.90 >55% Mitral Valve MV Pk E: 0.82 MV PK A: 0.93 MV Decel Time: 307.00 E/A: 0.90 E'Lateral: 8.81 E'Medial: 5.00 E/E' Med: 16.50 E/E' Lat: 9.30 PHT: 90.00 MVA PHT: 2.44 Decel Mcdonough: 2.68 Aortic Valve AoV Pk Dawit: 3.11 AoV Mn Dwait: 2.31 AoV VTI: 0.75 AoV Pk Grad: 39.00 Aov Mn Grad: 24.00 ILENE Cont.VTI: 1.19 LVOT LVOT Pk Dawit: 0.89 LVOT Mn Dawit: 0.69 LVOT VTI: 0.23 LVOT Pk Grad: 3.00 LVOT Mn Grad: 2.00 LVOT Diam: 2.20 LVOT Area: 3.80 Diastolic Function MV Pk E: 0.82 MV Pk A: 0.93 E/A: 0.90 E'Medial: 5.00 E/E' Med: 16.50 E' Laterial: 8.81 E/E' Lat: 9.30 Right Ventricle TAPSE (mm): 29.10 TVS' Dawit: 11.50 Tricuspid Valve TR Pk Dawit: 2.16 TR Pk Grad: 19.00 RA Press: 3.00 RVSP: 22.00 Great Vessels Aorta Sinus of Valsalva: 4.20 2.0-3.[address] Ridge: 3.05 1.7-3.4 cm Ao Asc: 4.30 2.1-3.4 cm Updated in Other Vendor System with Status of Final Bar Merchant MD electronically signed on 10/15/2023 2:06:33 PM with status of Final
== END ==
LOC: HO.CARD 09:41
PROVIDERS: PCP Internal Medicine; Visit Provider Nurse Practitioner Family
DX: I35.0 Nonrheumatic aortic (valve) stenosis (principal)
CPT/HCPCS: 93306; Q9957

== ENCOUNTER → 2023-10-15 09:44 | Outpatient (BNV) | payer MEDICARE, SELFPAY | PROVIDERS: PCP Internal Medicine; Visit Provider Internal Medicine Cardiovascular Disease | DX: I35.0 Nonrheumatic aortic (valve) stenosis (principal); I35.8 Other nonrheumatic aortic valve disorders | CPT/HCPCS: 93306 ==

== ENCOUNTER 2024-03-12 09:27 | Outpatient (AMB) | payer MEDICARE, SELFPAY ==
[2024-03-12 09:28] VITALS: BP 130/70; PULSE 81; BMI 33.6
--- NOTE | 2024-03-12 09:28 | MHC.OFFVIS ---
Vital Signs 03/12/24 09:28 Height 5 ft 11 in Weight 240 lb 11.916 oz BMI 33.6 BP 130/70 Blood Pressure Location Lt brachial Position Sitting Pulse 81 Pulse Source Pulse Oximeter Intake Visit Reasons: follow-up per DC [employer] Required: No Accompanied by: Spouse Allergies amoxicillin Allergy (Severe, Verified 09/11/23 09:09) Anaphylaxis nifedipine [From PROCARDIA] Allergy (Unknown, Verified 09/11/23 09:09) Hives Medication List - Last Reconciled 03/12/24 by Bar Merchant MD ascorbic acid (vitamin C) ER 1,000 mg PO Q12H atorvastatin 80 mg PO DAILY [id number]-[id number] 50-325-40 mg 1 tab PO ONCE PRN cholecalciferol (vitamin D3) 25 mcg PO DAILY losartan 50 mg PO DAILY pantoprazole 40 mg PO DAILY tamsulosin 0.4 mg PO DAILY HPI Comments Details: Tony comes for follow-up after a long gap. He was last seen in the office December of 2022. He had a subsequent echocardiogram in September which showed progressive aortic stenosis but to the moderate range. Patient said recently he was traveling to [facility] and while walking around there he did feel short of breath and fatigue. He also notices when he walks on the golf course and up a hill he does get short of breath. Denies associated chest pain. Denies any lightheadedness. He denies any chest pain but occasionally at home when he does a flight of stairs from basement to the 1st floor gets short of breath. No orthopnea, PND, leg edema. Takes all his medications. Generally a blood pressure is well controlled. Denies any prolonged palpitation irregular heartbeat. No lightheadedness, syncope. He said 2 of his brothers both older and younger than him have had coronary artery disease and coronary artery bypass grafting. [facility] Medical History BPH (benign prostatic hyperplasia) PVC's (premature ventricular contractions) Right knee injury HTN (hypertension) Hyperlipidemia GERD (gastroesophageal reflux disease) Surgical History History of cervical discectomy History of right inguinal hernia repair Hx of cholecystectomy Hx of colonoscopy History of total right knee replacement (TKR) History of total left knee replacement (TKR) History of surgical removal of pilonidal cyst History of spinal surgery History of esophagogastroduodenoscopy (EGD) Family History Mother No problems noted. Father Heart disease Brother Afib Brother Afib Brother Afib Brother Afib Sister Leukemia Social History Household Members: Spouse Housing: House Are you a primary healthcare facility administrator to a significant other at home: No Do you presently have visiting nurse or other home services: No Alcohol intake: current Alcohol intake frequency: 0-2 drinks per day Alcohol type: beer Comment: last yr x 3 - knees gave out Patient Tobacco Use Status: Former Tobacco user Years Smoked: 10 +/- Second Hand Smoke Exposure: No service: Yes Current occupational status: retired Review of Systems Const Denies chills, Denies fatigue, Denies fever(s), Denies frequent falls, Denies weakness, Denies weight gain and Denies weight loss ENT Denies dizziness Card Denies chest pain, Denies leg edema, Denies lightheadedness, Denies palpitations, Denies dyspnea and Denies dyspnea on exertion Resp Denies cough, Denies dyspnea and Denies dyspnea on exertion GI Denies hematochezia Musc Denies abnormal gait, Denies muscle weakness, Denies numbness, Denies radiating pain into limb and Denies tingling Neuro Denies Abnormal speech present, Denies abnormal gait, Denies dizziness, Denies frequent falls, Denies numbness, Denies tingling and Denies weakness Endo Denies fatigue and Denies palpitations Physical Exam Vital Signs: Last Vital Signs Pulse 81 03/12/24 09:28 BP 130/70 03/12/24 09:28 BMI result Body Mass Index 33.6 Const General: cooperative, comfortable, no acute distress, well developed, alert, awake and Physically active Nutritional Appearance: well nourished and overweight Orientation/consciousness: patient oriented x3 Neck Neck: Yes trachea midline, Yes supple and Yes no JVD Carotids: no bruits Resp Effort & Inspection: normal respiratory effort Auscultation: clear to auscultation bilaterally, no crackles, no rales, no rhonchi and no wheezes Cardio Rate: regular rate Rhythm: regular rhythm Heart sounds: S1 normal heart sound present, S2 normal heart sound present, no gallops, Murmur heart sound present systolic mid, decrescendo, crescendo and harsh and no rubs GI Auscultation: normal bowel sounds Skin General skin exam: no rashes or lesions noted Neuro General: patient oriented x3 Speech: No Abnormal speech present Extrem General: Yes normal to inspection and No no pedal edema Psych Appearance: grossly normal Mental Status: mental status grossly normal Speech and movement: Normal speech and movement present Assessment & Plan Assessment & Plan (1) Exertional dyspnea: Code(s): R06.09 - Other forms of dyspnea Category: Medical Plan: Exertional dyspnea in this elderly gentleman with strong family history for coronary artery disease with multiple risk factors including his personal history of carotid endarterectomy. High risk for underlying coronary artery disease. This needs to be further evaluated. I have advised her to avoid sudden strenuous exertion. Will suggest exercise myocardial perfusion imaging as physiologic test to assess for myocardial ischemia. If he does not performed well or has borderline testing would strongly recommend coronary CTA at that point in time. Continue aggressive risk factor modification. Continue low-dose aspirin therapy. See below for further vascular risk factor modification. (2) Aortic stenosis: Code(s): I35.0 - Nonrheumatic aortic (valve) stenosis Category: Medical Plan: Aortic stenosis which is moderate. We discussed about progressive nature of aortic stenosis generally. As no significant rapid progression to his aortic stenosis. Will follow-up echocardiogram in next September. Symptoms associated with aortic stenosis were discussed including chest pressure, shortness of breath, exertional lightheadedness. Moderate aortic stenosis should generally not cause any symptoms. Will continue monitor clinically. Continue aggressive vascular risk factor modification. Continue low-dose aspirin therapy. Continue aggressive blood pressure control which is currently well optimized. Continue high-intensity statin therapy with target goal LDL less than 70 mg/dL. Will obtain lipid panel from your office. (3) PVC's (premature ventricular contractions): Code(s): I49.3 - Ventricular premature depolarization Category: Medical Plan: PVCs in the past, currently not symptomatic. No specific treatments indicated. Avoidance of stimulants was discussed. Will follow up in the clinic in 7 months time, sooner p.r.n.. Thank you for allowing me to partake in his care Orders: Orders CA stress test Today R06.09 - Other forms of dyspnea NM cardiolite stress test 2 Weeks R06.09 - Other forms of dyspnea, R07.9 - Chest pain, unspecified Coding Level of Care Code Est Pt Level 4 (42558) Diagnoses Exertional dyspnea R06.09 Aortic stenosis I35.0 PVC's (premature ventricular contractions) I49.3
== END 2024-03-12 09:55 | disposition home or self-care (01) ==
PROVIDERS: PCP Internal Medicine; Visit Provider Internal Medicine Cardiovascular Disease
DX: R06.09 Other forms of dyspnea (principal); I35.0 Nonrheumatic aortic (valve) stenosis; I49.3 Ventricular premature depolarization
CPT/HCPCS: 99214

== ENCOUNTER → 2024-03-12 09:27 | Outpatient (BNVA) | payer MEDICARE, SELFPAY | PROVIDERS: PCP Internal Medicine; Visit Provider Internal Medicine Cardiovascular Disease | DX: I35.0 Nonrheumatic aortic (valve) stenosis (principal); I49.3 Ventricular premature depolarization; R06.09 Other forms of dyspnea; R07.9 Chest pain, unspecified | CPT/HCPCS: 99212 ==

== ENCOUNTER 2024-03-16 08:47 | Outpatient (REF) | payer MEDICARE, SELFPAY ==
--- NOTE | ~2024-03-16 | US_ITS ---
EXAMINATION: US EXTRACRANIAL CAROTID DUPLEX, BILATERAL CLINICAL INFORMATION: Carotid stenosis. Endarterectomy in 2022. COMPARISON: Carotid ultrasound 07/30/2023. TECHNIQUE: Real-time ultrasound and Doppler techniques (integrating B-mode 2-D vascular images, Doppler spectral analysis and color-flow Doppler imaging) were utilized to interrogate the extracranial carotid arteries, the vertebral arteries and proximal subclavian arteries bilaterally. The degree of stenosis is determined by criteria similar to NASCET. FINDINGS: Right Side: 1. There is severe atherosclerotic plaque seen in the bifurcation/proximal ICA region. 2. The common carotid artery PSV proximally is 79 cm/s and distally 65 cm/s. 3. The proximal internal carotid artery velocities are 79 cm/s systolic and 29 cm/s diastolic. 4. The proximal external carotid artery PSV is 162 cm/s. 5. The vertebral artery shows antegrade flow. 6. The subclavian artery waveforms are triphasic. Left Side: 1. There is mild atherosclerotic plaque seen in the bifurcation/proximal ICA region. 2. The common carotid artery PSV proximally is 77 cm/s and distally 72 cm/s. 3. The proximal internal carotid artery velocities are 63 cm/s systolic and 20 cm/s diastolic. 4. The proximal external carotid artery PSV is 91 cm/s. 5. The vertebral artery shows antegrade flow. 6. The subclavian artery waveforms are triphasic. US/US carotid duplex BI IMPRESSION: 1. RIGHT: Severe plaque. Minimal, non-hemodynamically significant stenosis of the proximal right internal carotid artery corresponding to a 0-49% stenosis by velocity criteria. 2. LEFT: Endarterectomy. Mild plaque. Minimal, non-hemodynamically significant stenosis of the proximal left internal carotid artery corresponding to a 0-49% stenosis by velocity criteria. 3. There is no change in the category severity of disease when compared to the previous study dated 07/30/2023. Electronically signed by: Rah Deleon MD 03/17/2024 01:19 PM EDT
== END 2024-03-16 08:48 | disposition home or self-care (01) ==
LOC: HO.HMGCX 08:47
PROVIDERS: PCP Internal Medicine; Visit Provider Surgery Vascular Surgery
DX: I65.23 Occlusion and stenosis of bilateral carotid arteries (principal)
CPT/HCPCS: 93880

== ENCOUNTER 2024-04-20 10:00 | Outpatient (AMB) | payer MEDICARE, SELFPAY ==
--- NOTE | 2024-04-20 10:14 | MHC.OFFVIS ---
Vital Signs 04/20/24 10:15 04/20/24 10:18 Height 5 ft 11 in Weight 225 lb BMI 31.4 BP 140/80 H 138/84 Blood Pressure Location Lt brachial Rt brachial Position Sitting Sitting Intake Visit Reasons: 6 mo follow up carotid US 03/16/24 Intake Note: 6 mo carotid US 03/16/24 w/ Hx of LeftCEA 11/11/22 and Left Neck hematoma 11/15/22. No complaints Accompanied by: Self / Same As Patient Allergies amoxicillin Allergy (Severe, Verified 04/20/24 10:16) Anaphylaxis nifedipine [From PROCARDIA] Allergy (Unknown, Verified 04/20/24 10:16) Hives HPI HPI 6 mo follow up carotid US 03/16/24: Details: Very pleasant 78-year-old gentleman presents for routine carotid surveillance follow-up. He underwent left CEA in 2022. He had a subsequent re-exploration for bleeding. Overall reports he is doing fairly well. He has had no interval issues. Is being maintained on aspirin and high-dose statin. He now presents for routine follow-up. [facility] Medical History BPH (benign prostatic hyperplasia) PVC's (premature ventricular contractions) Right knee injury HTN (hypertension) Hyperlipidemia GERD (gastroesophageal reflux disease) Surgical History History of cervical discectomy History of right inguinal hernia repair Hx of cholecystectomy Hx of colonoscopy History of total right knee replacement (TKR) History of total left knee replacement (TKR) History of surgical removal of pilonidal cyst History of spinal surgery History of esophagogastroduodenoscopy (EGD) Family History Mother No problems noted. Father Heart disease Brother Afib Brother Afib Brother Afib Brother Afib Sister Leukemia Social History Household Members: Spouse Housing: House Are you a primary critical care physician assistant to a significant other at home: No Do you presently have visiting nurse or other home services: No Alcohol intake: current Alcohol intake frequency: 0-2 drinks per day Alcohol type: beer Comment: last yr x 3 - knees gave out Patient Tobacco Use Status: Former Tobacco user Years Smoked: 10 +/- Second Hand Smoke Exposure: No service: Yes Current occupational status: retired Review of Systems Const All systems reviewed & are unremarkable except as noted in HPI and below Reports no additional complaints ENT Reports Normal hearing present Card Denies chest pain, Denies chest pain at rest, Denies chest pain with activity and Denies pedal edema Resp Denies cough GI Denies abdominal pain Musc Denies abnormal gait, Denies muscle cramps and Denies radiating pain into limb Skin/Breast Denies skin ulcer and Denies wounds Neuro Reports Normal hearing present and Denies abnormal gait Psych Reports no additional complaints Physical Exam Vital Signs: Last Vital Signs BP 138/84 04/20/24 10:18 BMI result Body Mass Index 31.4 Const General: cooperative, healthy appearing and comfortable Orientation/consciousness: oriented to person, oriented to place and oriented to time HEENT Head: Yes normal to inspection Neck Neck: Yes normal visual inspection Carotids: no bruits Chest Chest palpation & inspection: normal inspection of the chest Resp Effort & Inspection: normal respiratory effort and able to speak in complete sentences Auscultation: clear to auscultation bilaterally, no crackles, no rales, no rhonchi and no wheezes Cardio Rate: regular rate Rhythm: regular rhythm Heart sounds: S1 normal heart sound present and S2 normal heart sound present Bruits: no carotid bruits Peripheral pulses: Peripheral pulses 2+ throughout GI Inspection: Yes normal to inspection Skin Wounds: no wounds Hair: normal Neuro General: oriented to person, oriented to place and oriented to time Cranial nerves: Yes CN's II-XII intact bilaterally and Yes Normal hearing present Cognition (Neuro): normal cognition Motor exam (neuro): 5/5 motor strength present throughout Extrem Other: venous exam: No significant superficial varicosities or spider telangiectasias, minimal edema General: No clubbing, No cyanosis and No edema Psych Appearance: grossly normal Mental Status: mental status grossly normal Speech and movement: Normal speech and movement present Results Reviewed Results Reviewed: Noninvasive carotid testing dated 03/16/2024 demonstrates right-sided 0-49 and left-sided 0-49. Right peak systolic of 79 and left peak systolic of 63. Assessment & Plan Assessment & Plan (1) Bilateral carotid artery stenosis: Comment: 11/11/2022 - left carotid endarterectomy Code(s): I65.23 - Occlusion and stenosis of bilateral carotid arteries Category: Medical Plan: In short patient has asymptomatic carotid disease. We have reviewed signs and symptoms of a stroke. We also discussed risk factor modification inclusive a healthy diet low in cholesterol. The patient will follow up with us with surveillance ultrasound of the carotids 1 year. Should there be any changes or signs or symptoms of a stroke we will be happy to see them back sooner. Thank you for allowing us to participate in this patient's care. If there are any questions or concerns please do not hesitate to contact us. Coding Level of Care Code Est Pt Level 4 (85293) Diagnoses Bilateral carotid artery stenosis I65.23
[2024-04-20 10:15] VITALS: BP 140/80; BMI 31.4
[2024-04-20 10:18] VITALS: BP 138/84
== END 2024-04-20 10:43 | disposition home or self-care (01) ==
PROVIDERS: PCP Internal Medicine; Visit Provider Surgery Vascular Surgery
DX: I65.23 Occlusion and stenosis of bilateral carotid arteries (principal)
CPT/HCPCS: 99214

== ENCOUNTER → 2024-04-20 10:00 | Outpatient (BNVA) | payer MEDICARE, SELFPAY | PROVIDERS: PCP Internal Medicine; Visit Provider Surgery Vascular Surgery | DX: I65.23 Occlusion and stenosis of bilateral carotid arteries (principal); Z87.891 Personal history of nicotine dependence | CPT/HCPCS: 99212 ==

== ENCOUNTER → 2024-04-30 08:52 | Outpatient (REF) | payer MEDICARE, SELFPAY ==
--- NOTE | ~2024-04-30 | NM_ITS ---
EXERCISE MYOCARDIAL PERFUSION STUDY INDICATION: Chest pain to evaluate for myocardial ischemia TECHNIQUE: The patient was brought in for an exercise perfusion study on 04/30/2024. Patient performed exercise as per Rashawn protocol and was injected 35 mCi of sestamibi once target heart rate was achieved. Images were obtained using the SPECT gamma camera interlaced with the gating device. Images were obtained in supine position. Resting perfusion study was performed on 05/04/2024. Patient was administered 35 mCi of sestamibi intravenously at rest. Images were then obtained in supine position. Images obtained without without CT attenuation. Total DLP 104 mGy-cm Images were processed with the software and compared side to side in short axis, horizontal long axis and vertical long axis views. FINDINGS: Raw images were reviewed The stress perfusion study showed nonattenuated images show mildly reduced uptake in the basal inferior, mid inferior and basal inferolateral wall of the LV myocardium. Remainder of the LV myocardium is normally perfused. Attenuated corrected images show overall normal uptake ordered images in all segments of the LV myocardium.. The gated study shows normal LV systolic function with calculated LVEF of 68%. LV cavity is normal in size. The gated study shows normal systolic wall thickening and contraction of segments. Resting study shows no change in perfusion pattern compared to stress perfusion study. Gating at rest reveals normal systolic wall motion with ejection fraction at 71%. The findings are consistent with normal myocardial perfusion. NM/NM cardiolite stress test IMPRESSION: 1. Myocardial perfusion imaging study shows normal myocardial perfusion. 2. Gated LVEF is 68%. 3. Transient ischemic dilatation not present. EKG revealed negative for ischemia. Electronically signed by: Bar Merchant MD 05/04/2024 01:37 PM EDT
--- NOTE | 2024-04-30 08:54 | CA_ITS ---
Acquisition Time: 2024-04-30 08:48:06 Total Exercise Time: 00:06:10 Test Indications: Abnormal ECG PVC'S Medications: ATORVASTATIN FIORCET LOSARTAN PANTOPRAZOLE TAMSULOSIN Protocol: ROSIO Max HR: 127 BPM 88% of Pred: 144 BPM Max BP: 180/082 mmHG Max Work Load: 7.0 METS Exercise stress test wth exercise 6 min 10 sec of Rosio protocol, achieing 86% MPHR, without anginal symptoms, with isolated PACs and PVCs, with normotensive response to exercise, without EKG changes meeting criteria for ischemia. Nuclear images pending. Test reviewed with Dr Merchant Referred By: Bar Merchant Overread By: EUFEMIA POTTER
== END ==
LOC: HO.CARD 08:52
PROVIDERS: PCP Internal Medicine; Visit Provider Internal Medicine Cardiovascular Disease
DX: R07.9 Chest pain, unspecified (principal); R06.09 Other forms of dyspnea
CPT/HCPCS: 78452; 93017; A9500

== ENCOUNTER → 2024-04-30 08:54 | Outpatient (BNV) | payer MEDICARE, SELFPAY | PROVIDERS: PCP Internal Medicine; Visit Provider Nurse Practitioner Family | DX: I49.1 Atrial premature depolarization (principal); I49.3 Ventricular premature depolarization | CPT/HCPCS: 78452; 93016; 93018 ==

== ENCOUNTER → 2024-11-02 09:55 | Outpatient (REF) | payer MEDICARE, SELFPAY ==
--- NOTE | 2024-11-02 10:07 | CA_ITS ---
Transthoracic Echocardiogram Patient (Last, First, Middle): Tony Gilmore J Gender: Male Date of : 1945 Age: 79 Procedure Date: 11/02/2024 Procedure Type: Transthoracic Echocardiogram Location: OP Height: 182.88 cm Weight: 106.6 kg BSA: 2.28 m2 Heart Rate: bpm BP: 130 / 75 mmHg Machine Iii Coremaker: ELIZABETH/MICHAELA Referring MD: Bar Merchant MD Inspector Wire Products: Bar Merchant MD Symptoms: I35.0 - Nonrheumatic aortic (valve) stenosis Study Quality: Adequate with contrast ECG Rhythm: Sinus Conclusions: - 1. Normal LV ejection fraction of 65-70% with mild LVH with impaired relaxation filling pattern 2. Moderate aortic stenosis 3. Mildly dilated ascending aorta at 4.2 cm 4. No pericardial effusion Findings Procedure Information Contrast agent, definity, is being given per protocol without apparent complications. Left Ventricle Normal left ventricular size and systolic function. There is mildly increased left ventricular wall thickness. The visually estimated ejection fraction is between 65-70%. Spectral Doppler is indicative of an impaired relaxation filling pattern. E/E prime ratio is between 8 and 15 consistent with indeterminate filling pressures. Right Ventricle Normal right ventricular cavity size and systolic function. Atria The left atrium is likely dilated. There is no evidence of interatrial shunt. The right atrium is normal in size. Aortic Valve There is moderate calcification of the aortic valve. There is moderate thickening of the aortic valve. There is moderate aortic valve stenosis. The peak aortic gradient is 54 mmHg.The mean gradient is 35 mmHg. The aortic valve area is 1.33 cm2. There is no aortic valve regurgitation. Mitral Valve There is mild anterior mitral leaflet thickening. There is trace mitral valve regurgitation. There is no mitral valve stenosis. Pulmonic Valve The pulmonic valve is likely normal. There is trace pulmonic valve regurgitation. Tricuspid Valve Likely normal tricuspid valve structure and function. Tricuspid regurgitation envelope is inadequate for calculation of right ventricular systolic pressure. Normal right atrial pressure. Great Vessels The pulmonary artery was not well visualized. There is mild dilatation of the ascending aorta measuring 4.20 cm. Small plaque is seen in the sino tubular ridge. Venous The inferior vena cava is normal in size and collapses greater than 50% with inspiration. Pericardium/Pleural There is no evidence of pericardial effusion. Prior Study Comparison No significant change compared to prior study dated: 10/15/2023. Measurements 2D Linear Measurements IVSd: 1.44 0.6-0.9/0.6-1.0 cm LVIDd: 3.59 3.9-5.3/4.2-5.9 cm LVIDd Index: 1.57 2.4-3.2/2.2-3.1 cm/m2 LVIDs: 2.79 2.0-3.6 cm LVPWd: 1.15 0.7-1.1 cm LA Diam: 3.60 2.7-3.8/3.0-4.0 cm LAIDs Index: 1.58 1.5-2.3 cm/m2 LV Mass: 197.35 67-162/88-224 g LV Mass Index: 86.56 43-95/49-115 g/m2 LVOT Diam: 2.50 3.0+(-)1.3 cm 2D Systolic Function EF 4C: 62.30 >55% EF 2C: 71.80 >55% EF BiP: 66.80 >55% Mitral Valve MV Pk E: 0.80 MV PK A: 0.95 MV Decel Time: 378.00 E/A: 0.80 E'Lateral: 9.68 E'Medial: 5.11 E/E' Med: 15.60 E/E' Lat: 8.20 PHT: 111.00 MVA PHT: 1.98 Decel [place]: 2.11 Aortic Valve AoV Pk Dawit: 3.66 AoV Mn Dawit: 2.82 AoV VTI: 0.90 AoV Pk Grad: 54.00 Aov Mn Grad: 35.00 ILENE Cont.VTI: 1.33 LVOT LVOT Pk Dawit: 1.06 LVOT Mn Dawit: 0.80 LVOT VTI: 0.24 LVOT Pk Grad: 4.00 LVOT Mn Grad: 3.00 LVOT Diam: 2.50 LVOT Area: 4.91 Diastolic Function MV Pk E: 0.80 MV Pk A: 0.95 E/A: 0.80 E'Medial: 5.11 E/E' Med: 15.60 E' Laterial: 9.68 E/E' Lat: 8.20 Right Ventricle TAPSE (mm): 25.90 TVS' Dawit: 11.60 Tricuspid Valve TR Pk Dawit: 2.11 TR Pk Grad: 18.00 Great Vessels Aorta Sinus of Valsalva: 4.04 2.0-3.[address] [place]: 3.00 1.7-3.4 cm Ao Asc: 4.20 2.1-3.4 cm Updated in Other Vendor System with Status of Final Bar Merchant MD electronically signed on 11/02/2024 4:37:59 PM with status of Final
--- OUTSIDE RECORDS SUMMARY | 2024-11-02 11:28 | XMS_ITS | Patient Health Record ---
Author Organization [facility] Address [address] [place] [address] Care Team Providers Care Nutrient Management Specialist Name Role Phone Denys Snow MD Primary Care Provider Jose Bonner Unavailable [phone] Allergies Allergen (clinical drug ingredient) Drug/Non Drug Allergy documented on EMR Reaction Allergy Type Onset Date Status amoxicillin Amoxicillin Meningitis Drug Allergy Ac tive Procardia Unknown Drug Allergy Active Reason For Referral No Information Medications Medication SIG (Take, Route, Frequency, Duration) Notes Start Date End Date Status Vitamin C Active Vitamin D Active traMADol HCl Not-Evgeny ing Pantoprazole Sodium 40 MG TAKE 1 TABLET BY MOUTH EVERY DAY Oral for 90 Active Atorvastatin Calcium 40 MG TAKE 1 TABLET BY MOUTH EVERY DAY Oral for 90 Active Losartan Potassium 50 MG Oral for 90 Active Tamsulosin HCl 0.4 MG 1 capsule Orally O nce a day Active Multivitamin Active Immunizations Vaccine Route Administration Date Status Comme nts Influenza Unknown 05/21/2022 Administered Social History Alcohol Screen Question Answer Notes Did you have a drink contain ing alcohol in the past year? Yes How often did you have a dri nk containing alcohol in the past year? 4 or more times a week (4 points) How many drinks did you have on a typical day when you were drinking in the past year? 3 or 4 drinks (1 point) How often did you have 6 or more drinks on one occasion in the past year? Never (0 point) Points 5 Interpretation Positive Section Notes: He does not smoke and has oc casional beer He does not smoke and has oc casional beer Problems Problem Type SNOMED Code ICD Code Onset Dates Problem Status W/U Status Risk Notes Problem Screening for malignant neoplasm of colon (819335683) Encounter for screening for malignant neoplasm of colon (Z12.11) Active confirmed Problem Diverticular disease of colon (749368885) Diverticulosis of large intestine without perforation or abscess without bleeding (K57.30) Active confirmed Problem Preprocedural examination (458681943422352) Preprocedural examination (Z01.818) Active confirmed Plan Of Treatment Pending Test Test Name Order Date Pathology 08/01/2022 Future Test Test Name Order Date COLONOSCOPY 07/16/2011 COLONOSCOPY 06/04/2022 Insurance Providers Payer Name Payer Address Payer Phone Subscriber Number Group Number Insured Name Patient Relationship to Insured Coverage Start Date Coverage End Date MEDICARE OF [place] [address] [place] [address] [id number] CAR PALACIOS Self - patient is the insured MEDEX ATTN CLAIMS [address] [place] [address] [id number] CAR PALACIOS Self - patient is the insured Medical (General) History Medical History History ICD Code GERD-EGD 2005 with a small HH--no Jj t's Hyperlipidemia Hypertension Denies [place], diabetes, stroke, lung diseas e and renal disease Negative colonoscopies in 2003 and 2011 Surgical History Surgery Date(Month/Year) Cholecystectomy Cervical spine disc surgery Pilonidal cyst Left knee replacement 03/2022 and right k nee scheduled for 08/07/2022 Hernia
--- OUTSIDE RECORDS SUMMARY | 2024-11-02 11:29 | XMS_ITS | Patient Health Record ---
Author Organization [facility] Rodrigue tami Renan Address [address] [place] [address] Care Team Providers Care Editorial Writer Name Role Phone Denys Snow MD Primary Care Provider Bernard Jones Unavailable [phone] Allergies Allergen (clinical drug ingredient) Drug/Non Drug Allergy documented on EMR Reaction Allergy Type Onset Date Status Procardia rash Drug Allergy Active lisinopril Zestril Unknown Drug Allergy Active amoxicillin Amoxicillin Unknown Drug Allergy Act sylvie Reason For Referral No Information Medications Medication SIG (Take, Route, Frequency, Duration) Notes Start Date End Date Status Zolpidem Tartrate 10 MG 1 tablet at bedt kaylyn as needed Orally Once a day Unknown Simvastatin 20 MG 1 tablet in the even ing Orally Once a day for 30 day(s) Unknown Benicar 20 MG as directed Orally Unknown Fish Oil 1200 MG 1 capsule Orally Onc e a day for 30 day(s) Unknown Protonix 40 MG 1 tablet Orally Once a day for 30 day(s) Unknown Fioricet 50-325-40 MG 1 tablet as needed Orally every 4 hrs Unknown Aspirin 81 MG 1 tablet Orally Once a day for 30 day(s) Unknown Benicar 20 MG as directed Orally Not-Taking Simvastatin 20 MG 1 tablet in the even ing Orally Once a day for 30 day(s) Not-Taking Protonix 40 MG 1 tablet Orally Once a day for 30 day(s) Active Fish Oil 1200 MG 1 capsule Orally Onc e a day for 30 day(s) Not-Taking Diclofenac Sodium 1 % as directed Transdermal Not-Taking Flomax Active Zolpidem Tartrate 10 MG 1 tablet at bedt kaylyn as needed Orally Once a day Not-Taking Aspirin 81 MG 1 tablet Orally Once a day for 30 day(s) Not-Taking Fioricet 50-325-40 MG 1 tablet as needed Orally every 4 hrs PRN Active Atorvastatin Calcium Active Losartan Potassium A ctive Atorvastatin Calcium 40 MG 1 tablet Orally Once a day for 30 day(s) Active Flomax 0.4 MG 1 capsule Orally Onc e a day for 30 day(s) Active Pantoprazole Sodium 40 MG 1 tablet Orall y Once a day for 30 day(s) Active Losartan Potassium 50 MG 1 tablet Orally Once a day for 30 day(s) Active Diclofenac Sodium 1 % as directed Transdermal Unknown Immunizations Vaccine Route Administration Date Status Comme nts COVID-19 Moderna Vaccine Unknown 08/30/2020 Administered Second Dose:09/18 Social History Tobacco Use: Social History Observation Description Date Details (start date - stop date) Former Smoker NA - NA Tobacco Use/Smoking Question Answer Notes Are you a: former smoker Additional Findings: Tobacco Non-User Ex-cigaret te smoker Problems Problem Type SNOMED Code ICD Code Onset Dates Problem Status W/U Status Risk Notes Problem Acquired hammer toe of right foot (4495734384764 105) Other hammer toe(s) (acquired), right foot (M20.41) Active confirmed Problem Acquired hammer toe of left foot (4375268516043 103) Other hammer toe(s) (acquired), left foot (M20.42) Active confirmed Plan Of Treatment Pending Test Test Name Order Date X ray : Foot, left 3V 02/16/2013 Insurance Providers Payer Name Payer Address Payer Phone Subscriber Number Group Number Insured Name Patient Relationship to Insured Coverage Start Date Coverage End Date Medicare National Govt Sv[employer] [address] [place] [address] [id number] Tony Brand Self - patient is the insured Medex Blue [facility] [address] [place] [address] [id number] Tony Brand Self - patient is the insured Medical (General) History Medical History History ICD Code hypertension hyperlipidemia gastroesophageal reflux disease (GERD) migraine headaches insomnia gall bladder problems plantar fasciitis Arthritis Measles Mumps Chicken pox Surgical History Surgery Date(Month/Year) neck surgery 1998 cholecystectomy 1988
== END ==
LOC: HO.CARD 09:55
PROVIDERS: PCP Internal Medicine; Visit Provider Internal Medicine Cardiovascular Disease
DX: I35.0 Nonrheumatic aortic (valve) stenosis (principal)
CPT/HCPCS: 93306; Q9957

== ENCOUNTER → 2024-11-02 10:07 | Outpatient (BNV) | payer MEDICARE, SELFPAY | PROVIDERS: PCP Internal Medicine; Visit Provider Internal Medicine Cardiovascular Disease | DX: I35.2 Nonrheumatic aortic (valve) stenosis with insufficiency (principal); I34.0 Nonrheumatic mitral (valve) insufficiency; I37.1 Nonrheumatic pulmonary valve insufficiency; I36.1 Nonrheumatic tricuspid (valve) insufficiency | CPT/HCPCS: 93306 ==

== ENCOUNTER 2024-11-23 08:46 | Outpatient (AMB) | payer MEDICARE, SELFPAY ==
[2024-11-23 08:52] VITALS: BP 126/74; PULSE 73; BMI 32.9
--- NOTE | 2024-11-23 08:52 | A.OFFVIS_ITS ---
Vital Signs 11/23/24 08:52 Height 5 ft 11 in Weight 235 lb 14.314 oz BMI 32.9 BP 126/74 Blood Pressure Location Lt brachial Position Sitting Pulse 73 Intake Visit Reasons: r/s 10/06/24 7 mos followup stress echo Intake Note: 7 month follow-up with ekg after stress echo feeling good Maintenance Data Analyst Required: No Allergies amoxicillin Allergy (Severe, Verified 04/20/24 10:16) Anaphylaxis nifedipine [From PROCARDIA] Allergy (Unknown, Verified 04/20/24 10:16) Hives Medication List - Last Reconciled 11/23/24 by Bar Merchant MD ascorbic acid (vitamin C) ER 1,000 mg PO Q12H aspirin (Ecotrin Low Strength) 81 mg PO DAILY atorvastatin 80 mg PO DAILY crqagpwidn-wicestmbgnuci-rbrd 50-325-40 mg 1 tab PO ONCE PRN cholecalciferol (vitamin D3) 25 mcg PO DAILY losartan 100 mg PO DAILY pantoprazole 40 mg PO DAILY tamsulosin 0.4 mg PO DAILY HPI Comments Details: Aubrey comes for follow-up. He had a recent injury after accidental fall with the left MCL injury which made him more sedentary. Now he notices that occasionally gets short of breath. However he said the symptoms are gradually getting be tter. He has been exercising more. Playing golf. He denies any symptoms of palpitations. No exertional chest pain or lightheadedness. He does get orthostatic lightheadedness when he gets up from a squatting position or stooped over position. Takes all his medications. Recently had elevated blood pressure in his losartan was increased and his blood pressure today is well controlled. Recent echocardiogram showed moderate aortic stenosis normal LV ejection fraction [facility] Medical History BPH (benign prostatic hyperplasia) PVC's (premature ventricular contractions) Right knee injury HTN (hypertension) Hyperlipidemia GERD (gastroesophageal reflux disease) Surgical History (Reviewed 11/23/24 @ 09: by Bar Merchant MD) History of cervical discectomy History of right inguinal hernia repair Hx of cholecystectomy Hx of colonoscopy History of total right knee replacement (TKR) History of total left knee replacement (TKR) History of surgical removal of pilonidal cyst History of spinal surgery History of esophagogastroduodenoscopy (EGD) Family History Mother No problems noted. Father Heart disease Brother Afib Brother Afib Brother Afib Brother Afib Sister Leukemia Social History Household Members: Spouse Housing: House Are you a primary health care coordinator to a significant other at home: No Do you presently have visiting nurse or other home services: No Alcohol intake: current Alcohol intake frequency: 0-2 drinks per day Alcohol type: beer Comment: last yr x 3 - knees gave out Patient Tobacco Use Status: Former Tobacco user Years Smoked: 10 +/- Second Hand Smoke Exposure: No service: Yes Current occupational status: retired Review of Systems Const Denies chills, Denies fatigue, Denies fever(s), Denies frequent falls, Denies weakness, Denies weight gain and Denies weight loss ENT Denies dizziness Card Denies chest pain, Denies leg edema, Denies lightheadedness, Denies palpitations, Denies dyspnea, Denies dyspnea on exertion, Denies orthopnea and Denies other (loss of consciousness) Resp Denies cough, Denies dyspnea and Denies dyspnea on exertion GI Denies hematochezia and Denies change in stool character Musc Denies abnormal gait, Denies muscle weakness, Denies numbness, Denies radiating pain into limb and Denies tingling Neuro Denies Abnormal speech present, Denies abnormal gait, Denies dizziness, Denies frequent falls, Denies numbness, Denies tingling and Denies weakness Endo Denies fatigue and Denies palpitations Physical Exam Vital Signs: Last Vital Signs Pulse 73 11/23/24 08:52 BP 126/74 11/23/24 08:52 BMI result Body Mass Index 32.9 Const General: cooperative, comfortable, no acute distress, well developed, alert, awake and Physically active Nutritional Appearance: well nourished and overweight Orientation/consciousness: patient oriented x3 Neck Neck: Yes trachea midline, Yes supple and Yes no JVD Carotids: no bruits Resp Effort & Inspection: normal respiratory effort Auscultation: clear to auscultation bilaterally, no crackles, no rales, no rhonchi and no wheezes Cardio Rate: regular rate Rhythm: regular rhythm Heart sounds: S1 normal heart sound present, S2 normal heart sound present, no click, no gallops, Murmur heart sound present systolic mid, decrescendo, cresc endo and harsh and no rubs GI Auscultation: normal bowel sounds Skin General skin exam: no rashes or lesions noted Neuro General: patient oriented x3 Speech: No Abnormal speech present Extrem General: Yes normal to inspection and No no pedal edema Psych Appearance: grossly normal Mental Status: mental status grossly normal Speech and movement: Normal speech and movement present Office Procedures EKG Details: EKG shows normal sinus rhythm with first-degree AV block otherwise normal EKG 49495-[id number], Complete Assessment & Plan Assessment & Plan (1) Aortic stenosis: Code(s): I35.0 - Nonrheumatic aortic (valve) stenosis Category: Medical Plan: Aortic stenosis which is moderate by clinical exam by echocardiogram. We discussed about pathophysiology of aortic stenosis. This is not likely cause of his symptoms. He had good exercise capacity last year without any evidence of ischemia. He does have evidence of bilateral carotid disease and needs aggressive medical therapy. He is currently on low-dose aspirin therapy which is very important and was advised to continue the same. Also advised to continue high-intensity statin therapy. Advised lipid panel at least on annual basis. Continue aggressive blood pressure control which is currently well optimized on current medication with losartan. Advised to maintain activity level as tolerated. We discussed about cardinal symptoms of aortic stenosis. Gradually progressive nature of aortic stenosis were discussed. Follow-up echocardiogram in 1 year's time. (2) PVC's (premature ventricular contractions): Code(s): I49.3 - Ventricular premature depolarization Category: Medical Plan: PVCs without any obvious symptoms at current point time. No additional therapy is recommended at this point time. Avoidance of stimulants was discussed. Advised to call me with any new or worsening symptoms. Follow up in the clinic in 1 year's time, sooner p.r.n.. Thank you for allowing me to partake in his care Medications: New aspirin (Ecotrin Low Strength) 81 mg PO DAILY 30 tabs 5RF Coding Level of Care Code Est Pt Level 4 (98900) Complex EM visit Add On G2211 Diagnoses Aortic stenosis I35.0 PVC's (premature ventricular contractions) I49.3 CPT Codes EKG - CPT: 54503-[id number], Complete ([id number])
--- OUTSIDE RECORDS SUMMARY | 2024-11-23 09:19 | XMS_ITS | Patient Health Record ---
Author Organization [facility] Rodrigue tami Veneta Address [address] [place] [address] Care Team Providers Care Marine Structural Designer Name Role Phone Denys Snow MD Primary Care Provider Bernard Jones Unavailable [phone] Allergies Allergen (clinical drug ingredient) Drug/Non Drug [...] Problem Acquired hammer toe of right foot (3792294571426 105) Other hammer toe(s) (acquired), right foot (M20.41) Active confirmed Problem Acquired hammer toe of left foot (5134562678861 103) Other hammer toe(s) (acquired), left foot [...] [address] [place] [address] [id number] Tony Brand Self - patient is the insured Medex Blue [facility] [address] [place] [address] [id number] Tony Brand Self - patient is the insured Medical (General) History Medical History History ICD Code hypertension hyperlipidemia gastroesophageal reflux disease (GERD) migraine headaches insomnia gall bladder problems plantar fasciitis Arthritis Measles Mumps Chicken pox Surgical History Surgery Date(Month/Year) neck surgery 1998 cholecystectomy 1988
--- OUTSIDE RECORDS SUMMARY | 2024-11-23 09:19 | XMS_ITS | Patient Health Record ---
Author Organization [facility] Address [address] [place] [address] Care Team Providers Care Wage Analyst Name Role Phone Denys Snow MD Primary Care Provider Jose Bonner Unavailable [phone] Allergies Allergen (clinical drug ingredient) Drug/Non Drug [...] Problem Screening for malignant neoplasm of colon (520783910) Encounter for screening for malignant neoplasm of colon (Z12.11) Active confirmed Problem Diverticulosis o f large intestine without perforation or abscess without bleeding (K57.30) Active confirmed Problem Preprocedural examination (286657739680386) Preprocedural examination (Z01.818) Active confirmed Plan Of Treatment Pending Test Test Name Order Date Pathology 08/01/2022 Future Test Test Name Order Date COLONOSCOPY 07/16/2011 COLONOSCOPY 06/04/2022 Insurance Providers Payer Name Payer Address Payer Phone Subscriber Number Group Number Insured Name Patient Relationship to Insured Coverage Start Date Coverage End Date MEDICARE OF [place] [address] [place] [address] [id number] CAR PALACIOS Self - patient is the insured MEDEX ATTN CLAIMS [address] [place] [address] [phone] [id number] CAR PALACIOS Self - patient is the insured Medical (General) History Medical History History ICD Code GERD-EGD 2005 with a small HH--no Jj t's Hyperlipidemia Hypertension Denies [place], diabetes, stroke, lung diseas e and renal disease Negative colonoscopies in 2003 and 2011 Surgical History Surgery Date(Month/Year) Cholecystectomy Cervical spine disc surgery Pilonidal cyst Left knee replacement 03/2022 and right k nee scheduled for 08/07/2022 Hernia
== END 2024-11-23 09:28 | disposition home or self-care (01) ==
LOC: HO.HCS 08:47
PROVIDERS: PCP Internal Medicine; Visit Provider Internal Medicine Cardiovascular Disease
DX: I35.0 Nonrheumatic aortic (valve) stenosis (principal); I49.3 Ventricular premature depolarization
CPT/HCPCS: 93010; 99214; G2211

== ENCOUNTER → 2024-11-23 08:46 | Outpatient (BNVA) | payer MEDICARE, SELFPAY | PROVIDERS: PCP Internal Medicine; Visit Provider Internal Medicine Cardiovascular Disease | DX: I35.0 Nonrheumatic aortic (valve) stenosis (principal); I49.3 Ventricular premature depolarization | CPT/HCPCS: 93005; 99212 ==